=== PATIENT | female | born 1945 | race Caucasian/White ===

== ENCOUNTER 2017-12-10 18:08 | Inpatient (IN) | payer OTHER, BC ==
[2017-12-10] MEDS ORDERED: NALOXONE HCL 2 MG/2 ML VIAL ONE (18:31)
[2017-12-10] MEDS ORDERED: NA CHLORIDE 0.9% 1,000 ML ONE (18:37)
[2017-12-10 18:54] LABS: Arterial Blood Carboxyhemoglob 1.5 % (0-1.5); Blood Gas Oxyhemoglobin 93.6 % (94-97); Blood O2 Saturation 95.8 % (92-98.5)
[2017-12-10] MEDS ORDERED: NALOXONE 0.4 MG/ML VIAL ONE (18:56)
[2017-12-10 19:05] LABS: Absolute Lymphocytes (CBC) 0.7 K/uL (0.7-4.9); Absolute Monocytes 0.5 K/uL (0.1-1.3); Basophils % 0.4 % (0-1.3); Eosinophils % 0.8 % (0-4.4); Hematocrit 41.6 % (36.0-45.0); Lymphocytes % 5.2 % (15.3-44.8); MCH 29.8 pg (27.0-35.0); MPV 10.3 fL (7.6-11.3); Monocytes % 3.6 % (3.3-12.3); RBC Red Blood Cell Count 4.57 M/uL (3.86-4.86)
[2017-12-10 19:09] LABS: Protime INR 1.35
[2017-12-10 19:16] LABS: Albumin 3.1 g/dL (3.2-5.5); Potassium 4.1 mEq/L (3.6-5.0)
--- NOTE | 2017-12-10 19:20 | RAD REPORT ---
EXAM DESCRIPTION: CT - Head Brain Wo Cont - 12/10/2017 7:13 pm CLINICAL HISTORY: Fever, altered mental status, possible sepsis COMPARISON: January 2017 TECHNIQUE: Axial 5 mm thick images of the head were obtained without IV contrast. All CT scans are performed using dose optimization technique as appropriate and may include automated exposure control or mA/KV adjustment according to patient size. FINDINGS: No intracranial hemorrhage, mass, edema or shift of mid-line structures. No acute cortical based infarction. No cortical edema or sulcal effacement. Patient has moderate atrophy and chronic i schemic change matching the prior study. No abnormal extra-axial fluid collections. Ventricles are in proportion to volume loss. Arterial and physiologic calcifications are present. Mastoid air cells and visualized portions of the paranasal sinuses are clear. No acute bony findings. IMPRESSION: Atrophy and chronic ischemic change similar to comparison. No acute intracranial finding .
[2017-12-10 19:21] LABS: Bilirubin Direct 0.1 mg/dL (0-0.2); Bilirubin Total 0.7 mg/dL (0.3-1.2); Protein, Total 6.2 g/dL (6.0-8.3)
[2017-12-10 19:24] LABS: CKMB Creatine Kinase MB 1.3 ng/ml (0.3-4.0)
[2017-12-10] MEDS ORDERED: INSULIN -REGULAR HUMAN 50 UNIT/0.5 ML ML ONE (20:11)
[2017-12-10] MEDS ORDERED: NA CHLORIDE 0.9% 2,000 ML ONE (20:12)
[2017-12-10 20:49] LABS: Blood Morphology Comment NOT SEEN (NOT SEEN); Platelet Estimate DECR
[2017-12-10 21:03] LABS: Urine Blood 3+ (NEG); Urine Glucose 2+ (NEG); Urine Protein 2+ (NEG); Urine pH 5.5 (5.0-7.0)
[2017-12-10] MEDS ORDERED: GENTAMICIN SULF 80 MG/2ML INJ ONE (21:16)
[2017-12-10] MEDS ORDERED: GENTAMICIN 80 MG/100 ML BAG 80 MG/100 ML BAG IV ONE (21:16)
[2017-12-10 21:19] LABS: Urine Bacteria 20-50 /HPF (<20)
[2017-12-10 21:20] LABS: Urine Culture Reflex Order NOT NEEDED; Urine Yeast MANY (NONE SEEN)
--- NOTE | 2017-12-10 21:43 | ER ---
Nurse's Notes [facility] Name: Jennifer Mariee Age: 72 yrs Sex: Female : 1945 Arrival Date: 12/10/2017 Time: 18:08 Bed 7 Private MD: Diagnosis: Other sepsis;Urinary tract infection, site not specified;Altered mental status, unspecified Presentation: 12/10 18:09 Presenting complaint: EMS states: Called out for low 02 sat and fever at senior living. la1 PT 87% on room air, fever of 101.2, 1 gram of tylenol given service captain. Transition of care: patient was not received from another setting of care. Onset of symptoms was December 10, 2017. Initial Sepsis Screen: Does the patient meet any 2 criteria? Temp <36.0*C (96.8*F)) or > 38.3*C (100.4*F). Altered Mental Status. HR > 90 bpm. Initial Sepsis Screen: Does the patient have a suspected source of infection? Yes: Productive cough/pneumonia. Care prior to arrival: None. 18:09 Method Of Arrival: EMS: [facility] la1 18:09 Acuity: CHAZ 2 la1 18:18 Note pt baseline A+O x 4, currently oriented to name only. la1 Triage Assessment: 18:44 General: Appears comfortable, obese. Respiratory: Reports shortness of breath at rest ae1 Airway is patent Respiratory effort is even, unlabored, Respiratory pattern is regular, symmetrical, Onset: The symptoms/episode began/occurred gradually, the patient has moderate shortness of breath. Historical: - Allergies: 18:12 FLU VACCINE; la1 18:12 PENICILLINS; la1 18:12 Sulfa (Sulfonamide Antibiotics); la1 18:12 TRIMETHOPRIM; la1 - Home Meds: 18:47 acetaminophen-codeine 300-30 mg Oral tab 1 tab every 6 hours [Active]; albuterol ae1 sulfate 2.5 mg /3 mL (0.083 %) Inhl nebu 3 mL every 6 hours [Active]; Benadryl 25 mg Oral cap 1 cap 3 times per day [Active]; Coreg 6.25 mg Oral tab 1 tab 2 times per day [Active]; cyanocobalamin (vitamin B-12) 1,000 mcg Oral tab daily [Active]; Cymbalta 60 mg Oral cpDR 1 cap once daily [Active]; Detrol 2 mg Oral tab 1 tab 2 times per day [Active]; docusate sodium 100 mg Oral cap 1 cap 2 times per day [Active]; EpiPen 0.3 mg/0.3 mL injection atIn 0.3 mL [Active]; fentanyl 50 mcg/hr Topical pt72 1 patch every 72 hours [Active]; ferrous sulfate 325 mg (65 mg iron) Oral tab twice a day [Active]; Ludmila-Tussin 100 mg/5 mL Oral liqd three times a day [Active]; hydrocodone-acetaminophen 10-325 mg Oral tab 1 tab every 4 hours [Active]; - PMHx: 18:12 Cellulitis; COPD; Depression; Diverticulitis; DVT; Gout; Hypertension; Hypothyroidism; la1 MRSA; Myocardial infarction; Pneumonia; spinal stenosis; ulcerative colitis; - Immunization history:: Adult Immunizations up to date. - Social history:: Smoking status: unknown. Screenin:44 Abuse screen: Denies threats or abuse. Nutritional screening: No deficits noted. ae1 Tuberculosis screening: No symptoms or risk factors identified. Fall Risk Fall in past 12 months (25 points). Secondary diagnosis (15 points) impaired mobility, IV access (20 points). Ambulatory Aid- Crutches/Cane/Walker (15 pts). Gait- Weak (10 pts.). Mental Status- Overestimates/Forgets Limitations (15 pts.). Assessment: 18:34 General: Appears in no apparent distress. comfortable, obese, unkempt, Behavior is ae1 cooperative, drowsy, quiet. Pain: Denies pain. Neuro: Level of Consciousness is awake, obeys commands, lethargic, Oriented to person. Cardiovascular: Heart tones S1 S2 present Rhythm is regular. Respiratory: Airway is patent Respiratory effort is even, unlabored, Respiratory pattern is regular, symmetrical, Breath sounds are diminished bilaterally. GI: Abdomen is round obese. : No signs and/or symptoms were reported regarding the genitourinary system. EENT: Oral mucosa is dry. Derm: Wound noted medial aspect of right calf Wound is abrasion and skin tear, appears moist. Musculoskeletal: No signs and/or symptoms reported regarding the musculoskeletal system. 20:38 Derm: Decubitus located on bilateral buttock approximately Multiple decubitus noted to aa1 bilateral buttock and sacral region is stage III has denuded edges has erythematous edges. 20:40 Reassessment: Patient appears in no apparent distress at this time. Patient and/or mg2 family updated on plan of care and expected duration. Pain level reassessed. while changing PAtient's brief, stage 3 pressure ulcer noted in both gluteal area. provider notified. Neuro: Level of Consciousness is awake, listless, patient responds appropriately to verbal commands. . Respiratory: Respiratory effort is even, unlabored. Derm: Skin is pink, warm \T\ dry. 21:43 Reassessment: Patient appears in no apparent distress at this time. Patient and/or aa1 family updated on plan of care and expected duration. Pain level reassessed. Pt resting quietly. Awaiting bed assignment. 21:43 Neuro: Level of Consciousness is obeys commands, Easily arousable. Responds aa1 appropriately to verbal commands. Respiratory: Respiratory effort is even, unlabored, Respiratory pattern is regular, symmetrical. Derm: Skin is pink, warm \T\ dry. 22:39 Reassessment: Patient appears in no apparent distress at this time. No changes from mg2 previously documented assessment. Patient and/or family updated on plan of care and expected duration. Pain level reassessed. attempted to call report to 4th floor. nurse unavailable and will call back. 23:25 Reassessment: Patient appears in no apparent distress at this time. report given to RN sourav Frank on 4th floor. Vital Signs: 18:12 BP 90 / 60; Pulse 106; Resp 20; Temp 100.0(TE); Pulse Ox 88% on R/A; la1 18:18 Weight 110.22 kg; la1 18:53 BP 80 / 60; Pulse 73; Resp 13; Pulse Ox 93% on R/A; ae1 18:54 BP 80 / 62; Pulse 72; Resp 15 S; Pulse Ox 94% on 4 lpm NC; ae1 19:07 BP 120 / 67; Pulse 79; Resp 21; Pulse Ox 98% on 4 lpm NC; ae1 20:17 BP 115 / 55; Pulse 66; Resp 18; Pulse Ox 98% ; mg2 21:20 BP 95 / 57; Pulse 64; Resp 18; Pulse Ox 99% on 3 lpm NC; aa1 22:01 BP 115 / 60; Pulse 63; Resp 18; Temp 97.7; Pulse Ox 97% on 3 lpm NC; Pain 0/10; aa1 23:26 BP 97 / 52; Pulse 66; Resp 18; Temp 97.8; Pulse Ox 97% 3 lpm ; mg2 18:53 nasal cannula applied at 3 liters. ae1 ED Course: 18:08 Patient arrived in ED. la1 18:10 Triage completed. la1 18:13 Arm band placed on left wrist. la1 18:18 Jairon Birmingham PA is PHCP. cp 18:18 Valentin Baez MD is Attending Physician. cp 18:30 Initial lab(s) drawn, by me, sent to lab. First set of blood cultures drawn by me, EKG jb1 done, by ED staff, reviewed by Jairon STEWART. 18:33 Fidencio Calderon, RN is Primary Nurse. ae1 18:44 Placed in gown. Bed in low position. Call light in reach. Side rails up X2. Cardiac ae1 monitor on. Pulse ox on. NIBP on. Warm blanket given. 18:45 Second set of blood cultures drawn by me. jb1 18:49 Inserted saline lock: 22 gauge in right antecubital area, using aseptic technique. jb1 Blood collected. 19:[address] via stretcher. ae1 19:10 Kris Lewis MD is Attending Physician. cp 19:13 CT Head Brain wo Cont In Process Unspecified. EDMS 19:18 Primary Nurse role handed off by Fidencio Calderon, RN rg2 19:33 Chest Single View XRAY In Process Unspecified. EDMS 20:06 Olimpia Cantu, RN is Primary Nurse. aa1 20:20 IV discontinued, iv infiltrated with normal saline infusing. mg2 20:22 Inserted saline lock: 22 gauge in left hand, using aseptic technique. mg2 20:35 Fay cath inserted, using sterile technique, 16 Fr., by me, balloon inflated, to mg2 gravity drainage, urine specimen collected. returned bloody urine. Patient tolerated well. 20:40 Cleaned of incontinence. mg2 20:42 Urine Microscopic Only Sent. oe 20:42 Urine Culture Sent. oe 21:41 Felix Haque MD is Hospitalizing Provider. cp 12/11 00:02 No provider procedures requiring assistance completed. Patient admitted, IV remains in mg2 place. Administered Medications: 12/10 18:40 Drug: NS 0.9% 1000 ml Route: IV; Rate: 1 bolus; Site: right antecubital; ae1 20:39 Follow up: IV Status: Completed infusion; IV Intake: 1000ml mg2 23:51 Follow up: IV Status: Completed infusion; IV Intake: 1000ml mg2 19:00 Drug: NARcan 0.4 mg Route: IVP; Site: right antecubital; la1 20:00 Follow up: Response: No adverse reaction; Other; Other. O2 sats improved mg2 20:39 Follow up: Response: No adverse reaction; No change in condition mg2 20:23 Drug: NS 0.9% (30 ml/kg) 30 ml/kg Route: IV; Rate: bolus; Site: left hand; mg2 23:51 Follow up: IV Status: Infusion continued upon admission mg2 20:23 Drug: Insulin Regular Human 10 units {Co-Signature: aa1 (Olimpia Cantu RN).} Route: IVP; mg2 Site: left hand; 21:23 Follow up: Response: Blood sugar is lowered mg2 21:30 Follow up: Response: No adverse reaction; Blood sugar is lowered aa1 21:20 Drug: Gentamicin 1 mg/kg Route: IVPB; Infused Over: 30 mins; Site: left hand; aa1 23:48 Follow up: Response: No adverse reaction; IV Status: Completed infusion mg2 Point of Care Testing: Blood Glucose: 18:43 Blood Glucose: 328 mg/dL; ae1 21:20 Blood Glucose: 243 mg/dL; aa1 Ranges: Intake: 20:39 IV: 1000ml; Total: 1000ml. mg2 23:51 IV: 1000ml; Total: 2000ml. mg2 Outcome: 21:42 Decision to Hospitalize by Provider. cp 12/11 00:02 Admitted to Tele accompanied by tech, via stretcher, room 430, with oxygen, with chart, mg2 Report called to Zac Condition: stable Instructed on the need for admit, Demonstrated understanding of instructions. 00:04 Patient left the ED. mg2 Signatures: Dispatcher [employer] EDRalf Toscano1 Isaiah Diaz rg2 Olimpia Cantu RN RN aa1 Iftikhar Poe RN RN la1 Jairon Birmingham PA PA cp Elliott, Andrea RN RN ae1 Osito Lovett Michele, RN RN mg2 Olimpia Cantu RN aa1 Corrections: (The following items were deleted from the chart) 12/10 20:44 20:20 Inserted saline lock: 22 gauge in left hand, using aseptic technique. mg2 mg2
--- NOTE | 2017-12-10 21:43 | EDPHYS ---
Physician Documentation [facility] Name: Jennifer Mariee Age: 72 yrs Sex: Female : 1945 Arrival Date: 12/10/2017 Time: 18:08 Bed 7 Private MD: ED Physician Kris Lewis HPI: 12/10 18:45 This 72 yrs old Female presents to ER via EMS with complaints of Fever, cp Shortness Of Breath. 18:45 The patient reports fever, that was measured at 101.2 degrees Fahrenheit. cp 18:45 Onset: The symptoms/episode began/occurred today. Associated signs and symptoms: cp Pertinent positives: cough, shortness of breath, altered mental status. Patient resident of [facility]. Last normal unknown. Historical: - Allergies: 18:12 FLU VACCINE; la1 18:12 PENICILLINS; la1 18:12 Sulfa (Sulfonamide Antibiotics); la1 18:12 TRIMETHOPRIM; la1 - Home Meds: 18:47 acetaminophen-codeine 300-30 mg Oral tab 1 tab every 6 hours [Active]; albuterol ae1 sulfate 2.5 mg /3 mL (0.083 %) Inhl nebu 3 mL every 6 hours [Active]; Benadryl 25 mg Oral cap 1 cap 3 times per day [Active]; Coreg 6.25 mg Oral tab 1 tab 2 times per day [Active]; cyanocobalamin (vitamin B-12) 1,000 mcg Oral tab daily [Active]; Cymbalta 60 mg Oral cpDR 1 cap once daily [Active]; Detrol 2 mg Oral tab 1 tab 2 times per day [Active]; docusate sodium 100 mg Oral cap 1 cap 2 times per day [Active]; EpiPen 0.3 mg/0.3 mL injection atIn 0.3 mL [Active]; fentanyl 50 mcg/hr Topical pt72 1 patch every 72 hours [Active]; ferrous sulfate 325 mg (65 mg iron) Oral tab twice a day [Active]; Ludmila-Tussin 100 mg/5 mL Oral liqd three times a day [Active]; hydrocodone-acetaminophen 10-325 mg Oral tab 1 tab every 4 hours [Active]; - PMHx: 18:12 Cellulitis; COPD; Depression; Diverticulitis; DVT; Gout; Hypertension; Hypothyroidism; la1 MRSA; Myocardial infarction; Pneumonia; spinal stenosis; ulcerative colitis; - Immunization history:: Adult Immunizations up to date. - Social history:: Smoking status: unknown. ROS: 18:50 Constitutional: Positive for fever, poor PO intake. cp 18:50 Eyes: Negative for injury, pain, redness, and discharge. cp 18:50 ENT: Negative for drainage from ear(s), difficulty swallowing, difficulty handling secretions. 18:50 Respiratory: Positive for cough. 18:50 Neuro: Positive for altered mental status. 18:50 Unable to obtain ROS due to altered mental status. Exam: 18:45 ECG was reviewed by the Attending Physician. cp 19:00 Constitutional: The patient appears non-diaphoretic, well developed, well nourished, cp obese, appears ill 19:00 Head/Face: Normocephalic, atraumatic. cp 19:00 Eyes: Periorbital structures: appear normal, Pupils: equal, round, and reactive to light and accomodation, Conjunctiva: normal, no exudate, no injection, Sclera: no appreciated abnormality, Lids and lashes: appear normal, bilaterally. 19:00 ENT: External ear(s): are unremarkable, Ear canal(s): are normal, clear, TM's: bulging, is not appreciated, bilaterally, dullness, bilaterally, erythema, is not appreciated, bilaterally, Nose: is normal, Mouth: Lips: dry, Oral mucosa: dry, Posterior pharynx: Airway: no evidence of obstruction, patent, swelling, is not appreciated, erythema, is not appreciated, exudate, is not appreciated. 19:00 Neck: External neck: is normal, ROM/movement: is normal, is supple, without pain, no range of motions limitations, no meningismus, no nuchal rigidity. 19:00 Chest/axilla: Inspection: normal, Palpation: is normal, no crepitus, no tenderness. 19:00 Cardiovascular: Rate: tachycardic, Rhythm: regular, Edema: is not appreciated, JVD: is not appreciated. 19:00 Respiratory: the patient does not display signs of respiratory distress, Respirations: labored breathing, is not present, shallow respirations, that is mild, splinting, is not noted, tachypnea, is not appreciated, Breath sounds: decreased breath sounds, that are moderate, throughout, stridor, is not appreciated, wheezing: is not appreciated. 19:00 Abdomen/GI: Inspection: obese Bowel sounds: active, all quadrants, Palpation: soft, in all quadrants, mild abdominal tenderness, in all quadrants, rebound tenderness, is not appreciated, voluntary guarding, is not appreciated, involuntary guarding, is not appreciated. 19:00 Skin: cellulitis, is not appreciated, no rash present. 19:00 Neuro: Orientation: to person, Mentation: sleepy, responsive to voice. Vital Signs: 18:12 BP 90 / 60; Pulse 106; Resp 20; Temp 100.0(TE); Pulse Ox 88% on R/A; la1 18:18 Weight 110.22 kg; la1 18:53 BP 80 / 60; Pulse 73; Resp 13; Pulse Ox 93% on R/A; ae1 18:54 BP 80 / 62; Pulse 72; Resp 15 S; Pulse Ox 94% on 4 lpm NC; ae1 19:07 BP 120 / 67; Pulse 79; Resp 21; Pulse Ox 98% on 4 lpm NC; ae1 20:17 BP 115 / 55; Pulse 66; Resp 18; Pulse Ox 98% ; mg2 21:20 BP 95 / 57; Pulse 64; Resp 18; Pulse Ox 99% on 3 lpm NC; aa1 22:01 BP 115 / 60; Pulse 63; Resp 18; Temp 97.7; Pulse Ox 97% on 3 lpm NC; Pain 0/10; aa1 23:26 BP 97 / 52; Pulse 66; Resp 18; Temp 97.8; Pulse Ox 97% 3 lpm ; mg2 18:53 nasal cannula applied at 3 liters. ae1 MDM: 18:18 Patient medically screened. cp 19:00 Differential diagnosis: bronchitis, pneumonia UTI, gastroenteritis, meningitis, sepsis, cp UTI. 21:10 Data reviewed: vital signs, nurses notes, lab test result(s), EKG, radiologic studies, cp CT scan, plain films, and as a result, I will admit patient. 21:10 Physician consultation: Felix Haque MD was contacted at 21:10, regarding admission, cp to the medical/surgical unit. patient's condition. 12/10 18:35 Order name: Urine Culture cp 12/10 18:35 Order name: ABG; Complete Time: 19:41 cp 12/10 19:42 Interpretation: Normal except: ABGPCO2 45.8; ABGHCO3 29.4; ICIL0DY 93.6. cp 12/10 18:35 Order name: Urine Microscopic Only; Complete Time: 21:21 cp 12/10 21:21 Interpretation: Normal except: UWBC 20-50; URBC 10-20; UBACT 20-50. cp 12/10 18:35 Order name: Amylase, Serum; Complete Time: 19:41 cp 12/10 18:35 Order name: Basic Metabolic Panel; Complete Time: 19:41 cp 12/10 19:42 Interpretation: Normal except: NA 133; CL 95; BUN 26; CRE 1.06; GFR 51. cp 12/10 18:35 Order name: Blood Culture Adult (2) cp 12/10 18:35 Order name: BNP; Complete Time: 19:41 cp 12/10 18:35 Order name: CBC with Diff; Complete Time: 21:05 cp 12/10 21:05 Interpretation: Normal except: WBC 13.3; PLT 143; RDW 15.7; MPV 10.3; MARIAELENA% 90.0; LYM% cp 5.2; NEUT A 12.0. 12/10 18:35 Order name: Ckmb; Complete Time: 19:41 cp 12/10 18:35 Order name: CPK; Complete Time: 19:41 cp 12/10 18:35 Order name: Lactate; Complete Time: 19:41 cp 12/10 18:35 Order name: LFT's; Complete Time: 19:41 cp 12/10 18:35 Order name: Lipase; Complete Time: 19:41 cp 12/10 18:35 Order name: Procalcitonin; Complete Time: 19:41 cp 12/10 18:35 Order name: Protime (+inr); Complete Time: 19:41 cp 12/10 18:35 Order name: Ptt, Activated; Complete Time: 19:41 cp 12/10 18:35 Order name: Sed Rate; Complete Time: 21:05 cp 12/10 18:35 Order name: Troponin (emerg Dept Use Only); Complete Time: 19:41 cp 12/10 18:35 Order name: Chest Single View XRAY; Complete Time: 00:04 cp 12/10 18:36 Order name: AMMONIA; Complete Time: 19:41 cp 12/10 18:36 Order name: Influenza Screen (a \T\ B); Complete Time: 20:47 cp 12/10 19:42 Order name: Glucose, Ancillary Testing; Complete Time: 20:47 EDFL 12/10 20:43 Order name: Urine Dipstick--Ancillary (enter results); Complete Time: 21:05 oe 12/10 20:48 Order name: Manual Differential; Complete Time: 21:05 EDMS 12/10 21:05 Interpretation: Normal except: SEGS 81; BANDS [F] 5; LYM 10; META 1. cp 12/10 21:29 Order name: Glucose, Ancillary Testing; Complete Time: 00:04 EDMS 12/10 22:03 Order name: CBC with Automated Diff EDFL 12/10 22:03 Order name: CBC with Automated Diff EDFL 12/10 22:03 Order name: Comprehensive Metabolic Panel EDFL 12/10 22:03 Order name: Comprehensive Metabolic Panel [facility] 12/10 23:26 Order name: Lactate Sepsis 2 HR Follow-up; Complete Time: 00:04 [facility] 12/10 18:35 Order name: Accucheck; Complete Time: 18:43 cp 12/10 18:35 Order name: Cardiac monitoring; Complete Time: 18:40 cp 12/10 18:35 Order name: EKG - Nurse/Tech; Complete Time: 18:41 cp 12/10 18:35 Order name: IV Saline Lock - Large Bore; Complete Time: 18:41 12/10 18:35 Order name: Labs collected and sent; Complete Time: 18:41 12/10 18:35 Order name: O2 Per Protocol; Complete Time: 18:50 12/10 18:35 Order name: O2 Sat Monitoring; Complete Time: 18:50 12/10 18:35 Order name: Urine Dipstick-Ancillary (obtain specimen); Complete Time: 20:42 cp 12/10 18:36 Order name: CT Head Brain wo Cont; Complete Time: 19:41 cp 12/10 19:46 Order name: Fay; Complete Time: 20:40 12/10 22:03 Order name: CONS Pharmacy Consult EDFL 12/10 22:03 Order name: NPO EDMS EC:45 Rate is 77 beats/min. Rhythm is regular. QRS interval is prolonged at 156 msec. QT cp interval is normal. T waves are Inverted in leads V1, V2. No ST changes noted. Interpreted by me. Reviewed by me. Administered Medications: 18:40 Drug: NS 0.9% 1000 ml Route: IV; Rate: 1 bolus; Site: right antecubital; ae1 20:39 Follow up: IV Status: Completed infusion; IV Intake: 1000ml mg2 23:51 Follow up: IV Status: Completed infusion; IV Intake: 1000ml mg2 19:00 Drug: NARcan 0.4 mg Route: IVP; Site: right antecubital; la1 20:00 Follow up: Response: No adverse reaction; Other; Other. O2 sats improved mg2 20:39 Follow up: Response: No adverse reaction; No change in condition mg2 20:23 Drug: NS 0.9% (30 ml/kg) 30 ml/kg Route: IV; Rate: bolus; Site: left hand; mg2 23:51 Follow up: IV Status: Infusion continued upon admission mg2 20:23 Drug: Insulin Regular Human 10 units {Co-Signature: aa1 (Olimpia Cantu RN).} Route: IVP; mg2 Site: left hand; 21:23 Follow up: Response: Blood sugar is lowered mg2 21:30 Follow up: Response: No adverse reaction; Blood sugar is lowered aa1 21:20 Drug: Gentamicin 1 mg/kg Route: IVPB; Infused Over: 30 mins; Site: left hand; aa1 23:48 Follow up: Response: No adverse reaction; IV Status: Completed infusion mg2 Point of Care Testing: Blood Glucose: 18:43 Blood Glucose: 328 mg/dL; ae1 21:20 Blood Glucose: 243 mg/dL; aa1 Ranges: Critical Glucose Levels:Adult <50 mg/dl or >400 mg/dl <40 mg/dl or >180 mg/dl Disposition: 12/10/17 21:42 Hospitalization ordered by Felix Haque for Inpatient Admission. Preliminary diagnosis are Other sepsis, Urinary tract infection, site not specified, Altered mental status, unspecified. - Bed requested for Telemetry/MedSurg (Inpatient). - Status is Inpatient Admission. mg2 - Condition is Stable. - Problem is new. - Symptoms have improved. UTI on Admission? Yes Addendum: 12/15/2017 06:41 Co-signature as Attending Physician, Kris Lewis MD Available for consultation at p s1 all times. . Signatures: Dispatcher [employer] Olimpia Hanks RN RN aa1 Iftikhar Poe RN RN la1 Jairon Birmingham PA PA cp Elliott, Andrea, RN RN ae1 Kris Lewis MD MD ps1 Davis Ratliff RN RN mg2 Olimpia Cantu RN aa1
[2017-12-10] MEDS ORDERED: MORPHINE 2 MG/ML SYR IV PRN (22:01)
[2017-12-10] MEDS ORDERED: ACETAMINOPHEN 500 MG TAB PO PRN (22:01)
[2017-12-10] MEDS ORDERED: ONDANSETRON 4 MG/2 ML VIAL IV PRN (22:01)
--- NOTE | 2017-12-10 22:52 | RAD REPORT ---
EXAM DESCRIPTION: RAD - Chest Single View - 12/10/2017 7:32 pm CLINICAL HISTORY: Fever, decreased O2 saturation COMPARISON: August 26 TECHNIQUE: AP portable chest image was obtained 1914 hours . FINDINGS: Lung volumes are low. Interstitial markings are prominent but unchanged. Widened mediastin um is the affects of shallow inspiration, supine portable imaging and rotation. Heart size is promine nt but stable. Trachea is midline. No measurable pleural effusion and no pneumothorax. No gross bony abnormality seen. No acute aortic findings suspected. IMPRESSION: Portable study has significant limitations but no clear change has occurred since Tay potts
[2017-12-10] MEDS: NA CHLORIDE 0.9% 1,000 ML IV SCH (23:00)
[2017-12-11 00:09] VITALS: BMI 44.0
[2017-12-11] MEDS: NA CHLORIDE 0.9% 1,000 ML IV SCH ×3 (01:13→19:00)
[2017-12-11 05:17] LABS: Absolute Lymphocytes (CBC) 1.5 K/uL (0.7-4.9); Absolute Monocytes 0.5 K/uL (0.1-1.3); Absolute Neutrophil 7.4 K/uL (1.8-8.0); Basophils % 0.3 % (0-1.3); Eosinophils % 0.1 % (0-4.4); Hematocrit 37.4 % (36.0-45.0); Lymphocytes % 16.3 % (15.3-44.8); MCH 29.4 pg (27.0-35.0); MCV 91.6 fL (80-100); MPV 10.2 fL (7.6-11.3); Monocytes % 5.4 % (3.3-12.3); RBC Red Blood Cell Count 4.08 M/uL (3.86-4.86)
[2017-12-11 05:43] LABS: Albumin 2.6 g/dL (3.2-5.5); Bilirubin Total 0.6 mg/dL (0.3-1.2); Potassium 3.8 mEq/L (3.6-5.0); Protein, Total 5.4 g/dL (6.0-8.3)
[2017-12-11] MEDS ORDERED: HYDROCODONE/APAP 10/325 TAB PO PRN (06:50)
[2017-12-11] MEDS ORDERED: ALBUTEROL 2.5 MG/3 ML NEB SOL NEB PRN (06:50)
[2017-12-11] MEDS: CARVEDILOL 25 MG TAB PO SCH ×2 (07:00→19:00)
[2017-12-11] MEDS: PREGABALIN 75 MG CAP PO SCH ×2 (07:00→19:00)
[2017-12-11] MEDS: DOCUSATE NA 100 MG CAP PO SCH ×2 (07:00→19:00)
[2017-12-11] MEDS ORDERED: Morphine 2 MG/2 ML SYR IV PRN (07:17)
[2017-12-11] MEDS ORDERED: TEMAZEPAM 15 MG CAP PO PRN (07:21)
[2017-12-11] MEDS ORDERED: hydrOXYzine HCl 25 MG TAB PO PRN (08:00)
--- NOTE | 2017-12-11 08:08 | P.HP ---
Certification for Inpatient Patient admitted to: Inpatient With expected LOS: >2 Midnights Patient will require the following post-hospital care: None Practitioner: I am a practitioner with admitting privileges, knowledge of patient current condition, hospital course, and medical plan of care. Services: Services provided to patient in accordance with Admission requirements found in Title 42 Section 412.3 of the Code of Federal Regulations Patient History Date of Service: 12/10/17 Reason for admission: sepsis/ UTI/ dental abscess History of Present Illness: Patient is a 72-year-old female came into the hospital with fever hypertension and shortness of breath. Patient has been doing poorly for the last week. Her clinical condition continues to deteriorate. Patient has had a toothache for the last week and a half. Patient's left side of her face is swollen. Patient came into the ER for further evaluation. In the emergency room, patient was found have a urinary tract infection. Patient was started on IVFs and IV antibiotics. Patient will get a CT of the face for further evaluation. Allergies Penicillins Allergy (Mild, Verified 06/04/15 18:46) Rash sulfamethoxazole [From Bactrim] Allergy (Mild, Verified 06/04/15 18:46) Rash trimethoprim [From Bactrim] Allergy (Mild, Verified 06/04/15 18:46) Rash meropenem Allergy (Verified 12/11/17 05:08) Anaphylaxis Sulfa (Sulfonamide Antibiotics) Allergy (Verified 06/04/15 18:46) Unknown Flu vaccine Allergy (Severe, Uncoded 02/11/15 22:43) Shortness of breath Bactrim DS Allergy ([facility], Uncoded 02/11/15 22:44) Rash Sulfa (Sulfonamide Antib Allergy (Uncoded 05/01/15 13:24) Unknown Home Medications: Levothyroxine Sodium [Levoxyl] 125 mcg PO DAILY 07/26/15 Rivaroxaban [Xarelto*] 10 mg PO DAILY 07/26/15 Docusate Sodium [Dulcolax Stool Softener] 100 mg PO Q12H 09/10/15 Duloxetine HCl [Cymbalta] 1 cap PO DAILY 09/10/15 Ferrous Sulfate 325 mg PO BID 01/30/16 Temazepam [Restoril] 30 mg PO BEDTIME PRN PRN 01/30/16 Acetaminophen with Codeine [Acetaminophen-Cod #3 Tablet] 1 each PO Q6H PRN 11/18 Ipratropium/Albuterol Sulfate [Iprat-Albut 0.5-3(2.5) mg/3 ml] 3 ml IH Q4HP PRN 11/18/16 Fentanyl Patch [Duragesic Patch*] 50 mcg TD EVERY 3RD DAY #10 02/04/17 Hydrocodone 10/APAP 325 [[place] 10/325*] 1 tab PO Q4HP PRN #20 tab 02/04/17 Hydroxyzine HCl [Atarax] 25 mg PO Q8HP PRN 05/29/17 Omeprazole 20 mg PO BID 05/29/17 Polyethylene Glycol 3350 [Miralax] 17 gm PO DAILY 05/29/17 Pregabalin [Lyrica*] 75 mg PO Q12H 05/29/17 Albuterol Neb [Proventil 0.083% Neb Soln] 1 vial IH Q6HP PRN 08/26/17 Cyanocobalamin (Vitamin B-12) [B-12] 1,000 mcg PO DAILY 08/26/17 Epinephrine [Epipen] 1 syr IJ ONCE PRN 08/26/17 Amlodipine Besylate [Amlodipine Besylate] 5 mg PO DAILY 12/11/17 Amoxicillin/Potassium Clav [Amox-Clav 875-125 mg Tablet] 1 each PO Q12H Arformoterol Tartrate [Brovana] 1 vial IH Q12H 12/11/17 Carvedilol [Carvedilol] 25 mg PO Q12H 12/11/17 Furosemide [Lasix*] 20 mg PO DAILY 12/11/17 Guaifenesin [Guaifenesin ER] 600 mg PO DAILY 12/11/17 L. Acidophilus/Pectin, [place] [Acidophilus Capsule] 1 each PO BID 12/11/17 Loperamide HCl [Imodium A-D] 2 mg PO Q6H PRN 12/11/17 Nystatin Powder [Mycostatin (Powder)] 1 appl TP BID 12/11/17 Oxybutynin Chloride [Oxybutynin Chloride ER] 10 mg PO Q12H 12/11/17 Pantoprazole Sodium [Pantoprazole Sodium] 40 mg PO DAILY 12/11/17 Prednisone [Prednisone] 20 mg PO DAILY 12/11/17 - Past Medical/Surgical History Has patient received pneumonia vaccine in the past: Yes Diabetic: No -: Coronary artery disease. -: Congestive heart failure -: Spinal Stenosis -: Neuropathy -: HTN -: Hypothyroid -: COPD -: [place] syndrome -: History of DVT rt leg -: cellulitis bilat legs required residential antibiotics -: Hyperlipidemia -: Hyperlipidemia, cholecystecomy, hysterectomy -: Cholecystectomy, 1989 -: Hysterectomy, 1964 -: gland removed from throat, -: cataract Surgery, 1999 -: Three heart stents (2 in 2011) -: Tonsillectomy -: Appendectomy Psychosocial/ Personal History: [facility] - Family History Brother Medical History: Heart disease, Hypertension Father Medical History: Heart disease, Hypertension Notes: heart attack - Social History Smoking Status: Former smoker Alcohol use: No CD- Drugs: No Caffeine use: Yes Place of Residence: [facility] Review of Systems 10-point ROS is otherwise unremarkable Physical Examination - Vital Signs Temperature: 96.8 F Blood Pressure: 129/63 Pulse: 64 Respirations: 16 Pulse Ox (%): 96 - Physical Exam General: Alert, In no apparent distress, Oriented x3 HEENT: Atraumatic, Normocephalic, Other (tenderness of the cheek on the left) Neck: Supple, 2+ carotid pulse no bruit, JVD not distended, No Thyromegaly, No LAD Respiratory: Clear to auscultation bilaterally, Normal air movement Cardiovascular: Regular rate/rhythm, Normal S1 S2, No murmurs Gastrointestinal: Normal bowel sounds, Soft and benign, Non-distended, No tenderness, No rebound, No guarding Musculoskeletal: No clubbing, No swelling Integumentary: No rashes Neurological: Normal speech, Normal tone, Sensation intact, Cranial nerves 3-12 intact, Abnormal gait, Abnormal strength - Studies Laboratory Data (last 24 hrs) 12/10/17 18:45: PT 16.0 H, INR 1.35, APTT 22.2 L 12/10/17 18:45: WBC 13.3 H D, Hgb 13.6, Hct 41.6, Plt Count 143 L D 12/10/17 18:45: B-Natriuretic Peptide 178 H 12/10/17 18:45: Sodium 133 L, Potassium 4.1, BUN 26 H, Creatinine 1.06 H, Glucose 400 H, Total Bilirubin 0.7, AST 28, ALT 24, Alkaline Phosphatase 57, Amylase 35, Lipase 12 L Microbiology Data (last 24 hrs): 12/10/17 19:36 Nasopharnyx Influenza Type A Antigen Screen - Final 12/10/17 19:36 Nasopharnyx Influenza Type B Antigen Screen - Final Assessment & Plan - Problems (Diagnosis) (1) Dental abscess Current Visit: Yes Status: Acute (2) COPD (chronic obstructive pulmonary disease) Onset Date: 04/20/17 Current Visit: No Status: Acute Qualifiers: COPD type: COPD with acute exacerbation Qualified Code(s): J44.1 - Chronic obstructive pulmonary disease with (acute) exacerbation (3) UTI (urinary tract infection) Onset Date: 05/31/17 Current Visit: No Status: Acute (4) CAD (coronary artery disease) Onset Date: 04/20/17 Current Visit: No Status: Chronic Qualifiers: Coronary Disease-Associated Artery/Lesion type: [place] artery [place] vs. 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 Onset Date: 04/20/17 Current Visit: No Status: Chronic (7) Chronic steroid use Current Visit: No Status: Chronic (8) History of DVT (deep vein thrombosis) Onset Date: 04/20/17 Current Visit: No Status: Chronic (9) Hypothyroidism Onset Date: 04/20/17 Current Visit: No Status: Chronic Qualifiers: Hypothyroidism type: acquired Qualified Code(s): E03.9 - Hypothyroidism, unspecified (10) Lymphedema Current Visit: No Status: Chronic (11) Obesity Onset Date: 05/31/17 Current Visit: No Status: Chronic Qualifiers: Obesity type: due to excess calories Obesity classification: adult class 3 (BMI >= 40) Serious obesity comorbidity presence: with serious comorbidity Body mass index: BMI 40.0-44.9 Qualified Code(s): E66.09 - Other obesity due to excess calories; Z68.41 - Body mass index (BMI) 40.0-44.9, adult; Z68.41 - Body mass index (BMI) 40.0-44.9, adult; Z68.41 - Body mass index (BMI) 40.0-44.9 , adult; Z68.41 - Body mass index (BMI) 40.0-44.9, adult (12) Rheumatoid arthritis RA Onset Date: 04/20/17 Current Visit: No Status: Chronic - Plan plan: 1. Continue with IV antibiotics 2. IV hydration 3. Facial CT 4. Continue home medications including oral prednisone 5. pain control 6. Monitor labs and electrolytes 7. Nebs as needed 8. Strict blood pressure and blood sugar control 9. GI and DVT prophylaxis Discharge Plan: Home Plan to discharge in: Greater than 2 days - Advance Directives Does patient have a Living Will: No Does patient have a Durable POA for Healthcare: No - Code Status/Comfort Care Code Status Assessed: Yes Code Status: Full Code Critical Care: No Time Spent Managing PTS Care (In Minutes): 50
[2017-12-11] MEDS ORDERED: GLUCAGON 1 MG/VIAL IM PRN (08:34)
[2017-12-11] MEDS ORDERED: D50W 25 GM/50 ML SYRINGE IV PRN (08:34)
[2017-12-11] MEDS: ARFORMOTEROL TARTRATE 15 MCG/2 ML VIAL.NEB NEB SCH ×2 (08:47→20:00)
[2017-12-11] MEDS ORDERED: HOME MED 1 EA UNK (Omeprazole [Omeprazole] 20 MG) PO SCH (09:00)
[2017-12-11] MEDS: AMLODIPINE 5 MG TAB PO SCH (09:00)
[2017-12-11] MEDS ORDERED: FENTANYL 50 MCG/PATCH TD SCH (09:00)
[2017-12-11] MEDS: CYANOCOBALAMIN 1,000 MCG TAB PO SCH (09:00)
[2017-12-11] MEDS: OXYBUTYNIN CHLORIDE 5 MG TAB PO SCH ×2 (09:00→21:00)
[2017-12-11] MEDS: POLYETHYL GLY 3350 17 GM/DOSE PO SCH (09:00)
[2017-12-11] MEDS ORDERED: RIVAROXABAN 15 MG TABLET PO SCH (09:00)
[2017-12-11] MEDS: predniSONE 20 MG TAB PO SCH (09:00)
[2017-12-11] MEDS: FERROUS SULFATE 325 MG TAB PO SCH ×2 (09:00→21:00)
[2017-12-11] MEDS: GUAIFENESIN 600 MG SA TAB PO SCH (09:00)
[2017-12-11] MEDS: PANTOPRAZOLE 40MG TABLET PO SCH (09:00)
[2017-12-11] MEDS ORDERED: CEFTRIAXONE 1 GM/NS 50 ML 1 GM/50 ML BAG IV SCH (09:00)
[2017-12-11] MEDS: FUROSEMIDE 20 MG TABLET PO SCH (09:00)
[2017-12-11] MEDS: DULOXETINE 30 MG CAP PO SCH (09:00)
[2017-12-11] MEDS ORDERED: CEFTRIAXONE/SWI 1gm 1 GM/10 ML SYR IV SCH (10:00)
[2017-12-11] MEDS: NYSTATIN PWDR 100000 UNIT/GM TOP SCH ×2 (10:09→22:00)
[2017-12-11] MEDS ORDERED: CLINDAMYCIN PHOSPHATE 900 MG in NA CHLORIDE 0.9% 50 ML IV SCH (11:00)
[2017-12-11] MEDS: INSULIN -REGULAR HUMAN 50 UNIT/0.5 ML ML SQ SCH ×3 (11:30→21:00)
--- NOTE | 2017-12-11 11:41 | RAD REPORT ---
EXAM DESCRIPTION: CT - Facial Bones W Con Mpr - 12/11/2017 9:22 am CLINICAL HISTORY: Facial pain and swelling. Evaluate for dental abscess. COMPARISON: None. FINDINGS: The patient has no maxillary teeth. The patient has 6 mandibular teeth including both cent ral incisors, lateral incisors and bicuspid cysts. The left lateral incisor and bicuspid demonstrate large crown erosions. There is adjacent soft tissue swelling present in the anterior soft tissues adj acent to these teeth. A localized abscess is not seen, however. Similarly, no significant periapical lucency identified. No soft tissue mass or hematoma. The paranasal sinuses and mastoids appear clear. Both internal carotid arteries are noted to take a r etropharyngeal course. Focal nodularity is seen along the posterior aspect of the pharynx measuring 6 x 5 mm at the level of the epiglottis. IMPRESSION: Large crown erosions involving the left lateral incisor and bicuspid without abscess. Focal nodularity along the posterior pharynx at the level of the epiglottis (6 x 5 mm). Direct visual ization may be of value to exclude a neoplastic lesion.
--- NOTE | 2017-12-11 12:18 | P.PN ---
Subjective Date of Service: 12/11/17 Chief Complaint: sepsis/ UTI/ dental abscess Pt seen and examined at bedside with RN. Chart reviewed. Pt currently has no c/ o overnight. States she feels much better then before. Review of Systems General: As per HPI Physical Examination - Vital Signs Temperature: 97.4 F Blood Pressure: 135/60 Pulse: 59 Respirations: 16 Pulse Ox (%): 99 - Physical Exam General: Alert, In no apparent distress, Obese HEENT: Atraumatic Neck: Supple, JVD not distended Respiratory: Clear to auscultation bilaterally, Normal air movement Cardiovascular: Regular rate/rhythm, Normal S1 S2 Gastrointestinal: Normal bowel sounds, No tenderness Musculoskeletal: No tenderness Integumentary: No rashes Neurological: Normal speech, Normal tone, Normal affect Lymphatics: No axilla or inguinal lymphadenopathy - Studies Laboratory Data (last 24 hrs) 12/10/17 18:45: PT 16.0 H, INR 1.35, APTT 22.2 L 12/10/17 18:45: WBC 13.3 H D, Hgb 13.6, Hct 41.6, Plt Count 143 L D 12/10/17 18:45: B-Natriuretic Peptide 178 H 12/10/17 18:45: Sodium 133 L, Potassium 4.1, BUN 26 H, Creatinine 1.06 H, Glucose 400 H, Total Bilirubin 0.7, AST 28, ALT 24, Alkaline Phosphatase 57, Amylase 35, Lipase 12 L Microbiology Data (last 24 hrs): 12/10/17 19:36 Nasopharnyx Influenza Type A Antigen Screen - Final 12/10/17 19:36 Nasopharnyx Influenza Type B Antigen Screen - Final Medications List Reviewed: Yes Assessment & Plan - Problems (Diagnosis) (1) Dental abscess Current Visit: Yes Status: Acute Plan: Dental abscess with pain on the left -Facial CT consistent with Large crown erosions involving the left lateral incisor and bicuspid without abscess. -Will consult OMF if vision specialist here in the hospital. - IV abx and pain mgmt (2) UTI (urinary tract infection) Onset Date: 11/19/16 Current Visit: No Status: Acute Plan: UA with UTI -Urine Culture pending -Currently on Clindamycin -Will consider starting meropenum once culture results. Qualifiers: Urinary tract infection type: catheter-associated UTI Indwelling urinary catheter type: indwelling urethral catheter Encounter type: subsequent encounter Qualified Code(s): T83.511D - Infection and inflammatory reaction due to indwelling urethral catheter, subsequent encounter; N39.0 - Urinary tract infection, site not specified; N39.0 - Urinary tract infection, site not specified (3) CAD (coronary artery disease) Onset Date: 04/20/17 Current Visit: No Status: Chronic Qualifiers: Coronary Disease-Associated Artery/Lesion type: [place] artery [place] vs. transplanted heart: [place] heart Associated angina: with stable angina Qualified Code(s): I25.118 - Atherosclerotic heart disease of [place] coronary artery with other forms of angina pectoris (4) CHF (congestive heart failure) Onset Date: 04/20/17 Current Visit: No Status: Chronic (5) Chronic inflammatory demyelinating polyneuritis Onset Date: 04/20/17 Current Visit: No Status: Chronic (6) Chronic renal failure Onset Date: 04/20/17 Current Visit: No Status: Chronic Qualifiers: Chronic kidney disease stage: stage 3 (moderate) Qualified Code(s): N18.3 - Chronic kidney disease, stage 3 (moderate) (7) Chronic steroid use Current Visit: No Status: Chronic (8) History of DVT (deep vein thrombosis) Onset Date: 04/20/17 Current Visit: No Status: Chronic (9) Hypothyroidism Onset Date: 04/20/17 Current Visit: No Status: Chronic Qualifiers: Hypothyroidism type: acquired Qualified Code(s): E03.9 - Hypothyroidism, unspecified (10) Obesity Onset Date: 05/31/17 Current Visit: No Status: Chronic Qualifiers: Obesity type: due to excess calories Obesity classification: adult class 3 (BMI >= 40) Serious obesity comorbidity presence: with serious comorbidity Body mass index: BMI 40.0-44.9 Qualified Code(s): E66.01 - Morbid (severe) obesity due to excess calories; Z68.41 - Body mass index (BMI) 40.0-44.9, adult ; Z68.41 - Body mass index (BMI) 40.0-44.9, adult; Z68.41 - Body mass index (BMI ) 40.0-44.9, adult; Z68.41 - Body mass index (BMI) 40.0-44.9, adult (11) Rheumatoid arthritis RA Onset Date: 04/20/17 Current Visit: No Status: Chronic (12) Spinal stenosis Onset Date: 04/20/17 Current Visit: No Status: Chronic Qualifiers: Spinal region: unspecified Qualified Code(s): M48.00 - Spinal stenosis, site unspecified (13) Sacral decubitus ulcer Current Visit: No Status: Acute Qualifiers: Pressure ulcer stage: stage 1 Qualified Code(s): L89.151 - Pressure ulcer of sacral region, stage 1 Discharge Plan: Other Plan to discharge in: 48 Hours - Code Status/Comfort Care Code Status Assessed: Yes Critical Care: No
[2017-12-11] MEDS: PIPER/TAZO/NS 3.375gm 3.375 GM/100 ML BAG IV SCH (17:13)
[2017-12-12] MEDS: PIPER/TAZO/NS 3.375gm 3.375 GM/100 ML BAG IV SCH ×3 (00:35→18:24)
[2017-12-12] MEDS: NA CHLORIDE 0.9% 1,000 ML IV SCH ×2 (04:23→16:13)
[2017-12-12] MEDS: LEVOTHYROXINE SOD 0.125 MG TAB PO SCH (06:30)
[2017-12-12] MEDS: INSULIN -REGULAR HUMAN 50 UNIT/0.5 ML ML SQ SCH ×2 (07:30→11:30)
[2017-12-12] MEDS: ARFORMOTEROL TARTRATE 15 MCG/2 ML VIAL.NEB NEB SCH ×2 (07:39→19:13)
[2017-12-12] MEDS: POLYETHYL GLY 3350 17 GM/DOSE PO SCH (09:00)
[2017-12-12] MEDS: DULOXETINE 30 MG CAP PO SCH (11:06)
[2017-12-12] MEDS: FERROUS SULFATE 325 MG TAB PO SCH ×2 (11:07→20:46)
[2017-12-12] MEDS: PANTOPRAZOLE 40MG TABLET PO SCH (11:07)
[2017-12-12] MEDS: RIVAROXABAN 10 MG TABLET PO SCH (11:07)
[2017-12-12] MEDS: AMLODIPINE 5 MG TAB PO SCH (11:07)
--- NOTE | 2017-12-12 11:07 | P.PN ---
Subjective Date of Service: 12/12/17 Chief Complaint: sepsis/ UTI/ dental abscess Pt seen and examined at bedside with RN. Chart reviewed. Pt currently has no c/ o overnight. States she feels much better then before. AAOx 3. Review of Systems General: As per HPI Physical Examination - Vital Signs Temperature: 97 F Blood Pressure: 123/58 Pulse: 57 Respirations: 15 Pulse Ox (%): 94 - Physical Exam General: Alert, In no apparent distress, Obese HEENT: Atraumatic Neck: Supple Respiratory: Normal air movement, Inspiratory wheezes Cardiovascular: Regular rate/rhythm, Normal S1 S2 Gastrointestinal: Normal bowel sounds, Soft and benign, Non-distended, No tenderness Musculoskeletal: No tenderness Integumentary: No rashes Neurological: Normal speech, Normal tone, Normal affect Lymphatics: No axilla or inguinal lymphadenopathy - Studies Microbiology Data (last 24 hrs): 12/10/17 20:37 Catheterized Urine [place] Count - Final BETWEEN 10,000 & 100,000 CFU/ML 12/10/17 20:37 Catheterized Urine - Final Medications List Reviewed: Yes Assessment & Plan - Problems (Diagnosis) (1) UTI (urinary tract infection) Onset Date: 11/19/16 Current Visit: No Status: Acute Plan: UA with UTI -Urine Culture pending at this time. -Currently on zosyn. Does have h/o ESBL. Qualifiers: Urinary tract infection type: catheter-associated UTI Indwelling urinary catheter type: indwelling urethral catheter Encounter type: subsequent encounter Qualified Code(s): T83.511D - Infection and inflammatory reaction due to indwelling urethral catheter, subsequent encounter; N39.0 - Urinary tract infection, site not specified; N39.0 - Urinary tract infection, site not specified (2) Dental abscess Current Visit: Yes Status: Acute Plan: Facial CT with [place] erosion -Facial CT consistent with Large crown erosions involving the left lateral incisor and bicuspid without abscess. -Consult OMF if control tower radio operator here in the hospital. -IV abx and pain mgmt (3) CAD (coronary artery disease) Onset Date: 04/20/17 Current Visit: No Status: Chronic Qualifiers: Coronary Disease-Associated Artery/Lesion type: [place] artery [place] vs. transplanted heart: [place] heart Associated angina: with stable angina Qualified Code(s): I25.118 - Atherosclerotic heart disease of [place] coronary artery with other forms of angina pectoris (4) CHF (congestive heart failure) Onset Date: 04/20/17 Current Visit: No Status: Chronic (5) Chronic inflammatory demyelinating polyneuritis Onset Date: 04/20/17 Current Visit: No Status: Chronic (6) Chronic renal failure Onset Date: 04/20/17 Current Visit: No Status: Chronic Qualifiers: Chronic kidney disease stage: stage 3 (moderate) Qualified Code(s): N18.3 - Chronic kidney disease, stage 3 (moderate) (7) Chronic steroid use Current Visit: No Status: Chronic (8) History of DVT (deep vein thrombosis) Onset Date: 04/20/17 Current Visit: No Status: Chronic (9) Hypothyroidism Onset Date: 04/20/17 Current Visit: No Status: Chronic Qualifiers: Hypothyroidism type: acquired Qualified Code(s): E03.9 - Hypothyroidism, unspecified (10) Obesity Onset Date: 05/31/17 Current Visit: No Status: Chronic Qualifiers: Obesity type: due to excess calories Obesity classification: adult class 3 (BMI >= 40) Serious obesity comorbidity presence: with serious comorbidity Body mass index: BMI 40.0-44.9 Qualified Code(s): E66.01 - Morbid (severe) obesity due to excess calories; Z68.41 - Body mass index (BMI) 40.0-44.9, adult ; Z68.41 - Body mass index (BMI) 40.0-44.9, adult; Z68.41 - Body mass index (BMI ) 40.0-44.9, adult; Z68.41 - Body mass index (BMI) 40.0-44.9, adult (11) Rheumatoid arthritis RA Onset Date: 04/20/17 Current Visit: No Status: Chronic (12) Spinal stenosis Onset Date: 04/20/17 Current Visit: No Status: Chronic Qualifiers: Spinal region: unspecified Qualified Code(s): M48.00 - Spinal stenosis, site unspecified (13) Sacral decubitus ulcer Current Visit: No Status: Acute Qualifiers: Pressure ulcer stage: stage 1 Qualified Code(s): L89.151 - Pressure ulcer of sacral region, stage 1 (14) Nodule of neck Current Visit: Yes Status: Acute Plan: CT face with Focal Nodulatry in the pharngeal Area. Direct Visualization was limited due to pt habitus -OMF consulted if control tower radio operator -Passed bedside swallow without any difficulty -May need neck CT vs MRI if unable to get OMF on board. Discharge Plan: Home Plan to discharge in: 24 Hours - Code Status/Comfort Care Code Status Assessed: Yes Critical Care: No
[2017-12-12] MEDS: FUROSEMIDE 20 MG TABLET PO SCH (11:08)
[2017-12-12] MEDS: OXYBUTYNIN CHLORIDE 5 MG TAB PO SCH ×2 (11:08→20:46)
[2017-12-12] MEDS: GUAIFENESIN 600 MG SA TAB PO SCH (11:08)
[2017-12-12] MEDS: predniSONE 20 MG TAB PO SCH (11:08)
[2017-12-12] MEDS: CYANOCOBALAMIN 1,000 MCG TAB PO SCH (11:08)
[2017-12-12] MEDS: NYSTATIN PWDR 100000 UNIT/GM TOP SCH ×2 (11:09→20:47)
[2017-12-12] MEDS: DOCUSATE NA 100 MG CAP PO SCH ×2 (11:20→18:32)
[2017-12-12] MEDS: PREGABALIN 75 MG CAP PO SCH ×2 (11:20→20:45)
[2017-12-12] MEDS: CARVEDILOL 25 MG TAB PO SCH ×2 (11:20→18:32)
--- NOTE | 2017-12-12 16:15 | EKG ---
Test Date: 2017-12-10 Test Time: 18:37:22 Carton Stapler: JAMAR MEASUREMENT RESULTS: Intervals: Rate: 77 SC: 172 QRSD: 156 QT: 450 QTc: 509 [place]: P: 14 SC: 172 QRS: -68 T: 23 INTERPRETIVE STATEMENTS: Normal sinus rhythm Right bundle branch block Left anterior fascicular block Bifascicular block Abnormal ECG Compared to ECG 08/25/2017 17:23:31 No significant changes Electronically Signed On 12-12-17 16:14:31 CDT by Bereket Mccoy
[2017-12-12] MEDS ORDERED: CARVEDILOL 25 MG TAB PO SCH (21:00)
[2017-12-13] MEDS: PIPER/TAZO/NS 3.375gm 3.375 GM/100 ML BAG IV SCH ×2 (00:58→08:46)
[2017-12-13] MEDS: NA CHLORIDE 0.9% 1,000 ML IV SCH ×4 (01:00→14:19)
[2017-12-13] MEDS: LEVOTHYROXINE SOD 0.125 MG TAB PO SCH (06:01)
[2017-12-13] MEDS: ARFORMOTEROL TARTRATE 15 MCG/2 ML VIAL.NEB NEB SCH (08:16)
[2017-12-13] MEDS: POLYETHYL GLY 3350 17 GM/DOSE PO SCH (08:45)
[2017-12-13] MEDS: DULOXETINE 30 MG CAP PO SCH (08:46)
[2017-12-13] MEDS: CYANOCOBALAMIN 1,000 MCG TAB PO SCH (08:47)
[2017-12-13] MEDS: PANTOPRAZOLE 40MG TABLET PO SCH (08:47)
[2017-12-13] MEDS: AMLODIPINE 5 MG TAB PO SCH (08:47)
[2017-12-13] MEDS: RIVAROXABAN 10 MG TABLET PO SCH (08:47)
[2017-12-13] MEDS: predniSONE 20 MG TAB PO SCH (08:47)
[2017-12-13] MEDS: FERROUS SULFATE 325 MG TAB PO SCH (08:47)
[2017-12-13] MEDS: FUROSEMIDE 20 MG TABLET PO SCH (08:47)
[2017-12-13] MEDS: PREGABALIN 75 MG CAP PO SCH (08:47)
[2017-12-13] MEDS: GUAIFENESIN 600 MG SA TAB PO SCH (08:48)
[2017-12-13] MEDS: OXYBUTYNIN CHLORIDE 5 MG TAB PO SCH (08:48)
[2017-12-13] MEDS: NYSTATIN PWDR 100000 UNIT/GM TOP SCH (08:48)
[2017-12-13] MEDS ORDERED: DOCUSATE NA 100 MG CAP PO SCH (09:00)
[2017-12-13] MEDS ORDERED: CARVEDILOL 25 MG TAB PO SCH (09:00)
[2017-12-13 10:36] VITALS: O2SAT 97
[2017-12-13 11:32] LABS: Absolute Lymphocytes (CBC) 1.1 K/uL (0.7-4.9); Absolute Monocytes 0.5 K/uL (0.1-1.3); Absolute Neutrophil 4.9 K/uL (1.8-8.0); Basophils % 0.5 % (0-1.3); Eosinophils % 1.5 % (0-4.4); Hematocrit 38.1 % (36.0-45.0); Lymphocytes % 16.6 % (15.3-44.8); MCV 92.9 fL (80-100); MPV 9.7 fL (7.6-11.3); Monocytes % 7.8 % (3.3-12.3)
[2017-12-13] MEDS ORDERED: CLINDAMYCIN HCL 150 MG CAP PO SCH (14:00)
[2017-12-13 17:03] VITALS: BP 127/62; TEMP 97.7
--- NOTE | 2017-12-13 19:45 | P.DS ---
Admission Date: 12/10/17 Discharge Date: 12/13/17 Primary Care Provider: senior care Disposition: TRANSFER TO ALF Discharge Condition: GOOD Reason for Admission: sepsis/ UTI/ dental abscess - Problems (1) Yeast infection Status: Acute (2) COPD (chronic obstructive pulmonary disease) Onset Date: 04/20/17 Status: Chronic Qualifiers: COPD type: COPD with acute exacerbation Qualified Code(s): J44.1 - Chronic obstructive pulmonary disease with (acute) exacerbation (3) Chronic renal disease Onset Date: 11/19/16 Status: Chronic Qualifiers: Chronic kidney disease stage: stage 2 (mild) Qualified Code(s): N18.2 - Chronic kidney disease, stage 2 (mild) (4) Decubitus ulcer Status: Chronic Qualifiers: Pressure ulcer location: buttock Pressure ulcer stage: stage 1 (5) Sepsis Onset Date: 05/31/17 Status: Acute Qualifiers: Sepsis type: sepsis due to unspecified organism Qualified Code(s): A41.9 - Sepsis, unspecified organism (6) CAD (coronary artery disease) Onset Date: 04/20/17 Status: Chronic Qualifiers: Coronary Disease-Associated Artery/Lesion type: [place] artery [place] vs. transplanted heart: [place] heart Associated angina: with stable angina Qualified Code(s): I25.118 - Atherosclerotic heart disease of [place] coronary artery with other forms of angina pectoris (7) Chronic steroid use Onset Date: 12/13/17 Status: Chronic (8) History of DVT (deep vein thrombosis) Onset Date: 04/20/17 Status: Chronic (9) Hypothyroidism Onset Date: 04/20/17 Status: Chronic Qualifiers: Hypothyroidism type: acquired Qualified Code(s): E03.9 - Hypothyroidism, unspecified (10) Lymphedema Onset Date: 12/13/17 Status: Chronic (11) Obesity Onset Date: 05/31/17 Status: Chronic Qualifiers: Obesity type: due to excess calories Obesity classification: adult class 3 (BMI >= 40) Serious obesity comorbidity presence: with serious comorbidity Body mass index: BMI 40.0-44.9 Qualified Code(s): E66.01 - Morbid (severe) obesity due to excess calories; Z68.41 - Body mass index (BMI) 40.0-44.9, adult ; Z68.41 - Body mass index (BMI) 40.0-44.9, adult; Z68.41 - Body mass index (BMI ) 40.0-44.9, adult; Z68.41 - Body mass index (BMI) 40.0-44.9, adult (12) Rheumatoid arthritis RA Onset Date: 04/20/17 Status: Chronic (13) Spinal stenosis Onset Date: 04/20/17 Status: Chronic Qualifiers: Spinal region: unspecified Qualified Code(s): M48.00 - Spinal stenosis, site unspecified (14) Abnormal CT scan Status: Acute (15) Chronic anticoagulation Status: Chronic (16) GERD (gastroesophageal reflux disease) Status: Chronic Qualifiers: Esophagitis presence: esophagitis presence not specified Qualified Code(s) : K21.9 - Gastro-esophageal reflux disease without esophagitis (17) Urinary incontinence Status: Chronic (18) Chronic indwelling Pearce catheter Status: Chronic Brief History of Present Illness: 71-year-old female presented to the emergency room with fever, toothache. The patient was admitted for further evaluation. Sepsis was suspected. UTI also suspected. Patient started on IV antibiotic therapy. Hospital Course: Patient presented with fever, toothache. Urine culture identified yeast infection, no bacteria identified, blood cultures negative. At discharge, pro calcitonin negative. At discharge patient will continue with Diflucan 100 mg 1 pill daily for 7 days. UTI prevention education will need to be enforced at the longterm. Patient with chronic pearce catheter. This will need to be changed every month. Patient found to have erosions to crowns of teeth. CT also reported Large crown erosions involving the left lateral incisor and bicuspid without abscess. Focal nodularity along the posterior pharynx at the level of the epiglottis ( 6 x 5 mm). Case discussed with oral surgeon. Patient will continue with clindamycin 300 mg 1 pill 3 times a day for 7 days. Patient will need a follow up with oral surgery to further evaluate and assess. Patient may require biopsy of the posterior pharynx. Patient has hypertension. This remained stable during the course of her stay. She will continue with Norvasc 5 mg 1 pill once daily and carvedilol 25 mg 1 pill twice daily. Recommendation is to maintain blood pressures less 150/80. Further adjustment can be done by her PCP. Patient with history of B12 deficiency. Patient will continue with B12 supplementation. Patient with chronic pain. This remained stable during her stay. She will continue with fentanyl 50 mg patch every 72 hr, Lyrica 75 mg 1 pill twice daily , and [place] to be use as needed. 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 Recommendations for the patient to follow up with pain management. Patient has history of DVT. She is on chronic anti coagulation therapy. She will continue with Xarelto 10 mg 1 pill daily. Patient has history of iron deficiency anemia. She will continue with iron supplementation twice daily. Patient has GERD. She will continue with Protonix 40 mg 1 pill once daily. Patient has anxiety. She will continue with her medication. Patient has hypothyroidism. She will continue with her medication-Levoxyl 125 mcg daily. Patient with urinary incontinence. She will continue with oxybutynin twice daily. Patient is on chronic steroids. She will continue with prednisone 20 mg 1 pill once daily. Patient with history of COPD. She will continue with home oxygen to maintain sats above 90%. She will continue with her COPD medication including albuterol to be use as needed for shortness of breath 3 times a day. She also will continue with Brovana 1 unit dose twice daily. Recommendation is for the patient to follow up with pulmonology in 2-4 weeks to monitor progress. Patient has sacral wounds. She will continue with wound care. She will need wound care clinic follow up in 1-2 weeks. Vital Signs/Physical Exam: Temp Pulse Resp BP Pulse Ox 97.7 F 63 16 127/62 91 12/13/17 16:00 12/13/17 16:00 12/13/17 16:00 12/13/17 16:00 12/13/17 16:00 General: Alert, In no apparent distress, Oriented x3, Cooperative HEENT: Atraumatic Neck: Supple Respiratory: Clear to auscultation bilaterally, Normal air movement Cardiovascular: Normal pulses, Regular rate/rhythm Gastrointestinal: Normal bowel sounds, Soft and benign, Non-distended, No tenderness, No masses, No rebound, No guarding Musculoskeletal: No erythema, No tenderness, No warmth Neurological: Normal speech, Normal strength at 5/5 x4 extr, Normal tone, Normal affect Urinary: Pearce catheter Laboratory Data at Discharge: WBC 6.7 K/uL (4.3-10.9) D 12/13/17 10:58 Hgb 12.3 g/dL (12.0-15.0) 12/13/17 10:58 Hct 38.1 % (36.0-45.0) 12/13/17 10:58 Plt Count 135 K/uL (152-406) L D 12/13/17 10:58 PT 16.0 SECONDS (9.5-12.5) H 12/10/17 18:45 INR 1.35 12/10/17 18:45 APTT 22.2 SECONDS (24.3-36.9) L 12/10/17 18:45 Sodium 135 mEq/L (135-145) 12/11/17 04:52 Potassium 3.8 mEq/L (3.6-5.0) 12/11/17 04:52 BUN 20 mg/dL (6-20) 12/11/17 04:52 Creatinine 0.84 mg/dL (0.44-1.00) 12/11/17 04:52 Glucose 296 mg/dL (65-120) H 12/11/17 04:52 Total Bilirubin 0.6 mg/dL (0.3-1.2) 12/11/17 04:52 AST 16 IU/L (10-42) 12/11/17 04:52 ALT 21 IU/L (10-60) 12/11/17 04:52 Alkaline Phosphatase 44 IU/L (42-121) 12/11/17 04:52 B-Natriuretic Peptide 178 pg/ml (<=100) H 12/10/17 18:45 Amylase 35 U/L (28-100) 12/10/17 18:45 Lipase 12 U/L (22-51) L 12/10/17 18:45 Home Medications: Levothyroxine Sodium [Levoxyl] 125 mcg PO DAILY 07/26/15 Rivaroxaban [Xarelto*] 10 mg PO DAILY 07/26/15 Docusate Sodium [Dulcolax Stool Softener] 100 mg PO Q12H 09/10/15 Duloxetine HCl [Cymbalta] 1 cap PO DAILY 09/10/15 Ferrous Sulfate 325 mg PO BID 01/30/16 Temazepam [Restoril] 30 mg PO BEDTIME PRN PRN 01/30/16 Ipratropium/Albuterol Sulfate [Iprat-Albut 0.5-3(2.5) mg/3 ml] 3 ml IH Q4HP PRN 11/18/16 Fentanyl Patch [Duragesic Patch*] 50 mcg TD EVERY 3RD DAY #10 02/04/17 Hydrocodone 10/APAP 325 [[place] 10/325*] 1 tab PO Q4HP PRN #20 tab 02/04/17 Hydroxyzine HCl [Atarax] 25 mg PO Q8HP PRN 05/29/17 Polyethylene Glycol 3350 [Miralax] 17 gm PO DAILY 05/29/17 Pregabalin [Lyrica*] 75 mg PO Q12H 05/29/17 Albuterol Neb [Proventil 0.083% Neb Soln] 1 vial IH Q6HP PRN 08/26/17 Cyanocobalamin (Vitamin B-12) [B-12] 1,000 mcg PO DAILY 08/26/17 Epinephrine [Epipen] 1 syr IJ ONCE PRN 08/26/17 Amlodipine Besylate 5 mg PO DAILY 12/11/17 Arformoterol Tartrate [Brovana] 1 vial IH Q12H 12/11/17 Carvedilol 25 mg PO Q12H 12/11/17 Furosemide [Lasix*] 20 mg PO DAILY 12/11/17 Guaifenesin [Guaifenesin ER] 600 mg PO DAILY 12/11/17 L. Acidophilus/Pectin, [place] [Acidophilus Capsule] 1 each PO BID 12/11/17 Loperamide HCl [Imodium A-D] 2 mg PO Q6H PRN 12/11/17 Nystatin Powder [Mycostatin (Powder)*] 1 appl TP BID 12/11/17 Oxybutynin Chloride [Oxybutynin Chloride ER] 10 mg PO Q12H 12/11/17 Pantoprazole Sodium 40 mg PO DAILY 12/11/17 Prednisone 20 mg PO DAILY 12/11/17 Clindamycin HCl [Cleocin HCl *] 300 mg PO TID #21 cap 12/13/17 Fluconazole [Diflucan] 100 mg PO DAILY #7 tablet 12/13/17 New Medications: Clindamycin HCl [Cleocin HCl *] 300 mg PO TID #21 cap Fluconazole [Diflucan] 100 mg PO DAILY #7 tablet Patient Discharge Instructions: 1. Patient will return to the longterm. Recommendation is for the patient follow up with her PCP in 1 week to follow up this hospitalization. 2. Patient presented with sepsis. UTI identified yeast infection, no bacteria identified, blood cultures negative. At discharge, pro calcitonin negative. At discharge patient will continue with Diflucan 100 mg 1 pill daily for 7 days. UTI prevention education will need to be enforced at the longterm. Patient with chronic pearce catheter. This will need to be changed every month. 3. Patient found to have erosions to crowns of teeth. CT also reported abnormality to the posterior pharynx. Case discussed with oral surgeon. Patient will continue with clindamycin 300 mg 1 pill 3 times a day for 7 days. Patient will need a follow up with oral surgery to further evaluate and assess. Patient may require biopsy of the posterior pharynx. 4. Patient has hypertension. She will continue with Norvasc 5 mg 1 pill once daily and carvedilol 25 mg 1 pill twice daily. Recommendation is to maintain blood pressures less 150/80. Further adjustment can be done by her PCP. 5. Patient with history of B12 deficiency. Patient will continue with B12 supplementation. 6. Patient with chronic pain. She will continue with fentanyl 50 mg patch every 72 hr, Lyrica 75 mg 1 pill twice daily, and [place] to be use as needed. 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 Recommendations for the patient to follow up with pain management. 7. Patient has history of DVT. She is on chronic anti coagulation therapy. She will continue with Xarelto 10 mg 1 pill daily. 8. Patient has history of iron deficiency anemia. She will continue with iron supplementation twice daily. 9. Patient has GERD. She will continue with Protonix 40 mg 1 pill once daily. 10. Patient has anxiety. She will continue with her medication. 11. Patient has hypothyroidism. She will continue with her medication-Levoxyl 125 mcg daily. 12. Patient with urinary incontinence. She will continue with oxybutynin twice daily. 13. Patient is on chronic steroids. She will continue with prednisone 20 mg 1 pill once daily. 14. Patient with history of COPD. She will continue with home oxygen to maintain sats above 90%. She will continue with her COPD medication including albuterol to be use as needed for shortness of breath 3 times a day. She also will continue with Brovana 1 unit dose twice daily. Recommendation is for the patient to follow up with pulmonology in 2-4 weeks to monitor progress. 15. Patient has sacral wounds. She will continue with wound care. She will need wound care clinic follow up in 1-2 weeks. Diet: AHA Activity: Fall precautions Time spent managing pt's care (in minutes): 55
== END 2017-12-13 17:16 | DRG 949 ==
LOC: ER 18:08 → 4TH 22:19
PROVIDERS: ADMIT Hospitalist; ATTEND Hospitalist
PROC: 0T9B70Z Drainage of Bladder with Drainage Device, Via Natural or Artificial Opening (ICD-10-PCS; principal; 2017-12-10)
DX: T83.511D Infection and inflammatory reaction due to indwelling urethral catheter, subsequent encounter (principal); B37.49 Other urogenital candidiasis; J44.1 Chronic obstructive pulmonary disease with (acute) exacerbation; I50.42 Chronic combined systolic (congestive) and diastolic (congestive) heart failure; G61.81 Chronic inflammatory demyelinating polyneuritis; Z68.41 Body mass index [BMI] 40.0-44.9, adult; I13.0 Hypertensive heart and chronic kidney disease with heart failure and stage 1 through stage 4 chronic kidney disease, or unspecified chronic kidney disease; K04.7 Periapical abscess without sinus; B37.9 Candidiasis, unspecified; I25.10 Atherosclerotic heart disease of native coronary artery without angina pectoris; R32 Unspecified urinary incontinence; E03.9 Hypothyroidism, unspecified; J44.9 Chronic obstructive pulmonary disease, unspecified; E78.5 Hyperlipidemia, unspecified; I89.0 Lymphedema, not elsewhere classified; M06.9 Rheumatoid arthritis, unspecified; E66.9 Obesity, unspecified; L89.151 Pressure ulcer of sacral region, stage 1; M48.00 Spinal stenosis, site unspecified; N18.2 Chronic kidney disease, stage 2 (mild); Z87.891 Personal history of nicotine dependence; Z86.718 Personal history of other venous thrombosis and embolism; Z79.01 Long term (current) use of anticoagulants
CPT/HCPCS: 36415; 51702; 70450; 70487; 71045; 76377; 80048; 80053; 80076; 81003; 81015; 82140; 82150; 82550; 82553; 82805; 82962; 83605; 83690; 83880; 84145; 84484; 85025; 85610; 85652; 85730; 87040; 87086; 87088; 87804; 93005; 94640; 99291; 99292; J0696; J1580; J2270; J2310; J2543; J7030; J7512; J7605; Q9967; S0077

== ENCOUNTER 2018-04-26 19:12 | Inpatient (IN) | payer OTHER ==
[2018-04-26] MEDS ORDERED: ACETAMINOPHEN 500 MG TAB ONE (19:43)
[2018-04-26] MEDS ORDERED: NA CHLORIDE 0.9% 2,000 ML ONE (19:43)
[2018-04-26 20:14] LABS: Absolute Lymphocytes (CBC) 1.5 K/uL (0.7-4.9); Absolute Monocytes 0.5 K/uL (0.1-1.3); Basophils % 0.3 % (0-1.3); Eosinophils % 0.5 % (0-4.4); Hematocrit 38.5 % (36.0-45.0); Lymphocytes % 7.7 % (15.3-44.8); MCH 30.2 pg (27.0-35.0); MCV 92.3 fL (80-100); MPV 9.2 fL (7.6-11.3); Monocytes % 2.5 % (3.3-12.3); RBC Red Blood Cell Count 4.17 M/uL (3.86-4.86)
[2018-04-26 20:23] LABS: Protime INR 1.47
[2018-04-26 20:38] LABS: Blood Morphology Comment NOT SEEN (NOT SEEN); Platelet Estimate ADEQ; Urine White Blood Cell Casts OK
[2018-04-26] MEDS ORDERED: CEFTRIAXONE/SWI 1gm 1 GM/10 ML SYR ONE (20:38)
[2018-04-26] MEDS ORDERED: VANCOMYCIN 1 GM/250 ML BAG ONE (20:38)
[2018-04-26 21:01] LABS: ALT/SGPT 27 U/L (12-78); AST/SGOT 19 U/L (15-37); Albumin 2.7 g/dL (3.4-5.0); Alkaline Phosphatase 74 U/L (45-117); Amylase Level 32 U/L (25-115); BUN Blood Urea Nitrogen 23 mg/dL (7-18); Bicarbonate 32 mmol/L (21-32); Bilirubin Direct 0.2 mg/dL (0-0.2); Bilirubin Total 0.5 mg/dL (0.2-1.0); CKMB Creatine Kinase MB < 1.0 ng/mL (0.3-3.6); Creatine Phosphokinase 14 U/L (26-192); Glucose Level 205 mg/dL (74-106); Lipase 44 U/L (73-393); Potassium 4.3 mmol/L (3.5-5.1); Sodium Level 136 mmol/L (136-145); Troponin (Emerg Dept Use Only) 0.02 ng/mL (0.0-0.045)
--- NOTE | 2018-04-26 21:01 | EDPHYS ---
Physician Documentation [facility] Name: Jennifer Mariee Age: 73 yrs Sex: Female : 1945 Arrival Date: 04/26/2018 Time: 19:14 Bed 7 Private MD: ED Physician Dagoberto Winters HPI: 04/26 20:16 This 73 yrs old Female presents to ER via EMS with complaints of Fever, snw Urinary Problem. 20:16 The patient reports fever, not measured (subjective). Onset: The symptoms/episode snw began/occurred suddenly, 2 day(s) ago, and became persistent. Modifying factors: there are no obvious modifying factors. Associated signs and symptoms: Pertinent positives: blood in pearce, fever x 2 days, decreased appetite. Severity of symptoms: At their worst the symptoms were moderate. The patient has experienced similar episodes in the past. It is unknown whether or not the patient has recently seen a physician. Pt states she sees Dr. Haque and they called him from the [place] today and he said he would see the pt here. Historical: - Allergies: 19:31 FLU VACCINE; fc 19:31 Sulfa (Sulfonamide Antibiotics); fc 19:31 TRIMETHOPRIM; fc 19:31 PENICILLINS; fc - Home Meds: 19:31 Lasix 20 mg Oral tab 1 tab once daily [Active]; Acidophilus Oral cap twice a day fc [Active]; glimepiride 2 mg Oral tab 1 tab twice a day [Active]; prednisone 10 mg oral tab 1 tab once daily [Active]; potassium chloride 20 mEq Oral TbER 2 tab once daily [Active]; oxybutynin chloride 10 mg Oral tr24 1 tab twice a day [Active]; ipratropium-albuterol 0.5 mg-3 mg(2.5 mg base)/3 mL Inhl nebu 3 mL 4 times per day [Active]; amlodipine 5 mg tab 1 tab once daily [Active]; Coreg 25 mg oral tab 1 tab 2 times per day [Active]; rivaroxaban oral 10 mg oral once daily [Active]; Protonix 40 mg Oral TbEC 1 tab once daily [Active]; levothyroxine 125 mcg tab 1 tab once daily [Active]; Lyrica 75 mg Oral 2 times per day [Active]; Cymbalta 60 mg Oral cpDR 1 cap once daily [Active]; ferrous sulfate 325 mg (65 mg iron) Oral tab daily [Active]; cyanocobalamin (vitamin B-12) 1,000 mcg Oral tab daily [Active]; fentanyl 50 mcg/hr Topical pt72 1 patch every 72 hours [Active]; Miralax 17 gram Oral pwpk 1 packet once daily [Active]; hydrocodone-acetaminophen 10-325 mg Oral tab 1 tab q4 hrs prn [Active]; acetaminophen-codeine 300-30 mg Oral tab 1 tab q6hr prn [Active]; EpiPen 0.3 mg/0.3 mL injection atIn 0.3 mL as needed [Active]; docusate sodium 100 mg Oral cap 1 cap 2 times per day [Active]; albuterol sulfate 2.5 mg /3 mL (0.083 %) Inhl nebu 3 mL every 6 hours [Active]; - PMHx: 19:31 Cellulitis; dysphagia; Allergies; Gout; Hypothyroidism; Depression; spinal stenosis; fc Diabetes - NIDDM; DVT; COPD; Diverticulitis; Hypertension; MRSA; Gastrointestinal hemmorrhage; Myocardial infarction; Pneumonia; ulcerative colitis; Sepsis; - Immunization history:: Last tetanus immunization: unknown. - Social history:: Smoking status: Patient/guardian denies using tobacco. - Ebola Screening: : Patient negative for fever greater than or equal to 101.5 degrees Fahrenheit, and additional compatible Ebola Virus Disease symptoms Patient denies exposure to infectious person Patient denies travel to an Ebola-affected area in the 21 days before illness onset. ROS: 20:16 Eyes: Negative for injury, pain, redness, and discharge, ENT: Negative for injury, snw pain, and discharge, Neck: Negative for injury, pain, and swelling, Cardiovascular: Negative for chest pain, palpitations, and edema, Respiratory: Negative for shortness of breath, cough, wheezing, and pleuritic chest pain, Abdomen/GI: Negative for abdominal pain, nausea, vomiting, diarrhea, and constipation, Back: Negative for injury and pain, : Negative for injury, bleeding, discharge, and swelling, MS/Extremity: Negative for injury and deformity, Skin: Negative for injury, rash, and discoloration, Neuro: Negative for headache, weakness, numbness, tingling, and seizure, Psych: Negative for depression, anxiety, suicide ideation, homicidal ideation, and hallucinations. 20:16 Constitutional: Positive for fever, malaise, poor PO intake. Exam: 19:37 Constitutional: This is an obese patient who is awake, edematous, and febrile snw Head/Face: Normocephalic, atraumatic. Eyes: Pupils equal round and reactive to light, extra-ocular motions intact. Lids and lashes normal. Conjunctiva and sclera are non-icteric and not injected. Cornea within normal limits. Periorbital areas with no swelling, redness, or edema. ENT: Nares patent. No nasal discharge, no septal abnormalities noted. Tympanic membranes are normal and external auditory canals are clear. Oropharynx with no redness, swelling, or masses, exudates, or evidence of obstruction, uvula midline. Mucous membranes moist. Neck: Trachea midline, no thyromegaly or masses palpated, and no cervical lymphadenopathy. Supple, full range of motion without nuchal rigidity, or vertebral point tenderness. No Meningismus. Chest/axilla: Normal chest wall appearance and motion. Nontender with no deformity. No lesions are appreciated. Cardiovascular: Regular rate and rhythm with a normal S1 and S2. No gallops, murmurs, or rubs. Normal PMI, no JVD. No pulse deficits. Respiratory: Lungs have equal breath sounds bilaterally, clear to auscultation and percussion. No rales, rhonchi or wheezes noted. No increased work of breathing, no retractions or nasal flaring. 19:37 Back: No spinal tenderness. No costovertebral tenderness. Full range of motion. 19:37 Abdomen/GI: Inspection: obese Bowel sounds: normal, Palpation: nontender, in all quadrants. 19:37 Skin: wound with fresh bandage to right anterior calf. 19:37 Skin: Appearance: Color: erythematous, Temperature: warm, Moisture: dry, swelling, that are marked, lesion(s), located on the stage 3 sacral pressure sore. 19:37 Neuro: Orientation: is normal, Mentation: lucid, able to follow commands, slow to respond, seizure activity, is not displayed by the patient, hx of [place]. Vital Signs: 19:05 BP 103 / 57; Pulse 79; Resp 20; Temp 100.9(O); Pulse Ox 96% on R/A; Weight 117.48 kg fc (R); Height 5 ft. 6 in. (167.64 cm) (R); Pain 8/10; 20:15 BP 94 / 45; Pulse 72; Resp 22; Pulse Ox 95% on R/A; aj 20:49 BP 118 / 46; Pulse 70; Resp 15; Temp 98.5(O); Pulse Ox 99% on 2 lpm NC; aj 21:31 BP 77 / 46; Pulse 65; Resp 14; Pulse Ox 94% on 2 lpm NC; aj 21:36 BP 82 / 49; Pulse 68; Resp 15; Pulse Ox 94% on 2 lpm NC; aj 21:58 BP 94 / 52; Pulse 72; Resp 18; Pulse Ox 97% on 2 lpm NC; mg2 23:30 BP 83 / 44; Pulse 61; Resp 18; Pulse Ox 95% on 3 lpm NC; lp1 04/27 00:00 BP 81 / 46; Pulse 61; Resp 15; Pulse Ox 96% on 3 lpm NC; lp1 00:30 BP 82 / 43; Pulse 60; Resp 13; Pulse Ox 94% on 3 lpm NC; lp1 01:00 BP 93 / 54; Pulse 57; Resp 14; Pulse Ox 95% on 3 lpm NC; lp1 04/26 19:05 Body Mass Index 41.80 (117.48 kg, 167.64 cm) fc MDM: 04/26 19:25 Patient medically screened. snw 21:00 Data reviewed: vital signs, nurses notes. Data interpreted: Pulse oximetry: on room air snw is 99 %. Interpretation: normal. Counseling: I had a detailed discussion with the patient and/or guardian regarding: the historical points, exam findings, and any diagnostic results supporting the discharge/admit diagnosis, lab results, the need for further work-up and treatment in the hospital. Physician consultation: Felix Haque MD was called at 21:01, was contacted at 21:01, regarding admission, to the telemetry unit. Admission orders: after a detailed discussion of the patient's condition and case, the admit orders are written by me. 04/26 19:28 Order name: Urine Culture; Complete Time: 15:00 snw 04/26 19:28 Order name: Urine Microscopic Only snw 04/26 19:28 Order name: T\T\S; Complete Time: 15:00 snw 09/11 19:28 Order name: Amylase, Serum; Complete Time: 21:04 [facility] 04/26 19:28 Order name: Basic Metabolic Panel; Complete Time: 21: [facility] 04/26 19:28 Order name: Blood Culture Adult (2) 04/26 19:28 Order name: C-Reactive Protein; Complete Time: 21:04 [facility] 04/26 19:28 Order name: CBC with Diff; Complete Time: 20:41 [facility] 04/26 19:28 Order name: Ckmb; Complete Time: 21: 04/26 19:28 Order name: CPK; Complete Time: 21:04 [facility] 04/26 19:28 Order name: Lactate; Complete Time: 20:41 [facility] 04/26 19:28 Order name: LFT's; Complete Time: 21: [facility] 04/26 19:28 Order name: Lipase; Complete Time: 21: [facility] 04/26 19:28 Order name: Procalcitonin; Complete Time: 21:01 [facility] 04/26 19:28 Order name: Protime (+inr); Complete Time: 20:41 [facility] 04/26 19:28 Order name: Ptt, Activated; Complete Time: 20:41 [facility] 04/26 19:28 Order name: Sed Rate; Complete Time: 20:41 [facility] 04/26 19:28 Order name: Troponin (emerg Dept Use Only); Complete Time: 21:04 [facility] 04/26 19:43 Order name: TSH; Complete Time: 20:58 [facility] 04/26 20:16 Order name: CBC Smear Scan; Complete Time: 20:41 [facility] 04/26 22:02 Order name: Comprehensive Metabolic Panel [facility] 04/26 22:02 Order name: Comprehensive Metabolic Panel; Complete Time: 15:00 [facility] 04/26 22:02 Order name: Magnesium [facility] 04/26 22:02 Order name: Magnesium; Complete Time: 15:00 [facility] 04/26 22:02 Order name: Phosphorus [facility] 04/26 22:02 Order name: Phosphorus; Complete Time: 15:00 [facility] 04/26 22:03 Order name: Urinalysis [facility] 04/26 22:03 Order name: CBC with Automated Diff [facility] 04/26 22:03 Order name: CBC with Automated Diff; Complete Time: 15:00 EDMS 04/27 04:10 Order name: Urinalysis W/Microscopic; Complete Time: 15:00 EDMS 04/26 19:28 Order name: Chest Single View XRAY; Complete Time: 21:29 snw 04/26 19:28 Order name: Accucheck; Complete Time: 21:54 snw 04/26 19:28 Order name: Cardiac monitoring; Complete Time: 20:14 snw 04/26 19:28 Order name: EKG - Nurse/Tech; Complete Time: 21:53 snw 04/26 19:28 Order name: IV Saline Lock - Large Bore; Complete Time: 20:14 snw 04/26 19:28 Order name: Labs collected and sent; Complete Time: 20:14 snw 04/26 19:28 Order name: O2 Per Protocol; Complete Time: 20:13 snw 04/26 19:28 Order name: O2 Sat Monitoring; Complete Time: 20:13 snw 04/26 19:28 Order name: Urine Dipstick-Ancillary (obtain specimen); Complete Time: 05:36 snw 04/26 19:41 Order name: Pearce; Complete Time: 20:13 snw 04/26 22:02 Order name: CONS Physician Consult EDPA 04/26 22:02 Order name: Heart Healthy EDPA 04/27 00:31 Order name: Chest Single View XRAY ms 04/27 00:52 Order name: Misc. Order: Place PICC line please; Complete Time: 00:55 snw 04/27 08:24 Order name: RAD; Complete Time: 15:00 EDMS Administered Medications: 19:42 CANCELLED (other intervention used): Acetaminophen Suppository 650 mg HI once [facility] 19:42 CANCELLED (other intervention used): NS 0.9% (30 ml/kg) 30 ml/kg IV at bolus once; snw Sepsis Protocol 20:12 CANCELLED (Duplicate Order): Tylenol 1000 mg PO once aj 20:13 Drug: Tylenol 1000 mg Route: PO; aj 21:42 Follow up: Response: Temperature is decreased aj 20:13 Drug: NS 0.9% 1000 ml Route: IV; Rate: 75 ml/hr; Site: right forearm; aj 04/27 01:14 Follow up: IV Status: Infusion continued upon admission lp1 04/26 20:43 Drug: Rocephin - (cefTRIAXone) 1 grams Route: IVPB; Infused Over: 30 mins; Site: right aj forearm; 20:51 Follow up: Response: No adverse reaction; IV Status: Completed infusion; IV Intake: 10mlaj 20:44 Drug: vancoMYCIN 1 grams Route: IVPB; Infused Over: 2 hrs; Site: right forearm; 20:45 Drug: NS 0.9% 500 ml Route: IV; Rate: bolus; Site: right forearm; aj 21:20 Follow up: Response: No adverse reaction; IV Status: Completed infusion; IV Intake: aj 500ml 21:36 Drug: NS 0.9% 500 ml Route: IV; Rate: bolus; Site: right forearm; aj 04/27 00:55 Drug: NS 0.9% 250 ml Route: IV; Rate: bolus; Site: right upper arm; lp1 01:13 Follow up: IV Status: Completed infusion; IV Intake: 250ml lp1 Disposition: 04/26/18 21:00 Hospitalization ordered by Felix Haque for Inpatient Admission. Preliminary diagnosis are Pressure ulcer of buttock, Urinary tract infection, site not specified, Sepsis, unspecified organism. - Bed requested for Telemetry/MedSurg (Inpatient). - Status is Inpatient Admission. ss - Condition is Stable. - Problem is an acute exacerbation. - Symptoms have worsened. UTI on Admission? Yes Addendum: 05/05/2018 07:52 Co-signature as Attending Physician, Valentin Baez MD I agree with the assessment and k dr plan of care. Signatures: Dispatcher [employer] EDCa Roberts RN RN dw Myers, Amanda, RN RN aj Rittger, Kevin, MD MD [facility] Rowan Toro, CALL CENTER TRAINER-C CALL CENTER TRAINER-Csnw Leslye Giraldo RN RN fc Solis, Maria ms Smirch, Shelby, RN RN ss Pena, Laura, RN RN lp1 Corrections: (The following items were deleted from the chart) 04/26 19:42 19:28 Acetaminophen Suppository 650 mg HI once ordered. snw snw 19:42 19:28 NS 0.9% (30 ml/kg) 30 ml/kg IV at bolus once; Sepsis Protocol ordered. snw snw 20:12 20:12 Tylenol 1000 mg PO once ordered. tashi akins 20:59 19:37 Skin: Appearance: Color: erythematous, Temperature: warm, Moisture: dry, snw swelling, that are marked, snw 22:59 21:00 Hospitalization Ordered by Felix Haque MD for Inpatient Admission. Preliminary ms diagnosis is Pressure ulcer of buttock; Urinary tract infection, site not specified; Sepsis, unspecified organism. Bed requested for Telemetry/MedSurg (Inpatient). Status is Inpatient Admission. Condition is Stable. Problem is an acute exacerbation. Symptoms have worsened. UTI on Admission? Yes. snw 23:55 22:59 04/26/2018 21:00 Hospitalization Ordered by Felix Haque MD for Inpatient ms Admission. Preliminary diagnosis is Pressure ulcer of buttock; Urinary tract infection, site not specified; Sepsis, unspecified organism. Bed requested for Telemetry/MedSurg (Inpatient). Status is Inpatient Admission. Condition is Stable. Problem is an acute exacerbation. Symptoms have worsened. UTI on Admission? Yes. ms 04/27 01:07 04/26 23:55 04/26/2018 21:00 Hospitalization Ordered by Felix Haque MD for Inpatient ms Admission. Preliminary diagnosis is Pressure ulcer of buttock; Urinary tract infection, site not specified; Sepsis, unspecified organism. Bed requested for Intensive Care Unit. Status is Inpatient Admission. Condition is Stable. Problem is an acute exacerbation. Symptoms have worsened. UTI on Admission? Yes. ms 04/27 01:07 01:07 04/26/2018 21:00 Hospitalization Ordered by Felix Haque MD for Inpatient ms Admission. Preliminary diagnosis is Pressure ulcer of buttock; Urinary tract infection, site not specified; Sepsis, unspecified organism. Bed requested for [facility]. Status is Inpatient Admission. Condition is Stable. Problem is an acute exacerbation. Symptoms have worsened. UTI on Admission? Yes. ms 13:12 01:07 04/26/2018 21:00 Hospitalization Ordered by Felix Haque MD for Inpatient dw Admission. Preliminary diagnosis is Pressure ulcer of buttock; Urinary tract infection, site not specified; Sepsis, unspecified organism. Bed requested for [facility] ER HOLD. Status is Inpatient Admission. Condition is Stable. Problem is an acute exacerbation. Symptoms have worsened. UTI on Admission? Yes. ms 13:37 13:12 04/26/2018 21:00 Hospitalization Ordered by Felix Haque MD for Inpatient ss Admission. Preliminary diagnosis is Pressure ulcer of buttock; Urinary tract infection, site not specified; Sepsis, unspecified organism. Bed requested for Telemetry/MedSurg (Inpatient). Status is Inpatient Admission. Condition is Stable. Problem is an acute exacerbation. Symptoms have worsened. UTI on Admission? Yes. dw
--- NOTE | 2018-04-26 21:01 | ER ---
Nurse's Notes [facility] Name: Jennifer Mariee Age: 73 yrs Sex: Female : 1945 Arrival Date: 04/26/2018 Time: 19:14 Bed 7 Private MD: Diagnosis: Pressure ulcer of buttock;Urinary tract infection, site not specified;Sepsis, unspecified organism Presentation: 04/26 19:05 Presenting complaint: EMS states: that pt has been having fever on and off x 2 days. fc Today the fpc nurse noted blood in pts pearce. Has hx of UTI and sepsis. Also pt not eating well today. Complaining of headache and body aches. Transition of care: patient was received from another setting of care (long-term care facility), [facility]. Onset of symptoms was April 24, 2018. Risk Assessment: Do you want to hurt yourself or someone else? Patient reports no desire to harm self or others. Initial Sepsis Screen: Does the patient meet any 2 criteria? Temp <36.0*C (96.8*F)) or > 38.3*C (100.4*F). Yes Does the patient have a suspected source of infection? Yes: Dysuria/Frequency/Urgency/UTI. Care prior to arrival: Medication(s) given: Motrin, 600 mg, at 1800 Tylenol, 1000 mg, at 1855 Glucose check: 283 Oxygen administered. via nasal cannula, at 4 liters. 19:05 Method Of Arrival: EMS: [facility] 19:05 Acuity: CHAZ 3 fc Historical: - Allergies: 19:31 FLU VACCINE; fc 19:31 Sulfa (Sulfonamide Antibiotics); fc 19:31 TRIMETHOPRIM; fc 19:31 PENICILLINS; fc - Home Meds: 19:31 Lasix 20 mg Oral tab 1 tab once daily [Active]; Acidophilus Oral cap twice a day fc [Active]; glimepiride 2 mg Oral tab 1 tab twice a day [Active]; prednisone 10 mg oral tab 1 tab once daily [Active]; potassium chloride 20 mEq Oral TbER 2 tab once daily [Active]; oxybutynin chloride 10 mg Oral tr24 1 tab twice a day [Active]; ipratropium-albuterol 0.5 mg-3 mg(2.5 mg base)/3 mL Inhl nebu 3 mL 4 times per day [Active]; amlodipine 5 mg tab 1 tab once daily [Active]; Coreg 25 mg oral tab 1 tab 2 times per day [Active]; rivaroxaban oral 10 mg oral once daily [Active]; Protonix 40 mg Oral TbEC 1 tab once daily [Active]; levothyroxine 125 mcg tab 1 tab once daily [Active]; Lyrica 75 mg Oral 2 times per day [Active]; Cymbalta 60 mg Oral cpDR 1 cap once daily [Active]; ferrous sulfate 325 mg (65 mg iron) Oral tab daily [Active]; cyanocobalamin (vitamin B-12) 1,000 mcg Oral tab daily [Active]; fentanyl 50 mcg/hr Topical pt72 1 patch every 72 hours [Active]; Miralax 17 gram Oral pwpk 1 packet once daily [Active]; hydrocodone-acetaminophen 10-325 mg Oral tab 1 tab q4 hrs prn [Active]; acetaminophen-codeine 300-30 mg Oral tab 1 tab q6hr prn [Active]; EpiPen 0.3 mg/0.3 mL injection atIn 0.3 mL as needed [Active]; docusate sodium 100 mg Oral cap 1 cap 2 times per day [Active]; albuterol sulfate 2.5 mg /3 mL (0.083 %) Inhl nebu 3 mL every 6 hours [Active]; - PMHx: 19:31 Cellulitis; dysphagia; Allergies; Gout; Hypothyroidism; Depression; spinal stenosis; fc Diabetes - NIDDM; DVT; COPD; Diverticulitis; Hypertension; MRSA; Gastrointestinal hemmorrhage; Myocardial infarction; Pneumonia; ulcerative colitis; Sepsis; - Immunization history:: Last tetanus immunization: unknown. - Social history:: Smoking status: Patient/guardian denies using tobacco. - Ebola Screening: : Patient negative for fever greater than or equal to 101.5 degrees Fahrenheit, and additional compatible Ebola Virus Disease symptoms Patient denies exposure to infectious person Patient denies travel to an Ebola-affected area in the 21 days before illness onset. Screenin:05 Abuse screen: Denies threats or abuse. Nutritional screening: No deficits noted. fc Tuberculosis screening: No symptoms or risk factors identified. Fall Risk None identified. Assessment: 20:15 General: Appears in no apparent distress. comfortable, Behavior is calm, cooperative, aj appropriate for age. Pain: Denies pain. Neuro: Level of Consciousness is awake, alert, obeys commands, Oriented to person, place, time, situation, Appropriate for age. Respiratory: Airway is patent Respiratory effort is even, unlabored, Respiratory pattern is regular, symmetrical. GI: Abdomen is obese. : Pearce in place Urine is blood tinged. Derm: Skin is intact, is healthy with good turgor, Skin is pink, warm \T\ dry. normal, Decubitus located on sacrum approximately 7.6 cm to 20 cm is stage III. 20:35 Reassessment: Provider does not want 30mg/kg bolus because of anasarca. aj 20:46 Reassessment: Patient appears in no apparent distress at this time. No changes from aj previously documented assessment. Patient and/or family updated on plan of care and expected duration. Pain level reassessed. Patient is alert, oriented x 3, equal unlabored respirations, skin warm/dry/pink. Patient is awake and alert, sitting up in bed watching TV with bilateral legs elevated and pillow under right arm. Denies pain. Patient denies pain at this time. 21:31 Reassessment: Patient appears in no apparent distress at this time. No changes from aj previously documented assessment. Patient and/or family updated on plan of care and expected duration. Pain level reassessed. Patient is alert, oriented x 3, equal unlabored respirations, skin warm/dry/pink. Resting comfortably in bed, denies pain Patient denies pain at this time. 21:32 Reassessment: Patient placed in Trendelenburg position. Provider notified of patient's aj vitals and no urine output. 21:59 Reassessment: Rowan BELT WEAVER at bedside inserting cental line. mg2 23:15 Reassessment: After attempting femoral central line without success, PICC line ordered fc for possible need for pressors. 04/27 00:00 General: Appears in no apparent distress. Behavior is calm. Neuro: Level of lp1 Consciousness is awake, obeys commands, Oriented to person, place, situation. Cardiovascular: Patient's skin is warm and dry. Respiratory: Respiratory effort is even, Respiratory pattern is regular. GI: Abdomen is obese. : Pearce in place. EENT: No signs and/or symptoms were reported regarding the EENT system. Derm: Skin is intact, Skin is dry, Skin is normal. Vital Signs: 04/26 19:05 BP 103 / 57; Pulse 79; Resp 20; Temp 100.9(O); Pulse Ox 96% on R/A; Weight 117.48 kg fc (R); Height 5 ft. 6 in. (167.64 cm) (R); Pain 8/10; 20:15 BP 94 / 45; Pulse 72; Resp 22; Pulse Ox 95% on R/A; aj 20:49 BP 118 / 46; Pulse 70; Resp 15; Temp 98.5(O); Pulse Ox 99% on 2 lpm NC; aj 21:31 BP 77 / 46; Pulse 65; Resp 14; Pulse Ox 94% on 2 lpm NC; aj 21:36 BP 82 / 49; Pulse 68; Resp 15; Pulse Ox 94% on 2 lpm NC; aj 21:58 BP 94 / 52; Pulse 72; Resp 18; Pulse Ox 97% on 2 lpm NC; mg2 23:30 BP 83 / 44; Pulse 61; Resp 18; Pulse Ox 95% on 3 lpm NC; lp1 12 00:00 BP 81 / 46; Pulse 61; Resp 15; Pulse Ox 96% on 3 lpm NC; lp1 00:30 BP 82 / 43; Pulse 60; Resp 13; Pulse Ox 94% on 3 lpm NC; lp1 01:00 BP 93 / 54; Pulse 57; Resp 14; Pulse Ox 95% on 3 lpm NC; lp1 04/26 19:05 Body Mass Index 41.80 (117.48 kg, 167.64 cm) ED Course: 04/26 19:05 Arm band placed on Patient placed in an exam room, on a stretcher. 19:05 Patient has correct armband on for positive identification. Placed in gown. Bed in low fc position. Call light in reach. Side rails up X2. drawstring knotter on. Pulse ox on. NIBP on. 19:05 came with - has dark cloudy urine. fc 19:14 Patient arrived in ED. 19:18 Triage completed. 19:25 [facility]C [facility] snw 19:25 Dagoberto Winters MD is Attending Physician. snw 19:32 Katrin Dc, MELISSA is Primary Nurse. aj 20:01 Chest Single View XRAY In Process Unspecified. EDMS 20:15 Pearce cath inserted, using sterile technique, 16 Fr., by nj, balloon inflated, to aj gravity drainage. Inserted saline lock: 20 gauge in right antecubital area, using aseptic technique. Blood collected. 20:49 Notified Nurse Practitioner and/or Physician Psychological Examiner of vital signs. aj 21:00 Felix Haque MD is Hospitalizing Provider. snw 23:30 Report received from MELISSA Mejía. lp1 04/27 00:40 Inserted right upper arm brachial picc line inserted under sterile conditions. Attempts fc x 2 with difficulty. Lidocaine used to numb site. Both ports with good blood return and flushes well. Secured by statlock. CXR done and placement verified by Dr Winters. 00:51 Primary Nurse role handed off by Katrin Dc RN cc1 00:55 Alison Tan RN is Primary Nurse. lp1 01:15 No provider procedures requiring assistance completed. Patient admitted, IV remains in lp1 place. Administered Medications: 04/26 19:42 CANCELLED (other intervention used): Acetaminophen Suppository 650 mg SD once formerly [facility] 19:42 CANCELLED (other intervention used): NS 0.9% (30 ml/kg) 30 ml/kg IV at bolus once; formerly [facility] Sepsis Protocol 20:12 CANCELLED (Duplicate Order): Tylenol 1000 mg PO once 20:13 Drug: Tylenol 1000 mg Route: PO; 21:42 Follow up: Response: Temperature is decreased aj 20:13 Drug: NS 0.9% 1000 ml Route: IV; Rate: 75 ml/hr; Site: right forearm; aj 04/27 01:14 Follow up: IV Status: Infusion continued upon admission [facility] 04/26 20:43 Drug: Rocephin - (cefTRIAXone) 1 grams Route: IVPB; Infused Over: 30 mins; Site: right aj forearm; 20:51 Follow up: Response: No adverse reaction; IV Status: Completed infusion; IV Intake: 10mlaj 20:44 Drug: vancoMYCIN 1 grams Route: IVPB; Infused Over: 2 hrs; Site: right forearm; aj 20:45 Drug: NS 0.9% 500 ml Route: IV; Rate: bolus; Site: right forearm; aj 21:20 Follow up: Response: No adverse reaction; IV Status: Completed infusion; IV Intake: aj 500ml 21:36 Drug: NS 0.9% 500 ml Route: IV; Rate: bolus; Site: right forearm; 04/27 00:55 Drug: NS 0.9% 250 ml Route: IV; Rate: bolus; Site: right upper arm; lp1 01:13 Follow up: IV Status: Completed infusion; IV Intake: 250ml lp1 Intake: 04/26 20:51 IV: 10ml; Total: 10ml. 21:20 IV: 500ml; Total: 510ml. 04/27 01:13 IV: 250ml; Total: 760ml. 1 Outcome: 04/26 21:00 Decision to Hospitalize by Provider. [facility] 04/27 01:17 Admitted to ER Hold. [facility] for further documentation. lp1 critical Instructed on the need for admit. 13:37 Patient left the ED. ss Signatures: Dispatcher [employer] EDKatrin Ybarra RN RN Rowan Toro, EXTENSION WORKER-C EXTENSION WORKER-Csnw Leslye Giraldo RN RN Belinda Perez RN RN Alison Tan RN RN lp1 Kyle Up 1 Davis Ratliff RN RN mg2 Corrections: (The following items were deleted from the chart) 00:31 00:30 Report received from MELISSA Mejía lp1 lp1
--- NOTE | 2018-04-26 21:25 | RAD REPORT ---
EXAM DESCRIPTION: Gail Single View04/26/2018 8:01 pm CLINICAL HISTORY: fever COMPARISON: November 2017 FINDINGS: The lungs appear clear of acute infiltrate. The heart is moderately enlarged IMPRESSION: No acute abnormalities displayed
[2018-04-26] MEDS ORDERED: ACETAMINOPHEN 500 MG TAB PO PRN (21:56)
[2018-04-26] MEDS ORDERED: ONDANSETRON 4 MG/2 ML VIAL IV PRN (21:56)
[2018-04-26] MEDS ORDERED: ALPRAZOLAM 0.25 MG TABLET PO PRN (21:56)
[2018-04-26] MEDS: NA CHLORIDE 0.9% 1,000 ML IV SCH (22:00)
[2018-04-27] MEDS ORDERED: NA CHLORIDE 0.9% 500 ML IV ONE (01:35)
[2018-04-27] MEDS ORDERED: HYDROCORTISONE SUC 100 MG INJ IV ONE (01:35)
[2018-04-27 02:55] VITALS: BMI 41.8
[2018-04-27] MEDS ORDERED: HYDROCORTISONE SUC 100 MG INJ ONE ×2 (03:24→10:20)
[2018-04-27] MEDS: ALBUTEROL 2.5 MG/3 ML NEB SOL NEB SCH ×2 (03:30→08:00)
[2018-04-27] MEDS ORDERED: ALBUTEROL 2.5 MG/3 ML NEB SOL ONE ×2 (03:32→08:05)
[2018-04-27 04:07] LABS: Urine Culture Reflex Order NOT NEEDED; Urine Volume 1 ML
[2018-04-27 04:09] LABS: Urine Bacteria >50 /HPF (<20); Urine RBC <5 /HPF (NONE SEEN)
[2018-04-27] MEDS ORDERED: NA CHLORIDE 0.9% 1,000 ML ONE (04:45)
[2018-04-27 04:51] LABS: Urine Appearance TURBID; Urine Color YELLOW
[2018-04-27 04:54] LABS: Urine Blood 2+ (NEG); Urine Glucose NEGATIVE (NEG); Urine Protein 3+ (NEG); Urine Specific Gravity >1.030 (1.005-1.030); Urine Urobilinogen 0.2 mg/dL (0.2-1.0)
[2018-04-27 04:59] LABS: Urine Bilirubin NEGATIVE (NEG)
[2018-04-27 05:05] LABS: Absolute Lymphocytes (CBC) 1.3 K/uL (0.7-4.9); Absolute Monocytes 0.5 K/uL (0.1-1.3); Absolute Neutrophil 10.2 K/uL (1.8-8.0); Basophils % 0.4 % (0-1.3); Eosinophils % 1.7 % (0-4.4); Lymphocytes % 10.4 % (15.3-44.8); MCH 30.8 pg (27.0-35.0); MCV 92.7 fL (80-100); MPV 8.8 fL (7.6-11.3); Monocytes % 3.8 % (3.3-12.3); RBC Red Blood Cell Count 3.77 M/uL (3.86-4.86)
[2018-04-27 05:28] LABS: Albumin 2.4 g/dL (3.4-5.0); Bilirubin Total 0.4 mg/dL (0.2-1.0); Magnesium 1.9 mg/dL (1.8-2.4); Phosphorus 3.8 mg/dL (2.5-4.9); Potassium 3.7 mmol/L (3.5-5.1)
[2018-04-27] MEDS ORDERED: ALBUMIN HUMAN 25% 100 ML IV ONE ×2 (06:40→18:58)
--- NOTE | 2018-04-27 06:49 | P.HP ---
Certification for Inpatient Patient admitted to: Inpatient With expected LOS: >2 Midnights Patient will require the following post-hospital care: None Practitioner: I am a practitioner with admitting privileges, knowledge of patient current condition, hospital course, and medical plan of care. Services: Services provided to patient in accordance with Admission requirements found in Title 42 Section 412.3 of the Code of Federal Regulations Patient History Date of Service: 04/26/18 Reason for admission: UTI with sepsis History of Present Illness: Patient is a 73yo female who was admitted to the hospital with a urinary tract infection with sepsis. Patient has been doing well except she has had some wounds that live coming gone on her lower extremities. She also has a sacral wound. This has been managed by infectious disease Dr. Macias. Patient's wounds have been clean with no signs of infection. Patient spiked a temp of a 102 at the assisted. She has been doing well up until that time. Her urine output was discolored as well. They sent her to the emergency room for further evaluation. In the ER, her workup revealed a urinary tract infection. 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 However, patient does a lot of her own activities of daily living. Patient was admitted to the hospital for further intervention. Allergies Penicillins Allergy (Mild, Verified 06/04/15 18:46) Rash sulfamethoxazole [From Bactrim] Allergy (Mild, Verified 06/04/15 18:46) Rash trimethoprim [From Bactrim] Allergy (Mild, Verified 06/04/15 18:46) Rash meropenem Allergy (Verified 12/11/17 05:08) Anaphylaxis Sulfa (Sulfonamide Antibiotics) Allergy (Verified 04/27/18 02:57) Itching/Hives/Rash Flu vaccine Allergy (Severe, Uncoded 04/27/18 02:57) [place] Home Medications: Levothyroxine Sodium [Levoxyl] 125 mcg PO DAILY 07/26/15 Rivaroxaban [Xarelto*] 10 mg PO DAILY 07/26/15 Ferrous Sulfate 325 mg PO DAILY 01/30/16 Ipratropium/Albuterol Sulfate [Iprat-Albut 0.5-3(2.5) mg/3 ml] 3 ml IH Q4HP PRN 11/18/16 Fentanyl Patch [Duragesic Patch*] 50 mcg TD EVERY 3RD DAY #10 02/04/17 Hydrocodone 10/APAP 325 [[place] 10/325*] 1 tab PO Q4HP PRN #20 tab 02/04/17 Polyethylene Glycol 3350 [Miralax] 17 gm PO DAILY 05/29/17 Pregabalin [Lyrica*] 75 mg PO Q12H 05/29/17 Cyanocobalamin (Vitamin B-12) [B-12] 1,000 mcg PO DAILY 08/26/17 Amlodipine Besylate 5 mg PO DAILY 12/11/17 Carvedilol 25 mg PO Q12H 12/11/17 Furosemide [Lasix*] 20 mg PO DAILY 12/11/17 L. Acidophilus/Pectin, [place] [Acidophilus Capsule] 1 each PO BID 12/11/17 Loperamide HCl [Imodium A-D] 2 mg PO Q8H PRN 12/11/17 Nystatin Powder [Mycostatin (Powder)*] 1 appl TP BID 12/11/17 Oxybutynin Chloride [Oxybutynin Chloride ER] 10 mg PO Q12H 12/11/17 Pantoprazole Sodium 40 mg PO DAILY 12/11/17 predniSONE [Prednisone] 10 mg PO DAILY 12/11/17 Docusate Sodium 100 mg PO BID 04/27/18 Duloxetine HCl [Cymbalta] 60 mg PO DAILY 04/27/18 Glimepiride [Amaryl] 2 mg PO BID 04/27/18 Potassium Oral Tab [Klor-Con 10 mEq Tab] 40 meq PO DAILY PRN 04/27/18 - Past Medical/Surgical History Has patient received pneumonia vaccine in the past: Yes Diabetic: Yes -: Coronary artery disease. -: Congestive heart failure -: Spinal Stenosis -: Neuropathy -: HTN -: Hypothyroid -: COPD -: Gu[place] -[place] syndrome -: History of DVT rt leg -: cellulitis bilat legs required shelter antibiotics -: Hyperlipidemia -: Hyperlipidemia, cholecystecomy, hysterectomy -: Cholecystectomy, 1989 -: Hysterectomy, 1964 -: gland removed from throat, -: cataract Surgery, 1999 -: Three heart stents (2 in 2011) -: Tonsillectomy -: Appendectomy Psychosocial/ Personal History: She lives at assisted. - Family History Brother Medical History: Heart disease, Hypertension Father Medical History: Heart disease, Hypertension Notes: heart attack - Social History Smoking Status: Former smoker Alcohol use: Yes CD- Drugs: No Caffeine use: Yes Place of Residence: [place] Review of Systems 10-point ROS is otherwise unremarkable Physical Examination - Vital Signs Temperature: 97 F Blood Pressure: 91/49 Pulse: 56 Respirations: 12 Pulse Ox (%): 93 - Physical Exam General: Alert, In no apparent distress, Oriented x3 HEENT: Atraumatic, Normocephalic Neck: Supple, 2+ carotid pulse no bruit, JVD not distended, No Thyromegaly Respiratory: Clear to auscultation bilaterally, Normal air movement Cardiovascular: No edema, Regular rate/rhythm, Normal S1 S2, No murmurs Gastrointestinal: Normal bowel sounds, Soft and benign, Non-distended, No tenderness Musculoskeletal: No clubbing Neurological: Normal tone, Sensation intact, Cranial nerves 3-12 intact, Normal affect, Abnormal strength - Studies Laboratory Data (last 24 hrs) 04/26/18 19:40: PT 17.4 H, INR 1.47, APTT 29.8 04/26/18 19:40: WBC 19.2 H D, Hgb 12.6, Hct 38.5, Plt Count 199 04/26/18 19:40: Sodium 136, Potassium 4.3, BUN 23 H, Creatinine 1.20, Glucose 205 H, Total Bilirubin 0.5, AST 19, ALT 27, Alkaline Phosphatase 74, Amylase 32 , Lipase 44 L Assessment & Plan - Problems (Diagnosis) (1) Septic shock Onset Date: 08/26/17 Current Visit: No Status: Acute (2) UTI (urinary tract infection) Onset Date: 12/13/17 Current Visit: No Status: Acute (3) Vomiting Onset Date: 09/11/15 Current Visit: No Status: Acute (4) CAD (coronary artery disease) Onset Date: 04/20/17 Current Visit: No Status: Chronic Qualifiers: Coronary Disease-Associated Artery/Lesion type: [place] artery [place] vs. transplanted heart: [place] heart Associated angina: with stable angina Qualified Code(s): I25.118 - Atherosclerotic heart disease of [place] coronary artery with other forms of angina pectoris (5) Chronic indwelling Fay catheter Current Visit: No Status: Chronic (6) Chronic inflammatory demyelinating polyneuritis Onset Date: 04/20/17 Current Visit: No Status: Chronic (7) Chronic steroid use Onset Date: 12/13/17 Current Visit: No Status: Chronic (8) Decubitus ulcer Current Visit: No Status: Chronic (9) Lymphedema Onset Date: 12/13/17 Current Visit: No Status: Chronic (10) Obesity Onset Date: 05/31/17 Current Visit: No Status: Chronic Qualifiers: Obesity type: due to excess calories Obesity classification: adult class 3 (BMI >= 40) Serious obesity comorbidity presence: with serious comorbidity Body mass index: BMI 40.0-44.9 Qualified Code(s): E66.01 - Morbid (severe) obesity due to excess calories; Z68.41 - Body mass index (BMI) 40.0-44.9, adult ; Z68.41 - Body mass index (BMI) 40.0-44.9, adult; Z68.41 - Body mass index (BMI ) 40.0-44.9, adult; Z68.41 - Body mass index (BMI) 40.0-44.9, adult (11) Rheumatoid arthritis RA Onset Date: 04/20/17 Current Visit: No Status: Chronic - Plan 1. Continue with IV antibiotic 2. Continue with local wound care 3. Infectious disease consultation 4. Gentle IV hydration 5. Monitor CBC 6. Continue with IV steroids 7. May need physical therapy evaluation 8. Will get wound healing Center to evaluate patient's wounds 9. Consider transferred to long-term acute care hospital to take care of multiple issues for patient 10. GI and DVT prophylaxis - Advance Directives Does patient have a Living Will: No Does patient have a Durable POA for Healthcare: No - Code Status/Comfort Care Code Status Assessed: Yes Code Status: Full Code Critical Care: No Time Spent Managing PTS Care (In Minutes): 50
[2018-04-27] MEDS ORDERED: NA CHLORIDE 0.9% 250 ML IV ONE (06:59)
[2018-04-27] MEDS: Levofloxacin500mg IV 500 MG/100 ML BAG IV SCH (08:00)
[2018-04-27] MEDS ORDERED: POTASSIUM CL SA 10 MEQ TAB PO ONE ×2 (08:00→10:20)
--- NOTE | 2018-04-27 08:24 | RAD REPORT ---
EXAM DESCRIPTION: RAD - Chest Single View - 04/27/2018 12:46 am CLINICAL HISTORY: placement of picc line COMPARISON: Chest Single View dated 04/26/2018; Chest Single View dated 12/10/2017; Chest Single View dated 08/26/2017; Chest Single View dated 08/25/2017 FINDINGS: Portable chest was obtained following placement of a right upper extremity PICC line. The catheter tip projects over the SVC..
[2018-04-27] MEDS: ENOXAPARIN 40 MG/0.4 ML SQ SCH (09:00)
[2018-04-27] MEDS ORDERED: CEFTRIAXONE 1 GM/NS 50 ML 1 GM/50 ML BAG IV SCH (09:00)
[2018-04-27] MEDS: CEFEPIME/SWI 1gm 1 GM/10 ML SYR IV SCH ×2 (09:00→22:04)
[2018-04-27] MEDS ORDERED: CEFEPIME 1 GM/VIAL IV SCH (09:00)
[2018-04-27] MEDS: HYDROCORTISONE SUC 100 MG INJ IV SCH ×2 (09:00→22:05)
[2018-04-27] MEDS ORDERED: Levofloxacin500mg IV 500 MG/100 ML BAG IV ONE (10:21)
[2018-04-27] MEDS ORDERED: ENOXAPARIN 40 MG/0.4 ML SQ ONE (10:22)
[2018-04-27] MEDS ORDERED: ALBUTEROL 2.5 MG/3 ML NEB SOL NEB PRN (10:44)
[2018-04-27] MEDS: PREGABALIN 75 MG CAP PO SCH ×2 (11:00→22:04)
--- NOTE | 2018-04-27 12:11 | EKG ---
Test Date: 2018-04-26 Test Time: 20:34:22 Steamfitter: JUSTA MEASUREMENT RESULTS: Intervals: Rate: 72 HI: 164 QRSD: 140 QT: 450 QTc: 492 [place]: P: 43 HI: 164 QRS: -58 T: 2 INTERPRETIVE STATEMENTS: Normal sinus rhythm Left axis deviation Right bundle branch block Abnormal ECG Compared to ECG 12/10/2017 18:37:22 Left-axis deviation now present Left anterior fascicular block no longer present Bifascicular block no longer present Electronically Signed On 04-27-18 12:08:50 CDT by Skyler Harding
[2018-04-27] MEDS: NA CHLORIDE 0.9% 1,000 ML IV SCH (14:00)
--- NOTE | 2018-04-27 15:08 | P.PN ---
Subjective Date of Service: 04/27/18 Chief Complaint: UTI with sepsis Patient seen and examined at bedside with RN. Chart reviewed. Case discussed with patient at bedside the patient doing well overall today. Blood pressure has been stabilized so far. Review of Systems 10-point ROS is otherwise unremarkable Physical Examination - Vital Signs Temperature: 97.7 F Blood Pressure: 108/52 Pulse: 58 Respirations: 13 Pulse Ox (%): 98 - Physical Exam General: Alert, In no apparent distress HEENT: Atraumatic, PERRLA, EOMI Neck: Supple, JVD not distended Respiratory: Clear to auscultation bilaterally, Normal air movement Cardiovascular: Regular rate/rhythm, Normal S1 S2 Gastrointestinal: Normal bowel sounds, No tenderness Musculoskeletal: No tenderness Integumentary: No rashes Neurological: Normal speech, Normal tone, Normal affect Lymphatics: No axilla or inguinal lymphadenopathy - Studies Laboratory Data (last 24 hrs) 04/26/18 19:40: PT 17.4 H, INR 1.47, APTT 29.8 04/26/18 19:40: WBC 19.2 H D, Hgb 12.6, Hct 38.5, Plt Count 199 04/26/18 19:40: Sodium 136, Potassium 4.3, BUN 23 H, Creatinine 1.20, Glucose 205 H, Total Bilirubin 0.5, AST 19, ALT 27, Alkaline Phosphatase 74, Amylase 32 , Lipase 44 L Medications List Reviewed: Yes Assessment And Plan - Current Problems (Diagnosis) (1) Septic shock Onset Date: 08/26/17 Current Visit: No Status: Acute Plan: Acute septic shock most likely secondary to urinary tract infection. -currently on IV fluids and IV steroids for hemodynamic stability -IV cefepime and Rocephin at this time -urine culture and blood culture pending at this time -will taper steroids as necessary -will follow up with cultures in AM (2) UTI (urinary tract infection) Onset Date: 04/27/18 Current Visit: Yes Status: Acute Plan: UA with UTI -urine culture pending at this time -currently on IV Levaquin and cefepime will continue at this time Qualifiers: Urinary tract infection type: acute cystitis (3) CAD (coronary artery disease) Onset Date: 04/20/17 Current Visit: No Status: Chronic Qualifiers: Coronary Disease-Associated Artery/Lesion type: [place] artery [place] vs. transplanted heart: [place] heart Associated angina: with stable angina Qualified Code(s): I25.118 - Atherosclerotic heart disease of [place] coronary artery with other forms of angina pectoris (4) COPD (chronic obstructive pulmonary disease) Onset Date: 04/20/17 Current Visit: No Status: Chronic Qualifiers: COPD type: COPD with acute exacerbation Qualified Code(s): J44.1 - Chronic obstructive pulmonary disease with (acute) exacerbation (5) Chronic anticoagulation Current Visit: No Status: Chronic (6) Chronic inflammatory demyelinating polyneuritis Onset Date: 04/20/17 Current Visit: No Status: Chronic (7) Chronic renal disease Onset Date: 11/19/16 Current Visit: No Status: Chronic Qualifiers: Chronic kidney disease stage: stage 2 (mild) Qualified Code(s): N18.2 - Chronic kidney disease, stage 2 (mild) (8) GERD (gastroesophageal reflux disease) Current Visit: No Status: Chronic Qualifiers: Esophagitis presence: esophagitis presence not specified Qualified Code(s) : K21.9 - Gastro-esophageal reflux disease without esophagitis (9) History of DVT (deep vein thrombosis) Onset Date: 04/20/17 Current Visit: No Status: Chronic (10) Hypothyroidism Onset Date: 04/20/17 Current Visit: No Status: Chronic Qualifiers: Hypothyroidism type: acquired Qualified Code(s): E03.9 - Hypothyroidism, unspecified (11) Lymphedema Onset Date: 12/13/17 Current Visit: No Status: Chronic (12) Obesity Onset Date: 05/31/17 Current Visit: No Status: Chronic Qualifiers: Obesity type: due to excess calories Obesity classification: adult class 3 (BMI >= 40) Serious obesity comorbidity presence: with serious comorbidity Body mass index: BMI 40.0-44.9 Qualified Code(s): E66.01 - Morbid (severe) obesity due to excess calories; Z68.41 - Body mass index (BMI) 40.0-44.9, adult ; Z68.41 - Body mass index (BMI) 40.0-44.9, adult; Z68.41 - Body mass index (BMI ) 40.0-44.9, adult; Z68.41 - Body mass index (BMI) 40.0-44.9, adult (13) Rheumatoid arthritis RA Onset Date: 04/20/17 Current Visit: No Status: Chronic Discharge Plan: Home Plan to discharge in: 48 Hours - Code Status/Comfort Care Code Status Assessed: Yes Critical Care: No
[2018-04-27] MEDS ORDERED: LOPERAMIDE HCL 2 MG PO PRN (15:11)
[2018-04-27] MEDS ORDERED: HOME MED 1 EA UNK (Oxybutynin Chloride [Oxybutynin Chloride Er] 10 MG) PO SCH (15:15)
[2018-04-27] MEDS ORDERED: OXYBUTYNIN ER 5 MG TAB PO ONE (16:00)
[2018-04-27] MEDS ORDERED: LOPERAMIDE HCL 2 MG CAPSULE PO PRN (16:08)
[2018-04-27] MEDS: HYDROCODONE/APAP 10/325 TAB PO PRN ×2 (16:44→22:13)
--- NOTE | 2018-04-27 18:47 | CON ---
History Of Present Illness: This is a 73-year-old female, known to me from care home facility for wounds on her legs, coming in with urinary tract infection for chronic Fay catheter placement. Th e patient claimed to have high fevers and was not feeling well. She was sent to the emergency room w here she was found to have low-grade fevers and cloudy urination, which she started on IV antibiotic for. Past Medical History: Coronary artery disease, congestive heart failure, spinal stenosis, neuropathy , hypertension, hypothyroidism, COPD, Guillain-[place], DVT to the right leg, cellulitis of lower extre mities, stasis ulcers to the lower extremity with leg edema, hyperlipidemia, cholecystectomy, hystere ctomy, diabetes mellitus. Surgical History: Nonsmoker, nondrinker. Lives at care home. Family History: Noncontributory. Medication: Include Levaquin and cefepime. See MARs for other medication. Allergies: PENICILLIN, SULFA DRUGS, BACTRIM MEROPENEM, FLU VACCINE. Review of Systems: A 10-point review was performed. Physical Examination: General: The patient lying in bed, not in any acute cardiopulmonary distress. Vital Signs: Temperature 97.7, pulse 60, respiration 13, blood pressure 108/52. HEENT: Unremarkable. Neck: Supple. Lungs: Basal crackles. Heart: S1, S2. Regular. Abdomen: Soft, nontender. Bowel sounds positive. Obese. Extremity: 2+ edema with stasis ulcer noted on the right leg. Buttock area with erythematous change s and mild skin excoriation also noted. Fay catheter with cloudy urine and sediment in place. Laboratory Data: Shows WBC 99262, hemoglobin 11.6, [place] [address] [place] [address], platelet s are 184. Chemistry shows sodium 140, potassium 3.7, chloride 103, bicarb 31, BUN 35, creatinine 1. 4, glucose is 57, albumin is 2.4. Assessment And Plan: Urinary tract infection, sepsis, leukocytosis, improving. Continue Levaquin an d cefepime. Protein calorie malnourishment. Continue antibiotic for total of 2 weeks. Consider pos sible long-term acute care. We will follow the patient closely. NF/MODL Voice ID: [id number] Report ID: [id number]
[2018-04-27] MEDS ORDERED: PECTIN CITRUS PO SCH (21:00)
[2018-04-27] MEDS ORDERED: ACIDOPHILUS PO SCH (21:00)
[2018-04-27] MEDS ORDERED: HOME MED 1 EA UNK (Docusate Sodium [Docusate Sodium] 100 MG) PO SCH (21:00)
[2018-04-27] MEDS: DOCUSATE NA 100 MG CAP PO SCH (22:04)
[2018-04-27] MEDS: LACTOBACILLUS/ACIDOPHILUS TAB PO SCH (22:04)
[2018-04-28] MEDS: NA CHLORIDE 0.9% 1,000 ML IV SCH ×2 (01:07→14:00)
[2018-04-28] MEDS ORDERED: LEVOTHYROXINE SOD 0.125 MG TAB PO SCH (06:00)
[2018-04-28 06:03] VITALS: O2SAT 96
[2018-04-28 07:18] LABS: Absolute Lymphocytes (CBC) 1.6 K/uL (0.7-4.9); Absolute Monocytes 0.6 K/uL (0.1-1.3); Absolute Neutrophil 7.1 K/uL (1.8-8.0); Basophils % 0.4 % (0-1.3); Eosinophils % 0.4 % (0-4.4); Lymphocytes % 16.8 % (15.3-44.8); MCH 30.8 pg (27.0-35.0); MCV 91.9 fL (80-100); MPV 9.1 fL (7.6-11.3)
[2018-04-28] MEDS ORDERED: PANTOPRAZOLE 40MG TABLET PO SCH (07:30)
[2018-04-28 07:38] LABS: Albumin 2.5 g/dL (3.4-5.0); Bilirubin Total 0.2 mg/dL (0.2-1.0); Magnesium 1.8 mg/dL (1.8-2.4); Phosphorus 3.1 mg/dL (2.5-4.9); Potassium 4.5 mmol/L (3.5-5.1); Protein, Total 6.3 g/dL (6.4-8.2)
[2018-04-28] MEDS ORDERED: MAGNESIUM SULFATE 1 gm IVPB 1 GM/100 ML BAG IV ONE (08:36)
[2018-04-28] MEDS ORDERED: CYANOCOBALAMIN 1,000 MCG TAB PO SCH (09:00)
[2018-04-28] MEDS ORDERED: RIVAROXABAN 15 MG TABLET PO SCH (09:00)
[2018-04-28] MEDS ORDERED: HOME MED 1 EA UNK (Polyethylene Glycol 3350 [Miralax] 17 GM) PO SCH (09:00)
[2018-04-28] MEDS ORDERED: DULOXETINE 30 MG CAP PO SCH (09:00)
[2018-04-28] MEDS ORDERED: FERROUS SULFATE 325 MG TAB PO SCH (09:00)
[2018-04-28] MEDS ORDERED: HOME MED 1 EA UNK (Duloxetine Hcl [Cymbalta] 60 MG) PO SCH (09:00)
[2018-04-28] MEDS ORDERED: POLYETHYL GLY 3350 17 GM/DOSE PO SCH (09:00)
[2018-04-28] MEDS: OXYBUTYNIN ER 5 MG TAB PO SCH ×2 (09:31→20:34)
[2018-04-28] MEDS: CEFEPIME/SWI 1gm 1 GM/10 ML SYR IV SCH ×2 (09:33→20:33)
[2018-04-28] MEDS: ENOXAPARIN 40 MG/0.4 ML SQ SCH (09:33)
[2018-04-28] MEDS: PREGABALIN 75 MG CAP PO SCH ×2 (09:34→20:33)
[2018-04-28] MEDS: DOCUSATE NA 100 MG CAP PO SCH ×2 (09:35→20:33)
[2018-04-28] MEDS: HYDROCORTISONE SUC 100 MG INJ IV SCH ×2 (09:35→20:32)
[2018-04-28] MEDS: LACTOBACILLUS/ACIDOPHILUS TAB PO SCH ×2 (09:35→20:32)
[2018-04-28] MEDS: Levofloxacin500mg IV 500 MG/100 ML BAG IV SCH (09:36)
[2018-04-28] MEDS ORDERED: WATER FOR INJ,STERILE 10 ML ONE (09:48)
[2018-04-28 09:53] VITALS: TEMP 97
[2018-04-28 13:45] VITALS: BP 120/60
--- NOTE | 2018-04-28 14:28 | P.PN ---
Subjective Date of Service: 04/28/18 Chief Complaint: UTI with sepsis Patient seen and examined at bedside with RN. Chart reviewed. Case discussed with patient at bedside the patient doing well overall today. Blood pressure has been stabilized so far. Wound care and Urine culture pending Review of Systems 10-point ROS is otherwise unremarkable Physical Examination - Vital Signs Temperature: 97.0 F Blood Pressure: 120/60 Pulse: 70 Respirations: 16 Pulse Ox (%): 95 - Physical Exam General: Alert, In no apparent distress, Obese HEENT: Atraumatic, PERRLA, EOMI Neck: Supple, JVD not distended Respiratory: Clear to auscultation bilaterally, Normal air movement Cardiovascular: Regular rate/rhythm, Normal S1 S2 Gastrointestinal: Normal bowel sounds, No tenderness Musculoskeletal: No tenderness Integumentary: No rashes Neurological: Normal speech, Normal tone, Normal affect Lymphatics: No axilla or inguinal lymphadenopathy - Studies Medications List Reviewed: Yes Assessment And Plan - Current Problems (Diagnosis) (1) Septic shock Onset Date: 08/26/17 Current Visit: No Status: Acute Plan: Acute septic shock most likely secondary to urinary tract infection vs skin wounds -currently on IV fluids and IV steroids for hemodynamic stability -IV cefepime and levaquin at this time -urine culture and blood culture pending at this time -will follow up with cultures in AM (2) UTI (urinary tract infection) Onset Date: 04/27/18 Current Visit: Yes Status: Acute Plan: UA with UTI -urine culture pending at this time -currently on IV Levaquin and cefepime will continue at this time Qualifiers: Urinary tract infection type: acute cystitis (3) CAD (coronary artery disease) Onset Date: 04/20/17 Current Visit: No Status: Chronic Qualifiers: Coronary Disease-Associated Artery/Lesion type: [place] artery [place] vs. transplanted heart: [place] heart Associated angina: with stable angina Qualified Code(s): I25.118 - Atherosclerotic heart disease of [place] coronary artery with other forms of angina pectoris (4) COPD (chronic obstructive pulmonary disease) Onset Date: 04/20/17 Current Visit: No Status: Chronic Qualifiers: COPD type: COPD with acute exacerbation Qualified Code(s): J44.1 - Chronic obstructive pulmonary disease with (acute) exacerbation (5) Chronic anticoagulation Current Visit: No Status: Chronic (6) Chronic inflammatory demyelinating polyneuritis Onset Date: 04/20/17 Current Visit: No Status: Chronic (7) Chronic renal disease Onset Date: 11/19/16 Current Visit: No Status: Chronic Qualifiers: Chronic kidney disease stage: stage 2 (mild) Qualified Code(s): N18.2 - Chronic kidney disease, stage 2 (mild) (8) GERD (gastroesophageal reflux disease) Current Visit: No Status: Chronic Qualifiers: Esophagitis presence: esophagitis presence not specified Qualified Code(s) : K21.9 - Gastro-esophageal reflux disease without esophagitis (9) History of DVT (deep vein thrombosis) Onset Date: 04/20/17 Current Visit: No Status: Chronic (10) Hypothyroidism Onset Date: 04/20/17 Current Visit: No Status: Chronic Qualifiers: Hypothyroidism type: acquired Qualified Code(s): E03.9 - Hypothyroidism, unspecified (11) Lymphedema Onset Date: 12/13/17 Current Visit: No Status: Chronic (12) Obesity Onset Date: 05/31/17 Current Visit: No Status: Chronic Qualifiers: Obesity type: due to excess calories Obesity classification: adult class 3 (BMI >= 40) Serious obesity comorbidity presence: with serious comorbidity Body mass index: BMI 40.0-44.9 Qualified Code(s): E66.01 - Morbid (severe) obesity due to excess calories; Z68.41 - Body mass index (BMI) 40.0-44.9, adult ; Z68.41 - Body mass index (BMI) 40.0-44.9, adult; Z68.41 - Body mass index (BMI ) 40.0-44.9, adult; Z68.41 - Body mass index (BMI) 40.0-44.9, adult (13) Rheumatoid arthritis RA Onset Date: 04/20/17 Current Visit: No Status: Chronic (14) Decubitus ulcer Onset Date: 04/27/18 Current Visit: Yes Status: Chronic Plan: Patient with several skin wounds at this time. Requiring complex wound care here in the hospital. -wound care has been consulted. ID has been consulted -recommends long-term acute care placement for IV antibiotics and complex wound care - Plan Palliatively clinical improvement. Pending placement at this time Discharge Plan: Other Plan to discharge in: 48 Hours - Code Status/Comfort Care Code Status Assessed: Yes Critical Care: No
[2018-04-28 16:26] LABS: Urine Appearance CLOUDY; Urine Bilirubin NEGATIVE (NEG); Urine Blood 2+ (NEG); Urine Color YELLOW; Urine Glucose 2+ (NEG); Urine Microscopic Reflex ORDER UMIC; Urine Protein 1+ (NEG); Urine Urobilinogen 0.2 mg/dL (0.2-1.0); Urine pH 5.5 (5.0-7.0)
[2018-04-28 16:34] LABS: Urine Bacteria 20-50 /HPF (<20); Urine Culture Reflex Order REFLEXED; Urine White Blood Cell Casts 0-5 /LPF (NONE SEEN)
--- NOTE | 2018-04-28 17:32 | P.SSS ---
Patient History Date of Service: 04/28/18 Reason for admission: UTI with sepsis History of Present Illness: Patient is a 73yo female who was admitted to the hospital with a urinary tract infection with sepsis. Patient has been doing well except she has had some wounds that live coming gone on her lower extremities. She also has a sacral wound. This has been managed by infectious disease Dr. Macias. Patient's wounds have been clean with no signs of infection. Patient spiked a temp of a 102 at the assisted. She has been doing well up until that time. Her urine output was discolored as well. They sent her to the emergency room for further evaluation. In the ER, her workup revealed a urinary tract infection. 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 However, patient does a lot of her own activities of daily living. Patient was admitted to the hospital for further intervention. Allergies Penicillins Allergy (Mild, Verified 06/04/15 18:46) Rash sulfamethoxazole [From Bactrim] Allergy (Mild, Verified 06/04/15 18:46) Rash trimethoprim [From Bactrim] Allergy (Mild, Verified 06/04/15 18:46) Rash meropenem Allergy (Verified 12/11/17 05:08) Anaphylaxis Sulfa (Sulfonamide Antibiotics) Allergy (Verified 04/27/18 02:57) Itching/Hives/Rash Flu vaccine Allergy (Severe, Uncoded 04/27/18 02:57) Guillan-[place] Home Medications: Levothyroxine Sodium [Levoxyl] 125 mcg PO DAILY 07/26/15 Rivaroxaban [Xarelto*] 10 mg PO DAILY 07/26/15 Ferrous Sulfate 325 mg PO DAILY 01/30/16 Ipratropium/Albuterol Sulfate [Iprat-Albut 0.5-3(2.5) mg/3 ml] 3 ml IH Q4HP PRN 11/18/16 Fentanyl Patch [Duragesic Patch*] 50 mcg TD EVERY 3RD DAY #10 02/04/17 Hydrocodone 10/APAP 325 [Fisher 10/325*] 1 tab PO Q4HP PRN #20 tab 02/04/17 Polyethylene Glycol 3350 [Miralax] 17 gm PO DAILY 05/29/17 Pregabalin [Lyrica*] 75 mg PO Q12H 05/29/17 Cyanocobalamin (Vitamin B-12) [B-12] 1,000 mcg PO DAILY 08/26/17 Amlodipine Besylate 5 mg PO DAILY 12/11/17 Carvedilol 25 mg PO Q12H 12/11/17 Furosemide [Lasix*] 20 mg PO DAILY 12/11/17 L. Acidophilus/Pectin, [place] [Acidophilus Capsule] 1 each PO BID 12/11/17 Loperamide HCl [Imodium A-D] 2 mg PO Q8H PRN 12/11/17 Nystatin Powder [Mycostatin (Powder)*] 1 appl TP BID 12/11/17 Oxybutynin Chloride [Oxybutynin Chloride ER] 10 mg PO Q12H 12/11/17 Pantoprazole Sodium 40 mg PO DAILY 12/11/17 predniSONE [Prednisone] 10 mg PO DAILY 12/11/17 Docusate Sodium 100 mg PO BID 04/27/18 Duloxetine HCl [Cymbalta] 60 mg PO DAILY 04/27/18 Glimepiride [Amaryl*] 2 mg PO BID 04/27/18 Potassium Oral Tab [Klor-Con 10 mEq Tab*] 40 meq PO DAILY PRN 04/27/18 - Past Medical/Surgical History Has patient received pneumonia vaccine in the past: Yes Diabetic: Yes -: Coronary artery disease. 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 - Family History Brother -: Heart disease, Hypertension Father -: Heart disease, Hypertension Notes: heart attack - Social History Smoking Status: Former smoker Alcohol use: Yes CD- Drugs: No Caffeine use: Yes Place of Residence: Residential Review of Systems 10-point ROS is otherwise unremarkable Physical Examination - Vital Signs Temperature: 97.0 F Blood Pressure: 120/60 Pulse: 70 Respirations: 16 Pulse Ox (%): 95 - Physical Exam General: Alert, In no apparent distress, Obese HEENT: Atraumatic, PERRLA, Mucous membr. moist/pink, EOMI, Sclerae nonicteric Neck: Supple, 2+ carotid pulse no bruit, No LAD, Without JVD or thyroid abnormality Respiratory: Clear to auscultation bilaterally, Normal air movement Cardiovascular: Regular rate/rhythm, Normal S1 S2 Gastrointestinal: Normal bowel sounds, No tenderness Musculoskeletal: No tenderness Integumentary: No rashes Neurological: Normal speech, Normal tone Lymphatics: No axilla or inguinal lymphadenopathy - Diagnosis (Problem(s)) (1) Septic shock Onset Date: 08/26/17 Current Visit: No Status: Acute (2) UTI (urinary tract infection) Onset Date: 04/27/18 Current Visit: Yes Status: Acute Qualifiers: Urinary tract infection type: acute cystitis (3) CAD (coronary artery disease) Onset Date: 04/20/17 Current Visit: No Status: Chronic Qualifiers: Coronary Disease-Associated Artery/Lesion type: [place] artery [place] vs. transplanted heart: [place] heart Associated angina: with stable angina Qualified Code(s): I25.118 - Atherosclerotic heart disease of [place] coronary artery with other forms of angina pectoris (4) COPD (chronic obstructive pulmonary disease) Onset Date: 04/20/17 Current Visit: No Status: Chronic Qualifiers: COPD type: COPD with acute exacerbation Qualified Code(s): J44.1 - Chronic obstructive pulmonary disease with (acute) exacerbation (5) Chronic anticoagulation Current Visit: No Status: Chronic (6) Chronic inflammatory demyelinating polyneuritis Onset Date: 04/20/17 Current Visit: No Status: Chronic (7) Chronic renal disease Onset Date: 11/19/16 Current Visit: No Status: Chronic Qualifiers: Chronic kidney disease stage: stage 2 (mild) Qualified Code(s): N18.2 - Chronic kidney disease, stage 2 (mild) (8) GERD (gastroesophageal reflux disease) Current Visit: No Status: Chronic Qualifiers: Esophagitis presence: esophagitis presence not specified Qualified Code(s) : K21.9 - Gastro-esophageal reflux disease without esophagitis (9) History of DVT (deep vein thrombosis) Onset Date: 04/20/17 Current Visit: No Status: Chronic (10) Hypothyroidism Onset Date: 04/20/17 Current Visit: No Status: Chronic Qualifiers: Hypothyroidism type: acquired Qualified Code(s): E03.9 - Hypothyroidism, unspecified (11) Lymphedema Onset Date: 12/13/17 Current Visit: No Status: Chronic (12) Obesity Onset Date: 05/31/17 Current Visit: No Status: Chronic Qualifiers: Obesity type: due to excess calories Obesity classification: adult class 3 (BMI >= 40) Serious obesity comorbidity presence: with serious comorbidity Body mass index: BMI 40.0-44.9 Qualified Code(s): E66.01 - Morbid (severe) obesity due to excess calories; Z68.41 - Body mass index (BMI) 40.0-44.9, adult ; Z68.41 - Body mass index (BMI) 40.0-44.9, adult; Z68.41 - Body mass index (BMI ) 40.0-44.9, adult; Z68.41 - Body mass index (BMI) 40.0-44.9, adult (13) Rheumatoid arthritis RA Onset Date: 04/20/17 Current Visit: No Status: Chronic (14) Decubitus ulcer Onset Date: 04/27/18 Current Visit: Yes Status: Chronic Treatment Summary: Overall during the hospital stay patient remained stable. Pt was admitted to the hospital for sepsis most likely secondary to UTI and chronic wounds. Patient was started on IV cefepime and Levaquin. Blood culture urine culture pending at this time. ID was consulted on the case who recommended the patient will benefit from long-term acute care facility for her complex wound care along with IV antibiotics. [facility] was accepted at [facility] and thus was transferred over there for further care. - Disposition Disposition: ROUTINE DISCHARGE Condition: GOOD Patient Discharge Instructions: New medication. Cefepime 1g BID. Levaquin 500mg daily Diet: Regular Activity: Ad heidi
[2018-04-28] MEDS ORDERED: WATER FOR INJ,STERILE 10 ML IV SCH (21:00)
[2018-04-29] MEDS ORDERED: RIVAROXABAN 10 MG TABLET PO SCH (09:00)
== END 2018-04-28 20:55 | DRG 698 ==
LOC: ER 19:12 → ERHOLD 21:57 → 4TH 04-27 13:22
PROVIDERS: ADMIT Hospitalist; ATTEND Hospitalist
PROC: 02HV33Z Insertion of Infusion Device into Superior Vena Cava, Percutaneous Approach (ICD-10-PCS; principal; 2018-04-27)
DX: T83.511A Infection and inflammatory reaction due to indwelling urethral catheter, initial encounter (principal); A41.9 Sepsis, unspecified organism; G61.81 Chronic inflammatory demyelinating polyneuritis; I13.0 Hypertensive heart and chronic kidney disease with heart failure and stage 1 through stage 4 chronic kidney disease, or unspecified chronic kidney disease; Z68.41 Body mass index [BMI] 40.0-44.9, adult; E03.9 Hypothyroidism, unspecified; I25.10 Atherosclerotic heart disease of native coronary artery without angina pectoris; N18.2 Chronic kidney disease, stage 2 (mild); I50.9 Heart failure, unspecified; I89.0 Lymphedema, not elsewhere classified; E66.9 Obesity, unspecified; J44.9 Chronic obstructive pulmonary disease, unspecified; E78.5 Hyperlipidemia, unspecified; M06.9 Rheumatoid arthritis, unspecified; Z88.0 Allergy status to penicillin; Z88.2 Allergy status to sulfonamides; Z88.7 Allergy status to serum and vaccine; Z95.5 Presence of coronary angioplasty implant and graft; Z79.01 Long term (current) use of anticoagulants; Z86.718 Personal history of other venous thrombosis and embolism; Z79.52 Long term (current) use of systemic steroids; L89.159 Pressure ulcer of sacral region, unspecified stage
CPT/HCPCS: 36415; 51702; 71045; 80048; 80053; 80076; 81001; 81003; 81015; 82150; 82550; 82553; 82962; 83605; 83690; 83735; 84100; 84145; 84443; 84484; 85025; 85610; 85652; 85730; 86140; 86850; 86900; 86901; 87040; 87086; 87088; 93005; 96361; 96374; 96375; 99285; J0692; J0696; J1650; J1720; J2405; J3370; J3475; J7030; P9047

== ENCOUNTER 2018-07-02 16:50 | Inpatient (IN) | payer OTHER, BC ==
[2018-07-02] MEDS ORDERED: FUROSEMIDE 40 MG/4 ML VIAL ONE (17:12)
[2018-07-02 17:27] LABS: Protime INR 1.37
[2018-07-02 17:39] LABS: Absolute Lymphocytes (CBC) 1.9 K/uL (0.7-4.9); Absolute Monocytes 0.9 K/uL (0.1-1.3); Absolute Neutrophil 12.2 K/uL (1.8-8.0); Basophils % 0.1 % (0-1.3); Eosinophils % 0.2 % (0-4.4); Hematocrit 44.2 % (36.0-45.0); Lymphocytes % 12.6 % (15.3-44.8); MPV 9.5 fL (7.6-11.3); Monocytes % 5.9 % (3.3-12.3); RBC Red Blood Cell Count 4.69 M/uL (3.86-4.86)
[2018-07-02 18:05] LABS: Albumin 2.9 g/dL (3.4-5.0); Bilirubin Direct 0.2 mg/dL (0-0.2); Bilirubin Total 0.5 mg/dL (0.2-1.0); Magnesium 2.2 mg/dL (1.8-2.4); Potassium 4.9 mmol/L (3.5-5.1); Protein, Total 6.7 g/dL (6.4-8.2); Troponin (Emerg Dept Use Only) 0.02 ng/mL (0.0-0.045)
--- NOTE | 2018-07-02 18:17 | ER ---
Nurse's Notes [facility] Name: Jennifer Mariee Age: 73 yrs Sex: Female : 1945 Arrival Date: 07/02/2018 Time: 16:55 Bed 7 Private MD: Diagnosis: Acute systolic (congestive) heart failure;Hypoxemia Presentation: 07/02 16:56 Presenting complaint: EMS states: Hx of CHF and COPD, reports SOB is worse today, stan ph pitting edema noted, Spo2 88-93% RA, pt does not use supplemental o2, pt recently finished Vancomycin via PICC line, duo neb administered, pt denies chest pain. Transition of care: patient was received from another setting of care (long-term care [facility]. Onset of symptoms was July 02, 2018. Risk Assessment: Do you want to hurt yourself or someone else? Patient reports no desire to harm self or others. Initial Sepsis Screen: Does the patient meet any 2 criteria? No. Patient's initial sepsis screen is negative. Does the patient have a suspected source of infection? Yes: Catheter related infection (Fay/dialysis/PICC/central line). 16:56 Method Of Arrival: EMS: [facility] 16:56 Acuity: [facility] 3 ph 17:00 Care prior to arrival: Medication(s) given: Albuterol Neb Atrovent Neb. ph Triage Assessment: 17:00 General: Appears in no apparent distress. uncomfortable, obese, Behavior is calm, ph cooperative, appropriate for age, drowsy, Denies fever, feeling ill. Pain: Denies pain. Neuro: Level of Consciousness is awake, obeys commands, Oriented to person, place, time, situation, Speech is normal. Cardiovascular: Capillary refill < 3 seconds in bilateral fingers Patient's skin is warm and dry. Respiratory: Reports shortness of breath at rest Airway is patent Respiratory effort is even, unlabored, Respiratory pattern is regular, symmetrical, Breath sounds with crackles in left posterior lower lobe and right posterior lower lobe Breath sounds with wheezes in mediastinum, right upper lobe and left upper lobe Onset: The symptoms/episode began/occurred today, the patient has moderate shortness of breath Denies pain with respiration. GI:. GI: Patient currently denies abdominal pain, nausea, vomiting. : Fay in place to gravity drainage urine noted to be cloudy in appearance. Derm: Skin is healthy with good turgor, Skin is pink, warm \T\ dry. Musculoskeletal: Circulation, motion, and sensation intact. Range of motion: limited in lower extremities, reports hx of Guillain [place]. Historical: - Allergies: 17:29 FLU VACCINE; ph 17:29 PENICILLINS; ph 17:29 TRIMETHOPRIM; ph 17:29 Sulfa (Sulfonamide Antibiotics); ph - Home Meds: 17:29 Acidophilus Oral cap twice a day [Active]; Lasix 20 mg Oral tab 1 tab once daily ph [Active]; albuterol sulfate 2.5 mg /3 mL (0.083 %) Inhl nebu 3 mL every 6 hours [Active]; amlodipine 5 mg tab 1 tab once daily [Active]; Coreg 25 mg Oral tab 1 tab 2 times per day [Active]; cyanocobalamin (vitamin B-12) 1,000 mcg Oral tab daily [Active]; Cymbalta 60 mg Oral cpDR 1 cap once daily [Active]; docusate sodium 100 mg Oral cap 1 cap 2 times per day [Active]; fentanyl 50 mcg/hr Topical pt72 1 patch every 72 hours [Active]; ferrous sulfate 325 mg (65 mg iron) Oral tab daily [Active]; glimepiride 2 mg Oral tab 1 tab twice a day [Active]; Protonix 40 mg Oral TbEC 1 tab once daily [Active]; prednisone 20 mg oral tab [Active]; hydrocodone-acetaminophen 10-325 mg Oral tab 1 tab q4 hrs prn [Active]; ipratropium-albuterol 0.5 mg-3 mg(2.5 mg base)/3 mL Inhl nebu 3 mL 4 times per day [Active]; oxybutynin chloride 10 mg Oral tr24 1 tab twice a day [Active]; rivaroxaban 10 mg Oral once daily [Active]; levothyroxine 125 mcg tab 1 tab once daily [Active]; potassium chloride 20 mEq Oral TbER 2 tab once daily [Active]; Lyrica 100 mg Oral 1 cap 2 times per day [Active]; Miralax 17 gram Oral pwpk 1 packet once daily [Active]; Restoril 30 mg Oral cap 1 cap once daily [Active]; nitroglycerin 0.4 mg SL subl 1 tab every 5 minutes [Active]; Xanax 0.25 mg Oral tab 1 tab daily [Active]; ProMod Protein Oral liqd twice a day [Active]; Levemir 100 unit/mL subcutaneous soln 30 unit daily [Active]; Levemir 100 unit/mL subcutaneous soln 20 unit nightly [Active]; Aldactone 25 mg Oral tab 1 tab once daily [Active]; nystatin 100,000 unit/gram Topical powd 2 times per day [Active]; loperamide 2 mg Oral tab 1 tabs every 8 hours for Diarrhea [Active]; insulin aspart subcutaneous 100unit/mL subcutaneous per sliding scale [Active]; - PMHx: 18:02 allergies; Cellulitis; COPD; Depression; Diabetes - NIDDM; Diverticulitis; DVT; ph DYSPHAGIA; Gastrointestinal hemmorrhage; Gout; Hypertension; Hypothyroidism; MRSA; Myocardial infarction; Pneumonia; Sepsis; spinal stenosis; ulcerative colitis; - Immunization history:: Adult Immunizations unknown, Flu vaccine status is unknown. - Social history:: Smoking status: Patient/guardian denies using tobacco, The patient lives in [place] [facility], Smoking status: Patient/guardian denies using tobacco. - Ebola Screening: : No symptoms or risks identified at this time. Screenin:44 Abuse screen: Denies threats or abuse. Denies injuries from another. Nutritional ph screening: No deficits noted. Tuberculosis screening: No symptoms or risk factors identified. Fall Risk No fall in past 12 months (0 pts). Secondary diagnosis (15 points) impaired mobility, IV access (20 points). Ambulatory Aid- None/Bed Rest/Nurse Assist (0 pts). Gait- Impaired (20 pts.). Mental Status- Oriented to own ability (0 pts). Total Leon Fall Scale indicates High Risk Score (45 or more points). Fall prevention measures have been instituted. Side Rails Up X 2 Placed Close to Nursing Station Frequent Obs/Assessments Occuring As available patient and family educated on Fall Prevention Program and Strategies. Assessment: 18:44 Reassessment: No changes from previously documented assessment. patient in ct scan mg2 right now for ct chest PE angio. Cardiovascular: Rhythm is. 19:23 General: Appears in no apparent distress. Behavior is appropriate for age. General: ea Appears obese. Pain: Denies pain. Neuro: Level of Consciousness is awake, alert, obeys commands, Oriented to person, place, time, situation. Cardiovascular: Patient's skin is warm and dry. Respiratory: Airway is patent Respiratory effort is even, unlabored, Respiratory pattern is regular, symmetrical. : Fay in place Pt received from [facility] with Fay in place. Derm: Skin is pink, warm \T\ dry. 20:14 Reassessment: Patient and/or family updated on plan of care and expected duration. Pain ea level reassessed. Patient is alert, oriented x 3, equal unlabored respirations, skin warm/dry/pink. 20:48 Reassessment: Patient and/or family updated on plan of care and expected duration. Pain ea level reassessed. Patient is alert, oriented x 3, equal unlabored respirations, skin warm/dry/pink. Report called to receiving nurse. 21:39 Reassessment: Patient and/or family updated on plan of care and expected duration. Pain ea level reassessed. Patient is alert, oriented x 3, equal unlabored respirations, skin warm/dry/pink. Pt admitted to second floor, pt left ED on stretcher per tech, pt tolerating well. Vital Signs: 17:01 BP 122 / 62; Pulse 72; Resp 22; Temp 97.9(TE); Pulse Ox 93% on R/A; ph 18:08 BP 130 / 73; Pulse 63; Resp 20; Pulse Ox 93% on 2 lpm NC; Pain 0/10; mg2 19:29 BP 126 / 69; Pulse 63; Resp 18; Pulse Ox 95% ; ea 20:48 BP 120 / 76; Pulse 70; Resp 18; Pulse Ox 96% on 2 lpm NC; ea 21:30 BP 124 / 70; Pulse 65; Resp 17; Temp 98.4; Pulse Ox 96% on 2 lpm NC; ea ED Course: 16:55 Patient arrived in ED. ph 16:56 Bear Dickson MD is Attending Physician. gs 16:59 Triage completed. ph 17:03 Davis Ratliff, MELISSA is Primary Nurse. mg2 17:14 No provider procedures requiring assistance completed. Accessed PICC line. Blood mg2 collected. using ,sterile technique, Clean \T\ dry. Dressing intact. Good blood return. Flushes easily. 17:47 Arm band placed on. ph 18:15 XRAY Chest (1 view) In Process Unspecified. EDMS 18:15 Armando Wilcox MD is Hospitalizing Provider. gs 18:45 Patient has correct armband on for positive identification. Placed in gown. Bed in low ph position. Call light in reach. Side rails up X2. secured entrance monitor on. Pulse ox on. NIBP on. Warm blanket given. 20:49 Patient admitted, IV remains in place. ea Administered Medications: 17:14 Drug: Lasix 40 mg Route: IVP; Site: PICC; mg2 18:15 Follow up: Response: No adverse reaction; Marked relief of symptoms mg2 Outcome: 18:16 Decision to Hospitalize by Provider. gs 20:47 Condition: stable ea 20:47 Instructed on the need for admit. 21:38 Admitted to Med/surg accompanied by tech, room 209, with oxygen, with chart, Report ea called to Receiving nurse on second floor. 21:41 Patient left the ED. ea Signatures: Dispatcher [employer] EDDominique Napier RN RN Suzy Linda RN RN ea Starr, Gregory, MD MD Davis Ratliff RN RN mg2 Corrections: (The following items were deleted from the chart) 18:46 18:00 Social history: The patient lives at home, ph
--- NOTE | 2018-07-02 18:17 | EDPHYS ---
Physician Documentation [facility] Name: Jennifer Mariee Age: 73 yrs Sex: Female : 1945 Arrival Date: 07/02/2018 Time: 16:55 Bed 7 Private MD: ED Physician Bear Dickson HPI: 07/02 18:00 This 73 yrs old Female presents to ER via EMS with complaints of Shortness Of gs Breath. 18:00 The patient has shortness of breath at rest. Duration: The symptoms are continuous. The gs patient's shortness of breath is aggravated by exertion. Associated signs and symptoms: Pertinent positives: non-productive cough, Pertinent negatives: fever. Severity of symptoms: At their worst the symptoms were moderate in the emergency department the symptoms are unchanged. The patient has experienced similar episodes in the past, several times. Historical: - Allergies: 17:29 FLU VACCINE; ph 17:29 PENICILLINS; ph 17:29 TRIMETHOPRIM; ph 17:29 Sulfa (Sulfonamide Antibiotics); ph - Home Meds: 17:29 Acidophilus Oral cap twice a day [Active]; Lasix 20 mg Oral tab 1 tab once daily ph [Active]; albuterol sulfate 2.5 mg /3 mL (0.083 %) Inhl nebu 3 mL every 6 hours [Active]; amlodipine 5 mg tab 1 tab once daily [Active]; Coreg 25 mg Oral tab 1 tab 2 times per day [Active]; cyanocobalamin (vitamin B-12) 1,000 mcg Oral tab daily [Active]; Cymbalta 60 mg Oral cpDR 1 cap once daily [Active]; docusate sodium 100 mg Oral cap 1 cap 2 times per day [Active]; fentanyl 50 mcg/hr Topical pt72 1 patch every 72 hours [Active]; ferrous sulfate 325 mg (65 mg iron) Oral tab daily [Active]; glimepiride 2 mg Oral tab 1 tab twice a day [Active]; Protonix 40 mg Oral TbEC 1 tab once daily [Active]; prednisone 20 mg oral tab [Active]; hydrocodone-acetaminophen 10-325 mg Oral tab 1 tab q4 hrs prn [Active]; ipratropium-albuterol 0.5 mg-3 mg(2.5 mg base)/3 mL Inhl nebu 3 mL 4 times per day [Active]; oxybutynin chloride 10 mg Oral tr24 1 tab twice a day [Active]; rivaroxaban 10 mg Oral once daily [Active]; levothyroxine 125 mcg tab 1 tab once daily [Active]; potassium chloride 20 mEq Oral TbER 2 tab once daily [Active]; Lyrica 100 mg Oral 1 cap 2 times per day [Active]; Miralax 17 gram Oral pwpk 1 packet once daily [Active]; Restoril 30 mg Oral cap 1 cap once daily [Active]; nitroglycerin 0.4 mg SL subl 1 tab every 5 minutes [Active]; Xanax 0.25 mg Oral tab 1 tab daily [Active]; ProMod Protein Oral liqd twice a day [Active]; Levemir 100 unit/mL subcutaneous soln 30 unit daily [Active]; Levemir 100 unit/mL subcutaneous soln 20 unit nightly [Active]; Aldactone 25 mg Oral tab 1 tab once daily [Active]; nystatin 100,000 unit/gram Topical powd 2 times per day [Active]; loperamide 2 mg Oral tab 1 tabs every 8 hours for Diarrhea [Active]; insulin aspart subcutaneous 100unit/mL subcutaneous per sliding scale [Active]; - PMHx: 18:02 allergies; Cellulitis; COPD; Depression; Diabetes - NIDDM; Diverticulitis; DVT; ph DYSPHAGIA; Gastrointestinal hemmorrhage; Gout; Hypertension; Hypothyroidism; MRSA; Myocardial infarction; Pneumonia; Sepsis; spinal stenosis; ulcerative colitis; - Immunization history:: Adult Immunizations unknown, Flu vaccine status is unknown. - Social history:: Smoking status: Patient/guardian denies using tobacco, The patient lives in a alf, Smoking status: Patient/guardian denies using tobacco. - Ebola Screening: : No symptoms or risks identified at this time. ROS: 18:00 All other systems are negative. gs Exam: 18:00 Head/Face: Normocephalic, atraumatic. Eyes: Pupils equal round and reactive to light, gs extra-ocular motions intact. Lids and lashes normal. Conjunctiva and sclera are non-icteric and not injected. Cornea within normal limits. Periorbital areas with no swelling, redness, or edema. ENT: Nares patent. No nasal discharge, no septal abnormalities noted. Tympanic membranes are normal and external auditory canals are clear. Oropharynx with no redness, swelling, or masses, exudates, or evidence of obstruction, uvula midline. Mucous membranes moist. Neck: Trachea midline, no thyromegaly or masses palpated, and no cervical lymphadenopathy. Supple, full range of motion without nuchal rigidity, or vertebral point tenderness. No Meningismus. Chest/axilla: Normal chest wall appearance and motion. Nontender with no deformity. No lesions are appreciated. Cardiovascular: Regular rate and rhythm with a normal S1 and S2. No gallops, murmurs, or rubs. Normal PMI, no JVD. No pulse deficits. 18:00 Abdomen/GI: Soft, non-tender, with normal bowel sounds. No distension or tympany. No guarding or rebound. No evidence of tenderness throughout. Back: No spinal tenderness. No costovertebral tenderness. Full range of motion. Skin: Warm, dry with normal turgor. Normal color with no rashes, no lesions, and no evidence of cellulitis. Neuro: Awake and alert, GCS 15, oriented to person, place, time, and situation. Cranial nerves II-XII grossly intact. Motor strength 5/5 in all extremities. Sensory grossly intact. Cerebellar exam normal. Normal gait. 18:00 Constitutional: The patient appears alert, awake. 18:00 ECG was reviewed by the Attending Physician. 18:00 Respiratory: mild respiratory distress is noted, Respirations: tachypnea, Breath sounds: rales, that are mild, are located in both bases. 18:00 Musculoskeletal/extremity: Perfusion: the patient is normally perfused throughout, Edema, 2+ to the left ankle and right ankle is noted. Vital Signs: 17:01 BP 122 / 62; Pulse 72; Resp 22; Temp 97.9(TE); Pulse Ox 93% on R/A; ph 18:08 BP 130 / 73; Pulse 63; Resp 20; Pulse Ox 93% on 2 lpm NC; Pain 0/10; mg2 19:29 BP 126 / 69; Pulse 63; Resp 18; Pulse Ox 95% ; ea 20:48 BP 120 / 76; Pulse 70; Resp 18; Pulse Ox 96% on 2 lpm NC; ea 21:30 BP 124 / 70; Pulse 65; Resp 17; Temp 98.4; Pulse Ox 96% on 2 lpm NC; ea MDM: 16:59 Patient medically screened. 18:00 Differential diagnosis: CHF exacerbation, Chronic Obstructive Pulmonary Disease gs Myocardial Infarction pneumonia. Data reviewed: vital signs, nurses notes. Counseling: I had a detailed discussion with the patient and/or guardian regarding: the historical points, exam findings, and any diagnostic results supporting the discharge/admit diagnosis, the need for further work-up and treatment in the hospital. 07/02 17:00 Order name: Basic Metabolic Panel; Complete Time: 18:18 07/02 17:00 Order name: CBC with Diff; Complete Time: 17:56 07/02 17:00 Order name: LFT's; Complete Time: 18:18 07/02 17:00 Order name: Magnesium; Complete Time: 18:18 07/02 17:00 Order name: NT PRO-BNP; Complete Time: 18:18 07/02 17:00 Order name: PT-INR; Complete Time: 17:56 07/02 17:00 Order name: Troponin (emerg Dept Use Only); Complete Time: 18:18 07/02 17:00 Order name: XRAY Chest (1 view); Complete Time: 22:35 07/02 18:27 Order name: CT Chest For PE Angio 07/02 19:27 Order name: CT; Complete Time: 22:35 EDMS 07/02 21:31 Order name: Procalcitonin; Complete Time: 22:35 EDMS 07/02 21:38 Order name: Lactate; Complete Time: 22:35 EDMS 07/02 17:00 Order name: EKG; Complete Time: 17:01 07/02 17:00 Order name: Cardiac monitoring; Complete Time: 17:03 07/02 17:00 Order name: EKG - Nurse/Tech; Complete Time: 17:03 07/02 17:00 Order name: IV Saline Lock; Complete Time: 17:03 07/02 17:00 Order name: Labs collected and sent; Complete Time: 17:03 07/02 17:00 Order name: O2 Per Protocol; Complete Time: 17:03 07/02 17:00 Order name: O2 Sat Monitoring; Complete Time: 17:03 gs EC:00 Rate is 74 beats/min. Rhythm is regular. HI interval is normal. QRS interval is gs prolonged. ST Segment is depressed in leads I, aVL. Administered Medications: 17:14 Drug: Lasix 40 mg Route: IVP; Site: PICC; mg2 18:15 Follow up: Response: No adverse reaction; Marked relief of symptoms mg2 Disposition: 18:00 Critical Care:. Disposition: 07/02/18 18:16 Hospitalization ordered by Armando Wilcox for Inpatient Admission. Preliminary diagnosis are Acute systolic (congestive) heart failure, Hypoxemia. - Bed requested for Telemetry/MedSurg (Inpatient). - Status is Inpatient Admission. ea - Condition is Stable. - Problem is an acute exacerbation. - Symptoms have improved. UTI on Admission? No Critical care time excluding procedures: 18:00 Critical care time: Bedside Care: 10 minutes, Consultation: 10 minutes, Family gs Intervention: 10 minutes. Total time: 30 minutes Signatures: Dispatcher [employer] EDClaribel Webber RN RN kl Hall, Patricia, RN RN Suzy Linda RN RN ea Starr, Gregory, MD MD Patricia Barber Michele, RN RN mg2 Corrections: (The following items were deleted from the chart) 18:27 18:16 Hospitalization Ordered by Armando Wilcox MD for Inpatient Admission. Preliminary eb diagnosis is Acute systolic (congestive) heart failure; Hypoxemia. Bed requested for Telemetry/MedSurg (Inpatient). Status is Inpatient Admission. Condition is Stable. Problem is an acute exacerbation. Symptoms have improved. UTI on Admission? No. 18:46 18:00 Social history: The patient lives at home, ph 20:40 18:27 07/02/2018 18:16 Hospitalization Ordered by Armando iWlcox MD for Inpatient kl Admission. Preliminary diagnosis is Acute systolic (congestive) heart failure; Hypoxemia. Bed requested for Telemetry/MedSurg (Inpatient). Status is Inpatient Admission. Condition is Stable. Problem is an acute exacerbation. Symptoms have improved. UTI on Admission? No. eb 21:41 20:40 07/02/2018 18:16 Hospitalization Ordered by Armando Wilcox MD for Inpatient ea Admission. Preliminary diagnosis is Acute systolic (congestive) heart failure; Hypoxemia. Bed requested for Telemetry/MedSurg (Inpatient). Status is Inpatient Admission. Condition is Stable. Problem is an acute exacerbation. Symptoms have improved. UTI on Admission? No.
--- NOTE | 2018-07-02 18:23 | RAD REPORT ---
EXAM DESCRIPTION: RAD - Chest Single View - 07/02/2018 6:17 pm CLINICAL HISTORY: DYSPNEA Chest pain. COMPARISON: Chest Single View dated 04/27/2018; Chest Single View dated 04/26/2018; Chest Single View dated 12/10/2017; Chest Single View dated 08/26/2017 FINDINGS: Portable technique limits examination quality. Mild linear opacities in the left lung base may represent atelectasis or developing pneumonia. The justo ngs are otherwise clear. The heart is moderately enlarged in size. Right-sided PICC line has tip in t he SVC. No displaced fractures.Hardware is present in the cervical spine.
--- NOTE | 2018-07-02 19:26 | RAD REPORT ---
EXAM DESCRIPTION: CT - Chest For Pe Angio - 07/02/2018 7:15 pm CLINICAL HISTORY: Chest pain. DYSPNEA COMPARISON: CHEST SINGLE VIEW dated 07/27/2015; THORAX WO CONTRAST dated 06/05/2015 TECHNIQUE: CT angiogram of the pulmonary arteries was performed with MIP. All CT scans are performed using dose optimization technique as appropriate and may include automated exposure control or mA/KV adjustment according to patient size. FINDINGS: No evidence of pulmonary thromboembolism. No acute aortic finding demonstrated. Mild COPD with linear subsegmental atelectasis in both lung bases. No significant pericardial or pleural fluid. Moderate thoracic degenerative changes. IMPRESSION: No evidence of pulmonary thromboembolism. Linear atelectasis in both lung bases posteriorly.
--- NOTE | 2018-07-02 21:07 | P.HP ---
Certification for Inpatient Patient admitted to: Inpatient With expected LOS: >2 Midnights Practitioner: I am a practitioner with admitting privileges, knowledge of patient current condition, hospital course, and medical plan of care. Services: Services provided to patient in accordance with Admission requirements found in Title 42 Section 412.3 of the Code of Federal Regulations Patient History Date of Service: 07/02/18 Reason for admission: COPD exacerbation History of Present Illness: Ms Mariee is a 73-year-old woman with multiple medical problems including COPD, CKD, diabetes mellitus, chronic diastolic CHF, previous admission due to sacral wound infection requiring long-term antibiotics, DVT, who start yesterday with cough and progressive shortness of breath. She denied any fever or chills, cough is mostly dry. No history of chest pain or palpitations. Lab work remarkable for leukocytosis, lactate and procalcitonin are pending, UA also spending. CTA chest negative for PE and showed bibasilar atelectasis. In ER the patient was afebrile with stable vital signs. Allergies Penicillins Allergy (Mild, Verified 06/04/15 18:46) Rash sulfamethoxazole [From Bactrim] Allergy (Mild, Verified 06/04/15 18:46) Rash trimethoprim [From Bactrim] Allergy (Mild, Verified 06/04/15 18:46) Rash meropenem Allergy (Verified 12/11/17 05:08) Anaphylaxis Sulfa (Sulfonamide Antibiotics) Allergy (Verified 04/27/18 02:57) Itching/Hives/Rash Flu vaccine Allergy (Severe, Uncoded 04/27/18 02:57) Guillan-[place]ord[place] Home medications list reviewed: Yes Home Medications: Levothyroxine Sodium [Levoxyl] 125 mcg PO DAILY 07/26/15 Rivaroxaban [Xarelto*] 10 mg PO DAILY 07/26/15 Ferrous Sulfate 325 mg PO DAILY 01/30/16 Ipratropium/Albuterol Sulfate [Iprat-Albut 0.5-3(2.5) mg/3 ml] 3 ml IH Q4HP PRN 11/18/16 Fentanyl Patch [Duragesic Patch*] 50 mcg TD EVERY 3RD DAY #10 02/04/17 Hydrocodone 10/APAP 325 [[place] 10/325*] 1 tab PO Q4HP PRN #20 tab 02/04/17 Polyethylene Glycol 3350 [Miralax] 17 gm PO DAILY 05/29/17 Pregabalin [Lyrica*] 75 mg PO Q12H 05/29/17 Cyanocobalamin (Vitamin B-12) [B-12] 1,000 mcg PO DAILY 08/26/17 Amlodipine Besylate 5 mg PO DAILY 12/11/17 Carvedilol 25 mg PO Q12H 12/11/17 Furosemide [Lasix*] 20 mg PO DAILY 12/11/17 L. Acidophilus/Pectin, [place] [Acidophilus Capsule] 1 each PO BID 12/11/17 Loperamide HCl [Imodium A-D] 2 mg PO Q8H PRN 12/11/17 Nystatin Powder [Mycostatin (Powder)*] 1 appl TP BID 12/11/17 Oxybutynin Chloride [Oxybutynin Chloride ER] 10 mg PO Q12H 12/11/17 Pantoprazole Sodium 40 mg PO DAILY 12/11/17 predniSONE [Prednisone] 10 mg PO DAILY 12/11/17 Docusate Sodium 100 mg PO BID 04/27/18 Duloxetine HCl [Cymbalta] 60 mg PO DAILY 04/27/18 Glimepiride [Amaryl*] 2 mg PO BID 04/27/18 Potassium Oral Tab [Klor-Con 10 mEq Tab*] 40 meq PO DAILY PRN 04/27/18 - Past Medical/Surgical History Diabetic: Yes -: Coronary artery disease. -: Congestive heart failure -: Spinal Stenosis -: Neuropathy -: HTN -: Hypothyroid -: COPD -: Guillian -[place]ord[place] syndrome -: History of DVT rt leg -: cellulitis bilat legs required exterminator antibiotics -: Hyperlipidemia -: Hyperlipidemia, cholecystecomy, hysterectomy -: Cholecystectomy, 1989 -: Hysterectomy, 1964 -: gland removed from throat, -: cataract Surgery, 1999 -: Three heart stents (2 in 2011) -: Tonsillectomy -: Appendectomy Psychosocial/ Personal History: She lives at snf. - Family History Brother -: Heart disease, Hypertension Father -: Heart disease, Hypertension Notes: heart attack - Social History Alcohol use: Yes CD- Drugs: No Caffeine use: Yes Review of Systems 10-point ROS is otherwise unremarkable Physical Examination - Physical Exam General: Alert, In no apparent distress HEENT: Atraumatic, PERRLA, Mucous membr. moist/pink, EOMI, Sclerae nonicteric Neck: Supple, 2+ carotid pulse no bruit, No LAD, Without JVD or thyroid abnormality Respiratory: Diminished, Expiratory wheezes Cardiovascular: Regular rate/rhythm, Normal S1 S2 Gastrointestinal: Normal bowel sounds, No tenderness Musculoskeletal: No tenderness Integumentary: No rashes Neurological: Normal speech, Normal strength at 5/5 x4 extr, Normal tone, Normal affect Lymphatics: No axilla or inguinal lymphadenopathy - Studies Laboratory Data (last 24 hrs) 07/02/18 17:10: PT 16.2 H, INR 1.37 07/02/18 17:10: WBC 15.1 H D, Hgb 14.5, Hct 44.2, Plt Count 161 07/02/18 17:10: Sodium 141, Potassium 4.9, BUN 51 H, Creatinine 1.10, Glucose 82 , Magnesium 2.2, Total Bilirubin 0.5, AST 47 H, ALT 55, Alkaline Phosphatase 79 Assessment and Plan - Problems (Diagnosis) (1) COPD exacerbation Current Visit: Yes Status: Acute (2) Acute bronchitis Current Visit: Yes Status: Acute Qualifiers: Bronchitis organism: unspecified organism Qualified Code(s): J20.9 - Acute bronchitis, unspecified (3) Hypothyroidism Onset Date: 04/20/17 Current Visit: No Status: Chronic Qualifiers: Hypothyroidism type: acquired Qualified Code(s): E03.9 - Hypothyroidism, unspecified (4) Obesity Onset Date: 05/31/17 Current Visit: No Status: Chronic Qualifiers: Obesity type: due to excess calories Obesity classification: adult class 3 (BMI >= 40) Serious obesity comorbidity presence: with serious comorbidity Body mass index: BMI 40.0-44.9 Qualified Code(s): E66.01 - Morbid (severe) obesity due to excess calories; Z68.41 - Body mass index (BMI) 40.0-44.9, adult ; Z68.41 - Body mass index (BMI) 40.0-44.9, adult; Z68.41 - Body mass index (BMI ) 40.0-44.9, adult; Z68.41 - Body mass index (BMI) 40.0-44.9, adult - Plan The patient will be admitted to the hospital due to dyspnea. I believe the patient has COPD exacerbation due to acute bronchitis. Will order empiric antibiotic treatment, breathing treatments and low-dose of IV steroids. - Advance Directives Does patient have a Living Will: No Does patient have a Durable POA for Healthcare: No - Code Status/Comfort Care Code Status Assessed: Yes Code Status: Full Code
[2018-07-02] MEDS: INSULIN -REGULAR HUMAN 50 UNIT/0.5 ML ML SQ SCH (21:21)
[2018-07-02] MEDS ORDERED: D50W 25 GM/50 ML SYRINGE IV PRN (21:21)
[2018-07-02] MEDS ORDERED: IPRATROPIUM BROM 0.5MG/2.5ML NEB PRN (21:21)
[2018-07-02] MEDS ORDERED: GLUCAGON 1 MG/VIAL IM PRN (21:21)
[2018-07-02] MEDS ORDERED: ALBUTEROL 2.5 MG/3 ML NEB SOL NEB PRN (21:21)
[2018-07-02] MEDS: Levofloxacin500mg IV 500 MG/100 ML BAG IV ONE ×2 (21:21→23:32)
[2018-07-02] MEDS ORDERED: ONDANSETRON 4 MG/2 ML VIAL IV PRN (21:21)
[2018-07-02] MEDS ORDERED: ACETAMINOPHEN 500 MG TAB PO PRN (21:21)
[2018-07-02 23:13] LABS: Urine Appearance CLEAR; Urine Bilirubin NEGATIVE (NEG); Urine Blood TRACE (NEG); Urine Color YELLOW; Urine Glucose NEGATIVE (NEG); Urine Protein NEGATIVE (NEG); Urine Urobilinogen 0.2 mg/dL (0.2-1.0)
[2018-07-02 23:16] LABS: Urine Microscopic Reflex ORDER UMIC
[2018-07-02 23:33] LABS: Urine Culture Reflex Order REFLEXED
[2018-07-02 23:34] LABS: Urine Bacteria <20 /HPF (<20); Urine RBC <5 /HPF (NONE SEEN); Urine Yeast FEW (NONE SEEN)
[2018-07-03] MEDS: METHYLPREDNISOLONE 40 MG INJ IV SCH ×3 (00:12→17:24)
[2018-07-03 05:29] LABS: Absolute Lymphocytes (CBC) 1.8 K/uL (0.7-4.9); Absolute Monocytes 0.6 K/uL (0.1-1.3); Absolute Neutrophil 17.6 K/uL (1.8-8.0); Basophils % 0.1 % (0-1.3); Hematocrit 43.9 % (36.0-45.0); MPV 9.2 fL (7.6-11.3); RBC Red Blood Cell Count 4.66 M/uL (3.86-4.86)
--- NOTE | 2018-07-03 05:51 | EKG ---
Test Date: 2018-07-02 Test Time: 16:57:11 Research Associate Molecular Biology: MG MEASUREMENT RESULTS: Intervals: Rate: 74 [place]: 166 QRSD: 136 QT: 438 QTc: 486 [place]: P: 48 [place]: 166 QRS: -66 T: -74 INTERPRETIVE STATEMENTS: Normal sinus rhythm Left axis deviation Right bundle branch block Abnormal ECG Compared to ECG 04/26/2018 20:34:22 No significant changes Electronically Signed On 07-03-18 05:50:54 MACHINE BRUSHER by Bereket Mccoy
[2018-07-03 06:13] LABS: Potassium 4.1 mmol/L (3.5-5.1)
[2018-07-03 07:18] LABS: Blood Morphology Comment NOT SEEN (NOT SEEN); Platelet Estimate ADEQ
[2018-07-03] MEDS: INSULIN -REGULAR HUMAN 50 UNIT/0.5 ML ML SQ SCH ×4 (07:30→20:39)
[2018-07-03] MEDS ORDERED: ENOXAPARIN 40 MG/0.4 ML SQ SCH (09:00)
[2018-07-03] MEDS ORDERED: POTASSIUM CL SA 10 MEQ TAB PO PRN (11:50)
[2018-07-03] MEDS ORDERED: NITROGLYCERIN 0.4 MG/TAB SL PRN (11:50)
[2018-07-03] MEDS ORDERED: ALPRAZOLAM 0.25 MG TABLET PO PRN (11:50)
[2018-07-03] MEDS ORDERED: HYDROCODONE/APAP 10/325 TAB PO PRN (11:50)
[2018-07-03] MEDS ORDERED: HOME MED 1 EA UNK (Oxybutynin Chloride [Oxybutynin Chloride Er] 10 MG) PO SCH (12:00)
[2018-07-03] MEDS: ALBUTEROL 2.5 MG/3 ML NEB SOL NEB SCH ×2 (13:43→20:58)
[2018-07-03] MEDS: IPRATROPIUM BROM 0.5MG/2.5ML NEB SCH ×2 (13:43→20:58)
[2018-07-03] MEDS: NYSTATIN PWDR 100000 UNIT/GM TOP SCH ×2 (14:12→20:51)
--- NOTE | 2018-07-03 14:37 | PN ---
Date of Progress Note: 07/03/2018 Subjective: The patient was seen and examined. Chart reviewed and case discussed with RN. The patient states that her breathing is somewhat better. Still wheezing. Review of Systems: Negative except as above. Medications: List reviewed. Code Status: Full. Objective: Vital Signs: Temperature 96.4, heart rate 76, respirations 12, O2 is 95% on 2 L via nasal cannula. General: Awake, alert, oriented x3, elderly female, ill-appearing, morbidly obese, in some mild respiratory distress. CV: S1, S2. Peripheral pulses present. Regular rate and rhythm. Respiratory: Diminished breath sounds, extensive wheezing heard. The patient is slightly tachypneic. Gastrointestinal: Abdomen is soft, nontender, nondistended. Positive bowel sounds. No guarding or rigidity. Extremities: No clubbing, cyanosis, or edema. Neuro: Nonfocal. The patient has generalized weakness. Laboratory Data: Sodium 139, potassium 4.1, chloride 100, CO2 of 33, BUN 48, creatinine 0.9, glucose 30, calcium 9.3. WBC 20, H and H are 14.3 and 43.9, platelets 154, neutrophils 87%. CT chest and thorax shows no evidence of PE, linear atelectasis in both lung bases. Assessment And Plan: A 73-year-old female with: 1. [id number] obstructive pulmonary disease exacerbation. Continue with nebulizer treatments and steroids. Supplemental oxygen as needed. The patient does not use oxygen at the nursing facility. 2. Acute bronchitis. 3. Hypothyroidism. Continue Synthroid. 4. Morbid obesity, body mass index of 46.2. 5. Right bundle-branch block. 6. Coronary artery disease, rampart artery and rampart heart, status post stent. We will continue home medications to stable the angina. 7. Congestive heart failure, chronic, with ejection fraction of 51% from 2017. 8. Neuropathy secondary to spinal stenosis. 9. Guillain-Salyer syndrome. 10. History of deep venous thrombosis in the right leg. 11. Hyperlipidemia. 12. Major depressive disorder. Continue Cymbalta. Plan: We will continue to monitor closely. Likely discharge in the next 48 to 72 hours depending on clinical response. /MODL Voice ID: [id number] Report ID: [id number] [facility]
[2018-07-03] MEDS: LACTOBACILLUS/ACIDOPHILUS TAB PO SCH (20:43)
[2018-07-03] MEDS: OXYBUTYNIN ER 5 MG TAB PO SCH (20:44)
[2018-07-03] MEDS: TEMAZEPAM 15 MG CAP PO SCH (20:45)
[2018-07-03] MEDS: DOCUSATE NA 100 MG CAP PO SCH (20:45)
[2018-07-03] MEDS: Levofloxacin500mg IV 500 MG/100 ML BAG IV SCH (20:46)
[2018-07-03] MEDS: PREGABALIN 50 MG CAP PO SCH (20:46)
[2018-07-03] MEDS: CARVEDILOL 25 MG TAB PO SCH (20:50)
[2018-07-03] MEDS ORDERED: HOME MED 1 EA UNK (Docusate Sodium [Docusate Sodium] 100 MG) PO SCH (21:00)
[2018-07-03] MEDS ORDERED: LACTOBACILLUS ACIDOPHILUS PO SCH (21:00)
[2018-07-03] MEDS ORDERED: LACTOBACILLUS/ACIDOPHILUS TAB PO SCH (21:00)
[2018-07-04] MEDS: METHYLPREDNISOLONE 40 MG INJ IV SCH ×3 (01:10→17:24)
[2018-07-04] MEDS: ALBUTEROL 2.5 MG/3 ML NEB SOL NEB SCH ×4 (01:45→20:43)
[2018-07-04] MEDS: IPRATROPIUM BROM 0.5MG/2.5ML NEB SCH ×4 (01:45→20:43)
[2018-07-04 05:44] LABS: Absolute Monocytes 0.4 K/uL (0.1-1.3); Absolute Neutrophil 9.6 K/uL (1.8-8.0); Basophils % 0.2 % (0-1.3); Hematocrit 41.6 % (36.0-45.0); Lymphocytes % 9.4 % (15.3-44.8); MPV 9.6 fL (7.6-11.3); Monocytes % 3.7 % (3.3-12.3); RBC Red Blood Cell Count 4.44 M/uL (3.86-4.86)
[2018-07-04 06:04] LABS: Albumin 2.6 g/dL (3.4-5.0); Bilirubin Total 0.4 mg/dL (0.2-1.0); Potassium 4.3 mmol/L (3.5-5.1); Protein, Total 6.4 g/dL (6.4-8.2)
[2018-07-04] MEDS: PANTOPRAZOLE 40MG TABLET PO SCH (06:28)
[2018-07-04] MEDS: LEVOTHYROXINE SOD 0.125 MG TAB PO SCH (06:28)
[2018-07-04] MEDS: INSULIN -REGULAR HUMAN 50 UNIT/0.5 ML ML SQ SCH ×4 (07:30→21:32)
[2018-07-04] MEDS: POLYETHYL GLY 3350 17 GM/DOSE PO SCH (09:00)
[2018-07-04] MEDS ORDERED: HOME MED 1 EA UNK (Duloxetine Hcl [Cymbalta] 60 MG) PO SCH (09:00)
[2018-07-04] MEDS: LACTOBACILLUS/ACIDOPHILUS TAB PO SCH ×2 (09:17→20:21)
[2018-07-04] MEDS: DOCUSATE NA 100 MG CAP PO SCH ×2 (09:17→20:21)
[2018-07-04] MEDS: AMLODIPINE 5 MG TAB PO SCH (09:18)
[2018-07-04] MEDS: OXYBUTYNIN ER 5 MG TAB PO SCH ×2 (09:18→20:20)
[2018-07-04] MEDS: FERROUS SULFATE 325 MG TAB PO SCH (09:18)
[2018-07-04] MEDS: CARVEDILOL 25 MG TAB PO SCH ×2 (09:19→20:20)
[2018-07-04] MEDS: RIVAROXABAN 10 MG TABLET PO SCH (09:20)
[2018-07-04] MEDS: MULTIVIT W/ MINERAL TAB PO SCH (09:20)
[2018-07-04] MEDS: DULOXETINE 30 MG CAP PO SCH (09:20)
[2018-07-04] MEDS: FUROSEMIDE 20 MG TABLET PO SCH (09:20)
[2018-07-04] MEDS: NYSTATIN PWDR 100000 UNIT/GM TOP SCH ×2 (09:23→20:22)
[2018-07-04] MEDS: SPIRONOLACTONE 25 MG TABLET PO SCH (09:24)
[2018-07-04] MEDS: PREGABALIN 50 MG CAP PO SCH ×2 (09:30→20:21)
--- NOTE | 2018-07-04 15:27 | P.PN ---
Subjective Date of Service: 07/04/18 Chief Complaint: COPD exacerbation Subjective: No new changes, No C/O voiced, Tolerating diet, Ambulating, Improving Patient seen and examined at bedside. No family at bedside. Case discussed with nursing staff. Patient reports improved breathing, though still having some wheezing. Reports feeling better. No concerns or complaints this morning. Review of Systems As noted Physical Examination - Vital Signs Temperature: 97.8 F Blood Pressure: 167/77 Pulse: 69 Respirations: 20 Pulse Ox (%): 95 - Physical Exam General: Alert, In no apparent distress, Oriented x3, Other (Ill-appearing, elderly) HEENT: Atraumatic, PERRLA, EOMI Neck: Supple, JVD not distended Respiratory: Diminished, Expiratory wheezes, Inspiratory wheezes Cardiovascular: Regular rate/rhythm, Normal S1 S2 Gastrointestinal: Normal bowel sounds, No tenderness Musculoskeletal: No tenderness Integumentary: No rashes Neurological: Normal speech, Normal tone, Normal affect Assessment And Plan - Plan This is a 73-year-old female from [facility] with: Acute on chronic obstructive pulmonary disease exacerbation. Improved, though still having some wheezing. Continue nebulizer treatments and steroids. Supplemental oxygen as needed. She is not on any oxygen at the nursing facility. Will attempt to wean though she may require some oxygen at the nursing facility on as needed basis. Acute bronchitis Continue current treatment Hypothyroidism Continue current Synthroid Right bundle branch block. Stable Coronary artery disease, [place] artery [place] heart, status post stent placement. Continue home medications for her angina. Stable at this time, no complaints of chest pain Congestive heart failure, chronic with ejection fraction of 51% from 2017 No evidence of volume overload at this time Guillain-[place] syndrome. 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 Likely discharge back to longterm facility tomorrow Discharge Plan: Correction Plan to discharge in: 24 Hours Physician Review: Patient Assessed, Agree with Above Assessment and Plan Time Spent Managing PTS Care (In Minutes): 35
[2018-07-04] MEDS: FENTANYL 50 MCG/PATCH TD SCH (17:24)
[2018-07-04] MEDS: Levofloxacin500mg IV 500 MG/100 ML BAG IV SCH (20:21)
[2018-07-04] MEDS ORDERED: Levofloxacin 250mg IV 250 MG/50 ML BAG IV SCH (21:00)
[2018-07-04] MEDS: TEMAZEPAM 15 MG CAP PO SCH (21:33)
[2018-07-05] MEDS: METHYLPREDNISOLONE 40 MG INJ IV SCH ×3 (00:17→17:00)
[2018-07-05] MEDS: ALBUTEROL 2.5 MG/3 ML NEB SOL NEB SCH ×4 (01:30→19:25)
[2018-07-05] MEDS: IPRATROPIUM BROM 0.5MG/2.5ML NEB SCH ×4 (01:30→19:25)
[2018-07-05] MEDS: LEVOTHYROXINE SOD 0.125 MG TAB PO SCH (05:09)
[2018-07-05] MEDS: PANTOPRAZOLE 40MG TABLET PO SCH (08:22)
[2018-07-05] MEDS: POLYETHYL GLY 3350 17 GM/DOSE PO SCH (09:00)
[2018-07-05] MEDS: INSULIN -REGULAR HUMAN 50 UNIT/0.5 ML ML SQ SCH ×5 (09:11→21:37)
[2018-07-05] MEDS: DULOXETINE 30 MG CAP PO SCH (09:53)
[2018-07-05] MEDS: FERROUS SULFATE 325 MG TAB PO SCH (09:54)
[2018-07-05] MEDS: DOCUSATE NA 100 MG CAP PO SCH ×2 (09:54→21:36)
[2018-07-05] MEDS: OXYBUTYNIN ER 5 MG TAB PO SCH ×2 (09:54→21:35)
[2018-07-05] MEDS: RIVAROXABAN 10 MG TABLET PO SCH (09:54)
[2018-07-05] MEDS: LACTOBACILLUS/ACIDOPHILUS TAB PO SCH ×2 (09:54→21:35)
[2018-07-05] MEDS: PREGABALIN 50 MG CAP PO SCH ×2 (09:55→21:35)
[2018-07-05] MEDS: MULTIVIT W/ MINERAL TAB PO SCH (09:55)
[2018-07-05] MEDS: SPIRONOLACTONE 25 MG TABLET PO SCH (09:56)
[2018-07-05] MEDS: AMLODIPINE 5 MG TAB PO SCH (09:56)
[2018-07-05] MEDS: NYSTATIN PWDR 100000 UNIT/GM TOP SCH ×2 (10:03→21:00)
[2018-07-05] MEDS: CARVEDILOL 25 MG TAB PO SCH ×2 (10:56→21:36)
[2018-07-05] MEDS: FUROSEMIDE 20 MG TABLET PO SCH (10:57)
[2018-07-05] MEDS ORDERED: D50W 25 GM/50 ML SYRINGE IV PRN (11:49)
[2018-07-05] MEDS ORDERED: GLUCAGON 1 MG/VIAL IM PRN (11:49)
--- NOTE | 2018-07-05 17:48 | P.PN ---
Subjective Date of Service: 07/05/18 Chief Complaint: COPD exacerbation Subjective: No new changes, No C/O voiced, Improving Patient seen and examined at bedside. No family at bedside. Case discussed with nursing staff. Patient reports improved breathing, though still having some wheezing. Reports feeling better. No concerns or complaints this morning. Review of Systems As noted Physical Examination - Vital Signs Temperature: 96.9 F Blood Pressure: 120/80 Pulse: 66 Respirations: 16 Pulse Ox (%): 95 - Physical Exam General: Alert, In no apparent distress, Oriented x3 HEENT: Atraumatic, PERRLA, EOMI Neck: Supple, JVD not distended Respiratory: Clear to auscultation bilaterally, Normal air movement Cardiovascular: Regular rate/rhythm, Normal S1 S2 Gastrointestinal: Normal bowel sounds, No tenderness Musculoskeletal: No tenderness Integumentary: No rashes Neurological: Normal speech, Normal tone, Normal affect Assessment And Plan - Plan This is a 73-year-old female from [facility] with: Acute on chronic obstructive pulmonary disease exacerbation. Improved, though still having some wheezing. Continue nebulizer treatments and steroids. Supplemental oxygen as needed. She is not on any oxygen at the nursing facility. Will attempt to wean though she may require some oxygen at the nursing facility on as needed basis. Acute bronchitis Continue current treatment Hypothyroidism Continue current Synthroid Right bundle branch block. Stable Coronary artery disease, [place] artery [place] heart, status post stent placement. Continue home medications for her angina. Stable at this time, no complaints of chest pain Congestive heart failure, chronic with ejection fraction of 51% from 2017 No evidence of volume overload at this time Guillain-[place] syndrome. 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 She was discharged today, [facility] unable to accept patient today as they stated that they were lacking clinicals. Discharge tomorrow back to [facility]. Physician Review: Patient Assessed, Agree with Above Assessment and Plan
[2018-07-05] MEDS: Levofloxacin500mg IV 500 MG/100 ML BAG IV SCH (21:35)
[2018-07-05] MEDS: TEMAZEPAM 15 MG CAP PO SCH (22:13)
[2018-07-06] MEDS ORDERED: ALBUMIN HUMAN 25% 100 ML IV ONE ×5 (00:07→10:45)
[2018-07-06] MEDS ORDERED: FUROSEMIDE 40 MG/4 ML VIAL IV ONE ×2 (00:07→08:16)
[2018-07-06] MEDS: ALBUTEROL 2.5 MG/3 ML NEB SOL NEB SCH ×4 (01:20→20:25)
[2018-07-06] MEDS: IPRATROPIUM BROM 0.5MG/2.5ML NEB SCH ×4 (01:20→20:25)
[2018-07-06] MEDS: LEVOTHYROXINE SOD 0.125 MG TAB PO SCH (05:53)
[2018-07-06] MEDS: INSULIN -REGULAR HUMAN 50 UNIT/0.5 ML ML SQ SCH ×4 (07:30→21:00)
[2018-07-06] MEDS: NYSTATIN PWDR 100000 UNIT/GM TOP SCH ×2 (09:00→21:00)
[2018-07-06] MEDS: SPIRONOLACTONE 25 MG TABLET PO SCH (09:00)
[2018-07-06] MEDS: POLYETHYL GLY 3350 17 GM/DOSE PO SCH (09:00)
[2018-07-06] MEDS: CARVEDILOL 25 MG TAB PO SCH ×2 (09:00→21:01)
[2018-07-06] MEDS: AMLODIPINE 5 MG TAB PO SCH (09:00)
[2018-07-06] MEDS: OXYBUTYNIN ER 5 MG TAB PO SCH ×2 (09:09→21:00)
[2018-07-06] MEDS: LACTOBACILLUS/ACIDOPHILUS TAB PO SCH ×2 (09:10→21:01)
[2018-07-06] MEDS: PANTOPRAZOLE 40MG TABLET PO SCH (09:10)
[2018-07-06] MEDS: DULOXETINE 30 MG CAP PO SCH (09:10)
[2018-07-06] MEDS: FERROUS SULFATE 325 MG TAB PO SCH (09:10)
[2018-07-06] MEDS: MULTIVIT W/ MINERAL TAB PO SCH (09:10)
[2018-07-06] MEDS: RIVAROXABAN 10 MG TABLET PO SCH (09:10)
[2018-07-06] MEDS: FUROSEMIDE 20 MG TABLET PO SCH (09:11)
[2018-07-06] MEDS: PREGABALIN 50 MG CAP PO SCH ×2 (09:11→21:01)
[2018-07-06] MEDS: DOCUSATE NA 100 MG CAP PO SCH ×2 (09:11→21:02)
[2018-07-06] MEDS: predniSONE 20 MG TAB PO SCH (09:11)
[2018-07-06] MEDS ORDERED: FUROSEMIDE 20 MG TABLET PO ONE (09:36)
[2018-07-06 11:18] LABS: Absolute Lymphocytes (CBC) 1.4 K/uL (0.7-4.9); Absolute Monocytes 0.7 K/uL (0.1-1.3); Absolute Neutrophil 6.8 K/uL (1.8-8.0); Basophils % 0.2 % (0-1.3); Eosinophils % 0.6 % (0-4.4); Hematocrit 40.4 % (36.0-45.0); Lymphocytes % 15.6 % (15.3-44.8); MPV 9.2 fL (7.6-11.3); Monocytes % 7.8 % (3.3-12.3); RBC Red Blood Cell Count 4.35 M/uL (3.86-4.86)
[2018-07-06 11:30] LABS: Phosphorus 2.3 mg/dL (2.5-4.9); Potassium 3.9 mmol/L (3.5-5.1)
[2018-07-06] MEDS: PROMOD 30 ML DOSE PO SCH ×2 (12:47→16:54)
[2018-07-06] MEDS ORDERED: FENTANYL 50 MCG/PATCH TD SCH (13:00)
--- NOTE | 2018-07-06 13:18 | P.PN ---
Subjective Date of Service: 07/06/18 Chief Complaint: COPD exacerbation Patient seen and examined at bedside. No family at bedside. Case discussed with nursing staff. Patient reports improved breathing at this time. Overnight , she received IV Lasix and albumin in, the patient reports she was not short she had any breathing troubles at night. She does report feeling better. No concerns or complaints this morning Review of Systems As noted Physical Examination - Vital Signs Temperature: 97.3 F Blood Pressure: 134/60 Pulse: 63 Respirations: 20 Pulse Ox (%): 95 - Physical Exam General: Alert, In no apparent distress, Oriented x3 HEENT: Atraumatic, PERRLA, EOMI Neck: Supple, JVD not distended Respiratory: Clear to auscultation bilaterally, Normal air movement Cardiovascular: Regular rate/rhythm, Normal S1 S2, Edema (2+ bilaterally) Gastrointestinal: Normal bowel sounds, No tenderness Musculoskeletal: No tenderness Integumentary: No rashes Neurological: Normal speech, Normal tone, Normal affect Assessment And Plan - Plan This is a 73-year-old female from [facility] with: Acute on chronic obstructive pulmonary disease exacerbation. Improved, though still having some wheezing. Continue nebulizer treatments and steroids. Supplemental oxygen as needed. She is not on any oxygen at the nursing facility. Will attempt to wean though she may require some oxygen at the nursing facility on as needed basis. Acute bronchitis Continue current treatment Hypothyroidism Continue current Synthroid Right bundle branch block. Stable Coronary artery disease, [place] artery [place] heart, status post stent placement. Continue home medications for her angina. Stable at this time, no complaints of chest pain Congestive heart failure, chronic with ejection fraction of 51% from 2017 Continue IV diuresis Repeat chest x-ray tomorrow Guillain-[place] syndrome. 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 Physician Review: Patient Assessed, Agree with Above Assessment and Plan Time Spent Managing PTS Care (In Minutes): 35
[2018-07-06] MEDS: Levofloxacin500mg IV 500 MG/100 ML BAG IV SCH (20:59)
[2018-07-06] MEDS: TEMAZEPAM 15 MG CAP PO SCH (21:03)
[2018-07-07] MEDS: IPRATROPIUM BROM 0.5MG/2.5ML NEB SCH ×4 (00:15→20:00)
[2018-07-07] MEDS ORDERED: ALBUMIN HUMAN 25% 100 ML IV ONE (01:40)
[2018-07-07] MEDS ORDERED: FUROSEMIDE 40 MG/4 ML VIAL IV ONE (01:40)
[2018-07-07] MEDS: ALBUTEROL 2.5 MG/3 ML NEB SOL NEB SCH ×4 (03:15→19:51)
[2018-07-07 04:49] LABS: Absolute Lymphocytes (CBC) 1.2 K/uL (0.7-4.9); Absolute Monocytes 0.7 K/uL (0.1-1.3); Absolute Neutrophil 5.5 K/uL (1.8-8.0); Basophils % 0.1 % (0-1.3); Eosinophils % 0.9 % (0-4.4); Hematocrit 40.6 % (36.0-45.0); Lymphocytes % 16.1 % (15.3-44.8); MPV 9.3 fL (7.6-11.3); Monocytes % 9.2 % (3.3-12.3); RBC Red Blood Cell Count 4.36 M/uL (3.86-4.86)
[2018-07-07 04:58] LABS: Potassium 3.9 mmol/L (3.5-5.1)
[2018-07-07 05:27] LABS: Magnesium 1.8 mg/dL (1.8-2.4)
[2018-07-07] MEDS: LEVOTHYROXINE SOD 0.125 MG TAB PO SCH (05:55)
[2018-07-07] MEDS: PANTOPRAZOLE 40MG TABLET PO SCH (05:55)
[2018-07-07] MEDS ORDERED: MAGNESIUM SULFATE 1 gm IVPB 1 GM/100 ML BAG IV ONE (06:00)
[2018-07-07] MEDS ORDERED: POTASSIUM CL SA 10 MEQ TAB PO ONE (06:00)
[2018-07-07 06:09] LABS: Blood Morphology Comment NOT SEEN (NOT SEEN); Platelet Estimate ADEQ
[2018-07-07] MEDS: INSULIN -REGULAR HUMAN 50 UNIT/0.5 ML ML SQ SCH ×4 (07:30→20:49)
[2018-07-07] MEDS: PROMOD 30 ML DOSE PO SCH ×3 (08:00→16:41)
[2018-07-07] MEDS: POLYETHYL GLY 3350 17 GM/DOSE PO SCH (09:00)
[2018-07-07] MEDS: NYSTATIN PWDR 100000 UNIT/GM TOP SCH ×2 (09:00→20:52)
[2018-07-07] MEDS: SPIRONOLACTONE 25 MG TABLET PO SCH (09:19)
[2018-07-07] MEDS: MULTIVIT W/ MINERAL TAB PO SCH (09:20)
[2018-07-07] MEDS: DULOXETINE 30 MG CAP PO SCH (09:20)
[2018-07-07] MEDS: DOCUSATE NA 100 MG CAP PO SCH ×2 (09:20→20:50)
[2018-07-07] MEDS: CARVEDILOL 25 MG TAB PO SCH ×2 (09:20→20:51)
[2018-07-07] MEDS: FUROSEMIDE 40 MG/4 ML VIAL IV SCH (09:21)
[2018-07-07] MEDS: OXYBUTYNIN ER 5 MG TAB PO SCH ×2 (09:21→20:50)
[2018-07-07] MEDS: predniSONE 20 MG TAB PO SCH (09:21)
[2018-07-07] MEDS: LACTOBACILLUS/ACIDOPHILUS TAB PO SCH ×2 (09:21→20:50)
[2018-07-07] MEDS: FERROUS SULFATE 325 MG TAB PO SCH (09:21)
[2018-07-07] MEDS: PREGABALIN 50 MG CAP PO SCH ×2 (09:21→20:50)
[2018-07-07] MEDS: RIVAROXABAN 10 MG TABLET PO SCH (09:22)
[2018-07-07] MEDS: AMLODIPINE 5 MG TAB PO SCH (09:22)
--- NOTE | 2018-07-07 12:02 | RAD REPORT ---
EXAM DESCRIPTION: RAD - Chest Single View - 07/07/2018 6:56 am CLINICAL HISTORY: volume overload Chest pain. COMPARISON: Chest Single View dated 07/02/2018; Chest Single View dated 04/27/2018; Chest Single View dated 04/26/2018; Chest Single View dated 12/10/2017 FINDINGS: Portable technique limits examination quality. The lungs are grossly clear. The heart is mildly enlarged in size with a tortuous thoracic aorta. No displaced fractures.Right-sided PICC line has tip in the SVC. Hardware is present in the lower cervic al spine. IMPRESSION: No acute intrathoracic process suspected.
--- NOTE | 2018-07-07 13:12 | P.PN ---
Subjective Date of Service: 07/07/18 Chief Complaint: COPD exacerbation Patient seen and examined at bedside. No family at bedside. Case discussed with nursing staff. Patient reports improved breathing at this time. Sitting up in bed, eating without any concerns or complaints. Has nasal cannula and, 2 L oxygen. No concerns or complaints this morning Review of Systems As noted Physical Examination - Vital Signs Temperature: 97 F Blood Pressure: 139/64 Pulse: 60 Respirations: 20 Pulse Ox (%): 98 - Physical Exam General: Alert, In no apparent distress, Oriented x3 HEENT: Atraumatic, PERRLA, EOMI Neck: Supple, JVD not distended Respiratory: Diminished, Crackles/rales Cardiovascular: Regular rate/rhythm, Normal S1 S2 Gastrointestinal: Normal bowel sounds, No tenderness Musculoskeletal: No tenderness Integumentary: No rashes Neurological: Normal speech, Normal tone, Normal affect Lymphatics: No axilla or inguinal lymphadenopathy Assessment And Plan - Plan This is a 73-year-old female from [facility] with: Acute on chronic obstructive pulmonary disease exacerbation. Improved, though still having some wheezing. Continue nebulizer treatments and steroids. Supplemental oxygen as needed. She is not on any oxygen at the nursing facility. Will attempt to wean though she may require some oxygen at the nursing facility on as needed basis. Acute bronchitis Continue current treatment Hypothyroidism Continue current Synthroid Right bundle branch block. Stable Coronary artery disease, [place] artery [place] heart, status post stent placement. Continue home medications for her angina. Stable at this time, no complaints of chest pain Congestive heart failure, chronic with ejection fraction of 51% from 2017 Continue IV diuresis Repeat chest x-ray with improvement Guillain-[place] syndrome. Stable. 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 [facility] to [facility], likely in the next 24-48 hr Physician Review: Patient Assessed, Agree with Above Assessment and Plan Time Spent Managing PTS Care (In Minutes): 45
[2018-07-07] MEDS: FENTANYL 50 MCG/PATCH TD SCH (16:41)
[2018-07-07] MEDS: TEMAZEPAM 15 MG CAP PO SCH (20:51)
[2018-07-08] MEDS: ALBUTEROL 2.5 MG/3 ML NEB SOL NEB SCH ×3 (02:09→13:20)
[2018-07-08] MEDS: IPRATROPIUM BROM 0.5MG/2.5ML NEB SCH ×3 (02:09→13:20)
[2018-07-08] MEDS: PANTOPRAZOLE 40MG TABLET PO SCH (05:39)
[2018-07-08] MEDS: LEVOTHYROXINE SOD 0.125 MG TAB PO SCH (05:39)
[2018-07-08 06:20] VITALS: BMI 45.8
[2018-07-08] MEDS: PROMOD 30 ML DOSE PO SCH ×3 (08:05→17:53)
[2018-07-08] MEDS: INSULIN -REGULAR HUMAN 50 UNIT/0.5 ML ML SQ SCH ×3 (08:05→17:53)
[2018-07-08] MEDS: DOCUSATE NA 100 MG CAP PO SCH (08:07)
[2018-07-08] MEDS: MULTIVIT W/ MINERAL TAB PO SCH (08:07)
[2018-07-08] MEDS: RIVAROXABAN 10 MG TABLET PO SCH (08:07)
[2018-07-08] MEDS: DULOXETINE 30 MG CAP PO SCH (08:08)
[2018-07-08] MEDS: FERROUS SULFATE 325 MG TAB PO SCH (08:08)
[2018-07-08] MEDS: LACTOBACILLUS/ACIDOPHILUS TAB PO SCH (08:08)
[2018-07-08] MEDS: OXYBUTYNIN ER 5 MG TAB PO SCH (08:08)
[2018-07-08] MEDS: predniSONE 20 MG TAB PO SCH (08:09)
[2018-07-08] MEDS: FUROSEMIDE 40 MG/4 ML VIAL IV SCH (08:09)
[2018-07-08] MEDS: AMLODIPINE 5 MG TAB PO SCH (08:10)
[2018-07-08] MEDS: SPIRONOLACTONE 25 MG TABLET PO SCH ×2 (09:00→11:17)
[2018-07-08] MEDS: POLYETHYL GLY 3350 17 GM/DOSE PO SCH (09:00)
[2018-07-08] MEDS: CARVEDILOL 25 MG TAB PO SCH ×2 (09:00→11:17)
[2018-07-08] MEDS: PREGABALIN 50 MG CAP PO SCH (09:23)
[2018-07-08 10:11] VITALS: O2SAT 94
[2018-07-08] MEDS: NYSTATIN PWDR 100000 UNIT/GM TOP SCH (10:40)
[2018-07-08 17:34] VITALS: BP 138/68; TEMP 97.4
--- NOTE | 2018-07-29 12:15 | P.DS ---
Admission Date: 07/02/18 Discharge Date: 07/08/18 Disposition: TRANSFER TO [facility] Discharge Condition: FAIR Reason for Admission: COPD exacerbation Brief History of Present Illness: Ms Mariee is a 73-year-old woman with multiple medical problems including COPD, CKD, diabetes mellitus, chronic diastolic CHF, previous admission due to sacral wound infection requiring long-term antibiotics, DVT, who start yesterday with cough and progressive shortness of breath. She denied any fever or chills, cough is mostly dry. No history of chest pain or palpitations. Lab work remarkable for leukocytosis, lactate and procalcitonin are pending, UA also spending. CTA chest negative for PE and showed bibasilar atelectasis. In ER the patient was afebrile with stable vital signs. Hospital Course: Acute on chronic obstructive pulmonary disease exacerbation. She was given nebulizer treatments, and steroids along with supplemental oxygen as needed. She was weaned off her oxygen and along with IV diuresis, her symptoms resolved and she was at baseline in regards to her breathing at the time of discharge. Acute bronchitis Hypothyroidism Right bundle branch block. Coronary artery disease, benton artery benton heart, status post stent placement. Congestive heart failure, chronic with ejection fraction of 51% from 2017 She was given IV diuresis which helped improve her breathing. Repeat cxr with evidence of improvement. Guillain-[place] syndrome. Stable. History of DVT in right leg Hyperlipidemia Continue statin Major depressive disorder Continue Cymbalta She removed otherwise stable while being given IV diuresis, IV steroids and breathing treatments along with supplemental oxygen, She was discharged back to her nursing facility in a stable condition. Vital Signs/Physical Exam: Temp Pulse Resp BP Pulse Ox 97.4 F 66 16 138/68 94 07/08/18 16:00 07/08/18 16:00 07/08/18 16:00 07/08/18 16:00 07/08/18 16:00 Laboratory Data at Discharge: WBC 7.5 K/uL (4.3-10.9) D 07/07/18 04:14 Hgb 13.5 g/dL (12.0-15.0) 07/07/18 04:14 Hct 40.6 % (36.0-45.0) 07/07/18 04:14 Plt Count 158 K/uL (152-406) 07/07/18 04:14 PT 16.2 SECONDS (9.5-12.5) H 07/02/18 17:10 INR 1.37 07/02/18 17:10 Sodium 140 mmol/L (136-145) 07/08/18 04:25 Potassium 4.0 mmol/L (3.5-5.1) 07/08/18 04:25 BUN 40 mg/dL (7-18) H 07/08/18 04:25 Creatinine 1.10 mg/dL (0.55-1.3) 07/08/18 04:25 Glucose 258 mg/dL (74-106) H 07/08/18 08:03 Phosphorus 2.3 mg/dL (2.5-4.9) L 07/06/18 10:50 Magnesium 2.0 mg/dL (1.8-2.4) 07/08/18 04:25 Total Bilirubin 0.4 mg/dL (0.2-1.0) 07/04/18 05:05 AST 19 U/L (15-37) 07/04/18 05:05 ALT 39 U/L (12-78) 07/04/18 05:05 Alkaline Phosphatase 70 U/L (45-117) 07/04/18 05:05 Home Medications: ALPRAZolam [Xanax*] 0.25 mg PO DAILY PRN 07/24/18 Albuterol Neb [Proventil 0.083% Neb Soln] 2.5 mg IH Q4H PRN 07/24/18 Amlodipine Besylate 5 mg PO DAILY 07/24/18 Carvedilol 25 mg PO BID 07/24/18 Cyanocobalamin [Vitamin B-12] 1,000 mcg PO DAILY 07/24/18 Docusate Sodium 1 cap PO DAILY 07/24/18 Duloxetine HCl 60 mg PO DAILY 07/24/18 Ferrous Sulfate [Feosol] 325 mg PO DAILY 07/24/18 Furosemide 2 tab PO DAILY 07/24/18 Glimepiride 2 mg PO BIDWM 07/24/18 Hydrocodone 10/APAP 325 [[place] 10/325] 1 tab PO Q4H PRN 07/24/18 Insulin Aspart [Novolog] 0 unit SQ ACHS 07/24/18 Insulin Detemir [Levemir] 20 units SQ BEDTIME 07/24/18 Insulin Detemir [Levemir] 30 units SQ DAILY 07/24/18 Ipratropium Neb [Atrovent*] 0.5 mg IH Q4H PRN 07/24/18 Lactobacillus Acidophilus [Acidophilus] 1 each PO BID 07/24/18 Levothyroxine Sodium 125 mcg PO DAILY 07/24/18 Loperamide HCl [Imodium A-D] 2 mg PO Q8H PRN 07/24/18 Multivitamin [Sla-Snvalz-Pgazp] 1 tab PO DAILY 07/24/18 Nitroglycerin [Nitrostat*] 1 tab SL Q5M PRN MDD 3 07/24/18 Nystatin Powder [Mycostatin (Powder)] 1 appl TOP BID PRN 07/24/18 Oxybutynin Chloride [Oxybutynin Chloride ER] 1 tab PO DAILY 07/24/18 Pantoprazole Sodium [Protonix] 40 mg PO DAILY 07/24/18 Peg 400/Hypromellose/Glycerin [Artificial Tears Drops] 1 gtt EACH EYE BID Polyethyl Gly 3350 [Glycolax*] 17 gm PO DAILY PRN 07/24/18 Potassium Chloride [Klor-Con M20] 2 tab PO Q24H PRN 07/24/18 Pregabalin [Lyrica] 100 mg PO BID 07/24/18 Protein Supplement [Promod] 30 ml PO BID 07/24/18 Rivaroxaban [Xarelto*] 10 mg PO DAILY 07/24/18 Spironolactone 25 mg PO DAILY 07/24/18 Temazepam 30 mg PO BEDTIME PRN 07/24/18 fentaNYL [Fentanyl] 1 each TD Q72H 07/24/18 metOLazone [Zaroxolyn] 2.5 mg PO M,W,F 07/24/18 predniSONE [Prednisone] 20 mg PO DAILY 07/24/18 Patient Discharge Instructions: Please follow up with your primary care physician in 1 week Diet: ADA Activity: Ad heidi Physician Review: Patient Assessed, Agree with Above Assessment and Plan Time spent managing pt's care (in minutes): 55
== END 2018-07-08 19:45 | DRG 191 ==
LOC: ER 16:50 → ERHOLD 18:34 → 2ND 21:04
PROVIDERS: ADMIT Internal Medicine; ATTEND Internal Medicine
DX: J44.1 Chronic obstructive pulmonary disease with (acute) exacerbation (principal); Z68.42 Body mass index [BMI] 45.0-49.9, adult; G61.0 Guillain-Barre syndrome; I50.32 Chronic diastolic (congestive) heart failure; J20.9 Acute bronchitis, unspecified; J44.0 Chronic obstructive pulmonary disease with (acute) lower respiratory infection; I11.0 Hypertensive heart disease with heart failure; E03.9 Hypothyroidism, unspecified; E66.01 Morbid (severe) obesity due to excess calories; I25.10 Atherosclerotic heart disease of native coronary artery without angina pectoris; E78.5 Hyperlipidemia, unspecified; I45.10 Unspecified right bundle-branch block; G62.9 Polyneuropathy, unspecified; M48.00 Spinal stenosis, site unspecified; F32.9 Major depressive disorder, single episode, unspecified; E11.9 Type 2 diabetes mellitus without complications; Z95.5 Presence of coronary angioplasty implant and graft; Z86.718 Personal history of other venous thrombosis and embolism; Z88.0 Allergy status to penicillin; Z88.2 Allergy status to sulfonamides; Z88.7 Allergy status to serum and vaccine
CPT/HCPCS: 36415; 71045; 71275; 80048; 80053; 80076; 80202; 81003; 81015; 82533; 82947; 82962; 83605; 83735; 83880; 84100; 84145; 84484; 85025; 85610; 87086; 87088; 93005; 94640; 96374; 99285; J1650; J1940; J2920; J3475; J7512; P9047; Q9967

== ENCOUNTER 2018-07-24 09:45 | Inpatient (IN) | payer OTHER ==
[2018-07-24] MEDS ORDERED: D50W 25 GM/50 ML SYRINGE IV ONE ×2 (10:00→15:42)
[2018-07-24 10:36] LABS: Absolute Lymphocytes (CBC) 2.8 K/uL (0.7-4.9); Absolute Monocytes 1.1 K/uL (0.1-1.3); Absolute Neutrophil 8.7 K/uL (1.8-8.0); Basophils % 0.5 % (0-1.3); Eosinophils % 1.4 % (0-4.4); Hematocrit 50.9 % (36.0-45.0); Lymphocytes % 21.8 % (15.3-44.8); MCH 31.3 pg (27.0-35.0); MCV 91.9 fL (80-100); Monocytes % 8.3 % (3.3-12.3); RBC Red Blood Cell Count 5.54 M/uL (3.86-4.86)
[2018-07-24 10:39] LABS: Protime INR 1.13
[2018-07-24 10:49] LABS: ALT/SGPT 53 U/L (12-78); AST/SGOT 20 U/L (15-37); Albumin 3.2 g/dL (3.4-5.0); Alkaline Phosphatase 85 U/L (45-117); BUN Blood Urea Nitrogen 89 mg/dL (7-18); Bicarbonate 38 mmol/L (21-32); Bilirubin Direct 0.2 mg/dL (0-0.2); Bilirubin Total 0.7 mg/dL (0.2-1.0); CKMB Creatine Kinase MB < 1.0 ng/mL (0.3-3.6); Creatine Phosphokinase 23 U/L (26-192); Lipase 58 U/L (73-393); Protein, Total 7.3 g/dL (6.4-8.2); Sodium Level 141 mmol/L (136-145); Troponin (Emerg Dept Use Only) 0.02 ng/mL (0.0-0.045)
[2018-07-24] MEDS ORDERED: NA CHLORIDE 0.9% 0 ML ONE (10:51)
[2018-07-24 10:53] LABS: Glucose Level 30 mg/dL (74-106); Potassium 2.8 mmol/L (3.5-5.1)
--- NOTE | 2018-07-24 10:58 | ER ---
Nurse's Notes [facility] Name: Jennifer Mariee Age: 73 yrs Sex: Female : 1945 Arrival Date: 07/24/2018 Time: 09:48 Bed 3 Private MD: Diagnosis: Hypoglycemia, unspecified;Hypotension;Altered mental status, unspecified;Sepsis, unspecified organism;Obesity, unspecified;Type 1 diabetes mellitus;Hypothermia;Hypokalemia;Unspecified kidney failure Presentation: 07/24 09:49 Presenting complaint: EMS states: GCS 6, AMS, LAST KNOWN NORMAL 13HR AGO. Transition of bp care: patient was received from another setting of care (long-term care facility), [facility]. Onset of symptoms is unknown. Risk Assessment: Do you want to hurt yourself or someone else? Unable to obtain. Initial Sepsis Screen: Does the patient meet any 2 criteria? Altered Mental Status. No. Patient's initial sepsis screen is negative. Does the patient have a suspected source of infection? No. Patient's initial sepsis screen is negative. Care prior to arrival: None. 09:49 Method Of Arrival: EMS: [facility] bp 09:49 Acuity: CHAZ 2 bp Triage Assessment: 09:49 General: Appears distressed, Behavior is unresponsive. Pain: Unable to use pain scale. bp Patient is unresponsive. EENT: No deficits noted. Neuro: Level of Consciousness is obtunded. Cardiovascular: Rhythm is sinus rhythm. Respiratory: Airway is compromised Respiratory effort is Respiratory pattern is hypoventilation. GI: No signs and/or symptoms were reported involving the gastrointestinal system. : Fay in place. Derm: No deficits noted. Musculoskeletal: Circulation, motion, and sensation intact. Range of motion: intact in all extremities. Historical: - Allergies: 11:40 FLU VACCINE; bp 11:40 PENICILLINS; bp 11:40 Sulfa (Sulfonamide Antibiotics); bp 11:40 TRIMETHOPRIM; bp - Home Meds: 11:40 Acidophilus Oral cap twice a day [Active]; albuterol sulfate 2.5 mg /3 mL (0.083 %) bp Inhl nebu 3 mL every 6 hours [Active]; Aldactone 25 mg Oral tab 1 tab once daily [Active]; amlodipine 5 mg tab 1 tab once daily [Active]; Coreg 25 mg Oral tab 1 tab 2 times per day [Active]; cyanocobalamin (vitamin B-12) 1,000 mcg Oral tab daily [Active]; Cymbalta 60 mg Oral cpDR 1 cap once daily [Active]; docusate sodium 100 mg Oral cap 1 cap 2 times per day [Active]; fentanyl 50 mcg/hr Topical pt72 1 patch every 72 hours [Active]; Levemir 100 unit/mL subcutaneous soln 30 unit daily [Active]; Levemir 100 unit/mL subcutaneous soln 20 unit nightly [Active]; Lasix 20 mg Oral tab 1 tab once daily [Active]; Lyrica 100 mg Oral 1 cap 2 times per day [Active]; loperamide 2 mg Oral tab 1 tabs every 8 hours for diarrhea [Active]; nitroglycerin 0.4 mg SL subl 1 tab every 5 minutes [Active]; ferrous sulfate 325 mg (65 mg iron) Oral tab daily [Active]; insulin aspart 100unit/mL subcutaneous per sliding scale [Active]; glimepiride 2 mg Oral tab 1 tab twice a day [Active]; potassium chloride 20 mEq Oral TbER 2 tab once daily [Active]; nystatin 100,000 unit/gram Topical powd 2 times per day [Active]; hydrocodone-acetaminophen 10-325 mg Oral tab 1 tab q4 hrs prn [Active]; oxybutynin chloride 10 mg Oral tr24 1 tab twice a day [Active]; Restoril 30 mg Oral cap 1 cap once daily [Active]; Xanax 0.25 mg Oral tab 1 tab daily [Active]; rivaroxaban 10 mg Oral once daily [Active]; Protonix 40 mg Oral TbEC 1 tab once daily [Active]; ProMod Protein Oral liqd twice a day [Active]; prednisone 20 mg Oral tab [Active]; Miralax 17 gram Oral pwpk 1 packet once daily [Active]; levothyroxine 125 mcg tab 1 tab once daily [Active]; ipratropium-albuterol 0.5 mg-3 mg(2.5 mg base)/3 mL inhalation nebu [Active]; - PMHx: 11:40 allergies; Cellulitis; COPD; Depression; Diabetes - NIDDM; Diverticulitis; DVT; bp DYSPHAGIA; Gastrointestinal hemmorrhage; Gout; Hypertension; Hypothyroidism; MRSA; Myocardial infarction; Pneumonia; Sepsis; spinal stenosis; ulcerative colitis; - Immunization history:: Last tetanus immunization: up to date. - Social history:: Smoking status: Patient/guardian denies using tobacco. - Ebola Screening: : Patient negative for fever greater than or equal to 101.5 degrees Fahrenheit, and additional compatible Ebola Virus Disease symptoms Patient denies exposure to infectious person Patient denies travel to an Ebola-affected area in the 21 days before illness onset No symptoms or risks identified at this time. Screenin:10 Abuse screen: Denies threats or abuse. Denies injuries from another. Nutritional bp screening: No deficits noted. Tuberculosis screening: No symptoms or risk factors identified. Fall Risk None identified. Assessment: 09:50 General: Appears distressed, comfortable, obese, Behavior is unresponsive. Pain: Unable bp to use pain scale. Patient is unresponsive. Neuro: Level of Consciousness is unresponsive, Oriented to none. Cardiovascular: Rhythm is sinus rhythm. Respiratory: Airway is compromised Respiratory effort is even, shallow, Respiratory pattern is symmetrical, hypoventilation. GI: No deficits noted. : Fay in place. EENT: No deficits noted. Derm: No deficits noted. Musculoskeletal: Range of motion: intact in all extremities. 10:15 Reassessment: PT NOW VERBAL, HYPOTENSIVE ON MONITOR. MD AT B/S. bp 10:20 Reassessment: Dr. Poole at bedside attempting central line at this time. . aa5 11:10 Reassessment: Pt cleaned, brown soft stool noted, clean brief applied. RT at bedside aa5 collecting ABGs at this time. . 11:20 Reassessment: Pt to CT via stretcher. . aa5 12:20 Reassessment: ALL CURRENT ORDERS COMPLETED, MILD HYPOTENSION ON MONITOR. ADMIT IN bp PROCESS. 14:00 Reassessment: MONITORING CONTINUES. BIPAP IN PLACE, SB ON MONITOR. aa5 16:16 Reassessment: ICU PLACEMENT CONFIRMED, PT BELEM WITH RN AND RT. aa5 Vital Signs: 09:50 BP 97 / 67; Pulse 51; Resp 15; Pulse Ox 95% ; bp 10:00 BP 85 / 63; Pulse 49; Resp 14 S; Temp 95.5(TE); Pulse Ox 98% on 2 lpm NC; aa5 10:10 BP 85 / 63; Pulse 49; Resp 15; Pulse Ox 96% ; mh5 10:30 Weight 117 kg; aa5 10:45 BP 100 / 72; Pulse 51; Resp 10; Pulse Ox 99% ; bp 11:01 Temp 93.6(C); aa5 12:21 BP 113 / 65; Pulse 50; Resp 15; Temp 95.1(C); Pulse Ox 100% on BiPAP; mh5 13:00 BP 111 / 59; Pulse 47; Resp 12; Pulse Ox 100% ; aa5 14:00 BP 121 / 65; Pulse 47; Resp 12; Pulse Ox 99% ; aa5 15:00 BP 127 / 62; Pulse 46; Resp 12; Pulse Ox 96% ; aa5 16:00 BP 106 / 56; Pulse 43; Resp 12; Pulse Ox 99% ; aa5 10:00 unable to obtain oral temperature at this time aa5 NIH Stroke Scale Scores: 09:49 NIHSS Score: 24 bp ED Course: 09:48 Patient arrived in ED. bp 09:48 Inserted saline lock: 22 gauge in right forearm, using aseptic technique. Blood aa5 collected. 09:50 Triage completed. bp 09:55 Missed attempt(s): 22 gauge in left forearm. Bleeding controlled, band aid applied, aa5 catheter tip intact. 09:58 Jairon Poole MD is Attending Physician. liana 10:00 Missed attempt(s): 22 gauge in right forearm. Bleeding controlled, band aid applied, aa5 catheter tip intact. 10:00 First set of blood cultures drawn by ED staff. ss 10:10 Patient has correct armband on for positive identification. Placed in gown. Bed in low bp position. Call light in reach. Side rails up X2. 10:30 Second set of blood cultures drawn by physician. ss 10:40 Assisted provider with central line placement. Set up central line tray. Triple lumen aa5 line placed in right femoral. Line placed by Jairon Poole MD Placement verified by blood return, Dressed with Tegaderm, Blood was collected. Patient tolerated well. 10:43 Assisted provider with central line placement. 5 10:45 Notified ED physician of a critical lab result(s). K 2.8, GLU 30. ss 10:51 Rolly Liang, RN is Primary Nurse. bp 10:53 X-ray completed. Portable x-ray completed in exam room. Patient tolerated procedure la2 well. 10:56 Chest Single View XRAY In Process Unspecified. EDMS 10:56 Jenni Garrison MD is Hospitalizing Provider. ilana 10:58 Fay cath removed intact, balloon deflated, 500 cc of cloudy urine noted. aa5 11:00 Fay cath inserted, using sterile technique, 18 Fr., by me, balloon inflated, to aa5 gravity drainage, returned a very tiny amount of urine was noted, not enough for urine specimen at this time, will check again later. Patient tolerated well. 11:29 Assisted provider with central line placement. Set up central line tray. 5 11:30 Warm blanket given. CLEANED AND REPOSITIONED. 5 11:31 EKG done. 5 11:40 CT completed. Patient moved to CT via stretcher. Patient moved back from CT. eh 11:40 Arm band placed on. bp 11:42 CT Traumagram (Head C Spine CAP wo con) In Process Unspecified. EDMS 15:53 Patient admitted, IV remains in place. aa5 Administered Medications: Discontinued: NS 0.9% with KCl 20 mEq/L 1000 ml IV at 125 ml/hr continuous 10:42 Drug: NS 0.9% (30 ml/kg) 30 ml/kg Route: IV; Rate: bolus; Site: right femoral; aa5 12:00 Follow up: IV Status: Completed infusion; IV Intake: 1000ml bp 11:15 Drug: vancoMYCIN 1 grams Route: IVPB; Infused Over: 2 hrs; Site: right femoral; bp 12:15 Follow up: IV Status: Completed infusion; IV Intake: 250ml bp 11:15 Drug: Pepcid 20 mg Route: IVP; Site: right femoral; bp 12:25 Follow up: Response: No adverse reaction bp 11:15 Drug: Potassium Chloride 20 mEq Route: IV; Rate: per protocol; Site: right femoral; bp 13:15 Follow up: IV Status: Completed infusion; IV Intake: 100ml bp 11:15 Drug: NS 0.9% with KCl 20 mEq/L 1000 ml Route: IV; Rate: 125 ml/hr; Site: right femoral;bp 13:00 Drug: Potassium Chloride 20 mEq Route: IV; Rate: per protocol; Site: right femoral; bp 16:14 Follow up: IV Status: Infusion continued upon admission aa5 13:06 Drug: Cefepime 2 grams Route: IVPB; Rate: 200 ml/hr; Infused Over: 30 mins; Site: right bp femoral; 13:45 Follow up: IV Status: Completed infusion; IV Intake: 100ml bp 14:45 Drug: D5-1/2 NS with KCl 20 mEq/L 1000 ml Route: IV; Rate: 125 ml/hr; Site: right bp femoral; 16:14 Follow up: IV Status: Infusion continued upon admission aa5 14:45 Drug: D50W 50 ml Route: IVP; Site: right femoral; bp 15:46 Follow up: Response: No adverse reaction bp Point of Care Testing: Blood Glucose: 09:45 Blood Glucose: 26 mg/dL; bp 10:04 Blood Glucose: 254 mg/dL; bp 12:20 Blood Glucose: 98 mg/dL; mh5 16:06 Blood Glucose: 204 mg/dL; aa5 Ranges: Intake: 12:00 IV: 1000ml; Total: 1000ml. bp 12:15 IV: 250ml; Total: 1250ml. bp 13:15 IV: 100ml; Total: 1350ml. bp 13:45 IV: 100ml; Total: 1450ml. bp Outcome: 10:57 Decision to Hospitalize by Provider. liana 15:53 Condition: stable aa5 15:53 Instructed on the need for admit. 16:24 Admitted to ICU accompanied by nurse, via stretcher, room 3, with oxygen, with chart, aa5 Report called to DANA 17:13 Patient left the ED. aa5 NIH Stroke Scale - NIH Stroke Score Date: 07/24/2018 Time: 09:49 Total Score = 24 1a. Level of Consciousness (LOC) - 2(Not Alert, obtunded) 1b. Level of Consciousness (LOC) (Year \T\ Age) - 2(Neither) 1c. LOC Commands (Open \T\ Closes Eyes/State Historical Society Director) - 2(Neither) 2. Best Gaze (Lateral Gaze Paresis) - 1(Partial gaze palsy) 3. Visual Field Loss - 0(No visual loss) 4. Facial Palsy - 0(Normal) 5a. Left Arm: Motor (10-second hold) - 3(No effort against gravity) 5b. Right Arm: Motor (10-second hold) - 3(No effort against gravity) 6a. Left Leg: Motor (5-second hold - always test supine) - 3(No effort against gravity) 6b. Right Leg: Motor (5-second hold - always test supine) - 3(No effort against gravity) 7. Limb Ataxia (finger/nose \T\ heel/martin - test with eyes open) - 0(Absent) 8. Sensory Loss (pinprick arms/legs/face) - 0(Normal) 9. Best Language: Aphasia (description/naming/reading) - 3(Mute, global aphasia) 10. Dysarthria (speech clarity - read or repeat words) - 2(Severe) 11. Extinction and Inattention (visual/tactile/auditory/spatial/personal) - 0(No abnormality) Initials: bp Signatures: Dispatcher [employer] EDMS Jairon Poole MD MD cha Hagler, Ervin eh Calderon, Audri, RN RN aa5 Belinda Perez RN RN ss Martinez, Maria [facility] Aliya [place] Brian, MELISSA RN bp Corrections: (The following items were deleted from the chart) 10:07 10:04 Blood Glucose: Blood Glucose Reading=26 mg/dL. bp bp 10:27 09:48 Inserted saline lock: 22 gauge in right forearm, using aseptic technique. aa5 Blood collected. bp
--- NOTE | 2018-07-24 10:59 | EDPHYS ---
Physician Documentation [facility] Name: Jennifer Mariee Age: 73 yrs Sex: Female : 1945 Arrival Date: 07/24/2018 Time: 09:48 Bed 3 Private MD: ED Physician Jairon Poole HPI: 07/24 10:49 This 73 yrs old Female presents to ER via EMS with complaints of Altered liana Mental Status. 10:49 The patient presents with confusion, decreased mental status, decreased responsiveness, liana trouble concentrating. Onset: The symptoms/episode began/occurred yesterday. Possible causes: low blood sugar, sepsis. Associated signs and symptoms: Pertinent positives: confusion, lightheadedness, nausea. Current symptoms: In the emergency department the patient's symptoms are unchanged from the initial presentation. Patient's baseline: Neuro: alert and fully oriented. The patient has not experienced similar symptoms in the past. Historical: - Allergies: 11:40 FLU VACCINE; bp 11:40 PENICILLINS; bp 11:40 Sulfa (Sulfonamide Antibiotics); bp 11:40 TRIMETHOPRIM; bp - Home Meds: 11:40 Acidophilus Oral cap twice a day [Active]; albuterol sulfate 2.5 mg /3 mL (0.083 %) bp Inhl nebu 3 mL every 6 hours [Active]; Aldactone 25 mg Oral tab 1 tab once daily [Active]; amlodipine 5 mg tab 1 tab once daily [Active]; Coreg 25 mg Oral tab 1 tab 2 times per day [Active]; cyanocobalamin (vitamin B-12) 1,000 mcg Oral tab daily [Active]; Cymbalta 60 mg Oral cpDR 1 cap once daily [Active]; docusate sodium 100 mg Oral cap 1 cap 2 times per day [Active]; fentanyl 50 mcg/hr Topical pt72 1 patch every 72 hours [Active]; Levemir 100 unit/mL subcutaneous soln 30 unit daily [Active]; Levemir 100 unit/mL subcutaneous soln 20 unit nightly [Active]; Lasix 20 mg Oral tab 1 tab once daily [Active]; Lyrica 100 mg Oral 1 cap 2 times per day [Active]; loperamide 2 mg Oral tab 1 tabs every 8 hours for diarrhea [Active]; nitroglycerin 0.4 mg SL subl 1 tab every 5 minutes [Active]; ferrous sulfate 325 mg (65 mg iron) Oral tab daily [Active]; insulin aspart 100unit/mL subcutaneous per sliding scale [Active]; glimepiride 2 mg Oral tab 1 tab twice a day [Active]; potassium chloride 20 mEq Oral TbER 2 tab once daily [Active]; nystatin 100,000 unit/gram Topical powd 2 times per day [Active]; hydrocodone-acetaminophen 10-325 mg Oral tab 1 tab q4 hrs prn [Active]; oxybutynin chloride 10 mg Oral tr24 1 tab twice a day [Active]; Restoril 30 mg Oral cap 1 cap once daily [Active]; Xanax 0.25 mg Oral tab 1 tab daily [Active]; rivaroxaban 10 mg Oral once daily [Active]; Protonix 40 mg Oral TbEC 1 tab once daily [Active]; ProMod Protein Oral liqd twice a day [Active]; prednisone 20 mg Oral tab [Active]; Miralax 17 gram Oral pwpk 1 packet once daily [Active]; levothyroxine 125 mcg tab 1 tab once daily [Active]; ipratropium-albuterol 0.5 mg-3 mg(2.5 mg base)/3 mL inhalation nebu [Active]; - PMHx: 11:40 allergies; Cellulitis; COPD; Depression; Diabetes - NIDDM; Diverticulitis; DVT; bp DYSPHAGIA; Gastrointestinal hemmorrhage; Gout; Hypertension; Hypothyroidism; MRSA; Myocardial infarction; Pneumonia; Sepsis; spinal stenosis; ulcerative colitis; - Immunization history:: Last tetanus immunization: up to date. - Social history:: Smoking status: Patient/guardian denies using tobacco. - Ebola Screening: : Patient negative for fever greater than or equal to 101.5 degrees Fahrenheit, and additional compatible Ebola Virus Disease symptoms Patient denies exposure to infectious person Patient denies travel to an Ebola-affected area in the 21 days before illness onset No symptoms or risks identified at this time. ROS: 10:50 Eyes: Negative for injury, pain, redness, and discharge, ENT: Negative for injury, liana pain, and discharge, Neck: Negative for injury, pain, and swelling, Cardiovascular: Negative for chest pain, palpitations, and edema, Respiratory: Negative for shortness of breath, cough, wheezing, and pleuritic chest pain, Back: Negative for injury and pain, : Negative for injury, bleeding, discharge, and swelling, MS/Extremity: Negative for injury and deformity, Skin: Negative for injury, rash, and discoloration, Psych: Negative for depression, anxiety, suicide ideation, homicidal ideation, and hallucinations, Allergy/Immunology: Negative for hives, rash, and allergies, Endocrine: Negative for neck swelling, polydipsia, polyuria, polyphagia, and marked weight changes, Hematologic/Lymphatic: Negative for swollen nodes, abnormal bleeding, and unusual bruising. 10:50 Constitutional: Positive for body aches, malaise, poor PO intake. 10:50 Respiratory: Positive for cough. 10:50 Abdomen/GI: Positive for abdominal distension. 10:50 Neuro: Positive for altered mental status, weakness. Exam: 10:50 Head/Face: Normocephalic, atraumatic. Eyes: Pupils equal round and reactive to light, liana extra-ocular motions intact. Lids and lashes normal. Conjunctiva and sclera are non-icteric and not injected. Cornea within normal limits. Periorbital areas with no swelling, redness, or edema. ENT: Nares patent. No nasal discharge, no septal abnormalities noted. Tympanic membranes are normal and external auditory canals are clear. Oropharynx with no redness, swelling, or masses, exudates, or evidence of obstruction, uvula midline. Mucous membranes moist. Neck: Trachea midline, no thyromegaly or masses palpated, and no cervical lymphadenopathy. Supple, full range of motion without nuchal rigidity, or vertebral point tenderness. No Meningismus. Chest/axilla: Normal chest wall appearance and motion. Nontender with no deformity. No lesions are appreciated. Respiratory: Lungs have equal breath sounds bilaterally, clear to auscultation and percussion. No rales, rhonchi or wheezes noted. No increased work of breathing, no retractions or nasal flaring. Back: No spinal tenderness. No costovertebral tenderness. Full range of motion. Skin: Warm, dry with normal turgor. Normal color with no rashes, no lesions, and no evidence of cellulitis. MS/ Extremity: Pulses equal, no cyanosis. Neurovascular intact. Full, normal range of motion. Psych: Awake, alert, with orientation to person, place and time. Behavior, mood, and affect are within normal limits. 10:50 Constitutional: The patient appears lethargic, listless, in obvious distress, moderately distressed, obviously ill, uncomfortable. 10:50 Neuro: Orientation: to person, place, Not oriented to time, situation, Mentation: slow to respond, confused, Memory: unable to test, Cranial nerves: is grossly normal based on the patient's age, no acute changes, Cerebellar function: is grossly normal, Motor: is normal, Gait: not tested. seizure activity, is not displayed by the patient. Vital Signs: 09:50 BP 97 / 67; Pulse 51; Resp 15; Pulse Ox 95% ; bp 10:00 BP 85 / 63; Pulse 49; Resp 14 S; Temp 95.5(TE); Pulse Ox 98% on 2 lpm NC; aa5 10:10 BP 85 / 63; Pulse 49; Resp 15; Pulse Ox 96% ; mh5 10:30 Weight 117 kg; aa5 10:45 BP 100 / 72; Pulse 51; Resp 10; Pulse Ox 99% ; bp 11:01 Temp 93.6(C); aa5 12:21 BP 113 / 65; Pulse 50; Resp 15; Temp 95.1(C); Pulse Ox 100% on BiPAP; 5 13:00 BP 111 / 59; Pulse 47; Resp 12; Pulse Ox 100% ; aa5 14:00 BP 121 / 65; Pulse 47; Resp 12; Pulse Ox 99% ; aa5 15:00 BP 127 / 62; Pulse 46; Resp 12; Pulse Ox 96% ; aa5 16:00 BP 106 / 56; Pulse 43; Resp 12; Pulse Ox 99% ; aa5 10:00 unable to obtain oral temperature at this time aa5 NIH Stroke Scale Scores: 09:49 NIHSS Score: 24 bp Procedures: 10:54 Central Line: the site was prepped with Betadine, in sterile fashion, a triple lumen liana catheter was inserted, in the right femoral vein, in 2 attempts. placement was verified, by blood return, the site was dressed with using sterile technique, the patient tolerated the procedure, well. MDM: 09:58 Patient medically screened. [facility] 10:52 Data reviewed: vital signs, nurses notes, lab test result(s), EKG, radiologic studies, liana CT scan, plain films. 07/24 10:12 Order name: Basic Metabolic Panel; Complete Time: 11:36 bp 07/24 10:12 Order name: Blood Culture Adult (2) bp 07/24 10:12 Order name: CBC with Diff; Complete Time: 11:36 bp 07/24 10:12 Order name: Ckmb; Complete Time: 11:36 bp 07/24 10:12 Order name: CPK; Complete Time: 11:36 bp 07/24 10:12 Order name: Lactate; Complete Time: 10:53 bp 07/24 10:12 Order name: LFT's; Complete Time: 11:36 bp 07/24 10:12 Order name: Lipase; Complete Time: 11:36 bp 07/24 10:12 Order name: Procalcitonin; Complete Time: 11:36 bp 07/24 10:12 Order name: Protime (+inr); Complete Time: 10:53 bp 07/24 10:12 Order name: Ptt, Activated; Complete Time: 10:53 bp 07/24 10:12 Order name: Troponin (emerg Dept Use Only); Complete Time: 11:36 bp 07/24 10:12 Order name: Urine Microscopic Only bp 07/24 10:24 Order name: Glucose; Complete Time: 11:36 bp 07/24 10:12 Order name: Chest Single View XRAY; Complete Time: 11:36 bp 07/24 10:49 Order name: ABG; Complete Time: 11:36 liana 07/24 10:50 Order name: AMMONIA; Complete Time: 14:19 bd 07/24 10:53 Order name: Phosphorus; Complete Time: 11:47 liana 07/24 11:33 Order name: CBC Smear Scan; Complete Time: 11:36 EDMS 07/24 11:49 Order name: Glucose; Complete Time: 14:19 aa5 07/24 13:01 Order name: CBC with Automated Diff EDMS 07/24 13:01 Order name: CBC with Automated Diff EDMS 07/24 13:01 Order name: CBC with Automated Diff EDMS 07/24 13:01 Order name: CBC with Automated Diff EDMS 07/24 13:01 Order name: Comprehensive Metabolic Panel EDMS 07/24 13:01 Order name: Comprehensive Metabolic Panel EDMS 07/24 13:01 Order name: Comprehensive Metabolic Panel EDMS 07/24 13:01 Order name: Comprehensive Metabolic Panel EDMS 07/24 16:25 Order name: Urine Dipstick--Ancillary (enter results) bd 07/24 16:33 Order name: Urine Dipstick-Ancillary EDMS 07/24 10:12 Order name: Accucheck; Complete Time: 10:29 bp 07/24 10:12 Order name: Cardiac monitoring; Complete Time: 10:29 bp 07/24 10:12 Order name: EKG - Nurse/Tech; Complete Time: 10:29 bp 07/24 10:12 Order name: IV Saline Lock - Large Bore; Complete Time: 10:29 bp 07/24 10:12 Order name: Labs collected and sent; Complete Time: 10:29 bp 07/24 10:12 Order name: O2 Per Protocol; Complete Time: 10:29 bp 07/24 10:12 Order name: O2 Sat Monitoring; Complete Time: 10:29 bp 07/24 10:12 Order name: Urine Dipstick-Ancillary (obtain specimen); Complete Time: 16:15 bp 07/24 10:47 Order name: Fay; Complete Time: 10:56 liana 07/24 10:47 Order name: Central Line Kit; Complete Time: 10:56 liana 07/24 10:48 Order name: CT Traumagram (Head C Spine CAP wo con); Complete Time: 14:19 liana 07/24 11:36 Order name: BIPAP [facility] 07/24 13:01 Order name: NPO EDMS Administered Medications: Discontinued: NS 0.9% with KCl 20 mEq/L 1000 ml IV at 125 ml/hr continuous 10:42 Drug: NS 0.9% (30 ml/kg) 30 ml/kg Route: IV; Rate: bolus; Site: right femoral; aa5 12:00 Follow up: IV Status: Completed infusion; IV Intake: 1000ml bp 11:15 Drug: vancoMYCIN 1 grams Route: IVPB; Infused Over: 2 hrs; Site: right femoral; bp 12:15 Follow up: IV Status: Completed infusion; IV Intake: 250ml bp 11:15 Drug: Pepcid 20 mg Route: IVP; Site: right femoral; bp 12:25 Follow up: Response: No adverse reaction bp 11:15 Drug: Potassium Chloride 20 mEq Route: IV; Rate: per protocol; Site: right femoral; bp 13:15 Follow up: IV Status: Completed infusion; IV Intake: 100ml bp 11:15 Drug: NS 0.9% with KCl 20 mEq/L 1000 ml Route: IV; Rate: 125 ml/hr; Site: right femoral;bp 13:00 Drug: Potassium Chloride 20 mEq Route: IV; Rate: per protocol; Site: right femoral; bp 16:14 Follow up: IV Status: Infusion continued upon admission aa5 13:06 Drug: Cefepime 2 grams Route: IVPB; Rate: 200 ml/hr; Infused Over: 30 mins; Site: right bp femoral; 13:45 Follow up: IV Status: Completed infusion; IV Intake: 100ml bp 14:45 Drug: D5-1/2 NS with KCl 20 mEq/L 1000 ml Route: IV; Rate: 125 ml/hr; Site: right bp femoral; 16:14 Follow up: IV Status: Infusion continued upon admission aa5 14:45 Drug: D50W 50 ml Route: IVP; Site: right femoral; bp 15:46 Follow up: Response: No adverse reaction bp Point of Care Testing: Blood Glucose: 09:45 Blood Glucose: 26 mg/dL; bp 10:04 Blood Glucose: 254 mg/dL; bp 12:20 Blood Glucose: 98 mg/dL; mh5 16:06 Blood Glucose: 204 mg/dL; aa5 Ranges: Critical Glucose Levels:Adult <50 mg/dl or >400 mg/dl <40 mg/dl or >180 mg/dl Disposition: 07/24/18 10:57 Hospitalization ordered by Jenni Garrison for Inpatient Admission. Preliminary diagnosis are Hypoglycemia, unspecified, Hypotension, Altered mental status, unspecified, Sepsis, unspecified organism, Obesity, unspecified, Type 1 diabetes mellitus, Hypothermia, Hypokalemia, Unspecified kidney failure. - Bed requested for Intensive Care Unit. - Status is Inpatient Admission. aa5 - Condition is Serious. - Problem is new. - Symptoms have improved. UTI on Admission? Yes NIH Stroke Scale - NIH Stroke Score Date: 07/24/2018 Time: 09:49 Total Score = 24 1a. Level of Consciousness (LOC) - 2(Not Alert, obtunded) 1b. Level of Consciousness (LOC) (Year \T\ Age) - 2(Neither) 1c. LOC Commands (Open \T\ Closes Eyes/Gate Clerk) - 2(Neither) 2. Best Gaze (Lateral Gaze Paresis) - 1(Partial gaze palsy) 3. Visual Field Loss - 0(No visual loss) 4. Facial Palsy - 0(Normal) 5a. Left Arm: Motor (10-second hold) - 3(No effort against gravity) 5b. Right Arm: Motor (10-second hold) - 3(No effort against gravity) 6a. Left Leg: Motor (5-second hold - always test supine) - 3(No effort against gravity) 6b. Right Leg: Motor (5-second hold - always test supine) - 3(No effort against gravity) 7. Limb Ataxia (finger/nose \T\ heel/martin - test with eyes open) - 0(Absent) 8. Sensory Loss (pinprick arms/legs/face) - 0(Normal) 9. Best Language: Aphasia (description/naming/reading) - 3(Mute, global aphasia) 10. Dysarthria (speech clarity - read or repeat words) - 2(Severe) 11. Extinction and Inattention (visual/tactile/auditory/spatial/personal) - 0(No abnormality) Initials: bp Signatures: Dispatcher [employer] Ca Gore RN RN dw Anderson, Corey, MD MD cha Calderon, Audri RN RN aaRolly Young RN RN bp Corrections: (The following items were deleted from the chart) 11:09 10:57 Hospitalization Ordered by Jenni Garrison MD for Inpatient Admission. [facility] Preliminary diagnosis is Hypoglycemia, unspecified; Hypotension; Altered mental status, unspecified; Sepsis, unspecified organism; Obesity, unspecified; Type 1 diabetes mellitus. Bed requested for Intensive Care Unit. Status is Inpatient Admission. Condition is Serious. Problem is new. Symptoms have improved. UTI on Admission? Yes. [facility] 11:43 11:09 07/24/2018 10:57 Hospitalization Ordered by Jenni Garrison MD for Inpatient [facility] Admission. Preliminary diagnosis is Hypoglycemia, unspecified; Hypotension; Altered mental status, unspecified; Sepsis, unspecified organism; Obesity, unspecified; Type 1 diabetes mellitus; Hypothermia. Bed requested for Intensive Care Unit. Status is Inpatient Admission. Condition is Serious. Problem is new. Symptoms have improved. UTI on Admission? Yes. [facility] 15:13 11:43 07/24/2018 10:57 Hospitalization Ordered by Jenni Garrison MD for Inpatient Admission. Preliminary diagnosis is Hypoglycemia, unspecified; Hypotension; Altered mental status, unspecified; Sepsis, unspecified organism; Obesity, unspecified; Type 1 diabetes mellitus; Hypothermia; Hypokalemia; Unspecified kidney failure. Bed requested for Intensive Care Unit. Status is Inpatient Admission. Condition is Serious. Problem is new. Symptoms have improved. UTI on Admission? Yes. [facility] 17:13 15:13 07/24/2018 10:57 Hospitalization Ordered by Jenni Garrison MD for Inpatient aa5 Admission. Preliminary diagnosis is Hypoglycemia, unspecified; Hypotension; Altered mental status, unspecified; Sepsis, unspecified organism; Obesity, unspecified; Type 1 diabetes mellitus; Hypothermia; Hypokalemia; Unspecified kidney failure. Bed requested for Intensive Care Unit. Status is Inpatient Admission. Condition is Serious. Problem is new. Symptoms have improved. UTI on Admission? Yes. dw
--- NOTE | 2018-07-24 11:08 | RAD REPORT ---
EXAM DESCRIPTION: RAD - Chest Single View - 07/24/2018 10:55 am CLINICAL HISTORY: SEPSIS Chest pain. COMPARISON: Chest Single View dated 07/07/2018; Chest Single View dated 07/02/2018; Chest Single Vie w dated 04/27/2018; Chest Single View dated 04/26/2018 FINDINGS: Portable technique limits examination quality. The lungs are grossly clear. Small left pleural effusion suspected. The heart is upper limit normal i n size with a tortuous thoracic aorta. No displaced fractures. IMPRESSION: No acute intrathoracic process suspected.
[2018-07-24] MEDS ORDERED: NA CHLORIDE 0.9% 100 ML IV ONE (11:16)
[2018-07-24] MEDS ORDERED: NS KCL 20MEQ 1,000 ML IV ONE (11:16)
[2018-07-24] MEDS ORDERED: VANCOMYCIN 1 GM/250 ML BAG ONE (11:16)
[2018-07-24] MEDS ORDERED: NA CHLORIDE 0.9% 1,000 ML ONE (11:16)
[2018-07-24] MEDS ORDERED: CEFEPIME 2 GM VIAL ONE (11:16)
[2018-07-24] MEDS ORDERED: KCL 20 MEQ/100 mL IVPB 20 MEQ/100 ML BAG IV ONE ×2 (11:17→15:43)
[2018-07-24] MEDS ORDERED: FAMOTIDINE 20 MG/2 ML VIAL IV ONE (11:17)
[2018-07-24 11:23] LABS: Arterial Blood Carboxyhemoglob 1.3 % (0-1.5); Blood Gas Oxyhemoglobin 93.2 % (94-97); Blood O2 Saturation 95.7 % (92-98.5)
[2018-07-24 11:32] LABS: Platelet Estimate ADEQ; Urine White Blood Cell Casts OK
[2018-07-24 11:33] LABS: Blood Morphology Comment NOT SEEN (NOT SEEN)
--- NOTE | 2018-07-24 12:03 | RAD REPORT ---
EXAM DESCRIPTION: CT - Head C Spine Cap Wo Con - 07/24/2018 11:41 am CLINICAL HISTORY: Trauma, head and neck injury. Chest, abdomen and pelvis pain. Pain;Swelling COMPARISON: Facial Bones W Con Mpr dated 12/11/2017; Head Brain Wo Cont dated 12/10/2017; Abdomen Pelvis W Contrast dated 04/19/2017; Head Brain Wo Cont dated 02/01/2017 TECHNIQUE: CT head without contrast. CT cervical spine without contrast with coronal and sagittal reformatted images. CT chest, abdomen and pelvis without contrast with coronal and sagittal reformatted images of the [facility] [place]. All CT scans are performed using dose optimization technique as appropriate and may include automated exposure control or mA/KV adjustment according to patient size. FINDINGS: CT HEAD WITHOUT CONTRAST: No intracranial hemorrhage, hydrocephalus or extra-axial fluid collection. Mild generalized brain atr ophy is present with mild periventricular and deep white matter chronic microvascular ischemic change s. No areas of brain edema or midline shift. The paranasal sinuses and mastoids are clear. The calvarium is intact. CT CERVICAL SPINE WITHOUT CONTRAST: No fracture or subluxation. Postsurgical changes are present with hardware spanning the C3-6. The pre vertebral soft tissues are normal in thickness. CT CHEST, ABDOMEN, PELVIS WITHOUT CONTRAST: NOTE: Lack of contrast is a significant limitation in the assessment of trauma related findings. Spec ifically, solid organ, vascular and bowel evaluation is significantly limited. Patchy linear opacities in the posterior lung bases suggest subsegmental atelectasis. Early pneumonia not excluded in the left lung base.No pneumothorax or pericardial/pleural fluid. No evidence of intra-abdominal visceral injury, free fluid or free air is seen within the above detai led limitations. A large amount of stool is seen in the rectum. Fay catheter is in place. Prominent osteopenia is seen without an acute fracture demonstrated. IMPRESSION: Prominent fecal retention in the rectum. Posterior linear opacities in both lung bases, greater on the left, favored to represent subsegmental atelectasis. Early pneumonia not excluded in left base.
[2018-07-24] MEDS ORDERED: D5.45NS W/KCL 20MEQ 1,000 ML IV ONE (15:42)
[2018-07-24 16:24] LABS: Urine Bacteria 20-50 /HPF (<20); Urine Culture Reflex Order REFLEXED
[2018-07-24 16:25] LABS: Urine Amorphous Sediment 1+ /HPF (NONE SEEN)
[2018-07-24 16:33] LABS: Urine Blood 2+ (NEG); Urine Glucose NEGATIVE (NEG); Urine Protein 1+ (NEG); Urine Specific Gravity 1.015 (1.005-1.030)
[2018-07-24] MEDS ORDERED: ENOXAPARIN 40 MG/0.4 ML SQ SCH (17:00)
[2018-07-24 17:31] VITALS: BMI 42.6
[2018-07-24] MEDS: D5.45NS W/KCL 20MEQ 20 MEQ/1,000 ML BAG IV SCH ×2 (18:00→22:18)
[2018-07-24 20:29] LABS: Potassium 3.7 mmol/L (3.5-5.1)
--- NOTE | 2018-07-24 20:58 | P.HP ---
Certification for Inpatient Patient admitted to: Inpatient With expected LOS: >2 Midnights Practitioner: I am a practitioner with admitting privileges, knowledge of patient current condition, hospital course, and medical plan of care. Services: Services provided to patient in accordance with Admission requirements found in Title 42 Section 412.3 of the Code of Federal Regulations Patient History Date of Service: 07/25/18 Reason for admission: Hypotensive History of Present Illness: This is a 73-year-old female with multiple medical problems including COPD, chronic kidney disease, diabetes mellitus, chronic diastolic CHF, DVT admitted for low blood sugars, lethargy and hypoxia. She was brought in from her correction. It in the correction, her blood sugars were running high and she was given sliding scale insulin, 16 units of insulin. Her renal function had also declined, therefore causing her to have hypoglycemia and lethargy. When she was brought to the ER her blood sugars were very low, she was given dextrose which helped her blood sugars temporarily. Though her blood sugars continued to drop again. At the time of my exam, she was not really responding , though was arousable. I was unable to get much history from her as she was with decreased mentation. Allergies Penicillins Allergy (Mild, Verified 06/04/15 18:46) Rash sulfamethoxazole [From Bactrim] Allergy (Mild, Verified 06/04/15 18:46) Rash trimethoprim [From Bactrim] Allergy (Mild, Verified 06/04/15 18:46) Rash meropenem Allergy (Verified 12/11/17 05:08) Anaphylaxis Sulfa (Sulfonamide Antibiotics) Allergy (Verified 04/27/18 02:57) Itching/Hives/Rash Flu vaccine Allergy (Severe, Uncoded 04/27/18 02:57) [place] Home Medications: ALPRAZolam [Xanax*] 0.25 mg PO DAILY PRN 07/24/18 Albuterol Neb [Proventil 0.083% Neb Soln] 2.5 mg IH Q4H PRN 07/24/18 Amlodipine Besylate 5 mg PO DAILY 07/24/18 Carvedilol 25 mg PO BID 07/24/18 Cyanocobalamin [Vitamin B-12] 1,000 mcg PO DAILY 07/24/18 Docusate Sodium 1 cap PO DAILY 07/24/18 Duloxetine HCl 60 mg PO DAILY 07/24/18 Ferrous Sulfate [Feosol] 325 mg PO DAILY 07/24/18 Furosemide 2 tab PO DAILY 07/24/18 Glimepiride 2 mg PO BIDWM 07/24/18 Hydrocodone 10/APAP 325 [[place] 10/325] 1 tab PO Q4H PRN 07/24/18 Insulin Aspart [Novolog] 0 unit SQ ACHS 07/24/18 Insulin Detemir [Levemir] 20 units SQ BEDTIME 07/24/18 Insulin Detemir [Levemir] 30 units SQ DAILY 07/24/18 Ipratropium Neb [Atrovent*] 0.5 mg IH Q4H PRN 07/24/18 Lactobacillus Acidophilus [Acidophilus] 1 each PO BID 07/24/18 Levothyroxine Sodium 125 mcg PO DAILY 07/24/18 Loperamide HCl [Imodium A-D] 2 mg PO Q8H PRN 07/24/18 Multivitamin [Ccl-Qurnsz-Gnelw] 1 tab PO DAILY 07/24/18 Nitroglycerin [Nitrostat*] 1 tab SL Q5M PRN MDD 3 07/24/18 Nystatin Powder [Mycostatin (Powder)] 1 appl TOP BID PRN 07/24/18 Oxybutynin Chloride [Oxybutynin Chloride ER] 1 tab PO DAILY 07/24/18 Pantoprazole Sodium [Protonix] 40 mg PO DAILY 07/24/18 Peg 400/Hypromellose/Glycerin [Artificial Tears Drops] 1 gtt EACH EYE BID Polyethyl Gly 3350 [Glycolax*] 17 gm PO DAILY PRN 07/24/18 Potassium Chloride [Klor-Con M20] 2 tab PO Q24H PRN 07/24/18 Pregabalin [Lyrica] 100 mg PO BID 07/24/18 Protein Supplement [Promod] 30 ml PO BID 07/24/18 Rivaroxaban [Xarelto*] 10 mg PO DAILY 07/24/18 Spironolactone 25 mg PO DAILY 07/24/18 Temazepam 30 mg PO BEDTIME PRN 07/24/18 fentaNYL [Fentanyl] 1 each TD Q72H 07/24/18 metOLazone [Zaroxolyn] 2.5 mg PO M,W,F 07/24/18 predniSONE [Prednisone] 20 mg PO DAILY 07/24/18 - Past Medical/Surgical History Has patient received pneumonia vaccine in the past: Yes Diabetic: Yes -: Coronary artery disease. -: Congestive heart failure -: Spinal Stenosis -: Neuropathy -: HTN -: Hypothyroid -: COPD -: [place] syndrome -: History of DVT rt leg -: cellulitis bilat legs required retirement antibiotics -: Hyperlipidemia -: Hyperlipidemia, cholecystecomy, hysterectomy -: Cholecystectomy, 1989 -: Hysterectomy, 1964 -: gland removed from throat, -: cataract Surgery, 1999 -: Three heart stents (2 in 2011) -: Tonsillectomy -: Appendectomy Psychosocial/ Personal History: She lives at correction. - Family History Brother -: Heart disease, Hypertension Father -: Heart disease, Hypertension Notes: heart attack - Social History Smoking Status: Never smoker Alcohol use: Yes CD- Drugs: No Caffeine use: Yes Place of Residence: [facility] Review of Systems is unable to be obtained Physical Examination - Vital Signs Temperature: 95.1 F Blood Pressure: 111/71 Pulse: 46 Respirations: 11 Pulse Ox (%): 100 - Physical Exam General: In no apparent distress, Other (Decreased mentation, though rousable. Does not really answer questions at this time) HEENT: Atraumatic, PERRLA, Mucous membr. moist/pink, EOMI, Sclerae nonicteric Neck: Supple, 2+ carotid pulse no bruit, No LAD, Without JVD or thyroid abnormality Respiratory: Clear to auscultation bilaterally, Normal air movement Cardiovascular: Regular rate/rhythm, Normal S1 S2 - Studies Laboratory Data (last 24 hrs) 07/24/18 12:20: Glucose 54 L 07/24/18 10:30: Glucose 133 H 07/24/18 10:00: Phosphorus 3.3 07/24/18 10:00: PT 13.4 H, INR 1.13, APTT 27.6 07/24/18 10:00: WBC 12.8 H D, Hgb 17.3 H, Hct 50.9 H, Plt Count 191 D 07/24/18 10:00: Sodium 141, Potassium 2.8 L*, BUN 89 H, Creatinine 1.00, Glucose 30 L*, Total Bilirubin 0.7, AST 20, ALT 53, Alkaline Phosphatase 85, Lipase 58 L Assessment and Plan - Plan Assessment & Plan - Problems (Diagnosis) (1) Hypoglycemia Current Visit: Yes Status: Acute (2) Altered mental status Current Visit: Yes Status: Acute (3) Hypoxemia Current Visit: Yes Status: Acute (4) Bradyarrhythmia Current Visit: Yes Status: Acute (5) Sacral decubitus ulcer Current Visit: No Status: Acute (6) CAD (coronary artery disease) Onset Date: 04/20/17 Current Visit: No Status: Chronic Qualifiers: Coronary Disease-Associated Artery/Lesion type: [place] artery [place] vs. transplanted heart: [place] heart Associated angina: with stable angina Qualified Code(s): I25.118 - Atherosclerotic heart disease of [place] coronary artery with other forms of angina pectoris (7) COPD (chronic obstructive pulmonary disease) Onset Date: 04/20/17 Current Visit: No Status: Chronic Qualifiers: COPD type: COPD with acute exacerbation Qualified Code(s): J44.1 - Chronic obstructive pulmonary disease with (acute) exacerbation (8) Chronic inflammatory demyelinating polyneuritis Onset Date: 04/20/17 Current Visit: No Status: Chronic (9) Chronic steroid use Onset Date: 12/13/17 Current Visit: No Status: Chronic (10) History of DVT (deep vein thrombosis) Onset Date: 04/20/17 Current Visit: No Status: Chronic (11) Hypothyroidism Onset Date: 04/20/17 Current Visit: No Status: Chronic Qualifiers: Hypothyroidism type: acquired Qualified Code(s): E03.9 - Hypothyroidism, unspecified (12) Lymphedema Onset Date: 12/13/17 Current Visit: No Status: Chronic (13) UTI (urinary tract infection) Current Visit: Yes Status: Acute (14) Sepsis Current Visit: Yes Status: Acute (15) Bacteremia Current Visit: Yes Status: Acute - Plan Plan: 1. Continue with D5 and IV hydration. The blood sugars continue to decrease then we will switch her IV fluids to D10 2. Accu-Cheks Q1hr 3. Check C-peptide, insulin, proinsulin level 4. Monitor renal function and gently hydrate 5. Chronic pain with multiple comorbidities. Continue managing her with her home medicines 6. Continue wound care 7. Continue with IV antibiotics 8. Culture results pending 9. GI and DVT prophylaxis - Advance Directives Does patient have a Living Will: No Does patient have a Durable POA for Healthcare: No
[2018-07-25] MEDS ORDERED: D50W 25 GM/50 ML SYRINGE IV ONE (02:26)
--- NOTE | 2018-07-25 02:42 | P.PN ---
Subjective Date of Service: 07/24/18 Patient is well known to me. Her blood sugars have been running high and she was given sliding scale at her nursing facility. Apparently she was given 16 units of insulin. Her renal function has declined as well and she has significant uremia. She was also very lethargic which probably led to her becoming hypoxic with secondary bradycardia. She was brought to the emergency room her blood sugars were found to be very low. She was given dextrose and her blood sugars improved transiently as did her mentation. However she would become lethargic again with low blood sugars. I have spoken to her daughter as well as her son temporarily. Will update him in the morning regarding patient' s current status. Will also check C-peptide, insulin, and proinsulin level. She will need to be watched in ICU as she still was very lethargic at times. She is much more awake than she was this a.m.. Review of Systems 10-point ROS is otherwise unremarkable Physical Examination - Vital Signs Temperature: 9.1 F Blood Pressure: 139/75 Pulse: 66 Respirations: 14 Pulse Ox (%): 98 - Physical Exam General: Alert, In no apparent distress, Oriented x3 HEENT: Atraumatic, PERRLA, EOMI Neck: Supple, JVD not distended Respiratory: Clear to auscultation bilaterally, Normal air movement Cardiovascular: Regular rate/rhythm, Normal S1 S2 Gastrointestinal: Normal bowel sounds, Soft and benign, Non-distended, No ascites, No tenderness Musculoskeletal: No clubbing, No swelling, No tenderness Integumentary: No rashes Neurological: Normal gait, Normal speech, Normal strength at 5/5 x4 extr, Normal tone, Sensation intact, Cranial nerves 3-12 intact, Normal affect Lymphatics: No axilla or inguinal lymphadenopathy - Studies Laboratory Data (last 24 hrs) 07/24/18 12:20: Glucose 54 L 07/24/18 10:30: Glucose 133 H 07/24/18 10:00: Phosphorus 3.3 07/24/18 10:00: PT 13.4 H, INR 1.13, APTT 27.6 07/24/18 10:00: WBC 12.8 H D, Hgb 17.3 H, Hct 50.9 H, Plt Count 191 D 07/24/18 10:00: Sodium 141, Potassium 2.8 L*, BUN 89 H, Creatinine 1.00, Glucose 30 L*, Total Bilirubin 0.7, AST 20, ALT 53, Alkaline Phosphatase 85, Lipase 58 L Medications List Reviewed: Yes Assessment & Plan - Problems (Diagnosis) (1) Hypoglycemia Current Visit: Yes Status: Acute (2) Altered mental status Current Visit: Yes Status: Acute (3) Hypoxemia Current Visit: Yes Status: Acute (4) Bradyarrhythmia Current Visit: Yes Status: Acute (5) Sacral decubitus ulcer Current Visit: No Status: Acute (6) CAD (coronary artery disease) Onset Date: 04/20/17 Current Visit: No Status: Chronic Qualifiers: Coronary Disease-Associated Artery/Lesion type: [place] artery [place] vs. transplanted heart: [place] heart Associated angina: with stable angina Qualified Code(s): I25.118 - Atherosclerotic heart disease of [place] coronary artery with other forms of angina pectoris (7) COPD (chronic obstructive pulmonary disease) Onset Date: 04/20/17 Current Visit: No Status: Chronic Qualifiers: COPD type: COPD with acute exacerbation Qualified Code(s): J44.1 - Chronic obstructive pulmonary disease with (acute) exacerbation (8) Chronic inflammatory demyelinating polyneuritis Onset Date: 04/20/17 Current Visit: No Status: Chronic (9) Chronic steroid use Onset Date: 12/13/17 Current Visit: No Status: Chronic (10) History of DVT (deep vein thrombosis) Onset Date: 04/20/17 Current Visit: No Status: Chronic (11) Hypothyroidism Onset Date: 04/20/17 Current Visit: No Status: Chronic Qualifiers: Hypothyroidism type: acquired Qualified Code(s): E03.9 - Hypothyroidism, unspecified (12) Lymphedema Onset Date: 12/13/17 Current Visit: No Status: Chronic (13) UTI (urinary tract infection) Current Visit: Yes Status: Acute (14) Sepsis Current Visit: Yes Status: Acute (15) Bacteremia Current Visit: Yes Status: Acute - Plan Plan: 1. Continue with D5 and IV hydration. The blood sugars continue to decrease then we will switch her IV fluids to D10 2. Accu-Cheks Q1hr 3. Check C-peptide, insulin, proinsulin level 4. Monitor renal function and gently hydrate 5. Chronic pain with multiple comorbidities. Continue managing her with her home medicines 6. Continue wound care 7. Continue with IV antibiotics 8. Culture results pending 9. GI and DVT prophylaxis Discharge Plan: Home Plan to discharge in: Greater than 2 days - Advance Directives Does patient have a Living Will: No Does patient have a Durable POA for Healthcare: No - Code Status/Comfort Care Code Status Assessed: Yes Code Status: Full Code Critical Care: No Time Spent Managing PTS Care (In Minutes): 45
[2018-07-25 05:26] LABS: Absolute Lymphocytes (CBC) 1.8 K/uL (0.7-4.9); Absolute Monocytes 0.9 K/uL (0.1-1.3); Absolute Neutrophil 7.6 K/uL (1.8-8.0); Basophils % 0.3 % (0-1.3); Eosinophils % 1.5 % (0-4.4); Hematocrit 44.2 % (36.0-45.0); Lymphocytes % 17.1 % (15.3-44.8); MCH 32.1 pg (27.0-35.0); MCV 91.9 fL (80-100); Monocytes % 8.3 % (3.3-12.3); RBC Red Blood Cell Count 4.81 M/uL (3.86-4.86)
[2018-07-25 05:50] LABS: Albumin 2.8 g/dL (3.4-5.0); Potassium 3.7 mmol/L (3.5-5.1); Protein, Total 6.3 g/dL (6.4-8.2)
[2018-07-25] MEDS ORDERED: VANCOMYCIN 2 GM in NA CHLORIDE 0.9% 500 ML IVPB SCH (07:00)
[2018-07-25] MEDS: VANCOMYCIN 2 GM in NA CHLORIDE 0.9% 500 ML IVPB SCH (07:32)
[2018-07-25] MEDS ORDERED: CEFTRIAXONE 1 GM/NS 50 ML 1 GM/50 ML BAG IV SCH (09:00)
[2018-07-25] MEDS: CEFTRIAXONE/SWI 1gm 1 GM/10 ML SYR IV SCH (09:08)
[2018-07-25] MEDS: D5.45NS W/KCL 20MEQ 20 MEQ/1,000 ML BAG IV SCH (09:11)
[2018-07-25] MEDS: HYDROCODONE/APAP 10/325 TAB PO PRN ×2 (11:19→23:37)
[2018-07-25] MEDS: RIVAROXABAN 10 MG TABLET PO SCH (11:21)
[2018-07-25] MEDS ORDERED: ALBUTEROL 2.5 MG/3 ML NEB SOL IH PRN (11:32)
[2018-07-25] MEDS ORDERED: POLYETHYL GLY 3350 17 GM/DOSE PO PRN (11:32)
[2018-07-25] MEDS ORDERED: POTASSIUM CL SA 10 MEQ TAB PO PRN (11:32)
[2018-07-25] MEDS ORDERED: NYSTATIN PWDR 100000 UNIT/GM TOP PRN (11:32)
[2018-07-25] MEDS ORDERED: IPRATROPIUM BROM 0.5MG/2.5ML IH PRN (11:32)
[2018-07-25] MEDS ORDERED: LOPERAMIDE HCL 2 MG CAPSULE PO PRN (11:32)
[2018-07-25] MEDS ORDERED: ALPRAZOLAM 0.25 MG TABLET PO PRN (11:32)
[2018-07-25] MEDS ORDERED: NITROGLYCERIN 0.4 MG/TAB SL PRN (11:32)
--- NOTE | 2018-07-25 11:37 | EKG ---
Test Date: 2018-07-24 Test Time: 09:57:53 Power Plant Manager: AIDEE MEASUREMENT RESULTS: Intervals: Rate: 50 FL: 184 QRSD: 180 QT: 590 QTc: 537 [place]: P: 87 FL: 184 QRS: -66 T: 77 INTERPRETIVE STATEMENTS: Sinus bradycardia Right bundle branch block Left axis Abnormal ECG Compared to ECG 07/02/2018 16:57:11 Sinus rhythm no longer present Electronically Signed On 07-25-18 11:36:24 SHAFT SINKER by Bereket Mccoy
[2018-07-25] MEDS: FENTANYL 50 MCG/PATCH TD SCH (13:01)
[2018-07-25] MEDS: NA CHLORIDE 0.9% 1,000 ML IV SCH ×2 (13:02→20:31)
[2018-07-25] MEDS: METOLAZONE 2.5 MG TABLET PO SCH (17:46)
--- NOTE | 2018-07-25 19:00 | P.PN ---
Subjective Date of Service: 07/25/18 Chief Complaint: Hypotensive Subjective: No new changes, No C/O voiced, Improving Patient seen and examined at bedside. No family at bedside. Chart reviewed and case discussed with nursing staff. Much more alert this morning. Not in any acute distress. Blood sugars improved overnight Review of Systems Noted Physical Examination - Vital Signs Temperature: 95.1 F Blood Pressure: 111/71 Pulse: 46 Respirations: 11 Pulse Ox (%): 100 - Physical Exam General: Alert, In no apparent distress HEENT: Atraumatic, PERRLA, EOMI Neck: Supple, JVD not distended Respiratory: Clear to auscultation bilaterally, Normal air movement Cardiovascular: Regular rate/rhythm, Normal S1 S2 Gastrointestinal: Normal bowel sounds, No tenderness Musculoskeletal: No tenderness Integumentary: No rashes Neurological: Normal speech, Normal tone, Normal affect Lymphatics: No axilla or inguinal lymphadenopathy - Studies Medications List Reviewed: Yes Assessment And Plan - Plan Assessment & Plan - Problems (Diagnosis) (1) Hypoglycemia Current Visit: Yes Status: Acute (2) Altered mental status Current Visit: Yes Status: Acute (3) Hypoxemia Current Visit: Yes Status: Acute (4) Bradyarrhythmia Current Visit: Yes Status: Acute (5) Sacral decubitus ulcer Current Visit: No Status: Acute (6) CAD (coronary artery disease) Onset Date: 04/20/17 Current Visit: No Status: Chronic Qualifiers: Coronary Disease-Associated Artery/Lesion type: [place] artery [place] vs. transplanted heart: [place] heart Associated angina: with stable angina Qualified Code(s): I25.118 - Atherosclerotic heart disease of [place] coronary artery with other forms of angina pectoris (7) COPD (chronic obstructive pulmonary disease) Onset Date: 04/20/17 Current Visit: No Status: Chronic Qualifiers: COPD type: COPD with acute exacerbation Qualified Code(s): J44.1 - Chronic obstructive pulmonary disease with (acute) exacerbation (8) Chronic inflammatory demyelinating polyneuritis Onset Date: 04/20/17 Current Visit: No Status: Chronic (9) Chronic steroid use Onset Date: 12/13/17 Current Visit: No Status: Chronic (10) History of DVT (deep vein thrombosis) Onset Date: 04/20/17 Current Visit: No Status: Chronic (11) Hypothyroidism Onset Date: 04/20/17 Current Visit: No Status: Chronic Qualifiers: Hypothyroidism type: acquired Qualified Code(s): E03.9 - Hypothyroidism, unspecified (12) Lymphedema Onset Date: 12/13/17 Current Visit: No Status: Chronic (13) UTI (urinary tract infection) Current Visit: Yes Status: Acute (14) Sepsis Current Visit: Yes Status: Acute (15) Bacteremia Current Visit: Yes Status: Acute - Plan Plan: 1. Switch patient to D10 2. Accu-Cheks Q1hr, can now decrease to Q2 as blood sugars have improved. 3. Check C-peptide, insulin, proinsulin level, still pending 4. Monitor renal function and gently hydrate 5. Chronic pain with multiple comorbidities. Restarted patient's home medications. 6. Continue wound care 7. Continue with IV antibiotics 8. Culture results pending 9. GI and DVT prophylaxis Stable, transferred to floor.
[2018-07-25] MEDS: PROMOD 30 ML DOSE PO SCH (20:30)
[2018-07-25] MEDS: CARVEDILOL 25 MG TAB PO SCH (20:30)
[2018-07-26 04:57] LABS: Absolute Lymphocytes (CBC) 2.4 K/uL (0.7-4.9); Absolute Monocytes 0.8 K/uL (0.1-1.3); Absolute Neutrophil 5.2 K/uL (1.8-8.0); Basophils % 0.6 % (0-1.3); Eosinophils % 1.4 % (0-4.4); Hematocrit 41.3 % (36.0-45.0); Lymphocytes % 28.4 % (15.3-44.8); MCH 31.9 pg (27.0-35.0); MCV 93.2 fL (80-100); MPV 10.2 fL (7.6-11.3); Monocytes % 9.5 % (3.3-12.3); RBC Red Blood Cell Count 4.43 M/uL (3.86-4.86)
[2018-07-26 05:02] LABS: Albumin 2.5 g/dL (3.4-5.0); Bilirubin Total 0.9 mg/dL (0.2-1.0); Protein, Total 5.6 g/dL (6.4-8.2)
[2018-07-26] MEDS: PANTOPRAZOLE 40MG TABLET PO SCH (05:45)
[2018-07-26] MEDS: LEVOTHYROXINE SOD 0.125 MG TAB PO SCH (05:45)
[2018-07-26] MEDS: POLYVINYL ALCOHOL 1.4% 15 ML OPTH SCH ×2 (09:00→23:08)
[2018-07-26] MEDS: PROMOD 30 ML DOSE PO SCH ×2 (09:00→23:08)
[2018-07-26] MEDS: SPIRONOLACTONE 25 MG TABLET PO SCH (09:00)
[2018-07-26] MEDS: FUROSEMIDE 40 MG TABLET PO SCH (09:00)
[2018-07-26] MEDS: CEFTRIAXONE/SWI 1gm 1 GM/10 ML SYR IV SCH (10:03)
[2018-07-26] MEDS: VANCOMYCIN 2 GM in NA CHLORIDE 0.9% 500 ML IVPB SCH (10:03)
[2018-07-26] MEDS: CYANOCOBALAMIN 1,000 MCG TAB PO SCH (10:04)
[2018-07-26] MEDS: OXYBUTYNIN ER 5 MG TAB PO SCH (10:04)
[2018-07-26] MEDS: LACTOBACILLUS/ACIDOPHILUS TAB PO SCH ×2 (10:04→23:06)
[2018-07-26] MEDS: FERROUS SULFATE 325 MG TAB PO SCH (10:04)
[2018-07-26] MEDS: PREGABALIN 50 MG CAP PO SCH ×2 (10:04→23:06)
[2018-07-26] MEDS: MULTIVITAMIN TAB PO SCH (10:05)
[2018-07-26] MEDS: predniSONE 20 MG TAB PO SCH (10:05)
[2018-07-26] MEDS: DOCUSATE NA 100 MG CAP PO SCH (10:05)
[2018-07-26] MEDS: RIVAROXABAN 10 MG TABLET PO SCH (10:05)
[2018-07-26] MEDS: DULOXETINE 30 MG CAP PO SCH (10:05)
[2018-07-26] MEDS ORDERED: GLUCAGON 1 MG/VIAL IM PRN (12:47)
[2018-07-26] MEDS ORDERED: D50W 25 GM/50 ML SYRINGE IV PRN (12:47)
[2018-07-26] MEDS: CARVEDILOL 25 MG TAB PO SCH ×2 (13:10→23:06)
[2018-07-26] MEDS: AMLODIPINE 5 MG TAB PO SCH (13:11)
[2018-07-26] MEDS: NA CHLORIDE 0.9% 1,000 ML IV SCH ×2 (15:40→23:23)
[2018-07-26] MEDS: INSULIN -REGULAR HUMAN 50 UNIT/0.5 ML ML SQ SCH ×2 (17:44→23:05)
[2018-07-26] MEDS ORDERED: KCL 20 MEQ/100 mL IVPB 20 MEQ/100 ML BAG IV SCH (19:30)
--- NOTE | 2018-07-26 20:48 | PN ---
Date of Progress Note: 07/26/2018 Subjective: The patient was seen and examined. Chart reviewed and case discussed with RN. The leslye ent has some improvement in her hypoglycemic symptoms. No other complaints overnight. Code Status: Full. Medications: List reviewed. Physical Examination: Vital Signs: Temperature 98.5, heart rate 69, blood pressure 140/71, respirations 18, O2 94% on room air. General: Awake, alert, oriented x3. Elderly female, in no acute distress. Somewhat ill-appearing. Morbidly obese. CV: S1 and S2. Regular rate and rhythm. Peripheral pulses present. Respiratory: Moving air well bilaterally. No wheezing. Gastrointestinal: Abdomen is soft, nontender, nondistended. Positive bowel sounds. Extremities: No clubbing or cyanosis. Trace pedal edema. Neurologic: Nonfocal. Cranial nerves 2 through 12 intact grossly. Speech is normal. Laboratory Data: Sodium 138, potassium 3, chloride 103, CO2 30, BUN 47, creatinine 1, glucose 171, h emoglobin A1c 8.6%, calcium 7.8, albumin 2.5. Repeat potassium level is 3.5. WBC 8.6, hemoglobin an d hematocrit 14.2 and 41.3, platelets 148, neutrophils 60%. Blood cultures, gram-positive cocci in c lusters, Staph coagulase negative, likely contaminant. Urine culture growing out 4+ gram-negative ro ds. ID and sensitivity pending. Assessment: A 73-year-old female with: 1.Acute hypoglycemia. The patient now switched to normal saline. We will continue to monitor. If blood glucose is over 200s, we will start on sliding scale insulin. 2.Acute metabolic encephalopathy, likely related to above, improving. 3.Hypoxemia. The patient now on room air. 4.Bradyarrhythmia. 5.Sacral decubitus ulcer. 6.Coronary artery disease, [place] artery and [place] heart without angina. 7.Chronic obstructive pulmonary disease, chronic bronchitis. 8.Chronic inflammatory demyelinating polyneuropathy. 9.Chronic steroid dependency. 10.History of deep venous thrombosis. 11.Hypothyroidism. 12.Lymphedema. 13.Acute cystitis without hematuria secondary to gram-negative rods. ID and sensitivity pending. W e will continue with IV antibiotics. 14.Sepsis, improving secondary to above. No bacteremia. The patient's blood culture growing Staph coagulase negative, which is likely contaminant. Plan: Followup on ID and sensitivity of the gram-negative rods in the urine culture. Continue antib iotics. GI and DVT prophylaxis. Overall, the patient is improving. Likely discharge in the next 24 to 48 hours back to nursing facility. ERVIN Voice ID: [id number] Report ID: [id number]
[2018-07-26] MEDS: HYDROCODONE/APAP 10/325 TAB PO PRN (23:07)
[2018-07-27] MEDS: LEVOTHYROXINE SOD 0.125 MG TAB PO SCH (05:18)
[2018-07-27] MEDS: PANTOPRAZOLE 40MG TABLET PO SCH (05:18)
[2018-07-27 06:11] LABS: Absolute Monocytes 0.7 K/uL (0.1-1.3); Absolute Neutrophil 5.4 K/uL (1.8-8.0); Basophils % 0.2 % (0-1.3); Hematocrit 39.5 % (36.0-45.0); Lymphocytes % 24.7 % (15.3-44.8); MCH 31.4 pg (27.0-35.0); MCV 94.2 fL (80-100); MPV 9.7 fL (7.6-11.3); Monocytes % 8.1 % (3.3-12.3)
[2018-07-27 06:40] LABS: Albumin 2.5 g/dL (3.4-5.0); Bilirubin Total 0.5 mg/dL (0.2-1.0); Potassium 3.9 mmol/L (3.5-5.1); Protein, Total 5.7 g/dL (6.4-8.2)
[2018-07-27] MEDS: INSULIN -REGULAR HUMAN 50 UNIT/0.5 ML ML SQ SCH ×4 (07:30→21:00)
[2018-07-27] MEDS: VANCOMYCIN 2 GM in NA CHLORIDE 0.9% 500 ML IVPB SCH (07:47)
[2018-07-27] MEDS: PROMOD 30 ML DOSE PO SCH ×2 (09:00→21:00)
[2018-07-27] MEDS: SPIRONOLACTONE 25 MG TABLET PO SCH (09:00)
[2018-07-27] MEDS: POLYVINYL ALCOHOL 1.4% 15 ML OPTH SCH ×2 (09:00→21:00)
[2018-07-27] MEDS: CEFTRIAXONE/SWI 1gm 1 GM/10 ML SYR IV SCH (10:42)
[2018-07-27] MEDS: FUROSEMIDE 40 MG TABLET PO SCH (10:46)
[2018-07-27] MEDS: OXYBUTYNIN ER 5 MG TAB PO SCH (10:46)
[2018-07-27] MEDS: DULOXETINE 30 MG CAP PO SCH (10:47)
[2018-07-27] MEDS: LACTOBACILLUS/ACIDOPHILUS TAB PO SCH ×2 (10:47→22:25)
[2018-07-27] MEDS: PREGABALIN 50 MG CAP PO SCH ×2 (10:47→22:25)
[2018-07-27] MEDS: CARVEDILOL 25 MG TAB PO SCH ×2 (10:47→22:25)
[2018-07-27] MEDS: CYANOCOBALAMIN 1,000 MCG TAB PO SCH (10:47)
[2018-07-27] MEDS: FERROUS SULFATE 325 MG TAB PO SCH (10:47)
[2018-07-27] MEDS: AMLODIPINE 5 MG TAB PO SCH (10:48)
[2018-07-27] MEDS: predniSONE 20 MG TAB PO SCH (10:48)
[2018-07-27] MEDS: RIVAROXABAN 10 MG TABLET PO SCH (10:48)
[2018-07-27] MEDS: MULTIVITAMIN TAB PO SCH (10:48)
[2018-07-27] MEDS: DOCUSATE NA 100 MG CAP PO SCH (10:48)
[2018-07-27] MEDS: METOLAZONE 2.5 MG TABLET PO SCH (17:46)
[2018-07-27] MEDS: Gentamicin Inj 200 MG in NA CHLORIDE 0.9% 100 ML IVPB SCH (17:47)
[2018-07-27] MEDS: NA CHLORIDE 0.9% 1,000 ML IV SCH (18:20)
--- NOTE | 2018-07-27 19:52 | PN ---
Date of Progress Note: 07/27/2018 Subjective: The patient seen and examined. Case discussed with RN and Dr. Macias. The patient does not recall any allergies to meropenem, however, is listed as an allergy for the patient. The patien t has received meropenem in the past. However, allergy has been listed after patient received merope nem with anaphylaxis as reaction. Therefore, cannot be given meropenem. Medications: List reviewed. Physical Examination: Vital Signs: Temperature 97.1, heart rate 65, blood pressure 147/65, respirations 20, O2 91% on room air. General: Awake, alert, oriented x3. Elderly female, somewhat ill-appearing, morbidly obese, BMI 42. 6. CV: S1 and S2. Regular rate and rhythm. Peripheral pulses present. Respiratory: Moving air well bilaterally. No wheezes or stridor. Gastrointestinal: Abdomen is soft, nontender, nondistended. Positive bowel sounds, obese. Extremities: No clubbing, cyanosis, or edema. Neuro: The patient has generalized weakness. Able to move all 4 extremities. Speech is normal. Laboratory Data: Sodium 140, potassium 3.9, chloride 106, CO2 28, BUN 38, creatinine 0.9, glucose 17 9, calcium 8.2, albumin 2.5. WBC 8.2, H and H 13.2 and 39.5, platelets 142, neutrophils 66%. Blood glucose levels 186, 450, 265. Assessment And Plan: A 73-year-old female with: 1.Acute hypoglycemia, resolved. We will adjust sliding scale insulin, IV fluids adjusted. 2.Acute metabolic encephalopathy secondary to above, resolved. The patient now alert and oriented x 3. Back to baseline. 3.Hypoxemia, resolved. The patient doing well on room air. 4.Acute cystitis without hematuria secondary to extended-spectrum beta-lactamases Escherichia coli. The patient unable to take meropenem due to anaphylaxis side effect. We will start on gentamicin an d doxycycline. Dr. Macias with Infectious Disease has been consulted. The patient already has a PIC C line. 5.Coronary artery disease, [place] artery and [place] heart without angina, stable. 6.Sacral decubitus ulcer. Continue offloading. 7.Bradyarrhythmia. Continue to monitor on telemetry. 8.Chronic obstructive pulmonary disease, chronic bronchitis, stable. We will continue nebulizers as needed. 9.Chronic inflammatory demyelinating polyneuropathy. 10.Chronic steroid dependency. 11.History of deep venous thrombosis, on rivaroxaban. 12.Hypothyroidism. Continue Synthroid. 13.Chronic lymphedema. 14.Sepsis, improving. Secondary to urinary tract infection with extended-spectrum beta-lactamases E scherichia coli. Blood cultures growing Staph coagulase negative, which is likely contaminant, impro emily. 15.Gastrointestinal and deep venous thrombosis prophylaxis addressed. Plan: The patient will need long-term IV antibiotics. We will discuss further with Infectious Disea se regarding regimen. We will have to monitor kidney function closely due to gentamicin toxicity. U nfortunately, the patient has anaphylaxis reaction to meropenem. SA/MODL Voice ID: [id number] Report ID: [id number]
[2018-07-27] MEDS: HYDROCODONE/APAP 10/325 TAB PO PRN (22:25)
[2018-07-28] MEDS: Gentamicin Inj 200 MG in NA CHLORIDE 0.9% 100 ML IVPB SCH ×3 (00:31→09:14)
[2018-07-28] MEDS: NA CHLORIDE 0.9% 1,000 ML IV SCH ×2 (03:41→07:40)
[2018-07-28 05:32] LABS: Absolute Lymphocytes (CBC) 2.3 K/uL (0.7-4.9); Absolute Monocytes 0.6 K/uL (0.1-1.3); Basophils % 0.8 % (0-1.3); Eosinophils % 3.5 % (0-4.4); Hematocrit 38.7 % (36.0-45.0); Lymphocytes % 31.8 % (15.3-44.8); MCH 31.8 pg (27.0-35.0); MCV 93.3 fL (80-100); MPV 9.5 fL (7.6-11.3); Monocytes % 8.3 % (3.3-12.3); RBC Red Blood Cell Count 4.15 M/uL (3.86-4.86)
[2018-07-28 05:48] LABS: Albumin 2.5 g/dL (3.4-5.0); Bilirubin Total 0.5 mg/dL (0.2-1.0); Potassium 3.5 mmol/L (3.5-5.1); Protein, Total 5.6 g/dL (6.4-8.2)
[2018-07-28] MEDS ORDERED: POTASSIUM CL SA 10 MEQ TAB PO ONE (07:02)
[2018-07-28 07:20] LABS: Blood Morphology Comment NOT SEEN (NOT SEEN); Platelet Estimate ADEQ; Urine White Blood Cell Casts OK
[2018-07-28] MEDS: INSULIN -REGULAR HUMAN 50 UNIT/0.5 ML ML SQ SCH ×4 (07:30→20:59)
[2018-07-28] MEDS: PANTOPRAZOLE 40MG TABLET PO SCH (07:35)
[2018-07-28] MEDS: LEVOTHYROXINE SOD 0.125 MG TAB PO SCH (07:35)
[2018-07-28] MEDS: HYDROCODONE/APAP 10/325 TAB PO PRN ×2 (07:35→17:32)
[2018-07-28] MEDS ORDERED: VANCOMYCIN 2 GM in NA CHLORIDE 0.9% 500 ML IVPB SCH (08:00)
[2018-07-28] MEDS: PROMOD 30 ML DOSE PO SCH ×2 (09:00→20:57)
[2018-07-28] MEDS: POLYVINYL ALCOHOL 1.4% 15 ML OPTH SCH ×2 (09:00→20:58)
[2018-07-28] MEDS: SPIRONOLACTONE 25 MG TABLET PO SCH (09:00)
[2018-07-28] MEDS: FENTANYL 50 MCG/PATCH TD SCH (09:00)
[2018-07-28] MEDS: OXYBUTYNIN ER 5 MG TAB PO SCH (09:11)
[2018-07-28] MEDS: CYANOCOBALAMIN 1,000 MCG TAB PO SCH (09:11)
[2018-07-28] MEDS: PREGABALIN 50 MG CAP PO SCH ×2 (09:11→20:57)
[2018-07-28] MEDS: AMLODIPINE 5 MG TAB PO SCH (09:12)
[2018-07-28] MEDS: LACTOBACILLUS/ACIDOPHILUS TAB PO SCH ×2 (09:12→20:57)
[2018-07-28] MEDS: FERROUS SULFATE 325 MG TAB PO SCH (09:12)
[2018-07-28] MEDS: RIVAROXABAN 10 MG TABLET PO SCH (09:12)
[2018-07-28] MEDS: predniSONE 20 MG TAB PO SCH (09:13)
[2018-07-28] MEDS: DOCUSATE NA 100 MG CAP PO SCH (09:13)
[2018-07-28] MEDS: CARVEDILOL 25 MG TAB PO SCH ×2 (09:13→20:57)
[2018-07-28] MEDS: MULTIVITAMIN TAB PO SCH (09:13)
[2018-07-28] MEDS: FUROSEMIDE 40 MG TABLET PO SCH (09:13)
[2018-07-28] MEDS: DULOXETINE 30 MG CAP PO SCH (09:13)
[2018-07-28] MEDS ORDERED: MORPHINE 2 MG/ML SYR IV PRN (09:18)
[2018-07-28] MEDS ORDERED: MORPHINE 2 MG/ML SYR ONE (09:27)
--- NOTE | 2018-07-28 10:55 | RAD REPORT ---
EXAM DESCRIPTION: RAD - Hip Right 2 View - 07/28/2018 10:48 am CLINICAL HISTORY: pain COMPARISON: Hip Right 2 View dated 10/19/2015; Hip Right 2 View dated 10/18/2015 FINDINGS: Examination the right hip is extremely limited due to soft tissue artifact. Moderately sev ere osteoarthritis of the right hip suspected. No AVN finding. Grossly a fracture is not seen.
[2018-07-28 13:27] LABS: C-Peptide 2.12 ng/mL (0.80-3.85)
[2018-07-28] MEDS ORDERED: Meropenem 500 MG VIAL IV SCH (17:00)
[2018-07-28] MEDS: Meropenem 500 MG in NA CHLORIDE 0.9% 100 ML IV SCH (17:41)
--- NOTE | 2018-07-28 20:37 | PN ---
Date of Progress Note: 07/28/2018 Subjective: The patient seen and examined, chart reviewed, and case discussed with RN and Dr. Macias . The patient is doing well today except for pain in her right hip. The patient has pain after she was set up in bed. No falls. Medications: List reviewed. Physical Examination: Vital Signs: Temperature 97.8, heart rate 56, blood pressure 114/56, respirations 20, O2 92% on room air. General: Awake, alert, oriented x3. Some mild distress due to pain in her right hip. Ill-appearing , morbidly obese female. CV: S1, S2. Peripheral pulses present. No murmurs. Respiratory: Moving air well bilaterally. No wheezing. Gastrointestinal: Abdomen is soft, nontender, nondistended. Positive bowel sounds. Extremities: No clubbing, cyanosis. The patient does have some upper extremity edema at the site of the IV. Musculoskeletal: Right hip tenderness to palpation. Decreased range of motion due to pain. Neuro: Nonfocal. The patient has generalized weakness. Laboratory Data: Sodium 143, potassium 3.5, chloride 109, CO2 28, BUN 30, creatinine 0.8, glucose 79 , calcium 8.1, albumin 2.5, WBC 7.2, H and H 13.2 and 38.7, platelets 147, neutrophils 55%. Hip x-ra y, personally reviewed, shows examination of the right hip extremely limited due to soft tissue artif act. Moderately severe osteoarthritis of the right hip suspected. No AVN finding. Gross fracture n ot seen. Assessment: A 73-year-old female with: 1.Acute hypoglycemia, resolved. We will continue sliding scale insulin. 2.Acute metabolic encephalopathy secondary to above. The patient now back to her baseline, alert an d oriented x3. 3.Hypoxemia, resolved. Doing well on room air. 4.Acute cystitis without hematuria secondary to Extended-Spectrum Beta-Lactamase Escherichia coli. After speaking with Infectious Disease doctor, Dr. Macias the patient has received meropenem in the [facility] as well as [facility] where he followed the patient without any side effects. Likely the si de effect was entered incorrectly by the night nurse who was contacted but does not remember the leslye ent. We will give trial of meropenem with caution. The patient already has a PICC line and will nee d 2 to 4 weeks of IV antibiotics. 5.Coronary artery disease, [place] artery and [place] heart without angina. 6.Sacral decubitus ulcer. We will continue offloading. 7.Right hip pain. X-ray does not show any acute fractures. The patient does have severe osteoarthr itis. 8.Bradyarrhythmia, stable. 9.Chronic obstructive pulmonary disease, chronic bronchitis, stable. 10.Chronic inflammatory demyelinating polyneuropathy. The patient has generalized weakness. 11.Chronic steroid dependency. 12.History of deep venous thrombosis on rivaroxaban. 13.Hypothyroidism, on Synthroid. 14.Chronic lymphedema. 15.Sepsis secondary to urinary tract infection, resolving. Blood culture showing Staph coagulase, S taph hominis, which is likely skin contaminant. 16.Gastrointestinal and deep vein thrombosis prophylaxis addressed. Plan: If the patient tolerates meropenem without any difficulty, we will arrange for IV antibiotics long-term for a minimum of 2 weeks at the nursing facility and discharge once arrangements have been made. ERVIN Voice ID: [id number] Report ID: [id number]
--- NOTE | 2018-07-28 21:19 | CON ---
INFECTIOUS DISEASE CONSULT History Of Present Illness: The patient is a known patient to me for several years. She has an [facility] resident, 73-year-old female, coming in with fluid overload, COPD, and hypoglyce nicole with altered mental status. The patient has significant history of COPD, kidney disease, diabete s mellitus, chronic diastolic CHF, DVT, lower extremity wounds, and sacral wound. Past Medical History: Coronary artery disease, congestive heart failure, spinal stenosis, morbid obe sity, neuropathy, hypertension, hypothyroidism, COPD, Guillain-[place] syndrome, DVT in right leg, cell ulitis in bilateral legs, and hyperlipidemia. Past Surgical History: Cholecystectomy, hysterectomy. Medications: The patient is currently being treated with vanco and gentamicin. Allergies: MULTIPLE DRUG ALLERGIES INCLUDING PENICILLIN, SULFA DRUGS, AND FLU VACCINE. Review of Systems: A 10-point review was performed. Physical Examination: General: This is a 73-year-old female, lying in bed, not in any acute cardiopulmonary distress. Vital Signs: Temperature 97.8, pulse 66, respirations 18, and blood pressure 114/56. HEENT: Unremarkable. Neck: Supple. Lungs: Basilar crackles. Heart: S1, S2. Regular. Abdomen: Bowel sounds present. Obese. Extremities: A 2+ edema. Purplish discoloration with edematous changes noted in upper extremity als o. Laboratory Data: Shows WBC down from 12.8 to 7.2, hemoglobin 13.2, and platelets are 147. Chemistry shows sodium 143, potassium 3.5, chloride 109, bicarb 38, BUN 30, creatinine 0.8, and glucose 79. M icro data shows E. coli in her urine with ESBL. Blood cultures growing Staph hominis, most likely a contaminant. Assessment And Plan: Urinary tract infection with urosepsis and hypoglycemia in a 73-year-old female with fluid overload. We will recommend to start the patient on meropenem as the patient has taken m eropenem before without any complication. We will not treat a Staph hominis at this time as I believ e it is a contaminant. We will follow the patient, discontinue gentamicin and vancomycin. Follow th e patient closely. Thank you, Dr. Chris, for consult. NF/MODL Voice ID: [id number] Report ID: [id number]
[2018-07-29] MEDS: Meropenem 500 MG in NA CHLORIDE 0.9% 100 ML IV SCH ×3 (00:05→16:31)
[2018-07-29] MEDS: HYDROCODONE/APAP 10/325 TAB PO PRN ×2 (04:04→08:29)
[2018-07-29 05:23] LABS: Absolute Monocytes 0.9 K/uL (0.1-1.3); Basophils % 1.1 % (0-1.3); Eosinophils % 3.4 % (0-4.4); Hematocrit 39.2 % (36.0-45.0); Lymphocytes % 28.1 % (15.3-44.8); MCH 32.6 pg (27.0-35.0); MCV 94.8 fL (80-100); MPV 9.4 fL (7.6-11.3); Monocytes % 12.7 % (3.3-12.3); RBC Red Blood Cell Count 4.14 M/uL (3.86-4.86)
[2018-07-29 05:40] LABS: Albumin 2.5 g/dL (3.4-5.0); Bilirubin Total 0.6 mg/dL (0.2-1.0); Magnesium 1.8 mg/dL (1.8-2.4); Potassium 3.7 mmol/L (3.5-5.1); Protein, Total 5.5 g/dL (6.4-8.2)
[2018-07-29 05:51] LABS: Blood Morphology Comment NOT SEEN (NOT SEEN); Platelet Estimate ADEQ
[2018-07-29] MEDS: PANTOPRAZOLE 40MG TABLET PO SCH (06:30)
[2018-07-29] MEDS ORDERED: POTASSIUM 25 MEQ EFFERV TAB PO ONE (06:30)
[2018-07-29] MEDS: LEVOTHYROXINE SOD 0.125 MG TAB PO SCH (06:30)
[2018-07-29] MEDS ORDERED: MAGNESIUM SULFATE 1 gm IVPB 1 GM/100 ML BAG IV ONE (06:30)
[2018-07-29] MEDS: INSULIN -REGULAR HUMAN 50 UNIT/0.5 ML ML SQ SCH ×4 (08:27→21:00)
[2018-07-29] MEDS: LACTOBACILLUS/ACIDOPHILUS TAB PO SCH ×2 (08:28→21:00)
[2018-07-29] MEDS: OXYBUTYNIN ER 5 MG TAB PO SCH (08:28)
[2018-07-29] MEDS: AMLODIPINE 5 MG TAB PO SCH (08:28)
[2018-07-29] MEDS: RIVAROXABAN 10 MG TABLET PO SCH (08:29)
[2018-07-29] MEDS: DULOXETINE 30 MG CAP PO SCH (08:29)
[2018-07-29] MEDS: DOCUSATE NA 100 MG CAP PO SCH (08:29)
[2018-07-29] MEDS: PREGABALIN 50 MG CAP PO SCH ×2 (08:29→22:11)
[2018-07-29] MEDS: FUROSEMIDE 40 MG TABLET PO SCH (08:30)
[2018-07-29] MEDS: FERROUS SULFATE 325 MG TAB PO SCH (08:30)
[2018-07-29] MEDS: CARVEDILOL 25 MG TAB PO SCH ×2 (08:30→21:10)
[2018-07-29] MEDS: SPIRONOLACTONE 25 MG TABLET PO SCH (08:30)
[2018-07-29] MEDS: MULTIVITAMIN TAB PO SCH (08:30)
[2018-07-29] MEDS: CYANOCOBALAMIN 1,000 MCG TAB PO SCH (08:30)
[2018-07-29] MEDS: predniSONE 20 MG TAB PO SCH (08:31)
[2018-07-29] MEDS: PROMOD 30 ML DOSE PO SCH ×2 (09:36→22:13)
[2018-07-29] MEDS: POLYVINYL ALCOHOL 1.4% 15 ML OPTH SCH ×2 (10:00→22:15)
[2018-07-29] MEDS ORDERED: D5W 1,000 ML IV SCH (16:00)
[2018-07-29] MEDS: METOLAZONE 2.5 MG TABLET PO SCH (16:31)
--- NOTE | 2018-07-29 18:03 | PN ---
Subjective: The patient is lying in bed, feels slightly better. Denies any headache, nausea, vomiti ng, chest pain, abdominal pain, constipation, or diarrhea. Objective: Vital signs: Temperature 98.9, pulse 74, respirations 16, blood pressure 115/54. Lungs: Basilar crackles. Heart: S1, S2. Regular. Abdomen: Soft, nontender. Bowel sounds positive. Extremity: 1+ edema. Swelling has gone down since yesterday as the patient is off fluids. Laboratory Data: Shows WBC 7.3, hemoglobin 13.5, platelets 158. Chemistry shows sodium 150, potassi um 3.7, chloride 112, bicarb 27, BUN 26, creatinine 1, glucose is 128. Micro data; E. coli in her ur ine. Assessment And Plan: Urinary tract infection secondary to Escherichia coli extended-spectrum B-lacta bong. The patient is currently being treated with meropenem. Hyponatremia. Consider getting nephro logy input as the patient is fluid overloaded, but having challenges with electrolytes. We will foll ow the patient as needed. NF/MODL Voice ID: [id number] Report ID: [id number]
--- NOTE | 2018-07-29 22:09 | PN ---
Date of Progress Note: 07/29/2018 Subjective: Patient seen and examined. Chart reviewed and case discussed with RN. The patient did well overnight. No acute events. Tolerated meropenem well. Medications: List reviewed. Physical Examination: Vital Signs: Temperature 98.5, heart rate 67, blood pressure 106/51, respirations 20, O2 90% on 1 L via nasal cannula. General: Awake, alert, oriented x3, in no acute distress. Elderly female, morbidly obese, somewhat ill-appearing. CV: S1 and S2. Regular rate and rhythm. Peripheral pulses present. Respiratory: Diminished breath sounds at the bases, otherwise moving air well. No wheezing. Gastroi ntestinal: Abdomen is soft, nontender, nondistended. Positive bowel sounds. Extremities: No clubbing, cyanosis, edema. Neurologic: Nonfocal. The patient does have generalized weakness throughout. Laboratory Data: Sodium 150, potassium 3.7, chloride 112, CO2 27, BUN 26, creatinine 1, glucose 128, calcium 8.3, albumin 2.5. WBC 7.3, H and H 13.5 and 39.2, platelets 158. Blood culture shows Staph hominis, which is likely contaminant, 1/4 bottles. Urine culture shows ESBL E. coli. Assessment And Plan: A 73-year-old female with, 1.Acute hypoglycemia, resolved. We will continue sliding scale insulin. 2.Acute metabolic encephalopathy secondary to acute hypoglycemia, resolved. Patient back to [facility]. 3.Hypoxemia, improving. The patient has obesity-hypoventilation syndrome and obstructive sleep apne a. Saturations run from 93% to 90% on room air. The patient on 1 L, more for comfort than anything. 4.Acute cystitis without hematuria, secondary to extended-spectrum beta-lactamase Escherichia coli. The patient doing well with meropenem, without any side effects. Likely the meropenem allergy was e ntered as an error by the night nurse previously at a previous hospitalization. The patient already has PICC line. We will arrange for antibiotics for minimum of two weeks at the nursing facility with an isolation bed. 5.Coronary artery disease, lime artery and lime heart, without angina. 6.Sacral decubitus ulcer. Continue offloading. 7.Right hip pain. Chest x-ray is negative. Improved with pain medications. 8.Bradyarrhythmia, stable. 9.Chronic obstructive pulmonary disease, chronic bronchitis, stable. 10.Hypernatremia. We will monitor. Likely will need to start on the D5 W. 11.Chronic inflammatory demyelinating polyneuropathy. 12.Chronic steroid dependency. 13.History of deep venous thrombosis, on rivaroxaban. 14.Hypothyroidism. Continue Synthroid. 15.Chronic lymphedema. 16.Sepsis secondary to urinary tract infection, resolving. Blood culture shows contaminant of Staph ylococcus hominis. The patient does have extended-spectrum beta-lactamase Escherichia coli. 17.Gastrointestinal and deep venous thrombosis prophylaxis addressed. Plan: Discharge back to nursing facility once IV antibiotics have been arranged. /MISSY Voice ID: [id number] Report ID: [id number]
[2018-07-30] MEDS: Meropenem 500 MG in NA CHLORIDE 0.9% 100 ML IV SCH ×3 (00:19→16:08)
[2018-07-30] MEDS: LEVOTHYROXINE SOD 0.125 MG TAB PO SCH (06:11)
[2018-07-30] MEDS: PANTOPRAZOLE 40MG TABLET PO SCH (06:11)
[2018-07-30 08:15] VITALS: TEMP 96.9
[2018-07-30] MEDS: POLYVINYL ALCOHOL 1.4% 15 ML OPTH SCH (09:00)
[2018-07-30] MEDS: INSULIN -REGULAR HUMAN 50 UNIT/0.5 ML ML SQ SCH ×3 (09:10→17:26)
[2018-07-30] MEDS: OXYBUTYNIN ER 5 MG TAB PO SCH (09:12)
[2018-07-30] MEDS: DULOXETINE 30 MG CAP PO SCH (09:12)
[2018-07-30] MEDS: CARVEDILOL 25 MG TAB PO SCH (09:12)
[2018-07-30] MEDS: FUROSEMIDE 40 MG TABLET PO SCH (09:12)
[2018-07-30] MEDS: CYANOCOBALAMIN 1,000 MCG TAB PO SCH (09:12)
[2018-07-30] MEDS: MULTIVITAMIN TAB PO SCH (09:12)
[2018-07-30] MEDS: LACTOBACILLUS/ACIDOPHILUS TAB PO SCH (09:12)
[2018-07-30] MEDS: AMLODIPINE 5 MG TAB PO SCH (09:13)
[2018-07-30] MEDS: DOCUSATE NA 100 MG CAP PO SCH (09:13)
[2018-07-30] MEDS: FERROUS SULFATE 325 MG TAB PO SCH (09:13)
[2018-07-30] MEDS: PROMOD 30 ML DOSE PO SCH (09:15)
[2018-07-30] MEDS: SPIRONOLACTONE 25 MG TABLET PO SCH (09:19)
[2018-07-30] MEDS: PREGABALIN 50 MG CAP PO SCH (09:19)
[2018-07-30] MEDS: RIVAROXABAN 10 MG TABLET PO SCH (09:19)
[2018-07-30] MEDS: predniSONE 20 MG TAB PO SCH (09:24)
[2018-07-30 10:24] LABS: Absolute Lymphocytes (CBC) 1.9 K/uL (0.7-4.9); Absolute Monocytes 0.7 K/uL (0.1-1.3); Absolute Neutrophil 5.8 K/uL (1.8-8.0); Basophils % 0.4 % (0-1.3); Eosinophils % 0.7 % (0-4.4); Hematocrit 38.9 % (36.0-45.0); Lymphocytes % 22.3 % (15.3-44.8); MCH 31.9 pg (27.0-35.0); MCV 93.5 fL (80-100); MPV 9.3 fL (7.6-11.3); Monocytes % 8.7 % (3.3-12.3); RBC Red Blood Cell Count 4.16 M/uL (3.86-4.86)
[2018-07-30 10:40] LABS: Albumin 2.5 g/dL (3.4-5.0); Bilirubin Total 0.4 mg/dL (0.2-1.0); Magnesium 2.1 mg/dL (1.8-2.4); Potassium 3.7 mmol/L (3.5-5.1); Protein, Total 5.5 g/dL (6.4-8.2)
[2018-07-30 11:47] VITALS: O2SAT 97
[2018-07-30] MEDS ORDERED: POTASSIUM CL SA 10 MEQ TAB PO ONE (12:00)
[2018-07-30 17:01] VITALS: BP 117/58
--- NOTE | 2018-07-31 07:26 | DS ---
Date of Discharge: 07/30/2018 Admitting Diagnoses: 1. Hypoglycemia. 2. Altered mental status. 3. Hypoxemia. 4. Bradyarrhythmia. 5. Sacral decubitus ulcer, present on admission. 6. Coronary artery disease, [place] artery and [place] heart without angina. 7. Chronic obstructive pulmonary disease, chronic bronchitis. 8. Chronic inflammatory demyelinating polyneuropathy. 9. Chronic steroid use. 10. History of deep venous thrombosis, on rivaroxaban. 11. Hypothyroidism. 12. Lymphedema. 13. Sepsis. 14. Bacteremia. 15. Urinary tract infection. Discharge Diagnoses: 1. Acute hypoglycemia, resolved, insulin dose adjusted. 2. Acute metabolic encephalopathy secondary to acute hypoglycemia, resolved. 3. Hypoxemia, improving. 4. Obstructive sleep apnea. 5. Obesity hypoventilation syndrome. 6. Acute cystitis without hematuria secondary to extended-spectrum beta- lactamases Escherichia coli. We will continue meropenem for a total of 2 weeks. 7. Sepsis, resolved. 8. Coronary artery disease, [place] artery and northway heart without angina, stable. 9. Sacral decubitus ulcer, present on admission, continue offloading. 10. Right hip pain, improved. 11. Bradyarrhythmia. 12. Chronic obstructive pulmonary disease, chronic bronchitis. 13. Hypernatremia, corrected. 14. Chronic steroid dependency. 15. History of deep venous thrombosis, on rivaroxaban. 16. Hypothyroidism, on Synthroid. 17. Chronic lymphedema. Hospital Course: The patient is a 73-year-old female, resident of [facility] , comes in with low blood sugars. The patient's glucose level was initially very low, had to be given dextrose, was started on D5, level was at 30. The patient is on significant amount of insulin, however, is also on chronic steroids. The patient also had altered mental status likely due to her hypoglycemia, however, was also found to be septic from UTI. Her cultures grew out ESBL Escherichia coli, which were initially treated with gentamycin and doxy , however, the patient was switched to meropenem as it was later found out that her listed allergy to meropenem was incorrect. She has received meropenem previously in the hospital as well as at nursing facility. Infectious Disease, Dr. Macias was consulted and the patient was retried on meropenem, which she tolerated well. She expressly denied any history of allergies to meropenem. A nurse who listed the allergy during a previous hospitalization was contacted, she did not remember the patient. This was likely due to an error. The patient 's workup was done. Her blood cultures grew out 1 bottle of Staph hominis out of 4, which is likely a skin contaminant. The patient responded well to treatment. Her electrolytes were corrected. Her WBC count remains stable. She was somewhat hypoxic due to her obesity hypoventilation syndrome and obstructive sleep apnea. Overall, the patient did well. She was then cleared for discharge after IV antibiotics were set up. Medications: As per medication reconciliation list. Finish up course of Merrem 500 mg IV q.8 hours for 2 weeks. Weekly CBC, CMP adjust dose as necessary. Repeat urine culture. If again positive, we will recommend continuing meropenem for a total of 4 weeks. Diet: Diabetic diet. Followup: Follow up with PCP in 2 to 3 days. Follow up with ID, Dr. Macias in 2 weeks. Return to ER for worsening condition. Activity: Fall precautions. Physical Examination: General: Awake, alert, oriented x3. Morbidly obese female, elderly. CV: S1, S2. Respiratory: Moving air well bilaterally. Abdomen: Soft, nontender, nondistended. Positive bowel sounds. Extremities: No clubbing, cyanosis, pedal edema. Neuro: Generalized weakness present. Total time spent discharging the patient was 41 minutes. ERVIN Voice ID: [id number] Report ID: [id number]
== END 2018-07-30 17:54 | DRG 871 ==
LOC: ER 09:45 → ERHOLD 12:57 → 3RD-ICU 16:27 → 4TH 07-25 16:40
PROVIDERS: ADMIT Family Medicine; ATTEND Family Medicine
PROC: 02HV33Z Insertion of Infusion Device into Superior Vena Cava, Percutaneous Approach (ICD-10-PCS; principal; 2018-07-24)
DX: A41.9 Sepsis, unspecified organism (principal); G93.41 Metabolic encephalopathy; G61.81 Chronic inflammatory demyelinating polyneuritis; N30.00 Acute cystitis without hematuria; E66.2 Morbid (severe) obesity with alveolar hypoventilation; G61.0 Guillain-Barre syndrome; E87.1 Hypo-osmolality and hyponatremia; E87.0 Hyperosmolality and hypernatremia; I13.0 Hypertensive heart and chronic kidney disease with heart failure and stage 1 through stage 4 chronic kidney disease, or unspecified chronic kidney disease; I50.32 Chronic diastolic (congestive) heart failure; E11.649 Type 2 diabetes mellitus with hypoglycemia without coma; Z79.4 Long term (current) use of insulin; R09.02 Hypoxemia; Z86.718 Personal history of other venous thrombosis and embolism; E03.9 Hypothyroidism, unspecified; I25.10 Atherosclerotic heart disease of native coronary artery without angina pectoris; J44.9 Chronic obstructive pulmonary disease, unspecified; B96.20 Unspecified Escherichia coli [E. coli] as the cause of diseases classified elsewhere; Z16.12 Extended spectrum beta lactamase (ESBL) resistance; M19.90 Unspecified osteoarthritis, unspecified site; E78.5 Hyperlipidemia, unspecified; E11.40 Type 2 diabetes mellitus with diabetic neuropathy, unspecified; Z88.0 Allergy status to penicillin; Z88.2 Allergy status to sulfonamides; Z88.7 Allergy status to serum and vaccine; Z88.8 Allergy status to other drugs, medicaments and biological substances; I89.0 Lymphedema, not elsewhere classified; L89.159 Pressure ulcer of sacral region, unspecified stage; N18.9 Chronic kidney disease, unspecified; E11.22 Type 2 diabetes mellitus with diabetic chronic kidney disease; E11.65 Type 2 diabetes mellitus with hyperglycemia; I95.9 Hypotension, unspecified; E87.6 Hypokalemia; Z79.84 Long term (current) use of oral hypoglycemic drugs; Z79.51 Long term (current) use of inhaled steroids
CPT/HCPCS: 36415; 51702; 70450; 71045; 71250; 72125; 80048; 80053; 80076; 80170; 80202; 81003; 81015; 82140; 82550; 82553; 82805; 82947; 82962; 83036; 83525; 83605; 83690; 83735; 84100; 84132; 84145; 84484; 84681; 85025; 85610; 85730; 87040; 87077; 87086; 87088; 87186; 87205; 93005; 94660; 94760; 96365; 96366; 96367; 96375; 99285; J0692; J0696; J1580; J1650; J2270; J3370; J3475; J7030; J7512

== ENCOUNTER 2018-08-02 19:35 | Observation (INO) | payer OTHER ==
[2018-08-02] MEDS ORDERED: D50W 25 GM/50 ML SYRINGE IV ONE (20:13)
[2018-08-02 20:23] LABS: Absolute Lymphocytes (CBC) 1.7 K/uL (0.7-4.9); Absolute Monocytes 0.6 K/uL (0.1-1.3); Basophils % 0.4 % (0-1.3); Eosinophils % 1.7 % (0-4.4); Hematocrit 42.9 % (36.0-45.0); Lymphocytes % 22.8 % (15.3-44.8); MPV 8.7 fL (7.6-11.3); Magnesium 1.7 mg/dL (1.8-2.4); Monocytes % 8.6 % (3.3-12.3); Potassium 3.3 mmol/L (3.5-5.1)
[2018-08-02] MEDS ORDERED: Magnesium Sulfate 2gm IVPB 2 G/50 ML BAG IV ONE (20:59)
[2018-08-02] MEDS ORDERED: NA CHLORIDE 0.9% 500 ML ONE (20:59)
[2018-08-02] MEDS ORDERED: KCL 20 MEQ/100 mL IVPB 20 MEQ/100 ML BAG IV ONE (20:59)
[2018-08-02] MEDS ORDERED: ACETAMINOPHEN 500 MG TAB PO PRN (22:17)
[2018-08-02] MEDS ORDERED: ONDANSETRON 4 MG/2 ML VIAL IV PRN (22:17)
--- NOTE | 2018-08-02 22:39 | ER ---
Nurse's Notes [facility] Name: Jennifer Mariee Age: 73 yrs Sex: Female : 1945 Arrival Date: 08/02/2018 Time: 19:39 Bed 20 Private MD: Diagnosis: Hypoglycemia, unspecified;Hypokalemia;Weakness Presentation: 08/02 19:41 Presenting complaint: EMS states: patient was just discharged from this hospital last mg2 Wednesday and transferred back to [facility] today. BGL was \T\ 21 mg/dl this morning, D51/2 \T\ 50 ml/hr was started \T\ 1400H. BGL was 109 after the infusion. on scene it was 99 mg/dl. her K level was 2.7 and that's the reason she is here. she has right femoral central line and FC in situ. Transition of care: patient was received from another setting of care (long-term care facility), [facility]. Onset of symptoms was August 02, 2018. Risk Assessment: Do you want to hurt yourself or someone else? Patient reports no desire to harm self or others. Initial Sepsis Screen: Does the patient meet any 2 criteria? No. Patient's initial sepsis screen is negative. Does the patient have a suspected source of infection? No. Patient's initial sepsis screen is negative. Care prior to arrival: None. 19:41 Method Of Arrival: EMS: [facility] mg2 19:41 Acuity: CHAZ 3 mg2 Historical: - Allergies: 19:57 FLU VACCINE; mg2 19:57 Sulfa (Sulfonamide Antibiotics); mg2 19:57 PENICILLINS; mg2 19:57 TRIMETHOPRIM; mg2 19:57 Demerol; mg2 - Home Meds: 22:39 Acidophilus Oral cap twice a day [Active]; albuterol sulfate 2.5 mg /3 mL (0.083 %) mg2 Inhl nebu 3 mL every 6 hours [Active]; Aldactone 25 mg Oral tab 1 tab once daily [Active]; amlodipine 5 mg tab 1 tab once daily [Active]; Coreg 25 mg Oral tab 1 tab 2 times per day [Active]; cyanocobalamin (vitamin B-12) 1,000 mcg Oral tab daily [Active]; Cymbalta 60 mg Oral cpDR 1 cap once daily [Active]; docusate sodium 100 mg Oral cap 1 cap 2 times per day [Active]; fentanyl 50 mcg/hr Topical pt72 1 patch every 72 hours [Active]; ferrous sulfate 325 mg (65 mg iron) Oral tab daily [Active]; glimepiride 2 mg Oral tab 1 tab twice a day [Active]; hydrocodone-acetaminophen 10-325 mg Oral tab 1 tab q4 hrs prn [Active]; insulin aspart 100unit/mL subcutaneous per sliding scale [Active]; ipratropium-albuterol 0.5 mg-3 mg(2.5 mg base)/3 mL Inhl nebu [Active]; Lasix 20 mg Oral tab 1 tab once daily [Active]; Levemir 100 unit/mL subcutaneous soln 30 unit daily [Active]; Levemir 100 unit/mL subcutaneous soln 20 unit nightly [Active]; levothyroxine 125 mcg tab 1 tab once daily [Active]; loperamide 2 mg Oral tab 1 tabs every 8 hours for diarrhea [Active]; Lyrica 100 mg Oral 1 cap 2 times per day [Active]; Miralax 17 gram Oral pwpk 1 packet once daily [Active]; nitroglycerin 0.4 mg SL subl 1 tab every 5 minutes [Active]; nystatin 100,000 unit/gram Topical powd 2 times per day [Active]; oxybutynin chloride 10 mg Oral tr24 1 tab twice a day [Active]; potassium chloride 20 mEq Oral TbER 2 tab once daily [Active]; prednisone 20 mg Oral tab [Active]; ProMod Protein Oral liqd twice a day [Active]; Protonix 40 mg Oral TbEC 1 tab once daily [Active]; Restoril 30 mg Oral cap 1 cap once daily [Active]; rivaroxaban 10 mg Oral once daily [Active]; Xanax 0.25 mg Oral tab 1 tab daily [Active]; - PMHx: 19:57 allergies; Cellulitis; COPD; Depression; Diabetes - NIDDM; Diverticulitis; DVT; mg2 DYSPHAGIA; Gastrointestinal hemmorrhage; Gout; Hypertension; Hypothyroidism; MRSA; Myocardial infarction; Pneumonia; Sepsis; spinal stenosis; ulcerative colitis; GBR; - Immunization history:: Flu vaccine is not up to date. - Social history:: Smoking status: Patient/guardian denies using tobacco, Patient/guardian denies using alcohol, street drugs, IV drugs. - Ebola Screening: : No symptoms or risks identified at this time. - Family history:: not pertinent. - Hospitalizations: : No recent hospitalization is reported. Screenin:34 Abuse screen: Denies threats or abuse. Denies injuries from another. Nutritional mg2 screening: No deficits noted. Tuberculosis screening: No symptoms or risk factors identified. Fall Risk Secondary diagnosis (15 points) impaired mobility, CVA, IV access (20 points). Assessment: 22:06 Reassessment: dr tatum informed about the bgl-88 mg/dl advised to feed the patient. mg2 patient ate sandwich and apple juice. 22:27 General: Appears in no apparent distress. comfortable, Behavior is calm, cooperative. mg2 Pain: Denies pain. Neuro: Level of Consciousness is awake, alert, obeys commands, Oriented to person, place, time, situation. Cardiovascular: Capillary refill < 3 seconds Patient's skin is warm and dry. Respiratory: Airway is patent Respiratory effort is even, unlabored, Respiratory pattern is regular, symmetrical. GI: Reports diarrhea. : Reports history of UTI, she is on FC. EENT: No signs and/or symptoms were reported regarding the EENT system. Derm: Skin patient is chairbound. Skin is pink, warm \T\ dry. normal. Musculoskeletal: No signs and/or symptoms reported regarding the musculoskeletal system. Vital Signs: 19:49 BP 118 / 89; Pulse 50; Resp 18; Temp 97.9; Pulse Ox 97% on R/A; Weight 127.01 kg; mg2 Height 5 ft. 6 in. (167.64 cm); Pain 0/10; 21:50 BP 131 / 60; Pulse 53; Resp 18; Pulse Ox 97% on R/A; Pain 0/10; mg2 23:37 BP 117 / 71; Pulse 62; Resp 18; Temp 98; Pulse Ox 94% on R/A; Pain 0/10; mg2 19:49 Body Mass Index 45.19 (127.01 kg, 167.64 cm) mg2 ED Course: 19:39 Patient arrived in ED. bb 19:41 Davis Ratliff, RN is Primary Nurse. mg2 19:44 Piyush Tatum MD is Attending Physician. rn 19:49 Triage completed. mg2 19:58 Arm band placed on. mg2 20:29 EKG done, by ED staff, reviewed by Piyush Tatum MD. mb4 22:34 Patient has correct armband on for positive identification. dehydrator tender on. Pulse mg2 ox on. NIBP on. Door closed. Warm blanket given. 22:35 No provider procedures requiring assistance completed. Accessed right femoral central mg2 line 3-lumen Clean \T\ dry. Dressing intact. Good blood return. Flushes easily. 22:38 Felix Haque MD is Hospitalizing Provider. rn 23:57 Patient admitted, IV remains in place. mg2 Administered Medications: 20:12 Drug: D50W 50 ml Route: IVP; Site: right femoral; mg2 23:52 Follow up: Response: No adverse reaction; Marked relief of symptoms mg2 23:52 Follow up: Response: No adverse reaction; Marked relief of symptoms mg2 21:23 Drug: Potassium Chloride 20 mEq Route: IV; Rate: calculated rate; Site: right femoral; mg2 23:52 Follow up: Response: No adverse reaction; IV Status: Completed infusion mg2 21:23 Drug: Magnesium Sulfate 2 grams Route: IVPB; Infused Over: 2 hrs; Site: right femoral; mg2 23:51 Follow up: Response: No adverse reaction; IV Status: Completed infusion mg2 21:23 Drug: NS 0.9% 500 ml Route: IV; Rate: bolus; Site: right femoral; mg2 23:51 Follow up: Response: No adverse reaction; IV Status: Completed infusion mg2 Point of Care Testing: Blood Glucose: 19:58 Blood Glucose: 76 mg/dL; mg2 22:06 Blood Glucose: 88 mg/dL; mg2 23:42 Blood Glucose: 88 mg/dL; mg2 Ranges: Outcome: 22:38 Decision to Hospitalize by Provider. rn 23:57 Admitted to Tele accompanied by [facility], via stretcher, room 426, with chart, Report mg2 called to MELISSA Mckee 23:57 Condition: stable 23:57 Instructed on the need for admit, Demonstrated understanding of follow-up care. 08/03 00:37 Patient left the ED. mb4 Signatures: Sue Rogers RN RN bb Nieto, Roman, MD MD rn Gardose, Michele, RN RN mg2 Baxter, Mackenzie mb4
--- NOTE | 2018-08-02 22:39 | EDPHYS ---
Physician Documentation [facility] Name: Jennifer Mariee Age: 73 yrs Sex: Female : 1945 Arrival Date: 08/02/2018 Time: 19:39 Bed 20 Private MD: ED Physician Piyush Tatum HPI: 08/02 20:37 This 73 yrs old Female presents to ER via EMS with complaints of low blood rn sugar and low potassium. 20:37 Sent from residential, just recently discharged last couple of days, was in hospital rn for low blood sugar, and CHF, blood sugar was high last night, given insulin, this morning blood sugar low, so sent here after started on D5W. . Onset: The symptoms/episode began/occurred last night. Severity of symptoms: At their worst the symptoms were mild in the emergency department the symptoms have improved. The patient has experienced similar episodes in the past. The patient has been recently been admitted at [facility]. Historical: - Allergies: 19:57 FLU VACCINE; mg2 19:57 Sulfa (Sulfonamide Antibiotics); mg2 19:57 PENICILLINS; mg2 19:57 TRIMETHOPRIM; mg2 19:57 Demerol; mg2 - Home Meds: 22:39 Acidophilus Oral cap twice a day [Active]; albuterol sulfate 2.5 mg /3 mL (0.083 %) mg2 Inhl nebu 3 mL every 6 hours [Active]; Aldactone 25 mg Oral tab 1 tab once daily [Active]; amlodipine 5 mg tab 1 tab once daily [Active]; Coreg 25 mg Oral tab 1 tab 2 times per day [Active]; cyanocobalamin (vitamin B-12) 1,000 mcg Oral tab daily [Active]; Cymbalta 60 mg Oral cpDR 1 cap once daily [Active]; docusate sodium 100 mg Oral cap 1 cap 2 times per day [Active]; fentanyl 50 mcg/hr Topical pt72 1 patch every 72 hours [Active]; ferrous sulfate 325 mg (65 mg iron) Oral tab daily [Active]; glimepiride 2 mg Oral tab 1 tab twice a day [Active]; hydrocodone-acetaminophen 10-325 mg Oral tab 1 tab q4 hrs prn [Active]; insulin aspart 100unit/mL subcutaneous per sliding scale [Active]; ipratropium-albuterol 0.5 mg-3 mg(2.5 mg base)/3 mL Inhl nebu [Active]; Lasix 20 mg Oral tab 1 tab once daily [Active]; Levemir 100 unit/mL subcutaneous soln 30 unit daily [Active]; Levemir 100 unit/mL subcutaneous soln 20 unit nightly [Active]; levothyroxine 125 mcg tab 1 tab once daily [Active]; loperamide 2 mg Oral tab 1 tabs every 8 hours for diarrhea [Active]; Lyrica 100 mg Oral 1 cap 2 times per day [Active]; Miralax 17 gram Oral pwpk 1 packet once daily [Active]; nitroglycerin 0.4 mg SL subl 1 tab every 5 minutes [Active]; nystatin 100,000 unit/gram Topical powd 2 times per day [Active]; oxybutynin chloride 10 mg Oral tr24 1 tab twice a day [Active]; potassium chloride 20 mEq Oral TbER 2 tab once daily [Active]; prednisone 20 mg Oral tab [Active]; ProMod Protein Oral liqd twice a day [Active]; Protonix 40 mg Oral TbEC 1 tab once daily [Active]; Restoril 30 mg Oral cap 1 cap once daily [Active]; rivaroxaban 10 mg Oral once daily [Active]; Xanax 0.25 mg Oral tab 1 tab daily [Active]; - PMHx: 19:57 allergies; Cellulitis; COPD; Depression; Diabetes - NIDDM; Diverticulitis; DVT; mg2 DYSPHAGIA; Gastrointestinal hemmorrhage; Gout; Hypertension; Hypothyroidism; MRSA; Myocardial infarction; Pneumonia; Sepsis; spinal stenosis; ulcerative colitis; GBR; - Immunization history:: Flu vaccine is not up to date. - Social history:: Smoking status: Patient/guardian denies using tobacco, Patient/guardian denies using alcohol, street drugs, IV drugs. - Ebola Screening: : No symptoms or risks identified at this time. - Family history:: not pertinent. - Hospitalizations: : No recent hospitalization is reported. ROS: 20:37 Constitutional: Negative for fever, chills, and weight loss, Eyes: Negative for injury, rn pain, redness, and discharge, Neck: Negative for injury, pain, and swelling, Cardiovascular: Negative for chest pain, palpitations, and edema, Respiratory: Negative for shortness of breath, cough, wheezing, and pleuritic chest pain, Abdomen/GI: Negative for abdominal pain, nausea, vomiting, diarrhea, and constipation, MS/Extremity: Negative for injury and deformity, Skin: Negative for injury, rash, and discoloration, Neuro: Negative for headache, weakness, numbness, tingling, and seizure. Exam: 20:37 Constitutional: Overweight female, no acute distress, sleeping comfortably and easily rn arousable. Head/Face: Normocephalic, atraumatic. Eyes: Pupils equal round and reactive to light Cardiovascular: bradycardic, regular, no murmur Respiratory: Lungs have equal breath sounds bilaterally, No increased work of breathing, no retractions or nasal flaring. Abdomen/GI: soft, non-tender MS/ Extremity: Pulses equal, no cyanosis. Neurovascular intact. Full, normal range of motion. Equal circumference. Neuro: Awake and alert, GCS 15, oriented to person, place, time, and situation. Vital Signs: 19:49 BP 118 / 89; Pulse 50; Resp 18; Temp 97.9; Pulse Ox 97% on R/A; Weight 127.01 kg; mg2 Height 5 ft. 6 in. (167.64 cm); Pain 0/10; 21:50 BP 131 / 60; Pulse 53; Resp 18; Pulse Ox 97% on R/A; Pain 0/10; mg2 23:37 BP 117 / 71; Pulse 62; Resp 18; Temp 98; Pulse Ox 94% on R/A; Pain 0/10; mg2 19:49 Body Mass Index 45.19 (127.01 kg, 167.64 cm) mg2 MDM: 19:44 Patient medically screened. rn 22:37 Differential Diagnosis dehydration, hypoglycemia, hypokalemia. Data reviewed: vital rn signs, nurses notes, lab test result(s), EKG, and as a result, I will admit patient. Counseling: I had a detailed discussion with the patient and/or guardian regarding: the historical points, exam findings, and any diagnostic results supporting the discharge/admit diagnosis, lab results, the need for further work-up and treatment in the hospital. Response to treatment: the patient's symptoms have mildly improved after treatment, and as a result, I will admit patient. Admission orders: after a detailed discussion of the patient's condition and case, the admit orders are written by me. 08/02 19:51 Order name: CBC with Diff; Complete Time: 20:36 rn 08/02 19:51 Order name: Basic Metabolic Panel; Complete Time: 20:36 rn 08/02 19:51 Order name: Magnesium; Complete Time: 20:36 rn 08/02 22:20 Order name: CBC with Automated Diff EDMS 08/02 22:20 Order name: CBC with Automated Diff EDMS 08/02 22:20 Order name: Comprehensive Metabolic Panel EDMS 08/02 22:20 Order name: Comprehensive Metabolic Panel EDRI 08/02 22:22 Order name: Hemoglobin A1c EDRI 08/02 22:22 Order name: Magnesium EDRI 08/02 22:22 Order name: T4 Free EDRI 08/02 22:22 Order name: Thyroid Stimulating Hormone EDRI 08/02 22:22 Order name: Vitamin B12 Level EDRI 08/02 22:22 Order name: Folic Acid, (Folate) EDRI 08/02 19:51 Order name: IV Start; Complete Time: 19:58 rn 08/02 19:51 Order name: Glucose Level; Complete Time: 19:58 rn 08/02 19:51 Order name: EKG; Complete Time: 19:51 rn 08/02 19:51 Order name: EKG - Nurse/Tech; Complete Time: 20:41 rn 08/02 22:20 Order name: CONS Pharmacy Consult EDRI 08/02 22:20 Order name: Heart Healthy EDMS Administered Medications: 20:12 Drug: D50W 50 ml Route: IVP; Site: right femoral; mg2 23:52 Follow up: Response: No adverse reaction; Marked relief of symptoms mg2 23:52 Follow up: Response: No adverse reaction; Marked relief of symptoms mg2 21:23 Drug: Potassium Chloride 20 mEq Route: IV; Rate: calculated rate; Site: right femoral; mg2 23:52 Follow up: Response: No adverse reaction; IV Status: Completed infusion mg2 21:23 Drug: Magnesium Sulfate 2 grams Route: IVPB; Infused Over: 2 hrs; Site: right femoral; mg2 23:51 Follow up: Response: No adverse reaction; IV Status: Completed infusion mg2 21:23 Drug: NS 0.9% 500 ml Route: IV; Rate: bolus; Site: right femoral; mg2 23:51 Follow up: Response: No adverse reaction; IV Status: Completed infusion mg2 Point of Care Testing: Blood Glucose: 19:58 Blood Glucose: 76 mg/dL; mg2 22:06 Blood Glucose: 88 mg/dL; mg2 23:42 Blood Glucose: 88 mg/dL; mg2 Ranges: Critical Glucose Levels:Adult <50 mg/dl or >400 mg/dl <40 mg/dl or >180 mg/dl Disposition: 08/02/18 22:38 Hospitalization ordered by Felix Haque for Observation. Preliminary diagnosis are Hypoglycemia, unspecified, Hypokalemia, Weakness. - Bed requested for Telemetry/MedSurg (observation). - Status is Observation. mb4 - Condition is Stable. - Problem is new. - Symptoms have improved. UTI on Admission? No Signatures: Dispatcher [employer] EDMS Claribel Lizarraga RN RN kl Nieto, Roman, MD MD rn Gardose, Michele, RN RN mg2 Bonita Zhang mb4 Corrections: (The following items were deleted from the chart) 23:37 22:38 Hospitalization Ordered by Felix Haque MD for Observation. Preliminary diagnosis is Hypoglycemia, unspecified; Hypokalemia; Weakness. Bed requested for Telemetry/MedSurg (observation). Status is Observation. Condition is Stable. Problem is new. Symptoms have improved. UTI on Admission? No. rn 23:47 23:37 08/02/2018 22:38 Hospitalization Ordered by Felix Haque MD for Observation. Preliminary diagnosis is Hypoglycemia, unspecified; Hypokalemia; Weakness. Bed requested for Telemetry/MedSurg (observation). Status is Observation. Condition is Stable. Problem is new. Symptoms have improved. UTI on Admission? No. bert 08/03 00:37 08/02 23:47 08/02/2018 22:38 Hospitalization Ordered by Felix Haque MD for mb4 Observation. Preliminary diagnosis is Hypoglycemia, unspecified; Hypokalemia; Weakness. Bed requested for Telemetry/MedSurg (observation). Status is Observation. Condition is Stable. Problem is new. Symptoms have improved. UTI on Admission? No. bert
[2018-08-03] MEDS: D5 0.9 NS 1,000 ML IV SCH (01:50)
[2018-08-03 04:26] LABS: Absolute Lymphocytes (CBC) 1.2 K/uL (0.7-4.9); Absolute Monocytes 0.7 K/uL (0.1-1.3); Absolute Neutrophil 7.6 K/uL (1.8-8.0); Basophils % 0.3 % (0-1.3); Eosinophils % 1.2 % (0-4.4); Hematocrit 43.1 % (36.0-45.0); Lymphocytes % 12.8 % (15.3-44.8); MPV 8.5 fL (7.6-11.3); Monocytes % 7.1 % (3.3-12.3); RBC Red Blood Cell Count 4.66 M/uL (3.86-4.86)
[2018-08-03 04:44] LABS: Albumin 2.7 g/dL (3.4-5.0); Bilirubin Total 0.5 mg/dL (0.2-1.0); Potassium 3.3 mmol/L (3.5-5.1); Protein, Total 6.2 g/dL (6.4-8.2)
[2018-08-03] MEDS ORDERED: D50W 25 GM/50 ML SYRINGE IV ONE (04:51)
[2018-08-03 05:20] LABS: Blood Morphology Comment NOT SEEN (NOT SEEN); Platelet Estimate ADEQ
[2018-08-03 05:28] LABS: Folic Acid, (Folate) > 20.0 ng/mL (3.1-17.5); Thyroid Stimulating Hormone 0.582 uIU/mL (0.360-3.740)
[2018-08-03 07:08] VITALS: BMI 45.1
--- NOTE | 2018-08-03 07:43 | EKG ---
Test Date: 2018-08-02 Test Time: 20:23:03 Waste Transportation Technician: MEASUREMENT RESULTS: Intervals: Rate: 51 TN: 176 QRSD: 156 QT: 524 QTc: 482 [place]: P: 66 TN: 176 QRS: -66 T: 68 INTERPRETIVE STATEMENTS: Sinus bradycardia Right bundle branch block Left axis Abnormal ECG Compared to ECG 07/24/2018 09:57:53 no significant change from previous ECG Electronically Signed On 08-03-18 07:43:13 DECKER OPERATOR by Bereket Mccoy
[2018-08-03] MEDS ORDERED: INFLUENZA VACCINE (for 3y+) 0.5 ML DOSE IMVAC ONE (08:00)
[2018-08-03] MEDS ORDERED: D50W 25 GM/50 ML SYRINGE IV PRN (08:08)
[2018-08-03] MEDS ORDERED: GLUCAGON 1 MG/VIAL IM PRN (08:08)
[2018-08-03] MEDS ORDERED: POTASSIUM CL SA 10 MEQ TAB PO ONE ×2 (08:10→17:00)
--- NOTE | 2018-08-03 09:54 | P.HP ---
Certification for Inpatient Patient admitted to: Observation With expected LOS: <2 Midnights Patient will require the following post-hospital care: None Practitioner: I am a practitioner with admitting privileges, knowledge of patient current condition, hospital course, and medical plan of care. Services: Services provided to patient in accordance with Admission requirements found in Title 42 Section 412.3 of the Code of Federal Regulations Patient History Date of Service: 08/02/18 Reason for admission: Hypoglycemic History of Present Illness: Patient is a 73-year-old female who has multiple comorbidities. 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 She was recently discharged from the hospital with anasarca. She was discharge with a hemoglobin of 8.6. She came into the hospital on this admission will hypoglycemic. Her blood sugars have been running in the 40s at the facility. She was started on dextrose solution. Her blood sugars have proved. However, during the morning time her blood sugars have decreased. Yesterday they were 40s. Today their 50s. Patient will need further admission to the hospital stay. Her insulin level were elevated. Patient will need her insulin adjusted. Hopefully her mental status improves. She had extensive workup done about a week and a half ago. This included a CT of the head to feet. This did not reveal any abnormalities. Patient's insulin level was elevated on last admission. She may need to adjust amount of insulin she is taking daily. She also has cushingoid appearance. Will need to monitor her cautiously. Allergies Penicillins Allergy (Mild, Verified 08/03/18 05:58) Rash sulfamethoxazole [From Bactrim] Allergy (Mild, Verified 08/03/18 05:58) Rash trimethoprim [From Bactrim] Allergy (Mild, Verified 08/03/18 05:58) Rash Sulfa (Sulfonamide Antibiotics) Allergy (Verified 08/03/18 05:58) Itching/Hives/Rash Flu vaccine Allergy (Severe, Uncoded 08/03/18 05:58) Guillan-Cromwell Home Medications: ALPRAZolam [Xanax*] 0.25 mg PO DAILY PRN 07/24/18 Albuterol Neb [Proventil 0.083% Neb Soln] 2.5 mg IH Q6H PRN 07/24/18 Amlodipine Besylate 5 mg PO DAILY 07/24/18 Carvedilol 25 mg PO BID 07/24/18 Cyanocobalamin [Vitamin B-12*] 1,000 mcg PO DAILY 07/24/18 Docusate Sodium 1 cap PO BID 07/24/18 Duloxetine HCl 60 mg PO DAILY 07/24/18 Ferrous Sulfate [Ferrous Sulfate*] 325 mg PO DAILY 07/24/18 Furosemide 1 tab PO DAILY 07/24/18 Glimepiride 2 mg PO BID 07/24/18 Hydrocodone 10/APAP 325 [[place] 10/325*] 1 tab PO Q4H PRN 07/24/18 Insulin Aspart [Novolog] 0 unit SQ ACHS 07/24/18 Insulin Detemir [Levemir] 30 units SQ DAILY 07/24/18 Ipratropium Neb [Atrovent*] 0.5 mg IH Q4H PRN 07/24/18 Lactobacillus Acidophilus [Acidophilus] 1 each PO BID 07/24/18 Levothyroxine Sodium 125 mcg PO DAILY 07/24/18 Loperamide HCl [Imodium A-D] 2 mg PO Q8H PRN 07/24/18 Nystatin Powder [Mycostatin (Powder)*] 1 appl TOP BID PRN 07/24/18 Oxybutynin Chloride [Oxybutynin Chloride ER] 1 tab PO BID 07/24/18 Pantoprazole Sodium [Protonix] 40 mg PO DAILY 07/24/18 Polyethyl Gly 3350 [Glycolax*] 17 gm PO DAILY PRN 07/24/18 Potassium Chloride [Klor-Con M20] 2 tab PO DAILY 07/24/18 Pregabalin [Lyrica] 100 mg PO BID 07/24/18 Protein Supplement [Promod] 30 ml PO BID 07/24/18 Rivaroxaban [Xarelto*] 10 mg PO DAILY 07/24/18 Spironolactone 25 mg PO DAILY 07/24/18 Temazepam 30 mg PO BEDTIME PRN 07/24/18 fentaNYL [Fentanyl] 1 each TD Q72H 07/24/18 predniSONE [Prednisone] 20 mg PO DAILY 07/24/18 Insulin Detemir [Levemir] 20 units SQ BEDTIME 08/03/18 Nitroglycerin [Nitrostat] 0.4 mg SL [id number] PRN MDD 3 tabs 08/03/18 - Past Medical/Surgical History Has patient received pneumonia vaccine in the past: Yes Diabetic: Yes -: Coronary artery disease. 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 - Family History Brother Medical History: Heart disease, Hypertension Father Medical History: Heart disease, Hypertension Notes: heart attack - Social History Smoking Status: Former smoker Alcohol use: No CD- Drugs: No Caffeine use: Yes [facility] Review of Systems 10-point ROS is otherwise unremarkable Physical Examination - Vital Signs Temperature: 98.3 F Blood Pressure: 114/63 Pulse: 77 Respirations: 16 Pulse Ox (%): 97 - Physical Exam General: Alert, In no apparent distress, Oriented x3, Oriented x2 HEENT: Atraumatic, PERRLA, Mucous membr. moist/pink, EOMI, Sclerae nonicteric Neck: Supple, 2+ carotid pulse no bruit, No LAD, Without JVD or thyroid abnormality Respiratory: Clear to auscultation bilaterally, Normal air movement, Crackles/ rales Cardiovascular: Regular rate/rhythm, Normal S1 S2, Diastolic murmur Gastrointestinal: Normal bowel sounds, No tenderness Musculoskeletal: No tenderness Integumentary: No rashes Neurological: Normal gait, Normal speech, Normal strength at 5/5 x4 extr, Normal tone, Normal affect Lymphatics: No axilla or inguinal lymphadenopathy - Studies Laboratory Data (last 24 hrs) 08/02/18 19:45: Sodium 139, Potassium 3.3 L, BUN 37 H, Creatinine 0.90, Glucose 90, Magnesium 1.7 L 08/02/18 19:45: WBC 7.5, Hgb 14.4, Hct 42.9, Plt Count 205 Assessment & Plan - Problems (Diagnosis) (1) Hypoglycemic disorder Current Visit: Yes Status: Acute (2) Lymphedema Onset Date: 12/13/17 Current Visit: No Status: Chronic (3) Rheumatoid arthritis RA Onset Date: 04/20/17 Current Visit: No Status: Chronic (4) Spinal stenosis Onset Date: 04/20/17 Current Visit: No Status: Chronic Qualifiers: Spinal region: unspecified Qualified Code(s): M48.00 - Spinal stenosis, site unspecified (5) Ulcer of right lower extremity Onset Date: 07/26/15 Current Visit: No Status: Chronic Qualifiers: Non-pressure ulcer stage: unspecified non-pressure ulcer stage Qualified Code(s): L97.919 - Non-pressure chronic ulcer of unspecified part of right lower leg with unspecified severity (6) Urinary incontinence Current Visit: No Status: Chronic Discharge Plan: [facility] Plan to discharge in: 48 Hours - Advance Directives Does patient have a Living Will: No Does patient have a Durable POA for Healthcare: No - Code Status/Comfort Care Code Status Assessed: Yes Code Status: Full Code Critical Care: No Time Spent Managing PTS Care (In Minutes): 50
[2018-08-03 11:08] LABS: Urine Appearance CLEAR; Urine Bilirubin NEGATIVE (NEG); Urine Blood NEGATIVE (NEG); Urine Color YELLOW; Urine Glucose NEGATIVE (NEG); Urine Protein NEGATIVE (NEG); Urine Specific Gravity 1.015 (1.005-1.030); Urine Urobilinogen 0.2 mg/dL (0.2-1.0); Urine pH 5.5 (5.0-7.0)
[2018-08-03 11:16] LABS: Urine Microscopic Reflex ORDER UMIC
[2018-08-03 11:17] VITALS: O2SAT 97
[2018-08-03] MEDS: INSULIN -REGULAR HUMAN 50 UNIT/0.5 ML ML SQ SCH ×3 (11:30→21:00)
[2018-08-03 11:34] LABS: Urine Bacteria 20-50 /HPF (<20); Urine Culture Reflex Order REFLEXED; Urine Mucus 2+ /HPF (NONE SEEN); Urine RBC <5 /HPF (NONE SEEN)
[2018-08-03] MEDS ORDERED: IPRATROPIUM BROM 0.5MG/2.5ML IH PRN (16:32)
[2018-08-03] MEDS ORDERED: POLYETHYL GLY 3350 17 GM/DOSE PO PRN (16:32)
[2018-08-03] MEDS ORDERED: HOME MED 1 EA UNK (Temazepam [Temazepam] 30 MG) PO PRN (16:32)
[2018-08-03] MEDS ORDERED: ALPRAZOLAM 0.25 MG TABLET PO PRN (16:32)
[2018-08-03] MEDS ORDERED: ALBUTEROL 2.5 MG/3 ML NEB SOL IH PRN (16:32)
--- NOTE | 2018-08-03 16:38 | P.PN ---
Subjective Date of Service: 08/03/18 Chief Complaint: Hypoglycemic Subjective: No new changes, No C/O voiced, Improving Patient seen and examined at bedside. No family at bedside. Chart reviewed and case discussed with nursing staff. Patient awake, alert oriented x3 the at the time of my exam. No concerns or complaints Review of Systems As noted Physical Examination - Vital Signs Temperature: 98.8 F Blood Pressure: 138/62 Pulse: 85 Respirations: 16 Pulse Ox (%): 96 - Physical Exam General: Alert, In no apparent distress HEENT: Atraumatic, PERRLA, EOMI Neck: Supple, JVD not distended Respiratory: Clear to auscultation bilaterally, Normal air movement Cardiovascular: Regular rate/rhythm, Normal S1 S2 Gastrointestinal: Normal bowel sounds, No tenderness Musculoskeletal: No tenderness Integumentary: No rashes Neurological: Normal speech, Normal tone, Normal affect Lymphatics: No axilla or inguinal lymphadenopathy - Studies Laboratory Data (last 24 hrs) 08/02/18 19:45: Sodium 139, Potassium 3.3 L, BUN 37 H, Creatinine 0.90, Glucose 90, Magnesium 1.7 L 08/02/18 19:45: WBC 7.5, Hgb 14.4, Hct 42.9, Plt Count 205 Assessment And Plan - Plan - Problems (Diagnosis) (1) Hypoglycemic disorder Continue to monitor glucose. Will readjust insulin dosage prior to discharge. (2) Lymphedema Onset Date: 12/13/17 Current Visit: No Status: Chronic (3) Rheumatoid arthritis RA Onset Date: 04/20/17 Current Visit: No Status: Chronic (4) Spinal stenosis Onset Date: 04/20/17 Current Visit: No Status: Chronic Qualifiers: Spinal region: unspecified Qualified Code(s): M48.00 - Spinal stenosis, site unspecified (5) Ulcer of right lower extremity Onset Date: 07/26/15 Current Visit: No Status: Chronic Qualifiers: Non-pressure ulcer stage: unspecified non-pressure ulcer stage Qualified Code(s): L97.919 - Non-pressure chronic ulcer of unspecified part of right lower leg with unspecified severity Will continue monitoring blood sugars overnight, will adjust insulin dosage prior to discharge back to [facility].
[2018-08-03] MEDS ORDERED: TEMAZEPAM 15 MG CAP PO PRN (17:12)
[2018-08-03] MEDS ORDERED: HOME MED 1 EA UNK (Pregabalin [Lyrica] 100 MG) PO SCH (21:00)
[2018-08-03] MEDS ORDERED: OXYBUTYNIN CHLORIDE PO SCH (21:00)
[2018-08-03] MEDS ORDERED: LACTOBACILLUS ACIDOPHILUS PO SCH (21:00)
[2018-08-03] MEDS: OXYBUTYNIN ER 5 MG TAB PO SCH (22:22)
[2018-08-03] MEDS: PREGABALIN 50 MG CAP PO SCH (22:22)
[2018-08-03] MEDS: CARVEDILOL 25 MG TAB PO SCH (22:23)
[2018-08-03] MEDS: DOCUSATE NA 100 MG CAP PO SCH (22:23)
[2018-08-03] MEDS: PROMOD 30 ML DOSE PO SCH (22:43)
[2018-08-03] MEDS: JUVEN PACKET PO SCH (22:44)
[2018-08-04 06:53] LABS: Potassium 3.8 mmol/L (3.5-5.1)
[2018-08-04] MEDS: LEVOTHYROXINE SOD 0.125 MG TAB PO SCH (07:30)
[2018-08-04] MEDS: INSULIN -REGULAR HUMAN 50 UNIT/0.5 ML ML SQ SCH ×4 (07:30→21:49)
[2018-08-04] MEDS ORDERED: HOME MED 1 EA UNK (Duloxetine Hcl [Duloxetine Hcl] 60 MG) PO SCH (09:00)
[2018-08-04] MEDS: AMLODIPINE 5 MG TAB PO SCH (09:00)
[2018-08-04] MEDS ORDERED: POTASSIUM CHLORIDE PO SCH (09:00)
[2018-08-04] MEDS ORDERED: POTASSIUM CL SA 10 MEQ TAB PO ONE (09:00)
[2018-08-04] MEDS: SPIRONOLACTONE 25 MG TABLET PO SCH (09:00)
[2018-08-04] MEDS: CARVEDILOL 25 MG TAB PO SCH ×2 (09:52→21:47)
[2018-08-04] MEDS: LACTOBACILLUS/ACIDOPHILUS TAB PO SCH ×2 (09:52→17:04)
[2018-08-04] MEDS: POTASSIUM CL SA 10 MEQ TAB PO SCH (09:57)
[2018-08-04] MEDS: FUROSEMIDE 20 MG TABLET PO SCH (09:57)
[2018-08-04] MEDS: RIVAROXABAN 10 MG TABLET PO SCH (09:57)
[2018-08-04] MEDS: PANTOPRAZOLE 40MG TABLET PO SCH (09:58)
[2018-08-04] MEDS: FERROUS SULFATE 325 MG TAB PO SCH (09:58)
[2018-08-04] MEDS: HYDROCODONE/APAP 10/325 TAB PO PRN ×2 (09:58→21:48)
[2018-08-04] MEDS: DULOXETINE 30 MG CAP PO SCH (09:58)
[2018-08-04] MEDS: DOCUSATE NA 100 MG CAP PO SCH ×2 (09:58→21:48)
[2018-08-04] MEDS: predniSONE 20 MG TAB PO SCH (09:58)
[2018-08-04] MEDS: PROMOD 30 ML DOSE PO SCH ×2 (10:02→21:00)
[2018-08-04] MEDS: JUVEN PACKET PO SCH ×2 (10:02→21:00)
[2018-08-04] MEDS: OXYBUTYNIN ER 5 MG TAB PO SCH ×2 (10:19→21:48)
[2018-08-04] MEDS: PREGABALIN 50 MG CAP PO SCH ×2 (10:19→21:47)
[2018-08-04] MEDS: D5 0.9 NS 1,000 ML IV SCH (10:21)
--- NOTE | 2018-08-04 18:20 | P.PN ---
Subjective Date of Service: 08/04/18 Chief Complaint: Hypoglycemic Subjective: No new changes, No C/O voiced, Improving Patient seen and examined at bedside. No family at bedside. Chart reviewed and case discussed with nursing staff. Patient awake, alert oriented x3 the at the time of my exam. No concerns or complaints Review of Systems As noted Physical Examination - Vital Signs Temperature: 97.9 F Blood Pressure: 101/60 Pulse: 80 Respirations: 20 Pulse Ox (%): 93 - Physical Exam General: Alert, In no apparent distress, Oriented x3 HEENT: Atraumatic, PERRLA, EOMI Neck: Supple, JVD not distended Respiratory: Clear to auscultation bilaterally, Normal air movement Cardiovascular: Regular rate/rhythm, Normal S1 S2 Gastrointestinal: Normal bowel sounds, No tenderness Integumentary: No rashes Neurological: Normal speech, Normal tone, Normal affect Lymphatics: No axilla or inguinal lymphadenopathy Assessment And Plan - Plan - Problems (Diagnosis) (1) Hypoglycemic disorder Continue to monitor glucose. Will readjust insulin dosage prior to discharge. (2) Lymphedema Onset Date: 12/13/17 Current Visit: No Status: Chronic (3) Rheumatoid arthritis RA Onset Date: 04/20/17 Current Visit: No Status: Chronic (4) Spinal stenosis Onset Date: 04/20/17 Current Visit: No Status: Chronic Qualifiers: Spinal region: unspecified Qualified Code(s): M48.00 - Spinal stenosis, site unspecified (5) Ulcer of right lower extremity Onset Date: 07/26/15 Current Visit: No Status: Chronic Qualifiers: Non-pressure ulcer stage: unspecified non-pressure ulcer stage Qualified Code(s): L97.919 - Non-pressure chronic ulcer of unspecified part of right lower leg with unspecified severity Will continue monitoring blood sugars overnight, will adjust insulin dosage prior to discharge back to [facility]. Likely discharge tomorrow
[2018-08-05] MEDS: LEVOTHYROXINE SOD 0.125 MG TAB PO SCH (06:00)
[2018-08-05 09:56] VITALS: TEMP 97
[2018-08-05] MEDS: INSULIN -REGULAR HUMAN 50 UNIT/0.5 ML ML SQ SCH ×2 (10:34→13:04)
[2018-08-05] MEDS: SPIRONOLACTONE 25 MG TABLET PO SCH (10:35)
[2018-08-05] MEDS: AMLODIPINE 5 MG TAB PO SCH (10:35)
[2018-08-05] MEDS: OXYBUTYNIN ER 5 MG TAB PO SCH (10:35)
[2018-08-05] MEDS: predniSONE 20 MG TAB PO SCH (10:36)
[2018-08-05] MEDS: LACTOBACILLUS/ACIDOPHILUS TAB PO SCH (10:36)
[2018-08-05] MEDS: DOCUSATE NA 100 MG CAP PO SCH (10:36)
[2018-08-05] MEDS: CARVEDILOL 25 MG TAB PO SCH (10:36)
[2018-08-05] MEDS: FUROSEMIDE 20 MG TABLET PO SCH (10:37)
[2018-08-05] MEDS: PANTOPRAZOLE 40MG TABLET PO SCH (10:37)
[2018-08-05] MEDS: DULOXETINE 30 MG CAP PO SCH (10:37)
[2018-08-05] MEDS: RIVAROXABAN 10 MG TABLET PO SCH (10:38)
[2018-08-05] MEDS: FERROUS SULFATE 325 MG TAB PO SCH (10:38)
[2018-08-05] MEDS: POTASSIUM CL SA 10 MEQ TAB PO SCH (10:38)
[2018-08-05] MEDS: JUVEN PACKET PO SCH (10:39)
[2018-08-05] MEDS: PROMOD 30 ML DOSE PO SCH (10:40)
[2018-08-05] MEDS: HYDROCODONE/APAP 10/325 TAB PO PRN (10:56)
[2018-08-05] MEDS: PREGABALIN 50 MG CAP PO SCH (13:03)
[2018-08-05 14:18] VITALS: BP 107/53
--- NOTE | 2018-08-05 16:31 | P.SSS ---
Patient History Date of Service: 08/05/18 Reason for admission: Hypoglycemic History of Present Illness: Patient is a 73-year-old female who has multiple comorbidities. 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 She was recently discharged from the hospital with anasarca. She was discharge with a hemoglobin of 8.6. She came into the hospital on this admission will hypoglycemic. Her blood sugars have been running in the 40s at the facility. She was started on dextrose solution. Her blood sugars have proved. However, during the morning time her blood sugars have decreased. Yesterday they were 40s. Today their 50s. Patient will need further admission to the hospital stay. Her insulin level were elevated. Patient will need her insulin adjusted. Hopefully her mental status improves. She had extensive workup done about a week and a half ago. This included a CT of the head to feet. This did not reveal any abnormalities. Patient's insulin level was elevated on last admission. She may need to adjust amount of insulin she is taking daily. She also has cushingoid appearance. Will need to monitor her cautiously. Allergies Penicillins Allergy (Mild, Verified 08/03/18 05:58) Rash sulfamethoxazole [From Bactrim] Allergy (Mild, Verified 08/03/18 05:58) Rash trimethoprim [From Bactrim] Allergy (Mild, Verified 08/03/18 05:58) Rash Sulfa (Sulfonamide Antibiotics) Allergy (Verified 08/03/18 05:58) Itching/Hives/Rash Flu vaccine Allergy (Severe, Uncoded 08/03/18 05:58) Guillan-Basin Home Medications: ALPRAZolam [Xanax*] 0.25 mg PO DAILY PRN 07/24/18 Albuterol Neb [Proventil 0.083% Neb Soln] 2.5 mg IH Q6H PRN 07/24/18 Amlodipine Besylate 5 mg PO DAILY 07/24/18 Carvedilol 25 mg PO BID 07/24/18 Cyanocobalamin [Vitamin B-12*] 1,000 mcg PO DAILY 07/24/18 Docusate Sodium 1 cap PO BID 07/24/18 Duloxetine HCl 60 mg PO DAILY 07/24/18 Ferrous Sulfate [Ferrous Sulfate*] 325 mg PO DAILY 07/24/18 Furosemide 1 tab PO DAILY 07/24/18 Glimepiride 2 mg PO BID 07/24/18 Hydrocodone 10/APAP 325 [[place] 10/325*] 1 tab PO Q4H PRN 07/24/18 Insulin Aspart [Novolog] 0 unit SQ ACHS 07/24/18 Ipratropium Neb [Atrovent*] 0.5 mg IH Q4H PRN 07/24/18 Lactobacillus Acidophilus [Acidophilus] 1 each PO BID 07/24/18 Levothyroxine Sodium 125 mcg PO DAILY 07/24/18 Loperamide HCl [Imodium A-D] 2 mg PO Q8H PRN 07/24/18 Nystatin Powder [Mycostatin (Powder)*] 1 appl TOP BID PRN 07/24/18 Oxybutynin Chloride [Oxybutynin Chloride ER] 1 tab PO BID 07/24/18 Pantoprazole Sodium [Protonix] 40 mg PO DAILY 07/24/18 Polyethyl Gly 3350 [Glycolax*] 17 gm PO DAILY PRN 07/24/18 Potassium Chloride [Klor-Con M20] 2 tab PO DAILY 07/24/18 Pregabalin [Lyrica] 100 mg PO BID 07/24/18 Protein Supplement [Promod] 30 ml PO BID 07/24/18 Rivaroxaban [Xarelto*] 10 mg PO DAILY 07/24/18 Spironolactone 25 mg PO DAILY 07/24/18 Temazepam 30 mg PO BEDTIME PRN 07/24/18 fentaNYL [Fentanyl] 1 each TD Q72H 07/24/18 predniSONE [Prednisone] 20 mg PO DAILY 07/24/18 Insulin Detemir [Levemir] 20 units SQ BEDTIME 08/03/18 Nitroglycerin [Nitrostat*] 0.4 mg SL [id number] PRN MDD 3 tabs 08/03/18 Insulin Detemir [Levemir] 20 units SQ DAILY #1 ml 08/05/18 - Past Medical/Surgical History Has patient received pneumonia vaccine in the past: Yes Diabetic: Yes -: Coronary artery disease. -: Congestive heart failure -: Spinal Stenosis -: Neuropathy -: HTN -: Hypothyroid -: COPD -: Guillian -Basin syndrome -: History of DVT rt leg -: cellulitis bilat legs required filler leaf cutter long antibiotics -: Hyperlipidemia -: Hyperlipidemia, cholecystecomy, hysterectomy -: Cholecystectomy, 1989 -: Hysterectomy, 1964 -: gland removed from throat, -: cataract Surgery, 1999 -: Three heart stents (2 in 2011) -: Tonsillectomy -: Appendectomy Psychosocial/ Personal History: She lives at [facility]. - Family History Brother -: Heart disease, Hypertension Father -: Heart disease, Hypertension Notes: heart attack - Social History Smoking Status: Former smoker Alcohol use: No CD- Drugs: No Caffeine use: Yes Place of Residence: [facility] Review of Systems As noted Physical Examination - Vital Signs Temperature: 97.0 F Blood Pressure: 107/53 Pulse: 62 Respirations: 20 Pulse Ox (%): 97 - Physical Exam General: Alert, In no apparent distress, Obese HEENT: Atraumatic, PERRLA, Mucous membr. moist/pink, EOMI, Sclerae nonicteric Neck: Supple, 2+ carotid pulse no bruit, No LAD, Without JVD or thyroid abnormality Respiratory: Clear to auscultation bilaterally, Normal air movement Cardiovascular: Regular rate/rhythm, Normal S1 S2 Gastrointestinal: Normal bowel sounds, No tenderness Musculoskeletal: No tenderness Integumentary: No rashes Neurological: Normal gait, Normal speech, Normal strength at 5/5 x4 extr, Normal tone, Normal affect Lymphatics: No axilla or inguinal lymphadenopathy Treatment Summary: She was admitted to the hospital, her clood sugars were monitored. her regular insulin dosage was held. Her blood sugards started increasing and she was started on sliding scale insulin. Overnight, her BS stabalized, her mentation improved and she was in no acute distress after starting her home pain medications. She was HDS, AAOx3 prior to discharge. Her insulin dosage was decreased to levemir 20 units in the morning and 20 units in the evening. She was discharged back to [facility]. - Disposition Condition: GOOD Patient Discharge Instructions: You were seen for hypoglycemia - your blood sugars have improved. After discharge, decrease the morning levemir dose to 20 units from the prior 30 units. Continue checking blood glucose levels Diet: ADA Activity: Ad heidi Physician Review: Patient Assessed, Agree with Above Assessment and Plan Time Spent Managing Pts Care (In Minutes): 45
== END 2018-08-05 14:58 ==
LOC: ER 19:35 → ERHOLD 22:18 → 4TH 23:59
PROVIDERS: ADMIT Hospitalist; ATTEND Hospitalist
DX: E11.649 Type 2 diabetes mellitus with hypoglycemia without coma (principal); E03.9 Hypothyroidism, unspecified; I25.10 Atherosclerotic heart disease of native coronary artery without angina pectoris; I89.0 Lymphedema, not elsewhere classified; M06.9 Rheumatoid arthritis, unspecified; M48.00 Spinal stenosis, site unspecified; R32 Unspecified urinary incontinence; E11.622 Type 2 diabetes mellitus with other skin ulcer; L97.919 Non-pressure chronic ulcer of unspecified part of right lower leg with unspecified severity; G61.0 Guillain-Barre syndrome; E78.5 Hyperlipidemia, unspecified; I10 Essential (primary) hypertension; J44.9 Chronic obstructive pulmonary disease, unspecified; I11.0 Hypertensive heart disease with heart failure; I50.9 Heart failure, unspecified; Z95.5 Presence of coronary angioplasty implant and graft; Z86.718 Personal history of other venous thrombosis and embolism; Z88.0 Allergy status to penicillin; Z88.2 Allergy status to sulfonamides; Z88.7 Allergy status to serum and vaccine
CPT/HCPCS: 36415 ×2; 80048 ×2; 80053; 82533; 82607; 82746; 82962 ×18; 83036; 83735 ×2; 84132; 84439; 84443; 85025 ×2; 87088; 93005; 96365; 96366; 96368; 96375; 99285; G0378 ×2; J3475; 81003; 81015; 87086; J7512

== ENCOUNTER 2018-09-16 20:12 | Inpatient (IN) | payer OTHER, BC ==
[2018-09-16 20:58] LABS: Arterial Blood Carboxyhemoglob 1.6 % (0-1.5); Blood Gas Oxyhemoglobin 88.9 % (94-97); Blood O2 Saturation 91.6 % (92-98.5)
[2018-09-16 21:28] LABS: Absolute Lymphocytes (CBC) 0.7 K/uL (0.7-4.9); Absolute Monocytes 0.2 K/uL (0.1-1.3); Absolute Neutrophil 15.1 K/uL (1.8-8.0); Basophils % 0.2 % (0-1.3); Eosinophils % 0.7 % (0-4.4); Hematocrit 44.5 % (36.0-45.0); Lymphocytes % 4.2 % (15.3-44.8); MPV 9.4 fL (7.6-11.3); Monocytes % 1.4 % (3.3-12.3); RBC Red Blood Cell Count 4.64 M/uL (3.86-4.86)
--- NOTE | 2018-09-16 21:28 | ER ---
Nurse's Notes [facility] Name: Jennifer Mariee Age: 73 yrs Sex: Female : 1945 Arrival Date: 09/16/2018 Time: 20:14 Bed 2 Private MD: Diagnosis: Altered mental status, unspecified;Weakness;Obesity, unspecified;Cystitis;Elevated white blood cell count;Unspecified kidney failure Presentation: 09/16 20:16 Presenting complaint: EMS states: custodial stated that pt is altered, is normally tl2 AOx4 but is now AOx1. Pt [facility] a pearce in [facility]. Transition of care: patient was received from another setting of care (long-term care facility), [facility]. Onset of symptoms was September 16, 2018. Risk Assessment: Do you want to hurt yourself or someone else? Patient reports no desire to harm self or others. Initial Sepsis Screen: Does the patient meet any 2 criteria? Altered Mental Status. HR > 90 bpm. Does the patient have a suspected source of infection? No. Patient's initial sepsis screen is negative. Care prior to arrival: None. 20:16 Method Of Arrival: EMS: [facility] tl2 20:16 Acuity: [facility] 2 tl2 Triage Assessment: 20:28 General: Appears in no apparent distress. uncomfortable, Behavior is anxious, tl2 inappropriate for age, restless. Pain: Unable to use pain scale. Patient is disoriented. Neuro: Level of Consciousness is awake, confused, lethargic, Oriented to person. Cardiovascular: Denies chest pain. Respiratory: Airway is patent Respiratory effort is even, unlabored, Respiratory pattern is regular, symmetrical. GI: No deficits noted. : Pearce in place to gravity drainage Urine is cloudy. Derm: Skin is pink, warm \T\ dry. Historical: - Allergies: 20:27 Demerol; tl2 20:27 FLU VACCINE; tl2 20:27 PENICILLINS; tl2 20:27 Sulfa (Sulfonamide Antibiotics); tl2 20:27 TRIMETHOPRIM; tl2 - Home Meds: 20:27 Acidophilus Oral cap twice a day [Active]; albuterol sulfate 2.5 mg /3 mL (0.083 %) tl2 Inhl nebu 3 mL every 6 hours [Active]; Aldactone 25 mg Oral tab 1 tab once daily [Active]; amlodipine 5 mg tab 1 tab once daily [Active]; Coreg 25 mg Oral tab 1 tab 2 times per day [Active]; cyanocobalamin (vitamin B-12) 1,000 mcg Oral tab daily [Active]; Cymbalta 60 mg Oral cpDR 1 cap once daily [Active]; docusate sodium 100 mg Oral cap 1 cap 2 times per day [Active]; fentanyl 50 mcg/hr Topical pt72 1 patch every 72 hours [Active]; ferrous sulfate 325 mg (65 mg iron) Oral tab daily [Active]; glimepiride 2 mg Oral tab 1 tab twice a day [Active]; hydrocodone-acetaminophen 10-325 mg Oral tab 1 tab q4 hrs prn [Active]; insulin aspart 100unit/mL subcutaneous per sliding scale [Active]; ipratropium-albuterol 0.5 mg-3 mg(2.5 mg base)/3 mL Inhl nebu [Active]; Lasix 20 mg Oral tab 1 tab once daily [Active]; Levemir 100 unit/mL subcutaneous soln 30 unit daily [Active]; Levemir 100 unit/mL subcutaneous soln 20 unit nightly [Active]; levothyroxine 125 mcg tab 1 tab once daily [Active]; loperamide 2 mg Oral tab 1 tabs every 8 hours for diarrhea [Active]; Lyrica 100 mg Oral 1 cap 2 times per day [Active]; Miralax 17 gram Oral pwpk 1 packet once daily [Active]; nitroglycerin 0.4 mg SL subl 1 tab every 5 minutes [Active]; nystatin 100,000 unit/gram Topical powd 2 times per day [Active]; oxybutynin chloride 10 mg Oral tr24 1 tab twice a day [Active]; potassium chloride 20 mEq Oral TbER 2 tab once daily [Active]; prednisone 20 mg Oral tab [Active]; ProMod Protein Oral liqd twice a day [Active]; Protonix 40 mg Oral TbEC 1 tab once daily [Active]; Restoril 30 mg Oral cap 1 cap once daily [Active]; rivaroxaban 10 mg Oral once daily [Active]; Xanax 0.25 mg Oral tab 1 tab daily [Active]; - PMHx: 20:27 allergies; Cellulitis; COPD; Depression; Diabetes - NIDDM; Diverticulitis; DVT; tl2 DYSPHAGIA; Gastrointestinal hemmorrhage; GBR; Gout; Hypertension; Hypothyroidism; MRSA; Myocardial infarction; Pneumonia; Sepsis; spinal stenosis; ulcerative colitis; - Immunization history:: Adult Immunizations up to date. - Social history:: Smoking status: Patient/guardian denies using tobacco. - Ebola Screening: : No symptoms or risks identified at this time. Screenin:31 Abuse screen: Denies threats or abuse. Nutritional screening: No deficits noted. tl2 Tuberculosis screening: No symptoms or risk factors identified. Fall Risk Secondary diagnosis (15 points). Assessment: 20:28 General: Appears see triage assessment. tl2 22:00 Reassessment: Patient appears in no apparent distress at this time. Patient and/or tl2 family updated on plan of care and expected duration. Pain level reassessed. Patient is alert, oriented x 3, equal unlabored respirations, skin warm/dry/pink. 23:00 Reassessment: Patient appears in no apparent distress at this time. Patient and/or tl2 family updated on plan of care and expected duration. Pain level reassessed. Patient is alert, oriented x 3, equal unlabored respirations, skin warm/dry/pink. 09/17 00:11 Reassessment: Patient appears in no apparent distress at this time. Patient and/or tl2 family updated on plan of care and expected duration. Pain level reassessed. Patient is alert, oriented x 3, equal unlabored respirations, skin warm/dry/pink. pt stable and ready for transport to floor. Vital Signs: 09/16 20:28 BP 121 / 63; Pulse 87; Resp 20; Temp 98.4(O); Pulse Ox 97% on 3 lpm NC; Weight 136.08 tl2 kg; Height 5 ft. 6 in. (167.64 cm); 21:00 BP 105 / 65; Pulse 86; Resp 20; Pulse Ox 98% on 3 lpm NC; tl2 22:15 BP 93 / 63; Pulse 81; Resp 20; Pulse Ox 94% on 3 lpm NC; tl2 23:30 BP 101 / 50; Pulse 76; Resp 18; Pulse Ox 98% on 3 lpm NC; tl2 20:28 Body Mass Index 48.42 (136.08 kg, 167.64 cm) tl2 ED Course: 20:14 Patient arrived in ED. ds1 20:18 Triage completed. tl2 20:27 Jairon Poole MD is Attending Physician. liana 20:28 Arm band placed on. tl2 20:31 Patient has correct armband on for positive identification. Bed in low position. Call tl2 light in reach. Side rails up X 1. 20:[address] via stretcher. vm2 21:05 Initial lab(s) drawn, by me, sent to lab. First set of blood cultures drawn by me. bb 21:13 Missed attempt(s): 18 gauge in right antecubital area. Bleeding controlled, band aid bb applied, catheter tip intact. 21:22 Felix Haque MD is Hospitalizing Provider. liana 21:24 CT completed. Patient moved to radiology. vm2 21:33 XRAY Chest (1 view) In Process Unspecified. EDMS 21:50 Second set of blood cultures drawn by me. Inserted saline lock: 18 gauge in left upper bb arm, using aseptic technique. Blood collected. 21:54 CT Traumagram (Head C Spine CAP wo con) In Process Unspecified. EDMS 22:45 Notified ED physician of a critical lab result(s). lactate of 3.4 Dr Poole notified. bb 09/17 00:11 No provider procedures requiring assistance completed. Patient admitted, IV remains in tl2 place. Administered Medications: 09/16 21:59 Drug: NS 0.9% 1000 ml Route: IV; Rate: 125 ml/hr; Site: left upper arm; tl2 09/17 00:13 Follow up: IV Status: Infusion continued upon admission 2 09/16 22:00 Drug: Thiamine 100 mg Route: IV; Rate: bolus; Site: left upper arm; tl2 22:30 Follow up: IV Status: Completed infusion; IV Intake: 200ml tl2 23:06 Drug: Cefepime 2 grams Route: IVPB; Rate: 200 ml/hr; Infused Over: 30 mins; Site: left tl2 upper arm; 23:45 Follow up: IV Status: Completed infusion; IV Intake: 500ml tl2 23:06 Drug: NS 0.9% 500 ml Route: IV; Rate: bolus; Site: left upper arm; tl2 23:46 Follow up: IV Status: Completed infusion; IV Intake: 500ml 2 23:45 Drug: vancoMYCIN 1 grams Route: IVPB; Infused Over: 2 hrs; Site: left upper arm; tl2 09/17 00:12 Follow up: IV Status: Infusion continued upon admission tl2 Intake: 09/16 22:30 IV: 200ml; Total: 200ml. tl2 23:45 IV: 500ml; Total: 700ml. tl2 23:46 IV: 500ml; Total: 1200ml. tl2 Outcome: 21:27 Decision to Hospitalize by Provider. liana 09/17 00:11 Admitted to Med/surg accompanied by tech, via stretcher, room 230, with oxygen, with tl2 chart, Report called to MELISSA Mora Condition: stable Discharge instructions given to patient, Instructed on the need for admit. 00:14 Patient left the ED. tl2 Signatures: Dispatcher [employer] EDMS Jairon Poole MD MD cha Sanford, Demi ds1 Sue Rogers RN RN Dianna Medina RN RN tl2 Leslie Pal [facility] Corrections: (The following items were deleted from the chart) 09/16 23:54 22:20 BP 141 / 97; Pulse 88bpm; Resp 18bpm; Pulse Ox 95% RA; tl2 tl2 23:54 23:15 BP 113 / 79; Pulse 78bpm; Resp 18bpm; Pulse Ox 96% RA; tl2 tl2
--- NOTE | 2018-09-16 21:28 | EDPHYS ---
Physician Documentation [facility] Name: Jennifer Mariee Age: 73 yrs Sex: Female : 1945 Arrival Date: 09/16/2018 Time: 20:14 Bed 2 Private MD: ED Physician Jairon Poole HPI: 09/16 20:53 This 73 yrs old Female presents to ER via EMS with complaints of Altered liana Mental Status. 20:53 The patient presents with confusion, decreased mental status. Onset: The liana symptoms/episode began/occurred 2 day(s) ago. Possible causes: sepsis, the patient has an indwelling Fay catheter. Associated signs and symptoms: The patient has no apparent associated signs or symptoms. Current symptoms: In the emergency department the patient's symptoms have improved, mildly. Patient's baseline: Neuro: alert and fully oriented. Historical: - Allergies: 20:27 Demerol; tl2 20:27 FLU VACCINE; tl2 20:27 PENICILLINS; tl2 20:27 Sulfa (Sulfonamide Antibiotics); tl2 20:27 TRIMETHOPRIM; tl2 - Home Meds: 20:27 Acidophilus Oral cap twice a day [Active]; albuterol sulfate 2.5 mg /3 mL (0.083 %) tl2 Inhl nebu 3 mL every 6 hours [Active]; Aldactone 25 mg Oral tab 1 tab once daily [Active]; amlodipine 5 mg tab 1 tab once daily [Active]; Coreg 25 mg Oral tab 1 tab 2 times per day [Active]; cyanocobalamin (vitamin B-12) 1,000 mcg Oral tab daily [Active]; Cymbalta 60 mg Oral cpDR 1 cap once daily [Active]; docusate sodium 100 mg Oral cap 1 cap 2 times per day [Active]; fentanyl 50 mcg/hr Topical pt72 1 patch every 72 hours [Active]; ferrous sulfate 325 mg (65 mg iron) Oral tab daily [Active]; glimepiride 2 mg Oral tab 1 tab twice a day [Active]; hydrocodone-acetaminophen 10-325 mg Oral tab 1 tab q4 hrs prn [Active]; insulin aspart 100unit/mL subcutaneous per sliding scale [Active]; ipratropium-albuterol 0.5 mg-3 mg(2.5 mg base)/3 mL Inhl nebu [Active]; Lasix 20 mg Oral tab 1 tab once daily [Active]; Levemir 100 unit/mL subcutaneous soln 30 unit daily [Active]; Levemir 100 unit/mL subcutaneous soln 20 unit nightly [Active]; levothyroxine 125 mcg tab 1 tab once daily [Active]; loperamide 2 mg Oral tab 1 tabs every 8 hours for diarrhea [Active]; Lyrica 100 mg Oral 1 cap 2 times per day [Active]; Miralax 17 gram Oral pwpk 1 packet once daily [Active]; nitroglycerin 0.4 mg SL subl 1 tab every 5 minutes [Active]; nystatin 100,000 unit/gram Topical powd 2 times per day [Active]; oxybutynin chloride 10 mg Oral tr24 1 tab twice a day [Active]; potassium chloride 20 mEq Oral TbER 2 tab once daily [Active]; prednisone 20 mg Oral tab [Active]; ProMod Protein Oral liqd twice a day [Active]; Protonix 40 mg Oral TbEC 1 tab once daily [Active]; Restoril 30 mg Oral cap 1 cap once daily [Active]; rivaroxaban 10 mg Oral once daily [Active]; Xanax 0.25 mg Oral tab 1 tab daily [Active]; - PMHx: 20:27 allergies; Cellulitis; COPD; Depression; Diabetes - NIDDM; Diverticulitis; DVT; tl2 DYSPHAGIA; Gastrointestinal hemmorrhage; GBR; Gout; Hypertension; Hypothyroidism; MRSA; Myocardial infarction; Pneumonia; Sepsis; spinal stenosis; ulcerative colitis; - Immunization history:: Adult Immunizations up to date. - Social history:: Smoking status: Patient/guardian denies using tobacco. - Ebola Screening: : No symptoms or risks identified at this time. ROS: 20:53 Constitutional: Negative for fever, chills, and weight loss, Eyes: Negative for injury, liana pain, redness, and discharge, ENT: Negative for injury, pain, and discharge, Neck: Negative for injury, pain, and swelling, Cardiovascular: Negative for chest pain, palpitations, and edema, Respiratory: Negative for shortness of breath, cough, wheezing, and pleuritic chest pain, Abdomen/GI: Negative for abdominal pain, nausea, vomiting, diarrhea, and constipation, Back: Negative for injury and pain, : Negative for injury, bleeding, discharge, and swelling, MS/Extremity: Negative for injury and deformity, Skin: Negative for injury, rash, and discoloration, Psych: Negative for depression, anxiety, suicide ideation, homicidal ideation, and hallucinations, Allergy/Immunology: Negative for hives, rash, and allergies, Endocrine: Negative for neck swelling, polydipsia, polyuria, polyphagia, and marked weight changes, Hematologic/Lymphatic: Negative for swollen nodes, abnormal bleeding, and unusual bruising. 20:53 Neuro: Positive for altered mental status. Exam: 20:53 Head/Face: Normocephalic, atraumatic. Eyes: Pupils equal round and reactive to light, liana extra-ocular motions intact. Lids and lashes normal. Conjunctiva and sclera are non-icteric and not injected. Cornea within normal limits. Periorbital areas with no swelling, redness, or edema. ENT: Nares patent. No nasal discharge, no septal abnormalities noted. Tympanic membranes are normal and external auditory canals are clear. Oropharynx with no redness, swelling, or masses, exudates, or evidence of obstruction, uvula midline. Mucous membranes moist. Neck: Trachea midline, no thyromegaly or masses palpated, and no cervical lymphadenopathy. Supple, full range of motion without nuchal rigidity, or vertebral point tenderness. No Meningismus. Chest/axilla: Normal chest wall appearance and motion. Nontender with no deformity. No lesions are appreciated. Cardiovascular: Regular rate and rhythm with a normal S1 and S2. No gallops, murmurs, or rubs. Normal PMI, no JVD. No pulse deficits. Respiratory: Lungs have equal breath sounds bilaterally, clear to auscultation and percussion. No rales, rhonchi or wheezes noted. No increased work of breathing, no retractions or nasal flaring. Back: No spinal tenderness. No costovertebral tenderness. Full range of motion. Female : Normal external genitalia. Skin: Warm, dry with normal turgor. Normal color with no rashes, no lesions, and no evidence of cellulitis. Psych: Awake, alert, with orientation to person, place and time. Behavior, mood, and affect are within normal limits. 20:53 Constitutional: The patient appears lethargic. Vital Signs: 20:28 BP 121 / 63; Pulse 87; Resp 20; Temp 98.4(O); Pulse Ox 97% on 3 lpm NC; Weight 136.08 tl2 kg; Height 5 ft. 6 in. (167.64 cm); 21:00 BP 105 / 65; Pulse 86; Resp 20; Pulse Ox 98% on 3 lpm NC; tl2 22:15 BP 93 / 63; Pulse 81; Resp 20; Pulse Ox 94% on 3 lpm NC; tl2 23:30 BP 101 / 50; Pulse 76; Resp 18; Pulse Ox 98% on 3 lpm NC; tl2 20:28 Body Mass Index 48.42 (136.08 kg, 167.64 cm) tl2 MDM: 20:27 Patient medically screened. [facility] 20:53 Data reviewed: vital signs, nurses notes, lab test result(s), EKG, radiologic studies, [facility] CT scan, plain films. 09/16 20:51 Order name: Basic Metabolic Panel [facility] 09/16 20:51 Order name: CBC with Diff [facility] 09/16 20:51 Order name: LFT's [facility] 09/16 20:51 Order name: Magnesium [facility] 09/16 20:51 Order name: NT PRO-BNP; Complete Time: 22:22 [facility] 09/16 20:51 Order name: PT-INR; Complete Time: 23:01 [facility] 09/16 20:51 Order name: Troponin (emerg Dept Use Only); Complete Time: 22:22 [facility] 09/16 20:51 Order name: Lipase; Complete Time: 22:22 [facility] 09/16 20:51 Order name: Blood Culture Adult (2) [facility] 09/16 20:51 Order name: Procalcitonin; Complete Time: 22:22 [facility] 09/16 20:51 Order name: Lactate; Complete Time: 23:01 [facility] 09/16 20:51 Order name: ABG; Complete Time: 22:22 [facility] 09/16 20:51 Order name: Urine Culture [facility] 09/16 20:52 Order name: Basic Metabolic Panel; Complete Time: 22:22 [facility] 09/16 20:51 Order name: XRAY Chest (1 view) [facility] 09/16 20:51 Order name: CT Traumagram (Head C Spine CAP wo con) [facility] 09/16 20:52 Order name: CBC with Automated Diff; Complete Time: 22:22 [facility] 09/16 20:52 Order name: Liver (Hepatic) Function; Complete Time: 22:22 [facility] 09/16 20:52 Order name: Magnesium; Complete Time: 22:22 [facility] 09/16 22:01 Order name: Manual Differential; Complete Time: 22:22 [facility] 09/16 22:23 Order name: CBC with Automated Diff [facility] 09/16 22:23 Order name: CBC with Automated Diff [facility] 09/16 22:23 Order name: Comprehensive Metabolic Panel [facility] 09/16 22:23 Order name: Comprehensive Metabolic Panel [facility] 09/16 23:44 Order name: Lactate [facility] 09/16 20:51 Order name: EKG; Complete Time: 20:53 [facility] 09/16 20:51 Order name: Cardiac monitoring; Complete Time: 20:54 [facility] 09/16 20:51 Order name: EKG - Nurse/Tech; Complete Time: 20:53 [facility] 09/16 20:51 Order name: IV Saline Lock; Complete Time: 22:55 [facility] 09/16 20:51 Order name: Labs collected and sent; Complete Time: 22:55 [facility] 09/16 20:51 Order name: O2 Per Protocol; Complete Time: 20:53 [facility] 09/16 20:51 Order name: O2 Sat Monitoring; Complete Time: 20:53 [facility] 09/16 20:51 Order name: Urine Dipstick-Ancillary (obtain specimen); Complete Time: 22:21 [facility] 09/16 22:23 Order name: CONS Pharmacy Consult [facility] 09/16 22:23 Order name: Renal [facility] Administered Medications: 21:59 Drug: NS 0.9% 1000 ml Route: IV; Rate: 125 ml/hr; Site: left [facility]; [facility] 09/17 00:13 Follow up: IV Status: Infusion continued upon admission [facility] 09/16 22:00 Drug: Thiamine 100 mg Route: IV; Rate: bolus; Site: left upper arm; tl2 22:30 Follow up: IV Status: Completed infusion; IV Intake: 200ml [facility] 23:06 Drug: Cefepime 2 grams Route: IVPB; Rate: 200 ml/hr; Infused Over: 30 mins; Site: left [facility] upper arm; 23:45 Follow up: IV Status: Completed infusion; IV Intake: 500ml 2 23:06 Drug: NS 0.9% 500 ml Route: IV; Rate: bolus; Site: left upper arm; tl2 23:46 Follow up: IV Status: Completed infusion; IV Intake: 500ml tl2 23:45 Drug: vancoMYCIN 1 grams Route: IVPB; Infused Over: 2 hrs; Site: left upper arm; tl2 09/17 00:12 Follow up: IV Status: Infusion continued upon admission tl2 Disposition: 09/16/18 21:27 Hospitalization ordered by Felix Haque for Inpatient Admission. Preliminary diagnosis are Altered mental status, unspecified, Weakness, Obesity, unspecified, Cystitis, Elevated white blood cell count, Unspecified kidney failure. - Bed requested for Telemetry/MedSurg (Inpatient). - Status is Inpatient Admission. tl2 - Condition is Fair. - Problem is new. - Symptoms have improved. UTI on Admission? Yes Signatures: Dispatcher [facility] Hallie Adrian RN RN mw Anderson, Corey, MD MD cha Knox, Taylor, RN RN tl2 Corrections: (The following items were deleted from the chart) 09/16 22:01 21:33 CBC Smear Scan ordered. [facility] EDDE 22:16 21:25 URINE DIPSTICK--ANCILLARY+U.LAB.BRZ ordered. [facility] EDDE 22:25 21:27 Hospitalization Ordered by Felix Haque MD for Inpatient Admission. Preliminary [facility] diagnosis is Altered mental status, unspecified; Weakness; Obesity, unspecified. Bed requested for Telemetry/MedSurg (Inpatient). Status is Inpatient Admission. Condition is Fair. Problem is new. Symptoms have improved. UTI on Admission? No. liana 22:32 22:25 09/16/2018 21:27 Hospitalization Ordered by Felix Haque MD for Inpatient Admission. Preliminary diagnosis is Altered mental status, unspecified; Weakness; Obesity, unspecified; Cystitis; Elevated white blood cell count; Unspecified kidney failure. Bed requested for Telemetry/MedSurg (Inpatient). Status is Inpatient Admission. Condition is Fair. Problem is new. Symptoms have improved. UTI on Admission? Yes. liana 09/17 00:14 09/16 22:32 09/16/2018 21:27 Hospitalization Ordered by Felix Haque MD for Inpatient tl2 Admission. Preliminary diagnosis is Altered mental status, unspecified; Weakness; Obesity, unspecified; Cystitis; Elevated white blood cell count; Unspecified kidney failure. Bed requested for Telemetry/MedSurg (Inpatient). Status is Inpatient Admission. Condition is Fair. Problem is new. Symptoms have improved. UTI on Admission? Yes. mw
[2018-09-16 21:41] LABS: Albumin 2.9 g/dL (3.4-5.0); Bilirubin Direct 0.3 mg/dL (0-0.2); Bilirubin Total 0.8 mg/dL (0.2-1.0); Magnesium 1.8 mg/dL (1.8-2.4); Potassium 3.9 mmol/L (3.5-5.1); Protein, Total 6.9 g/dL (6.4-8.2); Troponin (Emerg Dept Use Only) 0.04 ng/mL (0.0-0.045)
[2018-09-16 22:01] LABS: Anisocytosis SLIGHT; Blood Morphology Comment NOTED (NOT SEEN); Platelet Estimate ADEQ; Platelets, Giant FEW
[2018-09-16] MEDS ORDERED: THIAMINE 200 MG/2 ML INJ ONE (22:08)
[2018-09-16] MEDS ORDERED: NA CHLORIDE 0.9% 1,000 ML ONE (22:08)
[2018-09-16 22:16] LABS: Protime INR 1.39
[2018-09-16] MEDS ORDERED: ACETAMINOPHEN 500 MG TAB PO PRN (22:20)
[2018-09-16] MEDS ORDERED: ONDANSETRON 4 MG/2 ML VIAL IV PRN (22:20)
[2018-09-16] MEDS ORDERED: NA CHLORIDE 0.9% 100 ML IV ONE (23:13)
[2018-09-16] MEDS ORDERED: CEFEPIME 2 GM VIAL ONE (23:13)
[2018-09-16] MEDS ORDERED: VANCOMYCIN 1 GM/250 ML BAG ONE (23:14)
[2018-09-17] MEDS: MORPHINE 4 MG/ML SYR IV PRN ×3 (01:35→21:35)
[2018-09-17 05:00] LABS: Absolute Lymphocytes (CBC) 1.2 K/uL (0.7-4.9); Absolute Monocytes 0.8 K/uL (0.1-1.3); Absolute Neutrophil 14.9 K/uL (1.8-8.0); Basophils % 0.3 % (0-1.3); Eosinophils % 0.6 % (0-4.4); Hematocrit 41.9 % (36.0-45.0); Lymphocytes % 6.9 % (15.3-44.8); MPV 10.1 fL (7.6-11.3); Monocytes % 4.9 % (3.3-12.3); RBC Red Blood Cell Count 4.38 M/uL (3.86-4.86)
[2018-09-17 05:24] LABS: Albumin 2.7 g/dL (3.4-5.0); Bilirubin Total 0.9 mg/dL (0.2-1.0); Potassium 4.2 mmol/L (3.5-5.1); Protein, Total 6.3 g/dL (6.4-8.2)
[2018-09-17 06:52] LABS: Urine Appearance TURBID; Urine Bilirubin NEGATIVE (NEG); Urine Blood 3+ (NEG); Urine Color YELLOW; Urine Glucose NEGATIVE (NEG); Urine Protein TRACE (NEG); Urine Specific Gravity 1.015 (1.005-1.030); Urine Urobilinogen 0.2 mg/dL (0.2-1.0)
[2018-09-17 07:07] LABS: Urine Microscopic Reflex ORDER UMIC
[2018-09-17] MEDS ORDERED: LOPERAMIDE HCL 2 MG CAPSULE PO PRN (07:33)
[2018-09-17] MEDS ORDERED: NYSTATIN PWDR 100000 UNIT/GM TOP PRN (07:33)
[2018-09-17] MEDS ORDERED: DOUNEB IH PRN (07:33)
[2018-09-17] MEDS ORDERED: ALBUMIN HUMAN 25% 100 ML IV ONE (07:37)
[2018-09-17] MEDS ORDERED: HOME MED 1 EA UNK (Pregabalin [Lyrica] 100 MG) PO SCH (07:45)
--- NOTE | 2018-09-17 07:45 | EKG ---
Test Date: 2018-09-16 Test Time: 20:38:09 Reception Clerk: RAHAT MEASUREMENT RESULTS: Intervals: Rate: 88 UT: 160 QRSD: 142 QT: 416 QTc: 503 Bond: P: 60 UT: 160 QRS: -80 T: 82 INTERPRETIVE STATEMENTS: Normal sinus rhythm Left axis deviation Right bundle branch block Abnormal ECG Compared to ECG 08/02/2018 20:23:03 Left-axis deviation now present Sinus bradycardia no longer present Electronically Signed On 09-17-18 07:44:28 EXAMINING OFFICER by Bereket Mccoy
[2018-09-17] MEDS: CARVEDILOL 12.5 MG TAB PO SCH ×2 (08:00→21:34)
[2018-09-17 08:06] LABS: Urine Bacteria >50 /HPF (<20); Urine Culture Reflex Order REFLEXED; Urine Triple Phosphate Crystal FEW (NONE SEEN)
[2018-09-17] MEDS ORDERED: IPRATROPIUM BROM 0.5MG/2.5ML IH PRN (08:13)
[2018-09-17] MEDS ORDERED: ALBUTEROL 2.5 MG/3 ML NEB SOL NEB PRN (08:13)
[2018-09-17] MEDS: DOCUSATE NA 100 MG CAP PO SCH ×2 (08:23→21:34)
[2018-09-17] MEDS: predniSONE 20 MG TAB PO SCH (08:24)
[2018-09-17] MEDS: DULOXETINE 30 MG CAP PO SCH (08:24)
[2018-09-17] MEDS: FERROUS SULFATE 325 MG TAB PO SCH (08:24)
[2018-09-17] MEDS: POLYETHYL GLY 3350 17 GM/DOSE PO SCH (08:25)
[2018-09-17] MEDS: HYPROMELLOSE OP SCH ×2 (09:00→21:00)
[2018-09-17] MEDS ORDERED: HOME MED 1 EA UNK (Duloxetine Hcl [Duloxetine Hcl] 60 MG) PO SCH (09:00)
[2018-09-17] MEDS: DEXTRAN OP SCH ×2 (09:00→21:00)
[2018-09-17] MEDS ORDERED: LACTOBACILLUS ACIDOPHILUS PO SCH (09:00)
[2018-09-17] MEDS ORDERED: INSULIN DETEMIR 12 UNIT SQ SCH (09:00)
[2018-09-17] MEDS ORDERED: FOS PO SCH (09:00)
[2018-09-17] MEDS: PANTOPRAZOLE 40MG TABLET PO SCH (10:00)
[2018-09-17] MEDS: PREGABALIN 50 MG CAP PO SCH ×2 (10:08→21:34)
[2018-09-17] MEDS: LACTOBACILLUS/ACIDOPHILUS TAB PO SCH ×2 (10:08→21:34)
[2018-09-17] MEDS: FENTANYL 50 MCG/PATCH TD SCH (10:08)
[2018-09-17] MEDS: RIVAROXABAN 10 MG TABLET PO SCH (10:08)
[2018-09-17] MEDS: CYANOCOBALAMIN 1,000 MCG TAB PO SCH (10:09)
[2018-09-17] MEDS: PROMOD 30 ML DOSE PO SCH ×2 (10:09→21:35)
[2018-09-17] MEDS: INSULIN GLARGINE 100 UNITS/ML SQ SCH ×2 (10:09→21:35)
--- NOTE | 2018-09-17 11:14 | P.HP ---
Certification for Inpatient Patient admitted to: Inpatient With expected LOS: >2 Midnights Patient will require the following post-hospital care: Retirement Practitioner: I am a practitioner with admitting privileges, knowledge of patient current condition, hospital course, and medical plan of care. Services: Services provided to patient in accordance with Admission requirements found in Title 42 Section 412.3 of the Code of Federal Regulations Patient History Date of Service: 09/16/18 Reason for admission: Altered mental status History of Present Illness: Patient is a 73-year-old female who has a history of guillain-barre syndrome, rheumatoid arthritis, chronic renal failure, volume overload, who presents to the hospital with altered mental status. Patient has been confused for the last 12 hrs. Her symptoms worsened over the last 3-4 days. Patient was volume overloaded and was diuresed. Her renal function has worsened and she is uremic. She may have underlying uremia with encephalopathy. She will be admitted to the hospital for further workup. Patient has significant fluid overload with decreased muscle mass. Patient's GFR is probably overestimated because of patient's body weight. I believe most of her body weight is fluid. She has recurring issues with fluid overload. Will consult Nephrology for further plan of care. Allergies Penicillins Allergy (Mild, Verified 09/17/18 01:12) Rash sulfamethoxazole [From Bactrim] Allergy (Mild, Verified 09/17/18 01:12) Rash trimethoprim [From Bactrim] Allergy (Mild, Verified 09/17/18 01:12) Rash Sulfa (Sulfonamide Antibiotics) Allergy (Verified 09/17/18 01:12) Itching/Hives/Rash Flu vaccine Allergy (Severe, Uncoded 08/03/18 05:58) [place] Home Medications: Alprazolam [Xanax] 0.25 mg PO DAILY PRN 09/17/18 Amlodipine Besylate 5 mg PO DAILY 09/17/18 Carvedilol [Coreg] 25 mg PO BID 09/17/18 Cyanocobalamin [Vitamin B-12] 1,000 mcg PO DAILY 09/17/18 Dextran 70/Hypromellose [Artificial Tears Drops] 1 drop OP BID 09/17/18 Docusate Sodium 100 mg PO BID 09/17/18 Douneb Solution 1 dose IH Q4H PRN 09/17/18 Duloxetine HCl 60 mg PO DAILY 09/17/18 Fentanyl [Duragesic] 1 each TD EVERY 3RD DAY 09/17/18 Ferrous Sulfate 325 mg PO DAILY 09/17/18 Furosemide [Lasix] 2 tab PO DAILY 09/17/18 [place] Suspension 30 ml PO Q4HP PRN 09/17/18 Hydrocodone/Acetaminophen [[place] 10-325 Tablet] 1 each PO Q4H PRN 09/17/18 Insulin Aspart [Novolog] 0 unit SQ SEECOM 09/17/18 Insulin Detemir [Levemir] 25 units SQ BEDTIME 09/17/18 Insulin Detemir [Levemir] 25 units SQ DAILY 09/17/18 Lactobacillus Acidophilus/Fos [Acidophilus Probiotic Tablet] 1 each PO BID 09/17 Levothyroxine [Synthroid] 125 mcg PO [id number] 09/17/18 Loperamide [Imodium] 2 mg PO Q8H PRN 09/17/18 Multivitamin with Minerals [Multivitamins with Minerals] 1 each PO DAILY Nitroglycerin 0.4 mg SL SEECOM PRN 09/17/18 Nystatin Powder [Mycostatin (Powder)*] 1 appl TOP Q12H PRN 09/17/18 Oxybutynin Chloride [Ditropan Xl] 10 mg PO Q12H 09/17/18 Pantoprazole Sodium [Protonix] 40 mg PO DAILY 09/17/18 Polyethyl Gly 3350 [Glycolax] 17 gm PO DAILY 09/17/18 Potassium Chloride [Klor-Con M20] 2 tab PO DAILY 09/17/18 Pregabalin [Lyrica] 100 mg PO Q12H 09/17/18 Protein Supplement [Promod] 30 ml PO BID 09/17/18 Rivaroxaban [Xarelto] 10 mg PO DAILY 09/17/18 Spironolactone [Aldactone] 25 mg PO DAILY 09/17/18 Temazepam [Restoril] 30 mg PO BEDTIME PRN 09/17/18 metOLazone [Zaroxolyn] 2.5 mg PO SEECOM 09/17/18 predniSONE [Deltasone] 20 mg PO DAILY 09/17/18 - Past Medical/Surgical History Has patient received pneumonia vaccine in the past: Yes Diabetic: Yes -: Coronary artery disease. -: Congestive heart failure -: Spinal Stenosis -: Neuropathy -: HTN -: Hypothyroid -: COPD -: [place] -[place] syndrome -: History of DVT rt leg -: cellulitis bilat legs required shelter antibiotics -: Hyperlipidemia -: Hyperlipidemia, cholecystecomy, hysterectomy -: Cholecystectomy, 1989 -: Hysterectomy, 1964 -: gland removed from throat, -: cataract Surgery, 1999 -: Three heart stents (2 in 2011) -: Tonsillectomy -: Appendectomy Psychosocial/ Personal History: She lives at long-term. - Family History Brother Medical History: Heart disease, Hypertension Father Medical History: Heart disease, Hypertension Notes: heart attack - Social History Smoking Status: Former smoker Alcohol use: No CD- Drugs: No Caffeine use: Yes Place of Residence: Jail Review of Systems is unable to be obtained Physical Examination - Vital Signs Temperature: 97.4 F Blood Pressure: 92/52 Pulse: 71 Respirations: 18 Pulse Ox (%): 97 - Physical Exam General: Alert, Confused HEENT: Atraumatic, PERRLA, Mucous membr. moist/pink, EOMI, Sclerae nonicteric Neck: Supple, 2+ carotid pulse no bruit, No LAD, Without JVD or thyroid abnormality Respiratory: Clear to auscultation bilaterally, Normal air movement Cardiovascular: Regular rate/rhythm, Normal S1 S2, Systolic murmur Gastrointestinal: Normal bowel sounds, Soft and benign, Non-distended, No tenderness Musculoskeletal: No tenderness Integumentary: No rashes Neurological: Normal speech, Sensation intact, Cranial nerves 3-12 intact, Normal affect, Abnormal gait, Abnormal strength Lymphatics: No axilla or inguinal lymphadenopathy - Studies Laboratory Data (last 24 hrs) 09/16/18 21:50: PT 16.4 H, INR 1.39 09/16/18 21:05: WBC 16.2 H, Hgb 14.6, Hct 44.5, Plt Count 180 09/16/18 21:05: Sodium 136, Potassium 3.9, BUN 66 H, Creatinine 1.70 H, Glucose 156 H, Magnesium 1.8 D, Total Bilirubin 0.8, AST 40 H, ALT 46, Alkaline Phosphatase 105, Lipase 64 L Assessment & Plan - Problems (Diagnosis) (1) Anasarca Current Visit: Yes Status: Acute (2) Guillain Robin syndrome Current Visit: Yes Status: Acute (3) Acute kidney injury superimposed on chronic kidney disease Current Visit: Yes Status: Acute (4) Altered mental status Current Visit: No Status: Acute (5) CAD (coronary artery disease) Onset Date: 04/20/17 Current Visit: No Status: Chronic Qualifiers: Coronary Disease-Associated Artery/Lesion type: [place] artery [place] vs. transplanted heart: [place] heart Associated angina: with stable angina Qualified Code(s): I25.118 - Atherosclerotic heart disease of [place] coronary artery with other forms of angina pectoris (6) COPD (chronic obstructive pulmonary disease) Onset Date: 04/20/17 Current Visit: No Status: Chronic Qualifiers: COPD type: COPD with acute exacerbation Qualified Code(s): J44.1 - Chronic obstructive pulmonary disease with (acute) exacerbation (7) Hypothyroidism Onset Date: 04/20/17 Current Visit: No Status: Chronic Qualifiers: Hypothyroidism type: acquired Qualified Code(s): E03.9 - Hypothyroidism, unspecified (8) Lymphedema Onset Date: 12/13/17 Current Visit: No Status: Chronic (9) Obesity Onset Date: 05/31/17 Current Visit: No Status: Chronic Qualifiers: Obesity type: due to excess calories Obesity classification: adult class 3 (BMI >= 40) Serious obesity comorbidity presence: with serious comorbidity Body mass index: BMI 40.0-44.9 Qualified Code(s): E66.01 - Morbid (severe) obesity due to excess calories; Z68.41 - Body mass index (BMI) 40.0-44.9, adult ; Z68.41 - Body mass index (BMI) 40.0-44.9, adult; Z68.41 - Body mass index (BMI ) 40.0-44.9, adult; Z68.41 - Body mass index (BMI) 40.0-44.9, adult (10) Rheumatoid arthritis RA Onset Date: 04/20/17 Current Visit: No Status: Chronic - Plan Plan: 1. Gently diurese 2. Nephrology consultation 3. evaluate renal function- patient with generalized anasarca. She needs to be managed aggressively to get the excessive fluid off of her. her long-term prognosis is poor otherwise going to be poor. Hopefully nephrology will be able to assist in managing her fluid overload status. 4. leukocytosis with possible underlying infection. Will consult ID 5. strict blood pressure and blood sugar control 6. GI and DVT prophylaxis Discharge Plan: Jail Plan to discharge in: Greater than 2 days - Advance Directives Does patient have a Living Will: No Does patient have a Durable POA for Healthcare: No - Code Status/Comfort Care Code Status Assessed: Yes Code Status: Full Code Critical Care: No Time Spent Managing PTS Care (In Minutes): 50
[2018-09-17] MEDS: Levofloxacin500mg IV 500 MG/100 ML BAG IV SCH (14:16)
[2018-09-17] MEDS: ALBUMIN HUMAN 25% 12.5 GM, FUROSEMIDE 100 MG in NA CHLORIDE 0.9% 40 ML IV SCH (15:42)
--- NOTE | 2018-09-17 15:50 | CON ---
Date of Consultation: 09/17/2018 NEPHROLOGY CONSULTATION Additional Consulting Physician: Felix Haque MD Reason For Consultation: Anasarca, elevated BUN and creatinine. History Of Present Illness: This is a pleasant 73-year-old female, well known to me from previous ad mission with significant past medical history of hypertension, hyperlipidemia, Guillain-Ceiba syndrom e, and COPD. The patient unknown of any cardiac history before. The patient said that she has diabe uday, spinal stenosis. The patient came to the hospital because of having anasarca, increase in the l eg swelling and altered mental status with confusion for the last few hours. Primary workup showed e levation in BUN and creatinine. For that reason, we have been consulted. Reviewing the record from the jail, the patient is being on Xanax and Lasix with spironolactone and metolazone, but miriam arently poor response. There is no mention for any nonsteroid or any CLAUS inhibitor. There is no report of any IV contrast. Upon presentation, the patient's creatinine was elevated to 1.7. The patient's baseline creatinine is normal early August 2018 with normal GFR of 58. Over the night, the patient was started on diure sis and albumin to mobilize third space. Kidney function stayed the same. Blood pressure, no signif icant elevation and it is not on the lower side. Echocardiogram has been done, did not show any dedrick estive heart failure. Past Medical History: Includes, 1.Coronary artery disease, complicated with questionable diastolic congestive heart failure, ejectio n fraction of 51. 2.Spinal stenosis. 3.Guillain-Ceiba. 4.Hypertension. 5.Hypothyroidism. 6.Decubitus ulcer. 7.Previous acute kidney injury back in August 2017. Past Surgical History: Include tonsillectomy, appendectomy, cataract surgery, and cholecystectomy. Family History: Positive for hypertension and coronary artery disease. Social History: Lives in jail. Ex-smoker. Denied alcohol. Home Medications: Include alprazolam, amlodipine, carvedilol, docusate, fentanyl, Lasix 80 daily, hy drocodone, insulin, loperamide, levothyroxine, oxybutynin, KCl, spironolactone, metolazone, temazepam , and prednisone. Review of Systems: Head and Neck: No red eye. No ear pain. GI: No nausea, no vomiting. : No polyuria, no dysuria, no hematuria. 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 Respiratory: Has shortness of breath. Cardiovascular: Has anasarca. Endocrine: No polydipsia. Skin: No rash. Neuro: Has Guillain-Ceiba, bed bound. Musculoskeletal: Has weakness. Skin: No rash. Physical Examination: Vital Signs: When I saw the patient, blood pressure on presentation was down to 92/52, currently 157 /60, pulse of 75, afebrile. Chest: Decreased entry bilateral base. Heart: S1 and S2. Regular rhythm. Systolic murmur. Abdomen: Soft, nontender. Extremities: +2 edema. Laboratory Data: Sodium 136, potassium 4.2, bicarb 32, BUN 71, creatinine 1.7, and calcium 8.7. Current Medications: In the hospital include, 1.Albuterol. 2.Ferrous sulfate. 3.Carvedilol 12.5. 4.Tylenol. 5.Fentanyl. 6.Lyrica. 7.Loperamide. 8.Pantoprazole. 9.Levothyroxine. 10.Prednisone. 11.Insulin. 12.Vitamin C. Assessment And Plan: 1.Anasarca, possible multifactorial secondary to diastolic congestive heart failure, cardiorenal, co r pulmonale. I am going to go ahead and place the patient on fluid restriction. Start the patient o n Lasix with albumin and we will monitor the patient. I am going to send for protein creatinine and TSH. 2.Acute kidney injury, mostly secondary to prerenal secondary to low blood pressure. Hold all blood pressure medication, except Lasix to establish better volume control. 3.Hypokalemia, resolved with acute kidney injury. I am going to hold on any potassium supplement. 4.Altered mental status, possible encephalopathy, metabolic secondary to the mild urinary tract infe ction. We will start the patient on antibiotic and we will follow up the culture. Thank you, Dr. Haque for allowing us to participate in the care of your patient. JULIEN/MISSY Voice ID: [id number] Report ID: [id number]
[2018-09-17 16:19] LABS: Urine Protein/Creatinine Ratio 0.76 ratio (<0.15)
--- NOTE | 2018-09-17 20:36 | RAD REPORT ---
EXAM DESCRIPTION: US - Renal Ultrasound-Complete - 09/17/2018 8:26 pm CLINICAL HISTORY: Acute kidney injury COMPARISON: None. FINDINGS: The right kidney measures 9.5 x 4.8 x 4.4 cm. The left kidney measures 9.7 x 3.8 x 5.9 cm . Cortical thickness is normal. Echogenicity cannot be accurately assessed. Large body habitus result s in increased echogenicity. This cannot be distinguished from medical renal disease. No hydronephrosis or suspicious renal mass. Bladder was obscured. IMPRESSION: No hydronephrosis or suspicious renal mass. Medical renal disease cannot be accurately assessed due to large body habitus.
[2018-09-17] MEDS ORDERED: HOME MED 1 EA UNK (Insulin Detemir [Levemir] 25 UNITS) SQ SCH (21:00)
[2018-09-18] MEDS: ALBUMIN HUMAN 25% 12.5 GM, FUROSEMIDE 100 MG in NA CHLORIDE 0.9% 40 ML IV SCH ×2 (02:24→11:00)
[2018-09-18 05:26] LABS: Albumin 3.1 g/dL (3.4-5.0); Magnesium 2.1 mg/dL (1.8-2.4); Phosphorus 4.2 mg/dL (2.5-4.9); Potassium 3.6 mmol/L (3.5-5.1); Thyroid Stimulating Hormone 0.224 uIU/mL (0.360-3.740)
[2018-09-18] MEDS: LEVOTHYROXINE SOD 0.125 MG TAB PO SCH (06:17)
[2018-09-18] MEDS: MORPHINE 4 MG/ML SYR IV PRN (06:17)
[2018-09-18] MEDS: PANTOPRAZOLE 40MG TABLET PO SCH (06:17)
[2018-09-18] MEDS: DEXTRAN OP SCH ×2 (09:00→20:50)
[2018-09-18] MEDS: PROMOD 30 ML DOSE PO SCH ×2 (09:00→20:53)
[2018-09-18] MEDS: CARVEDILOL 12.5 MG TAB PO SCH (09:00)
[2018-09-18] MEDS: HYPROMELLOSE OP SCH ×2 (09:00→20:50)
[2018-09-18] MEDS: CYANOCOBALAMIN 1,000 MCG TAB PO SCH (09:43)
[2018-09-18] MEDS: DOCUSATE NA 100 MG CAP PO SCH ×2 (09:43→20:49)
[2018-09-18] MEDS: predniSONE 20 MG TAB PO SCH (09:44)
[2018-09-18] MEDS: FERROUS SULFATE 325 MG TAB PO SCH (09:44)
[2018-09-18] MEDS: RIVAROXABAN 10 MG TABLET PO SCH (09:44)
[2018-09-18] MEDS: LACTOBACILLUS/ACIDOPHILUS TAB PO SCH ×2 (09:44→20:49)
[2018-09-18] MEDS: POLYETHYL GLY 3350 17 GM/DOSE PO SCH (09:45)
[2018-09-18] MEDS: DULOXETINE 30 MG CAP PO SCH (09:45)
[2018-09-18] MEDS: PREGABALIN 50 MG CAP PO SCH ×2 (09:46→20:49)
[2018-09-18] MEDS: INSULIN GLARGINE 100 UNITS/ML SQ SCH ×2 (09:46→20:50)
--- NOTE | 2018-09-18 11:57 | PN ---
Date of Progress Note: 09/18/2018 Subjective: The patient is doing better. The patient appears to be responding to diuresis very well . Physical Examination: Vital Signs: Blood pressure 95/54, pulse of 67. The patient had urine output of 2300, negative of 8 00. Chest: Decreased entry bilateral base. Heart: S1, S2. Regular. Abdomen: Soft, nontender. Extremities: Trace edema much better than yesterday with wrinkle all over. Has venous stasis sign. Neurologic: Alert and oriented. Laboratory Data: WBC 17, H and H 13.9/41.9, platelet 148. Sodium 136, potassium 3.6, bicarb 36, BUN 75, creatinine down to 1.6, GFR up to 30, phosphorus 4.2, calcium 9.2, albumin 3.1. PTH 145. TSH 2 .24. Protein creatinine 0.7. ABG; pH 7.4, CO2 of 46, O2 of 94, T-sat of 91. Renal ultrasound has b een done and showing 9.5 x 9.7 without any hydronephrosis. Assessment And Plan: 1.Acute kidney injury, proteinuric, nonnephrotic, with normal size kidney, secondary to prerenal/car diorenal/poor perfusion, acute tubular necrosis secondary to low blood pressure. I am going to keep holding all blood pressure medications. We will utilize blood pressure for more diuresis. 2.I am going to switch the patient to Lasix b.i.d. IV and we will monitor. 3.Hypertension, anasarca. I am going to discontinue all blood pressure medications except the Lasix to utilize it for diuresis. We will decrease carvedilol to 3.125 to avoid further hypotension. 4.Anasarca, multifactorial, cardiorenal, secondary to malnourished, venous stasis. Responding very well to Lasix drip. I am going to go ahead and discontinue Lasix drip after finishing this bag, then we will switch her to Lasix IV b.i.d. and we will monitor. 5.Secondary hyperpara secondary to renal failure. Calcium and phosphorus on the goal. We will foll ow up vitamin D. I do not see the need to initiate vitamin D analogue right now. 6.Encephalopathy, resolved. 7.Urinary tract infection. Continue current antibiotic. We will follow up culture. JULIEN/MODL Voice ID: [id number] Report ID: [id number]
[2018-09-18] MEDS: CARVEDILOL 3.125 MG TAB PO SCH ×2 (12:00→20:52)
[2018-09-18] MEDS ORDERED: GLUCAGON 1 MG/VIAL IM PRN (12:35)
[2018-09-18] MEDS ORDERED: D50W 25 GM/50 ML SYRINGE IV PRN (12:35)
--- NOTE | 2018-09-18 12:38 | P.PN ---
Subjective Date of Service: 09/18/18 Chief Complaint: Altered mental status Subjective: Improving Patient seen and examined at bedside. In no acute distress, deciding on what to order for lunch. Review of Systems 10-point ROS is otherwise unremarkable Physical Examination - Vital Signs Temperature: 96.7 F Blood Pressure: 127/51 Pulse: 67 Respirations: 18 Pulse Ox (%): 95 - Physical Exam General: Alert, In no apparent distress, Oriented x3, Obese HEENT: Atraumatic, PERRLA, EOMI Neck: Supple, JVD not distended Respiratory: Clear to auscultation bilaterally, Normal air movement Cardiovascular: Regular rate/rhythm, Normal S1 S2 Gastrointestinal: Normal bowel sounds, No tenderness Musculoskeletal: No tenderness Integumentary: No rashes Neurological: Normal speech, Normal tone, Normal affect Lymphatics: No axilla or inguinal lymphadenopathy Assessment And Plan - Plan (1) Anasarca Current Visit: Yes Status: Acute (2) Guillain Robin syndrome Current Visit: Yes Status: Acute (3) Acute kidney injury superimposed on chronic kidney disease Current Visit: Yes Status: Acute (4) Altered mental status Current Visit: No Status: Acute (5) CAD (coronary artery disease) Onset Date: 04/20/17 Current Visit: No Status: Chronic Qualifiers: Coronary Disease-Associated Artery/Lesion type: [place] artery [place] vs. transplanted heart: [place] heart Associated angina: with stable angina Qualified Code(s): I25.118 - Atherosclerotic heart disease of [place] coronary artery with other forms of angina pectoris (6) COPD (chronic obstructive pulmonary disease) Onset Date: 04/20/17 Current Visit: No Status: Chronic Qualifiers: COPD type: COPD with acute exacerbation Qualified Code(s): J44.1 - Chronic obstructive pulmonary disease with (acute) exacerbation (7) Hypothyroidism Onset Date: 04/20/17 Current Visit: No Status: Chronic Qualifiers: Hypothyroidism type: acquired Qualified Code(s): E03.9 - Hypothyroidism, unspecified (8) Lymphedema Onset Date: 12/13/17 Current Visit: No Status: Chronic (9) Obesity Onset Date: 05/31/17 Current Visit: No Status: Chronic Qualifiers: Obesity type: due to excess calories Obesity classification: adult class 3 (BMI >= 40) Serious obesity comorbidity presence: with serious comorbidity Body mass index: BMI 40.0-44.9 Qualified Code(s): E66.01 - Morbid (severe) obesity due to excess calories; Z68.41 - Body mass index (BMI) 40.0-44.9, adult ; Z68.41 - Body mass index (BMI) 40.0-44.9, adult; Z68.41 - Body mass index (BMI ) 40.0-44.9, adult; Z68.41 - Body mass index (BMI) 40.0-44.9, adult (10) Rheumatoid arthritis RA Onset Date: 04/20/17 Current Visit: No Status: Chronic Plan: AMARILYS improving. Nephrology consultation, Recommendations appreciated. Plan to discontinue lasix drip today and switch to lasix IV BID, per nephro. UTI - pending urine cultures. continue IV antibiotics. Strict blood pressure and sugar control. Accuchecks and sliding scale ordered. Mentation back to baseline GI and DVT prophylaxis Discharge Plan: [facility]
[2018-09-18] MEDS: Levofloxacin500mg IV 500 MG/100 ML BAG IV SCH (13:31)
[2018-09-18] MEDS: INSULIN -REGULAR HUMAN 50 UNIT/0.5 ML ML SQ SCH ×3 (13:32→20:51)
[2018-09-18] MEDS: FUROSEMIDE 40 MG/4 ML VIAL IV SCH (16:46)
[2018-09-18] MEDS ORDERED: HOME MED 1 EA UNK (Fentanyl [Duragesic] 1 EACH) TD SCH (17:00)
[2018-09-19] MEDS: MORPHINE 4 MG/ML SYR IV PRN ×2 (04:10→21:30)
[2018-09-19] MEDS: LEVOTHYROXINE SOD 0.125 MG TAB PO SCH (05:29)
[2018-09-19 06:25] LABS: Albumin 3.1 g/dL (3.4-5.0); Magnesium 2.2 mg/dL (1.8-2.4); Phosphorus 3.8 mg/dL (2.5-4.9); Potassium 3.4 mmol/L (3.5-5.1)
[2018-09-19] MEDS: INSULIN -REGULAR HUMAN 50 UNIT/0.5 ML ML SQ SCH ×4 (07:30→21:08)
[2018-09-19] MEDS: PROMOD 30 ML DOSE PO SCH ×2 (09:00→21:12)
[2018-09-19] MEDS: PREGABALIN 50 MG CAP PO SCH ×2 (09:00→21:19)
[2018-09-19] MEDS: INSULIN GLARGINE 100 UNITS/ML SQ SCH ×2 (09:00→21:11)
[2018-09-19] MEDS: DEXTRAN OP SCH ×2 (09:00→21:00)
[2018-09-19] MEDS: HYPROMELLOSE OP SCH ×2 (09:00→21:00)
[2018-09-19] MEDS: CARVEDILOL 3.125 MG TAB PO SCH ×2 (09:28→21:06)
[2018-09-19] MEDS: DOCUSATE NA 100 MG CAP PO SCH ×2 (09:28→21:06)
[2018-09-19] MEDS: RIVAROXABAN 10 MG TABLET PO SCH (09:28)
[2018-09-19] MEDS: PANTOPRAZOLE 40MG TABLET PO SCH (09:28)
[2018-09-19] MEDS: DULOXETINE 30 MG CAP PO SCH (09:29)
[2018-09-19] MEDS: CYANOCOBALAMIN 1,000 MCG TAB PO SCH (09:29)
[2018-09-19] MEDS: predniSONE 20 MG TAB PO SCH (09:30)
[2018-09-19] MEDS: FUROSEMIDE 40 MG/4 ML VIAL IV SCH ×2 (09:30→18:13)
[2018-09-19] MEDS: LACTOBACILLUS/ACIDOPHILUS TAB PO SCH ×2 (09:30→21:06)
[2018-09-19] MEDS: FERROUS SULFATE 325 MG TAB PO SCH (09:30)
[2018-09-19] MEDS: POLYETHYL GLY 3350 17 GM/DOSE PO SCH (09:31)
--- NOTE | 2018-09-19 09:39 | RAD REPORT ---
EXAM DESCRIPTION: RAD - Chest Single View CLINICAL HISTORY: Cough; COPD. COMPARISON: None. FINDINGS: The heart size is mildly enlarged. Query mild atelectasis at the left lung base. No large pleural effusions of pneumothorax. Partially visualized fixation hardware in the lower cervical spine . IMPRESSION: No evidence of acute cardiopulmonary disease. Electronically signed by: Den Lim MD 09/16/2018 11:55 PM [employer] Due to temporary technical issues with the PACS/Fluency reporting system, reports are being signed by the in house radiologist as a courtesy to ensure prompt reporting. The interpreting radiologist is f ully responsible for the content of the report.
--- NOTE | 2018-09-19 11:16 | RAD REPORT ---
EXAM DESCRIPTION: CT - Head C Spine Cap Wo Con CLINICAL HISTORY: 73 years Female PAIN. COMPARISON: None. TECHNIQUE: Images obtained in axial, sagittal, and coronal planes. No oral or intravenous contrast was administe red. This exam was performed according to our departmental dose-optimization program, which includes autom ated exposure control, adjustment of the mA and/or kV according to patient size and/or less of iterat ashish reconstruction technique. FINDINGS: CT scan brain: Ventricular system is enlarged. Moderate prominence of the cortical sulci. No abnormal areas of increased or decreased attenuation present. No extra-axial fluid collections not ed. No evidence for skull fracture. Symmetric aeration of mastoid air cells bilaterally. Unremarkable par anasal sinuses. CT scan of the cervical Spine: Height of the vertebral bodies is intact. Metallic fixation posteriorly extending from C3 to C6. Sati sfactory alignment and articular facets. Resection spinous processes C3-C5. Straightening cervical sp ine. No acute fractures seen. Intact odontoid and predental space. Prevertebral soft tissue swelling versis fatty deposition. Intac t ring C1. Intact occipital condyles. CT scan chest: No aortic dilatation. No pericardial effusion or adenopathy. Coronary artery calcification. No pneumothorax. Airspace attentuation lower lobes bilaterally likely atelectatic changes. Trace bila teral pleural effusions. Compression fracture of indeterminate age T12. No sternal fracture. Moderately severe multilevel oste oarthritic change thoracic spine. CAT scan abdomen and pelvis: No abnormality involving with liver. Calcified granuloma involving the. Fatty change involving the pa ncreas. Unremarkable adrenal glands bilaterally. Cholecystectomy. No obstructing renal calcifications bilaterally. No hydronephrosis bilaterally. Bladder is decompress ed. Calcification abdominal aorta without dilatation seen. No adenopathy or abnormal fluid collections no hailey. Appendix within normal limits. No bowel obstruction, perforation, or inflammation. Marked constipatio n. IMPRESSION: No acute intracranial abnormality. No evidence for hemorrhage, mass lesion, or large acu te infarction. Age-appropriate changes. Extensive postsurgical change C3-C6. No acute fracture or subluxation involving the cervical spine. P revertebral soft tissue swelling versus fatty deposition. Atelectatic change is contusion or less likely infiltrate lower lobes bilaterally. Compression fractu re of indeterminate age T12. Otherwise no acute intrathoracic abnormality. No acute intra-abdominal abnormality. No evidence for polo organ laceration. Electronically signed by: Yolanda Khalil MD 09/16/2018 10:19 PM [employer] Due to temporary technical issues with the PACS/Fluency reporting system, reports are being signed by the in house radiologist as a courtesy to ensure prompt reporting. The interpreting radiologist is f ully responsible for the content of the report.
[2018-09-19] MEDS: Levofloxacin500mg IV 500 MG/100 ML BAG IV SCH (14:00)
--- NOTE | 2018-09-19 16:53 | P.PN ---
Subjective Date of Service: 09/19/18 Primary Care Provider: jail Chief Complaint: Altered mental status Subjective: Improving Physical Examination - Vital Signs Temperature: 97.3 F Blood Pressure: 132/68 Pulse: 103 Respirations: 18 Pulse Ox (%): 98 - Physical Exam General: Alert, In no apparent distress, Oriented x3, Cooperative HEENT: Atraumatic Neck: Supple Respiratory: Clear to auscultation bilaterally, Normal air movement Cardiovascular: Normal pulses, Regular rate/rhythm Gastrointestinal: Normal bowel sounds, Soft and benign, Non-distended, No tenderness, No masses, No rebound, No guarding Neurological: Normal affect - Studies Microbiology Data (last 24 hrs): 09/16/18 21:05 Blood - Blood Aerobic Blood Culture - Final Escherichia Coli 09/16/18 21:05 Blood - Blood Gram Stain - Final Medications List Reviewed: Yes Assessment & Plan Discharge Plan: [facility] Plan to discharge in: 48 Hours Physician Review Additional Text: Impression: Altered mental status likely secondary to toxic encephalopathy with bacteremia, blood culture positive for E coli and wound culture positive for Pseudomonas Acute on chronic renal failure, stage III CAD COPD Hypothyroidism Diabetes mellitus type 2, insulin dependent: Chronic lymphedema Rheumatoid arthritis Obesity, BMI 44.4 Plan: Altered mental status likely secondary to toxic encephalopathy with bacteremia, blood culture positive for E coli and wound culture positive for Pseudomonas: Will transition IV antibiotic therapy to meropenem. Patient reports no significant allergy to penicillin. Patient has taken meropenem in the past. Will start meropenem. Will consult infectious disease for further recommendation. Await recommendations. Patient will require a PICC line. Acute on chronic renal failure, stage III: Continue with IV fluids. Continue with nephrology recommendation. CAD: Continue medication. COPD: Continue medication. Maintain sats above 90%. Hypothyroidism: Continue medication. Chronic lymphedema: Continue medication. Rheumatoid arthritis: Stable. Diabetes mellitus type 2, insulin dependent: Continue medication. Obesity, BMI 44.4 Anasarca with acute on chronic Time Spent Managing Pts Care (In Minutes): 55
[2018-09-19] MEDS ORDERED: Meropenem 500 MG VIAL IV SCH (21:00)
[2018-09-19] MEDS: Meropenem 500 MG in NA CHLORIDE 0.9% 100 ML IV SCH (21:06)
--- NOTE | 2018-09-20 03:31 | PN ---
Date of Progress Note: 09/19/2018 Chief Complaint: Acute kidney injury, nonoliguric, moderately severe, associated with a nonnephrotic range proteinuria. Renal function has not improved significantly since yesterday. The patient has mild proteinuria. Protein creatinine ratio is 0.7. Acute kidney injury is due to cardiorenal syndro me and renal hypoperfusion. The patient has fluid overload. She is responding to Lasix. Review of Systems: Denies fever, chills. Physical Examination: Lungs: Crackles at bases. Heart S1, S2. No pericardial friction rub. Abdomen: Soft, benign, nontender. Extremities: Edema present in both legs. Laboratory Work: WBC 44799. Sodium 136, potassium 3.6, bicarbonate 36, BUN 74, and creatinine is 1. 6. Protein creatinine ratio 0.7. Today's lab work showed; sodium 136, potassium 3.4, chloride 93, CO2 36, BUN 70, and creatinine 1.42, glucose 131, magnesium 2.2, phosphorus 3.8, and calcium 9.7. Impression And Plan: 1.Acute on chronic kidney injury, cardiorenal syndrome. The patient is responding to diuretics. Re nal function is somewhat improving, although there is persistent high BUN to creatinine ratio corresp onding with prerenal azotemia cardiorenal syndrome. 2.Fluid overload, anasarca. Continue Lasix. Monitor electrolytes. 3.Hypokalemia, mild, replacement as needed. 4.Secondary hyperparathyroidism due to renal failure. Calcium and phosphorus level needs to be aviva ected to goal target range. 5.Follow up on vitamin D and replace as needed. Monitor vitamin D level. 6.Urinary tract infection. Continue current antibiotic. EB/MODL Voice ID: [id number] Report ID: [id number]
[2018-09-20] MEDS: LEVOTHYROXINE SOD 0.125 MG TAB PO SCH (05:37)
[2018-09-20 06:29] LABS: Absolute Lymphocytes (CBC) 1.3 K/uL (0.7-4.9); Absolute Monocytes 0.8 K/uL (0.1-1.3); Absolute Neutrophil 4.9 K/uL (1.8-8.0); Basophils % 0.1 % (0-1.3); Eosinophils % 0.7 % (0-4.4); Hematocrit 38.8 % (36.0-45.0); MPV 9.7 fL (7.6-11.3); Monocytes % 11.2 % (3.3-12.3); RBC Red Blood Cell Count 4.15 M/uL (3.86-4.86)
[2018-09-20 06:53] LABS: Albumin 3.1 g/dL (3.4-5.0); Magnesium 1.7 mg/dL (1.8-2.4); Phosphorus 2.9 mg/dL (2.5-4.9); Potassium 3.1 mmol/L (3.5-5.1)
[2018-09-20] MEDS: PANTOPRAZOLE 40MG TABLET PO SCH (07:30)
[2018-09-20] MEDS: INSULIN -REGULAR HUMAN 50 UNIT/0.5 ML ML SQ SCH ×4 (07:30→22:54)
[2018-09-20] MEDS: predniSONE 20 MG TAB PO SCH (09:00)
[2018-09-20] MEDS: PREGABALIN 50 MG CAP PO SCH ×2 (09:00→22:56)
[2018-09-20] MEDS: DEXTRAN OP SCH ×2 (09:00→21:00)
[2018-09-20] MEDS: DULOXETINE 30 MG CAP PO SCH (09:00)
[2018-09-20] MEDS: PROMOD 30 ML DOSE PO SCH ×2 (09:00→21:00)
[2018-09-20] MEDS: HYPROMELLOSE OP SCH ×2 (09:00→21:00)
[2018-09-20] MEDS ORDERED: MAGNESIUM SULFATE 1 gm IVPB 1 GM/100 ML BAG IV ONE (09:00)
[2018-09-20] MEDS: Meropenem 500 MG in NA CHLORIDE 0.9% 100 ML IV SCH (09:00)
[2018-09-20] MEDS: FENTANYL 50 MCG/PATCH TD SCH (09:37)
[2018-09-20] MEDS: INSULIN GLARGINE 100 UNITS/ML SQ SCH ×2 (09:38→22:53)
[2018-09-20] MEDS: POLYETHYL GLY 3350 17 GM/DOSE PO SCH (09:38)
[2018-09-20] MEDS: FERROUS SULFATE 325 MG TAB PO SCH (09:38)
[2018-09-20] MEDS: CYANOCOBALAMIN 1,000 MCG TAB PO SCH (09:38)
[2018-09-20] MEDS: CARVEDILOL 3.125 MG TAB PO SCH ×2 (09:39→22:55)
[2018-09-20] MEDS: LACTOBACILLUS/ACIDOPHILUS TAB PO SCH ×2 (09:39→22:56)
[2018-09-20] MEDS: RIVAROXABAN 10 MG TABLET PO SCH (09:39)
[2018-09-20] MEDS: DOCUSATE NA 100 MG CAP PO SCH ×2 (09:39→22:56)
[2018-09-20] MEDS: FUROSEMIDE 40 MG/4 ML VIAL IV SCH (09:40)
[2018-09-20] MEDS ORDERED: Magnesium Sulfate 2gm IVPB 2 G/50 ML BAG IV ONE (10:00)
[2018-09-20] MEDS ORDERED: POTASSIUM CL SA 10 MEQ TAB PO ONE (10:01)
--- NOTE | 2018-09-20 15:08 | PN ---
Date of Progress Note: 09/20/2018 NEPHROLOGY FOLLOWUP Subjective: The patient is doing well, afebrile. The patient was admitted with anasarca, acute kidney injury, response to diuresis, we switched the patient from Lasix drip to IV push, responding very well. Physical Examination: Vital Signs: Blood pressure 107/56, pulse of 82. The patient had urine output of multiple voiding. She lost 8 pounds from admission. Chest: Decreased entry bilateral base. Heart: S1 and S2, systolic murmur. Abdomen: Soft, nontender. Extremities: Dressing on the right leg, edema has been subsided significantly. Laboratory Data: WBC 7.1, H and H of 13.4 and 38.8, platelets 149. Sodium 140 , potassium 3.1, bicarb 42, BUN 67, creatinine down to 1.2, GFR of 42, calcium 9.5, phosphorus 2.9, magnesium 1.7, albumin 3.1, corrected calcium 10.3. Current Medications: The patient on it includes, 1. Lasix 80 mg b.i.d. 2. Metolazone. 3. Meropenem 500 b.i.d. 4. Ferrous sulfate. 5. Xarelto. 6. Carvedilol 3.125. 7. Lyrica. 8. Fentanyl. 9. Tylenol. 10. Loperamide. 11. Levothyroxine. 12. Insulin. 13. KCl. Cultures: Urine culture growing Proteus mirabilis. Wound culture growing Pseudomonas. Blood culture growing E coli back in July 2018. She has UTI with E coli. Assessment And Plan: 1. Acute kidney injury secondary to cardiorenal, started to being euvolemic, I am going to change the Lasix to oral. We will discontinue IV. 2. Marginal dehydration . I will backup on the metolazone. 3. Hypertension, controlled, optimal. Continue current medication. 4. Congestive heart failure with exacerbation. We will start the patient on spironolactone. Continue diuresis. 5. Hypokalemia. Start spironolactone. 6. Hypomagnesemia. We will supplement. 7. Marginal hypercalcemia. Discontinue metolazone. We will hold on adding any vitamin D for the time being. 8. Recurrent urinary tract infection with bacteremia. We will get CT abdomen and pelvis. Okay for PICC line. 9. Wound infection. Continue current antibiotic. Follow up with ID. We will adjust the meropenem to 1 g. TORIN Voice ID: [id number] Report ID: [id number] GARRETT
--- NOTE | 2018-09-20 15:09 | P.PN ---
Subjective Date of Service: 09/20/18 Primary Care Provider: long-term Chief Complaint: Altered mental status Subjective: Improving Physical Examination - Vital Signs Temperature: 97 F Blood Pressure: 142/65 Pulse: 66 Respirations: 18 Pulse Ox (%): 94 - Physical Exam General: Alert HEENT: Atraumatic Neck: Supple Respiratory: Clear to auscultation bilaterally, Normal air movement Cardiovascular: Normal pulses, Regular rate/rhythm Gastrointestinal: Normal bowel sounds, Soft and benign, Non-distended Musculoskeletal: No warmth Neurological: Normal speech, Normal strength at 5/5 x4 extr, Normal tone - Studies Medications List Reviewed: Yes Assessment & Plan Discharge Plan: Shelter Plan to discharge in: 48 Hours Physician Review Additional Text: Impression: Altered mental status likely secondary to toxic encephalopathy with bacteremia/ recurrent UTI with chronic catheter, blood culture positive for E coli , urine culture positive for Proteus, and wound culture positive for Pseudomonas Acute on chronic renal failure, stage III CAD COPD Chronic CHF, diastolic with chronic anasarca Atrial fibrillation on chronic anti coagulation therapy Chronic pain Hypothyroidism Diabetes mellitus type 2, insulin dependent: Chronic lymphedema Rheumatoid arthritis Obesity, BMI 44.4 Plan: Altered mental status likely secondary to toxic encephalopathy with bacteremia/ recurrent UTI with chronic catheter, blood culture positive for E coli , urine culture positive for Proteus, and wound culture positive for Pseudomonas: Will continue with IV meropenem. Case discussed at length with infectious disease and nephrology. Nephrology were order CT scan of the abdomen and echocardiogram to evaluate further. Patient will require IV antibiotic therapy meropenem for 2 weeks. Will order PICC line to arrange for alf antibiotic therapy. Infectious Disease recommends to readdress advanced directives. Infectious Disease recommends the patient be on hospice. Will discuss this further with patient. Acute on chronic renal failure, stage III: Continue with nephrology recommendation. Atrial fibrillation on chronic anti coagulation therapy: Continue with medication Chronic pain: Continue with pain medication Chronic diastolic CHF with chronic anasarca: Continue with diuretic therapy CAD: Continue medication. COPD: Continue medication. Maintain sats above 90%. Hypothyroidism: Continue medication. Chronic lymphedema: Continue medication. Rheumatoid arthritis: Stable. Diabetes mellitus type 2, insulin dependent: Continue medication. Will monitor and adjust appropriately. Obesity, BMI 44.4 Time Spent Managing Pts Care (In Minutes): 55
[2018-09-20] MEDS: FUROSEMIDE 40 MG TABLET PO SCH (16:37)
--- NOTE | 2018-09-20 20:29 | CON ---
History Of Present Illness: The patient is brought in from longterm with significant history of acute renal failure with anasarca and altered mental status, most likely secondary to sepsis. 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 Blood cultures growing Escherichia coli. Urine is growing Proteus mirabilis and leg wound is growing Pseudomonas aeruginosa, E coli is ESBL. The patient is currently being treated with meropen em. Past Medical History: As per HPI. Social History: Nonsmoker, nondrinker. Lives at longterm. Family History: Noncontributory. Medications: Meropenem. See MARs for other medication. Allergies: PENICILLIN, SULFA DRUGS. Review of Systems: A 10-point review was performed. Physical Examination: General: This is a 73-year-old female, lying in bed, not in any acute cardiopulmonary distress, somn olent. Vital Signs: Temperature 97, pulse 66, respiration 18, blood pressure 142/65. HEENT: Unremarkable. Neck: Supple. Lungs: Basal crackles. Heart: S1, S2. Regular. Abdomen: Soft, nontender. Bowel sounds present. Extremities: Trace edema, right leg wound noted. Laboratory Data: Shows WBC 17,000 down to 7.1, hemoglobin 13.4, platelets 149. Chemistry shows sodi um 140, potassium 3.1, chloride 92, bicarb 42, BUN 67, creatinine 1.26, glucose 149. Assessment And Plan: Bacteremia secondary to Escherichia coli extended-spectrum b-lactamase, right l eg infection with Pseudomonas urinary tract infection secondary to Proteus mirabilis. The patient is currently being treated with meropenem. We will recommend to continue for total of 2 weeks of merop enem as patient is responding well to the antibiotic. Continue supportive care and wound care. We w ill follow the patient. NF/MODL Voice ID: [id number] Report ID: [id number]
[2018-09-20] MEDS ORDERED: Meropenem 1,000 MG in NA CHLORIDE 0.9% 100 ML IV SCH (21:00)
[2018-09-20] MEDS: Meropenem 1,000 MG in NA CHLORIDE 0.9% 100 ML IV SCH (22:57)
[2018-09-21] MEDS: LEVOTHYROXINE SOD 0.125 MG TAB PO SCH (05:57)
[2018-09-21] MEDS: PANTOPRAZOLE 40MG TABLET PO SCH (05:57)
[2018-09-21 06:24] LABS: Absolute Lymphocytes (CBC) 1.6 K/uL (0.7-4.9); Absolute Monocytes 0.8 K/uL (0.1-1.3); Basophils % 0.4 % (0-1.3); Eosinophils % 1.1 % (0-4.4); Hematocrit 42.8 % (36.0-45.0); Lymphocytes % 21.1 % (15.3-44.8); MPV 9.6 fL (7.6-11.3); Monocytes % 10.1 % (3.3-12.3); RBC Red Blood Cell Count 4.55 M/uL (3.86-4.86)
[2018-09-21 06:32] VITALS: BMI 44.5
[2018-09-21 07:17] LABS: Albumin 3.1 g/dL (3.4-5.0); BUN Blood Urea Nitrogen 59 mg/dL (7-18); Glucose Level 93 mg/dL (74-106); Magnesium 1.8 mg/dL (1.8-2.4); Phosphorus 2.4 mg/dL (2.5-4.9); Potassium 3.4 mmol/L (3.5-5.1); Sodium Level 139 mmol/L (136-145)
--- NOTE | 2018-09-21 07:23 | ECHO ---
HEIGHT: 5 ft 6 in WEIGHT: 276 lb 0 oz DATE OF STUDY: 09/20/[address]: Radha Goddard MD 2-DIMENSIONAL: YES M.MODE: YES DOPPLER: YES COLOR FLOW: YES TDS: YES PORTABLE: DEFINITY: BUBBLE STUDY: DIAGNOSIS: CONGESTIVE HEART FAILURE CARDIAC HISTORY: CATHERIZATION: YES SURGERY: NO PROSTHETIC VALVE: NO PACEMAKER: NO MEASUREMENTS (cm) DIASTOLIC (NORMALS) SYSTOLIC (NORMALS) IVSd 1.2 (0.6-1.2) LA Diam 3.1 (1.9-4.0) LVEF 60% LVIDd 3.8 (3.5-5.7) LVIDs 2.6 (2.0-3.5) %FS 32% LVPWd 1.4 (0.6-1.2) Ao Diam 2.9 (2.0-3.7) 2 DIMENSIONAL ASSESSMENT: RIGHT ATRIUM: NORMAL LEFT ATRIUM: NORMAL RIGHT VENTRICLE: NORMAL LEFT VENTRICLE: NORMAL TRICUSPID VALVE: NORMAL MITRAL VALVE: NORMAL PULMONIC VALVE: NORMAL AORTIC VALVE: NORMAL PERICARDIAL EFFUSION: NONE AORTIC ROOT: NORMAL LEFT VENTRICULAR WALL MOTION: NORMAL DOPPLER/COLOR FLOW: TECHNICALLY DIFFICULT STUDY NO USEFUL DATA COMMENTS: NORMAL LEFT VENTRICULAR SYSTOLIC PRESSURE. AORTIC SCLEROSIS. TECHNICALLY DIFFICULT STUDY. TECHNOLOGIST: HARVINDER SOMERS
[2018-09-21 07:28] LABS: Bicarbonate > 45 mmol/L (21-32)
[2018-09-21] MEDS: INSULIN -REGULAR HUMAN 50 UNIT/0.5 ML ML SQ SCH ×3 (07:30→16:30)
[2018-09-21] MEDS ORDERED: SPIRONOLACTONE 25 MG TABLET PO SCH (09:00)
[2018-09-21] MEDS ORDERED: METOLAZONE 2.5 MG TABLET PO SCH (09:00)
[2018-09-21] MEDS: HYPROMELLOSE OP SCH (09:00)
[2018-09-21] MEDS: DEXTRAN OP SCH (09:00)
[2018-09-21] MEDS: POLYETHYL GLY 3350 17 GM/DOSE PO SCH (09:37)
[2018-09-21] MEDS: PREGABALIN 50 MG CAP PO SCH (09:38)
[2018-09-21] MEDS: FERROUS SULFATE 325 MG TAB PO SCH (09:38)
[2018-09-21] MEDS: Meropenem 1,000 MG in NA CHLORIDE 0.9% 100 ML IV SCH (09:38)
[2018-09-21] MEDS: DOCUSATE NA 100 MG CAP PO SCH (09:38)
[2018-09-21] MEDS: RIVAROXABAN 10 MG TABLET PO SCH (09:39)
[2018-09-21] MEDS: LACTOBACILLUS/ACIDOPHILUS TAB PO SCH (09:39)
[2018-09-21] MEDS: FUROSEMIDE 40 MG TABLET PO SCH (09:39)
[2018-09-21] MEDS: CARVEDILOL 3.125 MG TAB PO SCH (09:40)
[2018-09-21] MEDS: DULOXETINE 30 MG CAP PO SCH (09:40)
[2018-09-21] MEDS: predniSONE 20 MG TAB PO SCH (09:40)
[2018-09-21] MEDS: INSULIN GLARGINE 100 UNITS/ML SQ SCH (09:41)
[2018-09-21] MEDS: CYANOCOBALAMIN 1,000 MCG TAB PO SCH (09:41)
[2018-09-21] MEDS: PROMOD 30 ML DOSE PO SCH (09:42)
[2018-09-21 10:04] LABS: Arterial Blood Carboxyhemoglob 1.4 % (0-1.5); Blood Gas Oxyhemoglobin 95.6 % (94-97); Blood O2 Saturation 97.7 % (92-98.5)
--- NOTE | 2018-09-21 10:26 | P.PN ---
Subjective Date of Service: 09/21/18 Primary Care Provider: half-way Chief Complaint: Altered mental status Subjective: Doing well Physical Examination - Vital Signs Temperature: 97.0 F Blood Pressure: 110/68 Pulse: 64 Respirations: 17 Pulse Ox (%): 98 - Physical Exam General: Alert, In no apparent distress, Cooperative HEENT: Atraumatic Neck: Supple Respiratory: Clear to auscultation bilaterally Cardiovascular: Normal pulses, Regular rate/rhythm Gastrointestinal: Normal bowel sounds, Soft and benign, Non-distended Musculoskeletal: No erythema, No tenderness, No warmth Integumentary: No erythema, No warmth, No cyanosis Neurological: Normal speech, Normal strength at 5/5 x4 extr, Normal tone Urinary: Fay catheter - Studies Medications List Reviewed: Yes Assessment & Plan Discharge Plan: LTAC Plan to discharge in: 24 Hours Physician Review Additional Text: Impression: Altered mental status likely secondary to toxic encephalopathy with bacteremia/ recurrent UTI with chronic catheter, blood culture positive for E coli , urine culture positive for Proteus and Klebsiella, and wound culture positive for Pseudomonas complicated with Merrem resistant bacteria Acute on chronic renal failure, stage III CAD COPD Chronic CHF, diastolic with chronic anasarca Atrial fibrillation on chronic anti coagulation therapy Chronic pain Hypothyroidism Diabetes mellitus type 2, insulin dependent: Chronic lymphedema Rheumatoid arthritis Obesity, BMI 44.4 Plan: Altered mental status likely secondary to toxic encephalopathy with bacteremia/ recurrent UTI with chronic catheter, blood culture positive for E coli , urine culture positive for Proteus and Klebsiella, and wound culture positive for Pseudomonas complicated with Merrem resistant bacteria: Will continue with IV meropenem. Will add IV doxycycline. Patient will require and PICC line. Will discuss with pharmacy. Case discussed with infectious disease. Patient will need to be in isolation. Await results from culture to determine if meropenem resistant. Patient will require IV antibiotic therapy for at least 2 weeks or more. Will recommend long-term acute care facility placement. Will discuss with infectious disease. Case discussed with nephrology who agrees. Advanced directives address with the patient. Patient wishes to be full code. She does not want hospice at this time as recommended by infectious disease. Acute on chronic renal failure, stage III: Nephrology discontinued [employer]. Continue with nephrology recommendation. Atrial fibrillation on chronic anti coagulation therapy: Continue with medication Chronic pain: Continue with pain medication Chronic diastolic CHF with chronic anasarca: Continue with diuretic therapy. Diuretics adjusted by Nephrology CAD: Continue medication. COPD with hypercapnia: Continue with medication and oxygen. Will maintain sats above 90%. Await recommendations from pulmonology who has been consulted. Hypothyroidism: Continue medication. Chronic lymphedema: Continue medication. Rheumatoid arthritis: Stable. Diabetes mellitus type 2, insulin dependent: Continue medication. Will monitor and adjust appropriately. Obesity, BMI 44.5: Continue to address lifestyle modification education. Patient is bed bound. Time Spent Managing Pts Care (In Minutes): 55
--- NOTE | 2018-09-21 11:46 | P.CNS ---
Date of Consult: 09/21/18 Primary Care Provider: jail Chief Complaint: Altered mental status and respiratory failure History of Present Illness: Patient is 73 years of age a poor historian evaluated by me for respiratory failure hypercapnia the triple medical problems which include DM Xiang syndrome rheumatoid renal failure presented to the hospital with altered mental status symptoms for 3-4 days. Blood culture urine culture wound culture all positive patient is nonambulatory/very impressive list of medications including sedatives narcotics and steroid Complains of snoring excessive daytime somnolence patient is also morbidly obese patient's white count is now normal/is a mention of COPD Allergies Penicillins Allergy (Mild, Verified 09/17/18 01:12) Rash sulfamethoxazole [From Bactrim] Allergy (Mild, Verified 09/17/18 01:12) Rash trimethoprim [From Bactrim] Allergy (Mild, Verified 09/17/18 01:12) Rash Sulfa (Sulfonamide Antibiotics) Allergy (Verified 09/17/18 01:12) Itching/Hives/Rash Flu vaccine Allergy (Severe, Uncoded 08/03/18 05:58) Guillan-Echola Home Medications: Alprazolam [Xanax] 0.25 mg PO DAILY PRN 09/17/18 Amlodipine Besylate 5 mg PO DAILY 09/17/18 Carvedilol [Coreg] 25 mg PO BID 09/17/18 Cyanocobalamin [Vitamin B-12] 1,000 mcg PO DAILY 09/17/18 Dextran 70/Hypromellose [Artificial Tears Drops] 1 drop OP BID 09/17/18 Docusate Sodium 100 mg PO BID 09/17/18 Douneb Solution 1 dose IH Q4H PRN 09/17/18 Duloxetine HCl 60 mg PO DAILY 09/17/18 Fentanyl [Duragesic] 1 each TD EVERY 3RD DAY 09/17/18 Ferrous Sulfate 325 mg PO DAILY 09/17/18 Furosemide [Lasix] 2 tab PO DAILY 09/17/18 Ludmila-[place] Suspension 30 ml PO Q4HP PRN 09/17/18 Hydrocodone/Acetaminophen [[place] 10-325 Tablet] 1 each PO Q4H PRN 09/17/18 Insulin Aspart [Novolog] 0 unit SQ SEECOM 09/17/18 Insulin Detemir [Levemir] 25 units SQ BEDTIME 09/17/18 Insulin Detemir [Levemir] 25 units SQ DAILY 09/17/18 Lactobacillus Acidophilus/Fos [Acidophilus Probiotic Tablet] 1 each PO BID 09/17 Levothyroxine [Synthroid] 125 mcg PO [id number] 09/17/18 Loperamide [Imodium] 2 mg PO Q8H PRN 09/17/18 Multivitamin with Minerals [Multivitamins with Minerals] 1 each PO DAILY Nitroglycerin 0.4 mg SL SEECOM PRN 09/17/18 Nystatin Powder [Mycostatin (Powder)*] 1 appl TOP Q12H PRN 09/17/18 Oxybutynin Chloride [Ditropan Xl] 10 mg PO Q12H 09/17/18 Pantoprazole Sodium [Protonix] 40 mg PO DAILY 09/17/18 Polyethyl Gly 3350 [Glycolax] 17 gm PO DAILY 09/17/18 Potassium Chloride [Klor-Con M20] 2 tab PO DAILY 09/17/18 Pregabalin [Lyrica] 100 mg PO Q12H 09/17/18 Protein Supplement [Promod] 30 ml PO BID 09/17/18 Rivaroxaban [Xarelto] 10 mg PO DAILY 09/17/18 Spironolactone [Aldactone] 25 mg PO DAILY 09/17/18 Temazepam [Restoril] 30 mg PO BEDTIME PRN 09/17/18 metOLazone [Zaroxolyn] 2.5 mg PO SEECOM 09/17/18 predniSONE [Deltasone] 20 mg PO DAILY 09/17/18 - Past Medical/Surgical History Diabetic: Yes -: Coronary artery disease. -: Congestive heart failure -: Spinal Stenosis -: Neuropathy -: HTN -: Hypothyroid -: COPD -: Guillian -Echola syndrome -: History of DVT rt leg -: cellulitis bilat legs required alf antibiotics -: Hyperlipidemia -: Hyperlipidemia, cholecystecomy, hysterectomy -: Cholecystectomy, 1989 -: Hysterectomy, 1964 -: gland removed from throat, -: cataract Surgery, 1999 -: Three heart stents (2 in 2011) -: Tonsillectomy -: Appendectomy Psychosocial/ Personal History: [facility] lives at [facility]. - Family History Brother Medical History: Heart disease, Hypertension Father Medical History: Heart disease, Hypertension Notes: heart attack - Social History Smoking Status: Unknown if ever smoked Alcohol use: No CD- Drugs: No Caffeine use: Yes Place of Residence: [place] Review of Systems is unable to be obtained Physical Examination Temp Pulse Resp BP Pulse Ox 97.0 F 64 17 110/68 98 09/21/18 10:33 09/21/18 10:33 09/21/18 10:33 09/21/18 10:33 09/21/18 10:33 General: Confused Neck: Supple Respiratory: Clear to auscultation bilaterally, Diminished Cardiovascular: Normal S1 S2, Edema Gastrointestinal: Normal bowel sounds, Soft and benign Integumentary: Other (Patient seen given necrotic left large toe with wound in the right leg) - Problems (1) Respiratory failure Current Visit: Yes Status: Acute Plan: Patient is 73 years of age admitted with altered mental status possibly due to sepsis is on broad-spectrum antibiotics multiple cultures are positive his very hypercapnic will need BiPAP reduce the dose of diuretics BNP was elevated so was a pro calcitonin m also significantly elevated patient has chronic renal insufficiency normal thyroid function test start patient on BiPAP titrate sat to 90% chest x-ray report was normal mild cardiomegaly on admission echocardiogram shows normal left ventricular function patient also has underlying Guillain-Echola syndrome U neuromuscular respiratory failure is also possibility patient has a chronic respiratory failure will also require an outpatient sleep study will also check a few qualify for noninvasive ventilator is of course COPD is a possibility of added Brovana Qualifiers: Chronicity: acute on chronic Respiratory failure complication: hypoxia and hypercapnia Qualified Code(s): J96.21 - Acute and chronic respiratory failure with hypoxia; J96.22 - Acute and chronic respiratory failure with hypercapnia
[2018-09-21 12:01] VITALS: O2SAT 99
[2018-09-21] MEDS ORDERED: POTASSIUM CL SA 10 MEQ TAB PO ONE (12:02)
[2018-09-21 16:55] VITALS: BP 110/69; TEMP 97
--- NOTE | 2018-09-21 17:11 | P.DS ---
Admission Date: 09/16/18 Discharge Date: 09/21/18 Primary Care Provider: long term Disposition: [facility] Discharge Condition: GOOD Reason for Admission: Altered mental status and respiratory failure Consultations: Infectious disease: Dr. Macias Nephrology-Dr. Goddard Pulmonary-Dr. Berg Procedures: Renal US: COMPARISON: None. FINDINGS: The right kidney measures 9.5 x 4.8 x 4.4 cm. The left kidney measures 9.7 x 3.8 x 5.9 cm. Cortical thickness is normal. Echogenicity cannot be accurately assessed. Large body habitus results in increased echogenicity. This cannot be distinguished from medical renal disease. No hydronephrosis or suspicious renal mass. Bladder was obscured. IMPRESSION: No hydronephrosis or suspicious renal mass. Medical renal disease cannot be accurately assessed due to large body habitus. CT: COMPARISON: None. TECHNIQUE: Images obtained in axial, sagittal, and coronal planes. No oral or intravenous contrast was administered. This exam was performed according to our departmental dose-optimization program , which includes automated exposure control, adjustment of the mA and/or kV according to patient size and/or less of iterative reconstruction technique. FINDINGS: CT scan brain: Ventricular system is enlarged. Moderate prominence of the cortical sulci. No abnormal areas of increased or decreased attenuation present. No extra-axial fluid collections noted. No evidence for skull fracture. Symmetric aeration of mastoid air cells bilaterally. Unremarkable paranasal sinuses. CT scan of the cervical Spine: Height of the vertebral bodies is intact. Metallic fixation posteriorly extending from C3 to C6. Satisfactory alignment and articular facets. Resection spinous processes C3-C5. Straightening cervical spine. No acute fractures seen. Intact odontoid and predental space. Prevertebral soft tissue swelling versis fatty deposition. Intact ring C1. Intact occipital condyles. CT scan chest: No aortic dilatation. No pericardial effusion or adenopathy. Coronary artery calcification. No pneumothorax. Airspace attentuation lower lobes bilaterally likely atelectatic changes. Trace bilateral pleural effusions. Compression fracture of indeterminate age T12. No sternal fracture. Moderately severe multilevel osteoarthritic change thoracic spine. CAT scan abdomen and pelvis: No abnormality involving with liver. Calcified granuloma involving the. Fatty change involving the pancreas. Unremarkable adrenal glands bilaterally. Cholecystectomy. No obstructing renal calcifications bilaterally. No hydronephrosis bilaterally. Bladder is decompressed. Calcification abdominal aorta without dilatation seen. No adenopathy or abnormal fluid collections noted. Appendix within normal limits. No bowel obstruction, perforation, or inflammation. Marked constipation. IMPRESSION: No acute intracranial abnormality. No evidence for hemorrhage, mass lesion, or large acute infarction. Age-appropriate changes. Extensive postsurgical change C3-C6. No acute fracture or subluxation involving the cervical spine. Prevertebral soft tissue swelling versus fatty deposition. Atelectatic change is contusion or less likely infiltrate lower lobes bilaterally. Compression fracture of indeterminate age T12. Otherwise no acute intrathoracic abnormality. No acute intra-abdominal abnormality. No evidence for polo organ laceration. ECHO: Ejection fraction 60% LEFT VENTRICULAR WALL MOTION: NORMAL DOPPLER/COLOR FLOW: TECHNICALLY DIFFICULT STUDY NO USEFUL DATA COMMENTS: NORMAL LEFT VENTRICULAR SYSTOLIC PRESSURE. AORTIC SCLEROSIS. TECHNICALLY DIFFICULT STUDY. Medical Problem List: Altered mental status likely secondary to toxic encephalopathy with bacteremia/ recurrent UTI with chronic catheter, blood culture positive for E coli , urine culture positive for Proteus and Klebsiella, and wound culture positive for Pseudomonas complicated with Merrem resistant bacteria Acute on chronic renal failure, stage III CAD COPD with chronic steroid use and home oxygen Chronic CHF, diastolic with chronic anasarca Atrial fibrillation on chronic anti coagulation therapy Chronic pain Hypothyroidism Diabetes mellitus type 2, insulin dependent: Chronic lymphedema Rheumatoid arthritis with chronic steroid use Obesity, BMI 44.4 Brief History of Present Illness: 73-year-old female with multiple medical problems came in with altered mental status and anasarca. Patient was admitted for further evaluation. Hospital Course: Patient presented with altered mental status secondary to toxic encephalopathy. Patient found to have bacteremia with blood culture positive for E coli. Patient also had recurrent UTI a with chronic catheter and culture positive for Proteus and Klebsiella. Wound cultures obtained were positive for Pseudomonas. Patient found to have meropenem resistant bacteria. During the course of her stay the patient improved slowly. Patient was evaluated and seen by nephrology , pulmonology and Infectious Disease. Due to multi resistant bacteria it was recommended that she continue with IV antibiotic therapy at least for 2 weeks. Patient currently on IV doxycycline and vancomycin. Nephrology and infectious disease recommended long-term acute care facility placement due to her multiple medical issues and chronic wounds. Patient will require PICC line. Patient agrees to go to long-term acute care facility to continue her care. Patient transferred to long-term acute care facility continue her care. Cultures on resistant bacteria pending for confirmation. Patient also presented with acute on chronic renal failure. Patient with anasarca. Stage III renal failure noted. Patient was diuresed. Medications were adjusted during her stay. Nephrology continued with diuresis. This will be continued and followed by nephrology at the [facility]. Patient with history of atrial fibrillation on chronic anti coagulation therapy. Patient will continue with her medication. Patient with chronic pain. Patient will continue with her current medication. Patient with chronic diastolic CHF and acute on chronic anasarca. Patient received diuretic therapy being her stay. Diuretics were adjusted by Nephrology. This will be continued at the [facility]. Patient with CAD. Patient will continue with current medication. Patient with COPD and hypercapnia. Patient remains on oxygen. She will maintain sats above 90%. Patient will continue with medication. Patient with hypothyroidism. She will continue with her medication. Patient with rheumatoid arthritis on chronic steroids. Patient will continue with her medication. Patient with diabetes mellitus type 2, insulin dependent. She will continue with her basal insulin. Sliding scale to be continued. Further adjustment in medications can be done by physicians at the [facility]. Patient remains bed ridden. She is immobile. Patient with multiple risk factors for increase morbidity and mortality. Advanced directives address in detail with the patient. Patient currently full code. Infectious Disease knows the patient very well. He recommends hospice. This can be further addressed at the [facility] if her condition continues to worsen. Vital Signs/Physical Exam: Temp Pulse Resp BP Pulse Ox 97 F 68 20 110/69 94 09/21/18 16:00 09/21/18 16:00 09/21/18 16:00 09/21/18 16:09/21/18 16:00 General: Alert, In no apparent distress, Cooperative HEENT: Atraumatic Neck: Supple Respiratory: Clear to auscultation bilaterally, Normal air movement, Other ( Nasal cannula in place) Cardiovascular: Normal pulses, Regular rate/rhythm Gastrointestinal: Normal bowel sounds, Soft and benign, Non-distended Musculoskeletal: No tenderness, No warmth Neurological: Normal speech, Normal strength at 5/5 x4 extr, Normal tone, Normal affect Laboratory Data at Discharge: WBC 7.4 K/uL (4.3-10.9) 09/21/18 06:00 Hgb 14.3 g/dL (12.0-15.0) 09/21/18 06:00 Hct 42.8 % (36.0-45.0) 09/21/18 06:00 Plt Count 167 K/uL (152-406) 09/21/18 06:00 PT 16.4 SECONDS (9.5-12.5) H 09/16/18 21:50 INR 1.39 09/16/18 21:50 Sodium 139 mmol/L (136-145) 09/21/18 06:00 Potassium 3.4 mmol/L (3.5-5.1) L 09/21/18 06:00 BUN 59 mg/dL (7-18) H 09/21/18 06:00 Creatinine 1.14 mg/dL (0.55-1.3) 09/21/18 06:00 Glucose 93 mg/dL (74-106) 09/21/18 06:00 Phosphorus 2.4 mg/dL (2.5-4.9) L 09/21/18 06:00 Magnesium 1.8 mg/dL (1.8-2.4) 09/21/18 06:00 Total Bilirubin 0.9 mg/dL (0.2-1.0) 09/17/18 04:19 AST 38 U/L (15-37) H 09/17/18 04:19 ALT 43 U/L (12-78) 09/17/18 04:19 Alkaline Phosphatase 107 U/L (45-117) 09/17/18 04:19 Lipase 64 U/L (73-393) L 09/16/18 21:05 Home Medications: Alprazolam [Xanax] 0.25 mg PO DAILY PRN 09/17/18 Amlodipine Besylate 5 mg PO DAILY 09/17/18 Carvedilol [Coreg] 25 mg PO BID 09/17/18 Cyanocobalamin [Vitamin B-12] 1,000 mcg PO DAILY 09/17/18 Dextran 70/Hypromellose [Artificial Tears Drops] 1 drop OP BID 09/17/18 Docusate Sodium 100 mg PO BID 09/17/18 Douneb Solution 1 dose IH Q4H PRN 09/17/18 Duloxetine HCl 60 mg PO DAILY 09/17/18 Fentanyl [Duragesic] 1 each TD EVERY 3RD DAY 09/17/18 Ferrous Sulfate 325 mg PO DAILY 09/17/18 Furosemide [Lasix] 2 tab PO DAILY 09/17/18 Ludmila-Lanta Suspension 30 ml PO Q4HP PRN 09/17/18 Hydrocodone/Acetaminophen [[place] 10-325 Tablet] 1 each PO Q4H PRN 09/17/18 Insulin Aspart [Novolog] 0 unit SQ SEECOM 09/17/18 Insulin Detemir [Levemir] 25 units SQ BEDTIME 09/17/18 Insulin Detemir [Levemir] 25 units SQ DAILY 09/17/18 Lactobacillus Acidophilus/Fos [Acidophilus Probiotic Tablet] 1 each PO BID 09/17 Levothyroxine [Synthroid] 125 mcg PO [id number] 09/17/18 Loperamide [Imodium] 2 mg PO Q8H PRN 09/17/18 Multivitamin with Minerals [Multivitamins with Minerals] 1 each PO DAILY Nitroglycerin 0.4 mg SL SEECOM PRN 09/17/18 Nystatin Powder [Mycostatin (Powder)*] 1 appl TOP Q12H PRN 09/17/18 Oxybutynin Chloride [Ditropan Xl] 10 mg PO Q12H 09/17/18 Pantoprazole Sodium [Protonix] 40 mg PO DAILY 09/17/18 Polyethyl Gly 3350 [Glycolax] 17 gm PO DAILY 09/17/18 Potassium Chloride [Klor-Con M20] 2 tab PO DAILY 09/17/18 Pregabalin [Lyrica] 100 mg PO Q12H 09/17/18 Protein Supplement [Promod] 30 ml PO BID 09/17/18 Rivaroxaban [Xarelto] 10 mg PO DAILY 09/17/18 Spironolactone [Aldactone] 25 mg PO DAILY 09/17/18 Temazepam [Restoril] 30 mg PO BEDTIME PRN 09/17/18 metOLazone [Zaroxolyn] 2.5 mg PO SEECOM 09/17/18 predniSONE [Deltasone] 20 mg PO DAILY 09/17/18 Patient Discharge Instructions: Transfer to long-term acute care facility to continue care. Continue current medications. Medications reviewed. Patient currently on IV doxycycline and meropenem. Cultures on resistant bacteria pending. Diet: AHA Activity: Fall precautions Time spent managing pt's care (in minutes): 55
--- NOTE | 2018-09-21 17:32 | PN ---
Date of Progress Note: 09/21/2018 Subjective: The patient is feeling okay. No nausea. No vomiting. Tolerating diet. Swelling has b een subsided significantly. Physical Examination: Vital Signs: Blood pressure 110/68, pulse of 64, afebrile. Chest: Decreased entry bilateral base. Heart: S1, S2 regular. Abdomen: Soft, nontender. Extremity: Dressing on the right leg. No edema completely. Laboratory Data: WBC 7.4, H and H 14.3/42.8, platelets 167. Sodium 139, potassium 3.4, bicarb more than 45, chloride 90, BUN 59, creatinine 1.4, calcium 9.4, phosphorus 2.4, magnesium 1.8, albumin 3.1 . Current Medications: Include, 1.Metolazone. 2.Doxycycline has been started. 3.Meropenem 1 g b.i.d. 4.Nystatin. 5.Ferrous sulfate. 6.Carvedilol 3.25. 7.Spironolactone 25 daily. 8.Fentanyl. 9.Lyrica. 10.Pantoprazole. 11.Zofran. 12.Prednisone 20 daily. 13.Levothyroxine. Assessment And Plan: 1.Acute kidney injury secondary to cardiorenal over volume, currently normal volume. I am going to go ahead and discontinue metolazone. We will decrease Lasix to once a day and we will follow up. 2.Alkalosis secondary to over diuresis as above. Discontinue metolazone. Decrease Lasix to daily. I do not see the need to use acetazolamide for the time being. 3.Urinary tract infection, wound infection and bacteremia. Currently, the urine growing Proteus luis abilis and Klebsiella pneumonia. Unfortunately, multidrug resistant even resistant to meropenem, sen sitive to amikacin and tetracycline. The patient was started on doxy. We will continue on the merop enem and we will follow up with ID. The patient will be a good candidate for LTAC. 4.Deconditioning. Continue PT/OT. 5.Pulmonary hypertension. Continue spironolactone. Follow up with Pulmonary. 6.Hypokalemia. I am going to go ahead and supplement. Continue spironolactone. JULIEN/MISSY Voice ID: [id number] Report ID: [id number]
--- NOTE | 2018-09-21 17:48 | PN ---
Subjective: The patient is lying in bed, on BiPAP. The patient denies any other complaints at this time. Objective: Vital Signs: Temperature 97.3, pulse 67, respirations 16, blood pressure 110/70. Lungs: Basal crackles. Heart: S1, S2. Regular. Abdomen: Soft, nontender. Bowel sounds present. Extremity: No edema. Laboratory Data: Shows WBC 7.4 down from 17,000, hemoglobin 14.3, platelets are 167. 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 We w ill recommend long-term acute care. Consider [facility]. We will follow the pat ient closely. NF/MODL Voice ID: [id number] Report ID: [id number]
[2018-09-21 19:54] LABS: Vitamin D 1,25-Dihydroxy Total 12 pg/mL (18-72); Vitamin D,1,25-OH2, D2 <8 pg/mL
[2018-09-21] MEDS ORDERED: ARFORMOTEROL TARTRATE 15 MCG/2 ML VIAL.NEB NEB SCH (20:00)
[2018-09-21] MEDS ORDERED: DOXYCYCLINE 100 MG in NA CHLORIDE 0.9% 100 ML IVPB SCH (21:00)
[2018-09-22] MEDS ORDERED: FUROSEMIDE 40 MG TABLET PO SCH (09:00)
== END 2018-09-21 19:02 | DRG 871 ==
LOC: ER 20:12 → ERHOLD 22:42 → 2ND 23:55
PROVIDERS: ADMIT Hospitalist; ATTEND Family Medicine
PROC: 02HV33Z Insertion of Infusion Device into Superior Vena Cava, Percutaneous Approach (ICD-10-PCS; principal; 2018-09-19)
PROC: 5A09357 Assistance with Respiratory Ventilation, Less than 24 Consecutive Hours, Continuous Positive Airway Pressure (ICD-10-PCS; 2018-09-21)
DX: A41.51 Sepsis due to Escherichia coli [E. coli] (principal); G92 Toxic encephalopathy; N17.0 Acute kidney failure with tubular necrosis; J96.22 Acute and chronic respiratory failure with hypercapnia; J96.21 Acute and chronic respiratory failure with hypoxia; N39.0 Urinary tract infection, site not specified; Z68.41 Body mass index [BMI] 40.0-44.9, adult; G61.0 Guillain-Barre syndrome; J44.1 Chronic obstructive pulmonary disease with (acute) exacerbation; N17.9 Acute kidney failure, unspecified; N25.81 Secondary hyperparathyroidism of renal origin; I13.0 Hypertensive heart and chronic kidney disease with heart failure and stage 1 through stage 4 chronic kidney disease, or unspecified chronic kidney disease; I50.32 Chronic diastolic (congestive) heart failure; R65.20 Severe sepsis without septic shock; B96.4 Proteus (mirabilis) (morganii) as the cause of diseases classified elsewhere; B96.1 Klebsiella pneumoniae [K. pneumoniae] as the cause of diseases classified elsewhere; Z99.81 Dependence on supplemental oxygen; Z79.51 Long term (current) use of inhaled steroids; I48.2 Chronic atrial fibrillation; Z79.01 Long term (current) use of anticoagulants; G89.29 Other chronic pain; E03.9 Hypothyroidism, unspecified; I89.0 Lymphedema, not elsewhere classified; M06.9 Rheumatoid arthritis, unspecified; Z79.52 Long term (current) use of systemic steroids; E66.01 Morbid (severe) obesity due to excess calories; Z74.01 Bed confinement status; Z88.0 Allergy status to penicillin; Z88.2 Allergy status to sulfonamides; Z88.7 Allergy status to serum and vaccine; Z88.8 Allergy status to other drugs, medicaments and biological substances; Z87.891 Personal history of nicotine dependence; I25.118 Atherosclerotic heart disease of native coronary artery with other forms of angina pectoris; E87.6 Hypokalemia; E11.22 Type 2 diabetes mellitus with diabetic chronic kidney disease; N18.3 Chronic kidney disease, stage 3 (moderate); Z79.4 Long term (current) use of insulin; E83.42 Hypomagnesemia; E83.52 Hypercalcemia; Z16.12 Extended spectrum beta lactamase (ESBL) resistance; T14.8XXA Other injury of unspecified body region, initial encounter; B96.5 Pseudomonas (aeruginosa) (mallei) (pseudomallei) as the cause of diseases classified elsewhere; X58.XXXA Exposure to other specified factors, initial encounter; Y93.89 Activity, other specified; Y92.129 Unspecified place in nursing home as the place of occurrence of the external cause
CPT/HCPCS: 36415; 70450; 71045; 71250; 72125; 76770; 80048; 80053; 80069; 80076; 81003; 81015; 82570; 82652; 82805; 82962; 83605; 83690; 83735; 83880; 83970; 84145; 84156; 84443; 84484; 85025; 85610; 87040; 87070; 87077; 87086; 87088; 87186; 87205; 93005; 93306; 94660; 96361; 96365; 96367; 99285; J0692; J1940; J3370; J3411; J3475; J7030; J7512; P9047

== ENCOUNTER 2018-10-17 09:45 | Inpatient (IN) | payer OTHER, BC ==
[2018-10-17 10:41] LABS: Absolute Lymphocytes (CBC) 3.4 K/uL (0.7-4.9); Absolute Monocytes 1.5 K/uL (0.1-1.3); Basophils % 1.3 % (0-1.3); Eosinophils % 2.5 % (0-4.4); Hematocrit 37.8 % (36.0-45.0); Lymphocytes % 33.2 % (15.3-44.8); MPV 8.6 fL (7.6-11.3); Monocytes % 14.3 % (3.3-12.3); RBC Red Blood Cell Count 3.98 M/uL (3.86-4.86)
[2018-10-17] MEDS ORDERED: NA CHLORIDE 0.9% 3,000 ML ONE (10:46)
[2018-10-17] MEDS ORDERED: CEFEPIME 1 GM/100 ML BAG IV ONE (10:46)
[2018-10-17 11:00] LABS: Protime INR 2.3
[2018-10-17] MEDS ORDERED: VANCOMYCIN/NS 1 gm 1 GM/250 ML BAG IV ONE (11:00)
[2018-10-17 11:03] LABS: ALT/SGPT 27 U/L (12-78); AST/SGOT 37 U/L (15-37); Albumin 2.1 g/dL (3.4-5.0); Alkaline Phosphatase 110 U/L (45-117); BUN Blood Urea Nitrogen 43 mg/dL (7-18); Bicarbonate 35 mmol/L (21-32); Bilirubin Direct 0.3 mg/dL (0-0.2); Bilirubin Total 0.7 mg/dL (0.2-1.0); CKMB Creatine Kinase MB < 1.0 ng/mL (0.3-3.6); Creatine Phosphokinase 26 U/L (26-192); Glucose Level 187 mg/dL (74-106); Lipase 35 U/L (73-393); Potassium 4.5 mmol/L (3.5-5.1); Protein, Total 5.8 g/dL (6.4-8.2); Sodium Level 141 mmol/L (136-145); Troponin (Emerg Dept Use Only) 0.04 ng/mL (0.0-0.045)
--- NOTE | 2018-10-17 11:21 | RAD REPORT ---
EXAM DESCRIPTION: Gail Single View10/17/2018 11:09 am CLINICAL HISTORY: Cough COMPARISON: September 16, 2018 FINDINGS: The lungs appear clear of acute infiltrate. The heart is mildly to moderately enlarged IMPRESSION: No acute abnormalities displayed
--- NOTE | 2018-10-17 11:25 | RAD REPORT ---
EXAM DESCRIPTION: CT - Head Brain Wo Cont - 10/17/2018 11:13 am CLINICAL HISTORY: Alteration of awareness/confusion COMPARISON: November 2017 TECHNIQUE: Computed axial tomography of the head was obtained. IV contrast was not requested. All CT scans are performed using dose optimization technique as appropriate and may include automated exposure control or mA/KV adjustment according to patient size. FINDINGS: An intracranial bleed is not seen . The ventricles are normal in caliber. No extra-axial fluid collection is noted. Fluid within the sinuses/ mastoids is not seen. IMPRESSION: No acute intracranial abnormality is seen. If patient's symptoms persist MRI of the bra in would be recommended.
--- NOTE | 2018-10-17 11:49 | EDPHYS ---
Physician Documentation [facility] Name: Jennifer Mariee Age: 73 yrs Sex: Female : 1945 Arrival Date: 10/17/2018 Time: 09:47 Bed 4 Private MD: ED Physician Felix Ugarte HPI: 10/17 11:44 This 73 yrs old Female presents to ER via EMS with complaints of Fever, ma2 Altered Mental Status. 11:44 The patient reports fever, that was measured at 102 degrees Fahrenheit. Onset: The ma2 symptoms/episode began/occurred gradually, 1 day(s) ago. Associated signs and symptoms: Pertinent positives: altered mental status,\E\ Pertinent negatives: abdominal pain, backache, chills, headache, myalgias, night sweats, sinus congestion. Severity of symptoms: At their worst the symptoms were moderate in the emergency department the symptoms are unchanged. The patient has experienced similar episodes in the past. Historical: - Allergies: 09:59 Demerol; ss 09:59 FLU VACCINE; ss 09:59 PENICILLINS; ss 09:59 Sulfa (Sulfonamide Antibiotics); ss 09:59 TRIMETHOPRIM; ss - PMHx: 09:59 allergies; Cellulitis; COPD; DVT; Hypothyroidism; Gout; DYSPHAGIA; Hypertension; ss Gastrointestinal hemmorrhage; Diverticulitis; Myocardial infarction; Sepsis; Depression; Diabetes - NIDDM; Pneumonia; MRSA; GBR; spinal stenosis; ulcerative colitis; - Immunization history:: Adult Immunizations unknown. - Social history:: Smoking status: Patient/guardian denies using tobacco, Patient/guardian denies using alcohol, Patient/guardian denies using street drugs, The patient lives with family. - Ebola Screening: : Patient negative for fever greater than or equal to 101.5 degrees Fahrenheit, and additional compatible Ebola Virus Disease symptoms Patient denies exposure to infectious person Patient denies travel to an Ebola-affected area in the 21 days before illness onset. - Family history:: not pertinent. ROS: 11:44 Cardiovascular: Negative for chest pain, palpitations, and edema, Respiratory: Negative ma2 for shortness of breath, cough, wheezing, and pleuritic chest pain, Abdomen/GI: Negative for abdominal pain, nausea, diarrhea, and constipation, MS/Extremity: Negative for injury and deformity, Psych: Negative for depression, anxiety, suicide ideation, homicidal ideation, and hallucinations, Allergy/Immunology: Negative for hives, rash, and allergies. 11:44 Constitutional: Positive for fever, Negative for weight loss. 11:44 All other systems are negative. Exam: 11:44 Head/Face: Normocephalic, atraumatic. Eyes: Pupils equal round and reactive to light, ma2 extra-ocular motions intact. Lids and lashes normal. Conjunctiva and sclera are non-icteric and not injected. Cornea within normal limits. Periorbital areas with no swelling, redness, or edema. Neck: Trachea midline, no thyromegaly or masses palpated, and no cervical lymphadenopathy. Supple, full range of motion without nuchal rigidity, or vertebral point tenderness. No Meningismus. Chest/axilla: Normal chest wall appearance and motion. Nontender with no deformity. No lesions are appreciated. Cardiovascular: Regular rate and rhythm with a normal S1 and S2. No gallops, murmurs, or rubs. Normal PMI, no JVD. No pulse deficits. Respiratory: Lungs have equal breath sounds bilaterally, clear to auscultation and percussion. No rales, rhonchi or wheezes noted. No increased work of breathing, no retractions or nasal flaring. Abdomen/GI: Soft, non-tender, with normal bowel sounds. No distension or tympany. No guarding or rebound. No evidence of tenderness throughout. MS/ Extremity: Pulses equal, no cyanosis. Neurovascular intact. Full, normal range of motion. Neuro: Awake and alert, GCS 15, oriented to person, place, time, and situation. Cranial nerves II-XII grossly intact. Motor strength 5/5 in all extremities. Sensory grossly intact. Cerebellar exam normal. Normal gait. 11:44 Constitutional: The patient appears alert, awake, obese, restless, uncomfortable. Vital Signs: 09:50 Temp 99.7(O); em1 09:59 BP 90 / 52; Pulse 107; Resp 19; Temp 99.5(O); Pulse Ox 97% on 3 lpm NC; Weight 122.47 hj kg; Height 5 ft. 6 in. (167.64 cm); Pain 7/10; 10:10 BP 76 / 48; Pulse 107; Resp 20; Pulse Ox 100% on 2 lpm NC; hj 10:20 BP 84 / 61; Pulse 105; Resp 20; Pulse Ox 100% on 2 lpm NC; hj 10:25 BP 101 / 61; Pulse 105; Resp 18; Pulse Ox 100% on 2 lpm NC; hj 10:30 BP 87 / 69; Pulse 102; Resp 20; Pulse Ox 100% on 2 lpm NC; hj 10:45 BP 101 / 51; Pulse 102; Resp 18; Pulse Ox 100% on 2 lpm NC; hj 11:03 BP 120 / 62; Pulse 100; Resp 18; Pulse Ox 100% on 2 lpm NC; hj 11:30 BP 120 / 61; Pulse 95; Resp 18; Pulse Ox 100% on 2 lpm NC; hj 11:51 BP 131 / 74; Pulse 92; Resp 18; Pulse Ox 100% on 2 lpm NC; hj 12:15 BP 115 / 72; Pulse 92; Resp 18; Pulse Ox 100% on 2 lpm NC; ss 13:00 BP 115 / 55; Pulse 90; Resp 18; Pulse Ox 100% on 2 lpm NC; ss 14:26 BP 103 / 57; Pulse 83; Resp 18; Pulse Ox 100% on 2 lpm NC; ss 09:59 Body Mass Index 43.58 (122.47 kg, 167.64 cm) hj MDM: 09:57 Patient medically screened. ma2 11:44 Differential diagnosis: viral Infection, bacterial infection, pneumonia UTI, sepsis, ma2 sirs w fever, tachycardia was hypotensive initially responded to IVF< normotensive now, had UTI today at [facility]. Data reviewed: vital signs, nurses notes. Counseling: I had a detailed discussion with the patient and/or guardian regarding: the historical points, exam findings, and any diagnostic results supporting the discharge/admit diagnosis, the presence of at least one elevated blood pressure reading (>120/80) during this emergency department visit, the need for outpatient follow up. Response to treatment: the patient's symptoms have markedly improved after treatment. 11:48 ED course: discussed with dr. stone . az2 10/17 10:00 Order name: Urine Culture az2 10/17 10:00 Order name: Basic Metabolic Panel; Complete Time: 11:12 az2 10/17 10:00 Order name: Blood Culture Adult (2) az2 10/17 10:00 Order name: CBC with Diff; Complete Time: 11:12 az2 10/17 10:00 Order name: Ckmb; Complete Time: : az2 10/17 10:00 Order name: CPK; Complete Time: : az2 10/17 10:00 Order name: Lactate; Complete Time: : az10/17 10:00 Order name: LFT's; Complete Time: : az2 10/17 10:00 Order name: Lipase; Complete Time: : az2 10/17 10:00 Order name: Procalcitonin 2 10/17 10:00 Order name: Protime (+inr); Complete Time: : az2 10/17 10:00 Order name: Ptt, Activated; Complete Time: az2 10/17 10:00 Order name: Troponin (emerg Dept Use Only); Complete Time: : az10/17 10:00 Order name: Urine Microscopic Only az2 10/17 10:00 Order name: Chest Single View XRAY; Complete Time: 11: az2 10/17 10:00 Order name: Accucheck; Complete Time: 11:2 10/17 10:00 Order name: Cardiac monitoring; Complete Time: : az2 10/17 10:00 Order name: EKG - Nurse/Tech; Complete Time: :2 10/17 10:00 Order name: IV Saline Lock - Large Bore; Complete Time: 10:44 az2 10/17 10:00 Order name: Labs collected and sent; Complete Time: 10:44 az2 10/17 10:00 Order name: O2 Per Protocol; Complete Time: 10: az2 10/17 10:00 Order name: O2 Sat Monitoring; Complete Time: : az2 10/17 10:00 Order name: Urine Dipstick-Ancillary (obtain specimen); Complete Time: 11:58 az2 10/17 10:00 Order name: CT Head Brain wo Cont; Complete Time: 11:42 az2 10/17 11:01 Order name: Glucose, Ancillary Testing EDKY 10/17 11:53 Order name: EKG Electrocardiogram EDKY 10/17 11:57 Order name: Urine Dipstick--Ancillary (enter results) bd Administered Medications: 10:20 Drug: NS 0.9% (30 ml/kg) 30 ml/kg {Note: abdomen G 22;.} Route: IV; Rate: bolus; Site: Other; 11:58 Follow up: IV Status: Completed infusion; IV Intake: 3700ml 11:30 Drug: Cefepime 1 grams Route: IVPB; Rate: 200 ml/hr; Infused Over: 30 mins; Site: Other; 11:56 Follow up: IV Status: Completed infusion hj 12:11 Follow up: IV Status: Completed infusion 12:11 Drug: vancoMYCIN 1 grams Route: IVPB; Infused Over: 2 hrs; Site: Other; 12:11 Follow up: IV Status: Infusion continued upon admission Point of Care Testing: Blood Glucose: 11:03 Blood Glucose: 209 mg/dL; Ranges: Critical Glucose Levels:Adult <50 mg/dl or >400 mg/dl <40 mg/dl or >180 mg/dl Disposition: 10/17/18 11:48 Hospitalization ordered by Demond Stone for Inpatient Admission. Preliminary diagnosis is Sepsis due to other Gram-negative organisms. - Bed requested for Telemetry/MedSurg (Inpatient). - Status is Inpatient Admission. - Condition is Guarded. - Problem is new. - Symptoms are unchanged. UTI on Admission? Yes Signatures: Dispatcher [employer] Ca Gore RN RN dw Smirch, Shelby, RN RN ss Joaquin, Henry, RN RN Felix Ugarte MD MD ma2 Corrections: (The following items were deleted from the chart) 13:57 11:48 Hospitalization Ordered by Demond Stone DO for Inpatient Admission. Preliminary diagnosis is Sepsis due to other Gram-negative organisms. Bed requested for Telemetry/MedSurg (Inpatient). Status is Inpatient Admission. Condition is Guarded. Problem is new. Symptoms are unchanged. UTI on Admission? Yes. ma2 14:39 13:57 10/17/2018 11:48 Hospitalization Ordered by Demond Stone DO for Inpatient hj Admission. Preliminary diagnosis is Sepsis due to other Gram-negative organisms. Bed requested for Telemetry/MedSurg (Inpatient). Status is Inpatient Admission. Condition is Guarded. Problem is new. Symptoms are unchanged. UTI on Admission? Yes. jossie
--- NOTE | 2018-10-17 11:49 | ER ---
Nurse's Notes [facility] Name: Jennifer Mariee Age: 73 yrs Sex: Female : 1945 Arrival Date: 10/17/2018 Time: 09:47 Bed 4 Private MD: Diagnosis: Sepsis due to other Gram-negative organisms Presentation: 10/17 09:48 Presenting complaint: L arm swelling that began last night, fever and altered mental ss status with hypotension and tachycardia that began this morning. Pt was at [facility]) for 1 month and after returning 3 days ago to [facility], had additional wounds were noted by nursing staff to R upper arm (where PICC line was previously in place), and sacrum as well as pena to her anterior chest. Pt is currently A\T\O x 3 on arrival to ED. [facility] nursing staff reports that she was A\T\O x1 this AM. Transition of care: [facility]. Onset of symptoms was October 15, 2018. Risk Assessment: Do you want to hurt yourself or someone else? Patient reports no desire to harm self or others. Initial Sepsis Screen: Does the patient meet any 2 criteria? Altered Mental Status. HR > 90 bpm. Does the patient have a suspected source of infection? Yes: Skin breakdown/wound. Care prior to arrival: BP 81/51 pulse 110. 09:48 Method Of Arrival: EMS: [facility] ss 09:48 Acuity: CHAZ 2 ss Triage Assessment: 09:59 Pain: Complains of pain in body wounds;. hj 09:59 Neuro: Level of Consciousness is awake, alert, obeys commands, Oriented to person, hj place, time, situation, Appropriate for age. 10:04 General: Appears in no apparent distress. uncomfortable, Behavior is calm, cooperative, hj appropriate for age. Historical: - Allergies: 09:59 Demerol; ss 09:59 FLU VACCINE; ss 09:59 PENICILLINS; ss 09:59 Sulfa (Sulfonamide Antibiotics); ss 09:59 TRIMETHOPRIM; ss - PMHx: 09:59 allergies; Cellulitis; COPD; DVT; Hypothyroidism; Gout; DYSPHAGIA; Hypertension; ss Gastrointestinal hemmorrhage; Diverticulitis; Myocardial infarction; Sepsis; Depression; Diabetes - NIDDM; Pneumonia; MRSA; GBR; spinal stenosis; ulcerative colitis; - Immunization history:: Adult Immunizations unknown. - Social history:: Smoking status: Patient/guardian denies using tobacco, Patient/guardian denies using alcohol, Patient/guardian denies using street drugs, The patient lives with family. - Ebola Screening: : Patient negative for fever greater than or equal to 101.5 degrees Fahrenheit, and additional compatible Ebola Virus Disease symptoms Patient denies exposure to infectious person Patient denies travel to an Ebola-affected area in the 21 days before illness onset. - Family history:: not pertinent. Screenin:48 Abuse screen: Denies threats or abuse. Denies injuries from another. Nutritional hj screening: No deficits noted. Tuberculosis screening: No symptoms or risk factors identified. Fall Risk Fall in past 12 months (25 points). Secondary diagnosis (15 points). Assessment: 09:59 General: Appears in no apparent distress. uncomfortable, obese, Behavior is calm, hj cooperative, appropriate for age. Pain: Complains of pain in body wounds. Neuro: Level of Consciousness is awake, alert, obeys commands, Oriented to person, place, time, situation, Appropriate for age. Cardiovascular: Capillary refill < 3 seconds Patient's skin is warm and dry. Rhythm is sinus tachycardia. Respiratory: Airway is patent Respiratory effort is even, unlabored, Respiratory pattern is regular, symmetrical. GI: Abdomen is non-distended, obese. : Reports pearce cath from alf. EENT: No signs and/or symptoms were reported regarding the EENT system. Derm: No signs and/or symptoms reported regarding the dermatologic system. Musculoskeletal: No signs and/or symptoms reported regarding the musculoskeletal system. 10:15 Reassessment: Patient and/or family updated on plan of care and expected duration. Pain hj level reassessed. Patient is alert, oriented x 3, equal unlabored respirations, skin warm/dry/pink. sent to CT;. 10:30 Reassessment: Patient and/or family updated on plan of care and expected duration. Pain hj level reassessed. Patient is alert, oriented x 3, equal unlabored respirations, skin warm/dry/pink. awaiting results and POC;. 11:55 Reassessment: Patient and/or family updated on plan of care and expected duration. Pain hj level reassessed. Patient is alert, oriented x 3, equal unlabored respirations, skin warm/dry/pink. for admit; awaiting room placement;. 13:00 Reassessment: Patient and/or family updated on plan of care and expected duration. Pain ss level reassessed. Patient is alert, oriented x 3, equal unlabored respirations, skin warm/dry/pink. awaiting room placement;. 14:23 Reassessment: Report called to MELISSA Wiley. pc1 14:25 Reassessment: Patient and/or family updated on plan of care and expected duration. Pain ss level reassessed. Patient is alert, oriented x 3, equal unlabored respirations, skin warm/dry/pink. to room 419;. Vital Signs: 09:50 Temp 99.7(O); em1 09:59 BP 90 / 52; Pulse 107; Resp 19; Temp 99.5(O); Pulse Ox 97% on 3 lpm NC; Weight 122.47 hj kg; Height 5 ft. 6 in. (167.64 cm); Pain 7/10; 10:10 BP 76 / 48; Pulse 107; Resp 20; Pulse Ox 100% on 2 lpm NC; hj 10:20 BP 84 / 61; Pulse 105; Resp 20; Pulse Ox 100% on 2 lpm NC; hj 10:25 BP 101 / 61; Pulse 105; Resp 18; Pulse Ox 100% on 2 lpm NC; hj 10:30 BP 87 / 69; Pulse 102; Resp 20; Pulse Ox 100% on 2 lpm NC; hj 10:45 BP 101 / 51; Pulse 102; Resp 18; Pulse Ox 100% on 2 lpm NC; hj 11:03 BP 120 / 62; Pulse 100; Resp 18; Pulse Ox 100% on 2 lpm NC; hj 11:30 BP 120 / 61; Pulse 95; Resp 18; Pulse Ox 100% on 2 lpm NC; hj 11:51 BP 131 / 74; Pulse 92; Resp 18; Pulse Ox 100% on 2 lpm NC; hj 12:15 BP 115 / 72; Pulse 92; Resp 18; Pulse Ox 100% on 2 lpm NC; ss 13:00 BP 115 / 55; Pulse 90; Resp 18; Pulse Ox 100% on 2 lpm NC; ss 14:26 BP 103 / 57; Pulse 83; Resp 18; Pulse Ox 100% on 2 lpm NC; ss 09:59 Body Mass Index 43.58 (122.47 kg, 167.64 cm) ED Course: 09:47 Patient arrived in ED. ss 09:49 Daryl Conteh, MELISSA is Primary Nurse. hj 09:56 Triage completed. ss 09:57 Felix Ugarte MD is Attending Physician. ma2 09:59 Arm band placed on right wrist. ss 09:59 Patient has correct armband on for positive identification. Placed in gown. Bed in low hj position. Call light in reach. Side rails up X2. 10:04 EKG done, by sql tech. reviewed by Felix Ugarte MD. at1 10:45 Inserted abdomen G 22 x 2;. hj 11:03 X-ray completed. Portable x-ray completed in exam room. Patient tolerated procedure jb2 well. 11:[address] via stretcher. pc1 11:07 Chest Single View XRAY In Process Unspecified. EDMS 11:13 CT Head Brain wo Cont In Process Unspecified. EDMS 11:19 Patient moved back from [address]. pc1 11:40 Second set of blood cultures drawn. ss 11:47 Demond Jean-Baptiste DO is Hospitalizing Provider. ma2 14:35 No provider procedures requiring assistance completed. Patient admitted, IV remains in hj place. intact. Administered Medications: 10:20 Drug: NS 0.9% (30 ml/kg) 30 ml/kg {Note: abdomen G 22;.} Route: IV; Rate: bolus; Site: Other; 11:58 Follow up: IV Status: Completed infusion; IV Intake: 3700ml hj 11:30 Drug: Cefepime 1 grams Route: IVPB; Rate: 200 ml/hr; Infused Over: 30 mins; Site: Other;hj 11:56 Follow up: IV Status: Completed infusion hj 12:11 Follow up: IV Status: Completed infusion hj 12:11 Drug: vancoMYCIN 1 grams Route: IVPB; Infused Over: 2 hrs; Site: Other; hj 12:11 Follow up: IV Status: Infusion continued upon admission Point of Care Testing: Blood Glucose: 11:03 Blood Glucose: 209 mg/dL; Ranges: Intake: 11:58 IV: 3700ml; Total: 3700ml. Outcome: 11:48 Decision to Hospitalize by Provider. ma2 14:36 Admitted to Tele accompanied by tech, via stretcher, room 419, Report called to yossi Arzate RN 14:36 Condition: stable 14:36 Instructed on the need for admit, Demonstrated understanding of instructions. 14:39 Patient left the ED. yossi Signatures: Dispatcher [employer] EDMS Chele Ross Eric em1 Belinda Perez RN RN Katrin Conrad, event sales manager EKG Tat1 Daryl Conteh RN RN hj Alzahri, Mohammad, MD MD mn2 [facility] Corrections: (The following items were deleted from the chart) 10:03 09:59 BP 90 / 52; Pulse 107bpm; Resp 19bpm; Pulse Ox 97% 3 lpm Nasal Cannula; Pain 02/22;
[2018-10-17 12:01] LABS: Urine Blood 3+ (NEG); Urine Glucose NEGATIVE (NEG); Urine Protein 3+ (NEG); Urine Specific Gravity 1.025 (1.005-1.030)
[2018-10-17 12:56] LABS: Urine Bacteria <20 /HPF (<20); Urine Culture Reflex Order NOT NEEDED; Urine Mucus 2+ /HPF (NONE SEEN)
[2018-10-17 12:57] LABS: Urine Yeast MANY (NONE SEEN)
--- NOTE | 2018-10-17 13:09 | P.HP ---
Certification for Inpatient Patient admitted to: Inpatient With expected LOS: >2 Midnights Patient will require the following post-hospital care: Other (back to [place]) Practitioner: I am a practitioner with admitting privileges, knowledge of patient current condition, hospital course, and medical plan of care. Services: Services provided to patient in accordance with Admission requirements found in Title 42 Section 412.3 of the Code of Federal Regulations Patient History Date of Service: 10/17/18 Primary Care Provider: MAYLIN patient Reason for admission: Fever, slight confusion History of Present Illness: 73-year-old female from the group home presented to the emergency room with slight confusion and fever. Patient reports feeling cold last night. This morning group home asked EMS to send the patient to the ER for further evaluation due to slight confusion and elevated heart rate/decreased blood pressure. In the ER patient was slightly if febrile. She was hypotensive with blood pressure of 90/50. Heart rate 107. Temperature was 99.7. Patient was given IV fluids in the emergency room. White count 10.2, pro calcitonin within normal range. Sodium 141, potassium 4.5, BUN 43, creatinine 1.7 with a GFR of 29. Glucose 187. CT head negative. Chest x-ray negative. Patient with chronic indwelling catheter. Urine was cloudy suspicious for UTI. Patient was admitted for treatment. Patient with chronic medical problems including recent history of toxic encephalopathy related to bacteremia, recurrent UTI with chronic catheter, and blood culture positive. She was sent to long-term acute care facility on September 21, 2018. Patient no longer on IV antibiotic therapy at this time. Patient had multiple organisms including E. coli in the blood, Proteus and Klebsiella in the urine culture, and wound culture positive for Pseudomonas which was resistant to meropenem. Other medical problems include chronic renal disease, stage III, CAD, COPD with chronic steroid use/home oxygen, chronic diastolic CHF, atrial fibrillation on chronic anticoagulations therapy, chronic pain, hypothyroidism, diabetes, rheumatoid arthritis and obesity. When I saw the patient in the ER, she did not appear septic or in any distress. She was appropriate and alert. Blood pressure stabilized within normal range along with heart rate. Allergies Penicillins Allergy (Mild, Verified 09/17/18 01:12) Rash sulfamethoxazole [From Bactrim] Allergy (Mild, Verified 09/17/18 01:12) Rash trimethoprim [From Bactrim] Allergy (Mild, Verified 09/17/18 01:12) Rash Sulfa (Sulfonamide Antibiotics) Allergy (Verified 09/17/18 01:12) Itching/Hives/Rash Flu vaccine Allergy (Severe, Uncoded 08/03/18 05:58) Guillan-[place]ushing Home medications list reviewed: Yes Home Medications: Alprazolam [Xanax] 0.25 mg PO DAILY PRN 09/17/18 Amlodipine Besylate 5 mg PO DAILY 09/17/18 Carvedilol [Coreg] 25 mg PO BID 09/17/18 Cyanocobalamin [Vitamin B-12] 1,000 mcg PO DAILY 09/17/18 Dextran 70/Hypromellose [Artificial Tears Drops] 1 drop OP BID 09/17/18 Docusate Sodium 100 mg PO BID 09/17/18 Douneb Solution 1 dose IH Q4H PRN 09/17/18 Duloxetine HCl 60 mg PO DAILY 09/17/18 Fentanyl [Duragesic] 1 each TD EVERY 3RD DAY 09/17/18 Ferrous Sulfate 325 mg PO DAILY 09/17/18 Furosemide [Lasix] 2 tab PO DAILY 09/17/18 Ludmila-Lanta Suspension 30 ml PO Q4HP PRN 09/17/18 Hydrocodone/Acetaminophen [[place] 10-325 Tablet] 1 each PO Q4H PRN 09/17/18 Insulin Aspart [Novolog] 0 unit SQ SEECOM 09/17/18 Insulin Detemir [Levemir] 25 units SQ BEDTIME 09/17/18 Insulin Detemir [Levemir] 25 units SQ DAILY 09/17/18 Lactobacillus Acidophilus/Fos [Acidophilus Probiotic Tablet] 1 each PO BID 09/17 Levothyroxine [Synthroid] 125 mcg PO [id number] 09/17/18 Loperamide [Imodium] 2 mg PO Q8H PRN 09/17/18 Multivitamin with Minerals [Multivitamins with Minerals] 1 each PO DAILY Nitroglycerin 0.4 mg SL SEECOM PRN 09/17/18 Nystatin Powder [Mycostatin (Powder)*] 1 appl TOP Q12H PRN 09/17/18 Oxybutynin Chloride [Ditropan Xl] 10 mg PO Q12H 09/17/18 Pantoprazole Sodium [Protonix] 40 mg PO DAILY 09/17/18 Polyethyl Gly 3350 [Glycolax] 17 gm PO DAILY 09/17/18 Potassium Chloride [Klor-Con M20] 2 tab PO DAILY 09/17/18 Pregabalin [Lyrica] 100 mg PO Q12H 09/17/18 Protein Supplement [Promod] 30 ml PO BID 09/17/18 Rivaroxaban [Xarelto] 10 mg PO DAILY 09/17/18 Spironolactone [Aldactone] 25 mg PO DAILY 09/17/18 Temazepam [Restoril] 30 mg PO BEDTIME PRN 09/17/18 metOLazone [Zaroxolyn] 2.5 mg PO SEECOM 09/17/18 predniSONE [Deltasone] 20 mg PO DAILY 09/17/18 - Past Medical/Surgical History Diabetic: Yes -: CAD -: Diastolic CHF -: Spinal Stenosis/chronic pain with neuropathy -: Hypertension -: Hypothyroidism -: COPD, chronic O2 and steroid dependent -: History of DVT -: A. Fib on chronic anticoagulation -: Chronic indwelling catheter -: Chronic renal disease, stage III -: Diabetes mellitus type 2, insulin-dependent -: Recurrent chronic UTI -: Cholecystectomy, 1989 -: Hysterectomy, 1964 -: gland removed from throat, -: cataract Surgery, 1999 -: Three heart stents (2 in 2011) -: Tonsillectomy -: Appendectomy Psychosocial/ Personal History: She lives at group home. - Family History Brother -: Heart disease, Hypertension Father -: Heart disease, Hypertension Notes: heart attack - Social History Smoking Status: Former smoker Alcohol use: No CD- Drugs: No Caffeine use: Yes Place of Residence: [place] Review of Systems General: Fever, Chills, Weakness, As per HPI Eyes: Unremarkable ENT: Unremarkable Respiratory: Unremarkable Cardiovascular: Unremarkable Gastrointestinal: Unremarkable Genitourinary: Unremarkable Musculoskeletal: Unremarkable Integumentary: Unremarkable Neurological: Unremarkable Lymphatics: Unremarkable Physical Examination - Physical Exam General: Alert, In no apparent distress, Oriented x3, Cooperative HEENT: Atraumatic, Normocephalic, PERRLA, Mucous membr. moist/pink Neck: Supple Respiratory: Clear to auscultation bilaterally, Normal air movement Cardiovascular: Normal pulses, Regular rate/rhythm Gastrointestinal: Normal bowel sounds, Soft and benign, Non-distended, No tenderness, No masses, No rebound, No guarding, Other (morbidly obese.) Musculoskeletal: No erythema, No tenderness, No warmth, Other (No significant edema to the lower extremities.) Integumentary: Other (Chronic wounds to the skin to the lower extremities) Neurological: Normal speech, Normal strength at 5/5 x4 extr, Normal tone, Normal affect - Studies Laboratory Data (last 24 hrs) 10/17/18 10:20: PT 26.3 H, INR 2.30, APTT 26.1 10/17/18 10:20: WBC 10.2, Hgb 12.4, Hct 37.8, Plt Count 221 10/17/18 10:20: Sodium 141, Potassium 4.5, BUN 43 H, Creatinine 1.71 H, Glucose 187 H, Total Bilirubin 0.7, AST 37, ALT 27, Alkaline Phosphatase 110, Lipase 35 L Assessment and Plan - Plan Impression: Altered mental status, fever secondary to toxic encephalopathy likely related to recurrent UTI with chronic catheter with sepsis complicated with prior history of bacteremia/recurrent UTI with chronic catheter/chronic wound with resistant bacteria to meropenem Acute on chronic renal failure stage 4 Diabetes mellitus type 2, insulin dependent Atrial fibrillation on chronic anticoagulation therapy COPD with chronic steroid use and home oxygen Chronic pain with history of spinal stenosis and neuropathy Hypothyroidism Chronic lymphedema Rheumatoid arthritis on chronic steroids Obesity Chronic wounds Plan: Altered mental status, fever secondary to toxic encephalopathy likely related to recurrent UTI with chronic catheter with sepsis complicated with prior history of bacteremia/recurrent UTI with chronic catheter/chronic wound with resistant bacteria to meropenem: Patient will be admitted. Sepsis protocol in place. Patient has received IV fluid bolus. Will continue with IV fluids. Will continue with vancomycin and cefepime IV. Will have pharmacy monitor and adjust. Will obtain blood, urine cultures. Will replace Fay catheter and send tip for culture. Will consult infectious disease to further evaluate. Will order PICC line as the patient has required long-term IV antibiotic therapy. Anticipate multiple resistance. Advanced directives address. Patient wishes to be DNR. Infectious disease recommended possible hospice on the last admission. She had been sent to a long-term care facility on her last admission. Will try to obtain previous long-term care facility information. Acute on chronic renal failure stage 4: Will continue IV fluids. Nephrology consulted to further assess. Diabetes mellitus type 2, insulin dependent: Will start basal insulin. Will continue a sliding scale and Accu-Cheks. Atrial fibrillation on chronic anticoagulation therapy: Restart Xarelto. Obtain and restart home meds. COPD with chronic steroid use and home oxygen: Continues to the medication and steroids. Will consult pulmonology to further evaluate. Will maintain sats above 90%. Respiratory to adjust oxygen. Chronic pain with history of spinal stenosis and neuropathy: Continue with fentanyl patch. Will provide [place] as needed for pain. Hypothyroidism: Will need to continue with home medication. Chronic lymphedema: Continue with diuretic therapy Chronic diastolic CHF: Continue with diuretic therapy. Will place on 1500 cc per day fluid restriction. Will need to monitor for edema and shortness of breath. Rheumatoid arthritis on chronic steroids: Restart steroids. Obesity: Will adjust lifestyle modification dictation. Chronic wounds: Will have Infectious Disease evaluate her wounds. Discharge Plan: [facility] Plan to discharge in: Greater than 2 days - Advance Directives Does patient have a Living Will: No Does patient have a Durable POA for Healthcare: No - Code Status/Comfort Care Code Status Assessed: Yes (Patient is DNR.) Time Spent Managing Pts Care (In Minutes): 55
[2018-10-17] MEDS ORDERED: NA CHLORIDE 0.9% 1,000 ML ONE (13:23)
--- NOTE | 2018-10-17 13:42 | EKG ---
Test Date: 2018-10-17 Test Time: 09:50:51 Baseball Winder: TRAVON MEASUREMENT RESULTS: Intervals: Rate: 105 MN: 162 QRSD: 128 QT: 372 QTc: 491 [place]: P: 8 MN: 162 QRS: -66 T: 65 INTERPRETIVE STATEMENTS: Sinus tachycardia Right bundle branch block Left axis Abnormal ECG Compared to ECG 09/16/2018 20:38:09 Sinus rhythm no longer present Electronically Signed On 10-17-18 13:38:39 MICRO PALEONTOLOGIST by Bereket Mccoy
[2018-10-17] MEDS ORDERED: GLUCAGON 1 MG/VIAL IM PRN (15:08)
[2018-10-17] MEDS ORDERED: ONDANSETRON 4 MG/2 ML VIAL IV PRN (15:08)
[2018-10-17] MEDS ORDERED: ACETAMINOPHEN 500 MG TAB PO PRN (15:08)
[2018-10-17] MEDS ORDERED: D50W 25 GM/50 ML SYRINGE IV PRN (15:08)
[2018-10-17] MEDS: NA CHLORIDE 0.9% 1,000 ML IV SCH (15:33)
[2018-10-17] MEDS ORDERED: VANCOMYCIN 2 GM in NA CHLORIDE 0.9% 500 ML IVPB ONE (16:00)
[2018-10-17 16:21] VITALS: BMI 43.5
[2018-10-17] MEDS: HYDROCODONE/APAP 7.5/325 MG TAB PO PRN ×2 (16:22→22:29)
[2018-10-17] MEDS: INSULIN -REGULAR HUMAN 50 UNIT/0.5 ML ML SQ SCH ×2 (16:30→20:10)
[2018-10-17 17:05] LABS: CKMB Creatine Kinase MB 1.5 ng/mL (0.3-3.6); Troponin I 0.04 ng/mL (0.0-0.045)
[2018-10-17] MEDS ORDERED: PNEUMOCOCCAL VACCINE 0.5 ML IMVAC ONE (19:00)
[2018-10-17] MEDS: INSULIN GLARGINE 100 UNITS/ML SQ SCH (20:08)
[2018-10-17] MEDS: NYSTATIN PWDR 100000 UNIT/GM TOP SCH (20:08)
[2018-10-17] MEDS: LACTOBACILLUS/ACIDOPHILUS TAB PO SCH (20:08)
[2018-10-17] MEDS: NEPRO SHAKE 237 ML CAN PO SCH (20:09)
[2018-10-17] MEDS: ARFORMOTEROL TARTRATE 15 MCG/2 ML VIAL.NEB NEB SCH (20:25)
[2018-10-17 23:57] LABS: Urine Appearance TURBID; Urine Blood 1+ (NEG); Urine Color DK YELLOW; Urine Glucose NEGATIVE (NEG); Urine Protein 2+ (NEG); Urine Specific Gravity 1.025 (1.005-1.030); Urine Urobilinogen 0.2 mg/dL (0.2-1.0)
[2018-10-18 00:07] LABS: Urine Bilirubin NEGATIVE (NEG); Urine Microscopic Reflex ORDER UMIC
[2018-10-18 00:13] LABS: CKMB Creatine Kinase MB 1.4 ng/mL (0.3-3.6); Troponin I 0.04 ng/mL (0.0-0.045)
[2018-10-18 00:31] LABS: Urine Amorphous Sediment 3+ /HPF (NONE SEEN); Urine Bacteria 20-50 /HPF (<20); Urine Culture Reflex Order NOT NEEDED; Urine RBC <5 /HPF (NONE SEEN)
[2018-10-18 00:32] LABS: Urine Yeast PRESENT (NONE SEEN)
[2018-10-18] MEDS: NA CHLORIDE 0.9% 1,000 ML IV SCH ×2 (01:08→09:28)
--- NOTE | 2018-10-18 04:45 | CON ---
Date of Consultation: 10/17/2018 Chief Complaint: Chronic kidney disease, history of acute kidney injury. History Of Present Illness: The patient is a 73-year-old female, longterm resident. She was brought to emergency room because of confusion and fever. She developed slight confusion, generalized weakness, and low-grade fever at the longterm. She was found to have elevated heart rate, decreased blood pressure. She was hypotensive with systolic blood pressure 90/ 50, heart rate 107, temperature 99.7. She was given IV fluids in the emergency room. White count was borderline elevated up to 100.2, calcitonin within normal limits. Electrolytes as follows; sodium 131, potassium 4.5, BUN 43, creatinine 1.7. Estimated GFR 29, corresponding with chronic kidney disease stage 4. CT scan of the head was checked for any evidence of acute changes, and it was negative. Chest x-ray did not show pneumonia. There was no evidence of decompensated congestive heart failure. The patient has multiple medical problems including history of stage 3 chronic kidney disease, coronary artery disease, COPD, chronic steroid use with oxygen, diastolic congestive heart failure, atrial fibrillation on anticoagulation therapy, chronic pain, and degenerative disk disease, osteoarthritis, rheumatoid arthritis, obesity, and hypothyroidism. Review of Systems: The patient is lethargic, cannot provide review of systems. Past Medical History: Coronary artery disease, hypertension, chronic kidney disease stage 3, hypertensive heart and kidney disease, spinal stenosis, chronic pain with neuropathy, hypertension, hypothyroidism, COPD with oxygen, steroid-dependence, history of DVT, atrial fibrillation, chronic anticoagulation , chronic indwelling Fay catheter, renal dysfunction, diabetes mellitus with renal manifestation, insulin-dependent, recurrent chronic urinary tract infection, hysterectomy in 1964, cholecystectomy in 1989, cataract surgery 1999 , stent for coronary artery disease in 2011, tonsillectomy, appendectomy. Family History: Brother with heart disease and hypertension. Father with heart disease and hypertension. Social History: Denies tobacco, alcohol, or illicit drugs. Physical Examination: General: The patient is awake. Follows commands. Eyes: Anicteric sclerae. EOMI. Ears, Nose, Mouth, and Throat: Oral mucosa moist. No pallor. Neck: Supple. No JVD. No bruits. Lungs: Few crackles at bases. Heart: S1, S2. RRR, no pericardial friction rub Abdomen: Soft, benign, nontender, obese. No CVA tenderness. Extremities: No clubbing, no cyanosis. Peripheral edema present. Neurologic: Normal affect. No tremor. Laboratory Data: INR 2.3, APTT 26.1, PT 26.3. WBC 10.2, hemoglobin 12.4, platelet count is 221,000. Creatinine 1.71, BUN 43, potassium 4.5, sodium 131, glucose 187, total bilirubin 0.7. Impression And Plan: 1. Altered mental status secondary to toxic encephalopathy, likely related to urinary tract infection. The patient has chronic indwelling Fay catheter with urosepsis. Continue broad-spectrum antibiotics for urosepsis coverage. CT scan did not show acute stroke. 2. Diabetes mellitus with renal manifestation. Monitor proteinuria. Monitor blood pressure. Adjust CLAUS inhibitor according to blood pressure and volume status. The patient will require volume resuscitation because of sepsis. The patient already received IV fluids. 3. The patient will continue vancomycin and cefepime. Monitor vancomycin toxicity panel, and adjust dose accordingly. 4. Rheumatoid arthritis, on steroids. 5. Obesity. Lifestyle modification, diet modification per primary team. 6. Atrial fibrillation, on chronic anticoagulation. Monitor medications, and the patient will start Xarelto per primary team. 7. Chronic kidney disease with prerenal azotemia. Monitor for any evidence of urinary tract infection. Continue antibiotics. ELTON/MISSY Voice ID: [id number] Report ID: [id number] GARRETT
[2018-10-18] MEDS: PANTOPRAZOLE 40MG TABLET PO SCH (05:36)
--- NOTE | 2018-10-18 05:46 | P.INFCA ---
Sepsis Focused Assessment - Sepsis Screen Result Severe Sepsis: Positive Septic Shock: Negative - Evaluation Current stage of sepsis: Severe sepsis - Vital Signs Reviewed: Yes Temperature: 97 F Heart rate: 86 Blood Pressure: 100/59 Respiratory Rate: 12 O2 Sat by Pulse Oximetry: 96 - Examination Date exam was performed: 10/18/18 Time exam was performed: 12:30 Heart: Regular rate/rhythm, Tachycardia Lungs: Diminished air movement, Distant breath sounds Peripheral pulses: 1+ Faint Capillary refill: <2 Seconds Skin examination: Normal turgor
[2018-10-18] MEDS: INSULIN -REGULAR HUMAN 50 UNIT/0.5 ML ML SQ SCH ×4 (07:30→20:26)
[2018-10-18] MEDS: IPRATROPIUM BROM 0.5MG/2.5ML NEB PRN ×3 (07:44→20:55)
[2018-10-18] MEDS: ARFORMOTEROL TARTRATE 15 MCG/2 ML VIAL.NEB NEB SCH ×2 (07:44→20:55)
[2018-10-18] MEDS: ALBUTEROL 2.5 MG/3 ML NEB SOL NEB PRN ×3 (07:44→20:55)
[2018-10-18 07:52] LABS: Absolute Lymphocytes (CBC) 2.3 K/uL (0.7-4.9); Absolute Neutrophil 3.5 K/uL (1.8-8.0); Eosinophils % 5.6 % (0-4.4); Hematocrit 35.8 % (36.0-45.0); Lymphocytes % 31.1 % (15.3-44.8); MPV 9.1 fL (7.6-11.3); Monocytes % 13.6 % (3.3-12.3); RBC Red Blood Cell Count 3.74 M/uL (3.86-4.86)
[2018-10-18 07:59] LABS: Magnesium 1.9 mg/dL (1.8-2.4); Potassium 4.2 mmol/L (3.5-5.1)
--- NOTE | 2018-10-18 08:43 | P.CNS ---
Date of Consult: 10/18/18 Primary Care Provider: MAYLIN patient Chief Complaint: Fever, slight confusion History of Present Illness: Patient is 73 years of age admitted from the group home with confusion and fever the currently complains of some congestion is poor recollection of events apparently she had an elevated heart rate low blood pressure slightly fever I will the recently discharged from an LTAC we day urosepsis diagnosis of encephalopathy history of multiple resistant organisms patient is on chronic steroids history of COPD former smoker Allergies Penicillins Allergy (Mild, Verified 09/17/18 01:12) Rash sulfamethoxazole [From Bactrim] Allergy (Mild, Verified 09/17/18 01:12) Rash trimethoprim [From Bactrim] Allergy (Mild, Verified 09/17/18 01:12) Rash Sulfa (Sulfonamide Antibiotics) Allergy (Verified 09/17/18 01:12) Itching/Hives/Rash Flu vaccine Allergy (Severe, Uncoded 08/03/18 05:58) Guillan-[place] Home Medications: Alprazolam [Xanax] 0.25 mg PO DAILY PRN 09/17/18 Carvedilol [Coreg] 12.5 mg PO BID 09/17/18 Cyanocobalamin [Vitamin B-12] 1,000 mcg PO DAILY 09/17/18 Fentanyl [Duragesic] 1 each TD EVERY 3RD DAY 09/17/18 Ferrous Sulfate 325 mg PO DAILY 09/17/18 Furosemide [Lasix] 2 tab PO DAILY 09/17/18 Ludmila-[place] Suspension 30 ml PO Q6HP PRN 09/17/18 Hydrocodone/Acetaminophen [[place] 10-325 Tablet] 1 each PO Q4H PRN 09/17/18 Insulin Aspart [Novolog] 0 unit SQ SEECOM 09/17/18 Insulin Detemir [Levemir] 25 units SQ BEDTIME 09/17/18 Insulin Detemir [Levemir] 25 units SQ DAILY 09/17/18 Lactobacillus Acidophilus/Fos [Acidophilus Probiotic Tablet] 1 each PO BID 09/17 Multivitamin with Minerals [Multivitamins with Minerals] 1 each PO DAILY Nitroglycerin 0.4 mg SL SEECOM PRN 09/17/18 Nystatin Powder [Mycostatin (Powder)*] 1 appl TOP Q12H PRN 09/17/18 Pantoprazole Sodium [Protonix] 40 mg PO DAILY 09/17/18 Polyethyl Gly 3350 [Glycolax] 17 gm PO DAILY 09/17/18 Pregabalin [Lyrica] 100 mg PO Q12H 09/17/18 Rivaroxaban [Xarelto] 10 mg PO DAILY 09/17/18 predniSONE [Deltasone] 5 mg PO DAILY 09/17/18 Acetaminophen [Tylenol 8 Hour] 650 mg PO Q6HP PRN 10/17/18 Guaifenesin/Dextromethorphan [[place]-Tussin Dm Syrup] 10 ml PO Q6HP PRN 10/17/18 Hypromellose [Pure & Gentle Eye Drops] 1 gtt EACH EYE Q12HP 10/17/18 Ipratropium/Albuterol Sulfate [Iprat-Albut 0.5-3(2.5) mg/3 ml] 3 ml IH Q4HP PRN 10/17/18 Nepro Shake [Nepro*] 237 ml PO DAILY 10/17/18 Sodium Chlor/Hypochlorous Acid [[place]ashe Wound Solution] 1 miriam TOP DAILY 10/17/18 - Past Medical/Surgical History Diabetic: Yes -: CAD, 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 Fib on chronic anticoagulation -: Chronic indwelling catheter -: Chronic renal disease, stage III -: Diabetes mellitus type 2, insulin-dependent -: Recurrent chronic UTI -: Cholecystectomy, 1989 -: Hysterectomy, 1964 -: gland removed from throat, -: cataract Surgery, 1999 -: Three heart stents (2 in 2011) -: Tonsillectomy -: Appendectomy Psychosocial/ Personal History: She lives at group home. - Family History Brother Medical History: Heart disease, Hypertension Father Medical History: Heart disease, Hypertension Notes: heart attack - Social History Smoking Status: Unknown if ever smoked Alcohol use: No CD- Drugs: No Caffeine use: Yes Place of Residence: [facility] Review of Systems General: Weakness Respiratory: Cough, Shortness of Breath Physical Examination Temp Pulse Resp BP Pulse Ox 97.2 F 91 H 16 109/57 L 93 10/18/18 08:00 10/18/18 08:00 10/18/18 08:00 10/18/18 08:00 10/18/18 08:00 General: Alert, In no apparent distress, Oriented x2 HEENT: Atraumatic Neck: Supple Respiratory: Expiratory wheezes Cardiovascular: Edema Gastrointestinal: Normal bowel sounds, Soft and benign, No tenderness Integumentary: Other (Patient has chronic skin tears lower extremities) Neurological: Other (Is paraplegic) Laboratory Data (last 24 hrs) 10/17/18 10:20: PT 26.3 H, INR 2.30, APTT 26.1 10/17/18 10:20: WBC 10.2, Hgb 12.4, Hct 37.8, Plt Count 221 10/17/18 10:20: Sodium 141, Potassium 4.5, BUN 43 H, Creatinine 1.71 H, Glucose 187 H, Total Bilirubin 0.7, AST 37, ALT 27, Alkaline Phosphatase 110, Lipase 35 L - Problems (1) COPD (chronic obstructive pulmonary disease) Current Visit: Yes Status: Acute Plan: 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 Patient is on chronic steroid treatment very cushingnoid history of COPD former smoker chronic urosepsis debilitated admitted with altered mental status patient is anti coagulated on Xarelto with check blood gases patient is high risk for obstructive sleep apnea she will need bronchodilators at home nebulized Perforomist or Brovana currently there is no evidence of sepsis with fever cultures are all negative recommend continuing with IV fluids Dc Lasix add stress doses of steroids urinalysis is nitrite negative doubt UTI chest x-ray is also clear Qualifiers: Emphysema type: unspecified
[2018-10-18] MEDS ORDERED: predniSONE 5 MG TAB PO SCH (09:00)
[2018-10-18] MEDS ORDERED: VANCOMYCIN 1 GM in NA CHLORIDE 0.9% 500 ML IVPB SCH (09:00)
[2018-10-18] MEDS ORDERED: CEFEPIME 1 GM/VIAL IV SCH (09:00)
[2018-10-18] MEDS ORDERED: FENTANYL 50 MCG/PATCH TD SCH (09:00)
[2018-10-18] MEDS ORDERED: FUROSEMIDE 20 MG/ 2ML VIAL IV SCH (09:00)
[2018-10-18] MEDS ORDERED: FUROSEMIDE 40 MG TABLET PO SCH (09:00)
[2018-10-18] MEDS: CEFEPIME/SWI 1gm 10 ML IV SCH (09:23)
[2018-10-18] MEDS: NYSTATIN PWDR 100000 UNIT/GM TOP SCH ×2 (09:23→20:27)
[2018-10-18] MEDS: LACTOBACILLUS/ACIDOPHILUS TAB PO SCH ×3 (09:24→20:27)
[2018-10-18] MEDS: METHYLPREDNISOLONE 40 MG INJ IV SCH ×2 (09:24→17:24)
[2018-10-18] MEDS: RIVAROXABAN 10 MG TABLET PO SCH (09:24)
[2018-10-18] MEDS: CYANOCOBALAMIN 1,000 MCG TAB PO SCH (09:24)
[2018-10-18] MEDS: HYDROCODONE/APAP 7.5/325 MG TAB PO PRN ×2 (09:25→19:42)
--- NOTE | 2018-10-18 09:52 | RAD REPORT ---
EXAM DESCRIPTION: [facility] Single View10/18/2018 9:07 am CLINICAL HISTORY: Chest pain COMPARISON: October 17, 2018 FINDINGS: The lungs appear clear of acute infiltrate. The heart is mildly to moderately enlarged IMPRESSION: No acute abnormalities displayed
[2018-10-18] MEDS: NEPRO SHAKE 237 ML CAN PO SCH ×2 (10:39→20:27)
[2018-10-18 10:56] LABS: Arterial Blood Carboxyhemoglob 1.8 % (0-1.5); Blood Gas Oxyhemoglobin 91.3 % (94-97); Blood O2 Saturation 93.6 % (92-98.5)
[2018-10-18] MEDS: ALBUMIN HUMAN 25% 12.5 GM, FUROSEMIDE 100 MG in NA CHLORIDE 0.9% 40 ML IV SCH ×2 (13:07→22:30)
--- NOTE | 2018-10-18 14:13 | RAD REPORT ---
EXAM DESCRIPTION: US - Renal Ultrasound-Complete - 10/18/2018 1:50 pm CLINICAL HISTORY: Acute renal insufficiency COMPARISON: September 2018 cat scan FINDINGS: The right kidney measures 9 cm with an increased echotexture. Cortical thinning The technologist was unable to adequately imaged the left kidney secondary to difficulty with positio vance. Hydronephrosis is not seen. Evaluation the bladder was suboptimal IMPRESSION: Increased right renal echotexture consistent with parenchymal disease. No hydronephrosis Limited evaluation of the left kidney
[2018-10-18 15:16] LABS: Urine Protein/Creatinine Ratio 0.45 ratio (<0.15)
--- NOTE | 2018-10-18 15:19 | P.PN ---
Subjective Date of Service: 10/18/18 Primary Care Provider: MAYLIN patient Chief Complaint: Fever, slight confusion Subjective: Other (Patient doing well today. No significant complaints noted.) Physical Examination - Vital Signs Temperature: 98 F Blood Pressure: 131/86 Pulse: 84 Respirations: 16 Pulse Ox (%): 94 - Physical Exam General: Alert, In no apparent distress, Oriented x3, Cooperative HEENT: Atraumatic Neck: Supple Respiratory: Clear to auscultation bilaterally, Normal air movement Cardiovascular: Normal pulses, Regular rate/rhythm Gastrointestinal: Normal bowel sounds, Soft and benign, Non-distended Integumentary: Tenderness/swelling (Pitting edema to the extremities bilateral) Neurological: Normal speech, Normal strength at 5/5 x4 extr, Normal tone - Studies Microbiology Data (last 24 hrs): 10/17/18 11:38 Blood - Blood Anaerobic Blood Culture - Final Medications List Reviewed: Yes Assessment & Plan Discharge Plan: [facility] Plan to discharge in: Greater than 2 days Physician Review Additional Text: Impression: Altered mental status, fever secondary to toxic encephalopathy likely related to recurrent UTI with chronic catheter with sepsis complicated with prior history of bacteremia/recurrent UTI with chronic catheter/chronic wound with resistant bacteria to meropenem Acute on chronic renal failure stage 4 Diabetes mellitus type 2, insulin dependent Atrial fibrillation on chronic anticoagulation therapy COPD with chronic steroid use and home oxygen Chronic pain with history of spinal stenosis and neuropathy Hypothyroidism Chronic lymphedema Rheumatoid arthritis on chronic steroids Obesity Chronic wounds Plan: Altered mental status, fever secondary to toxic encephalopathy likely related to recurrent UTI with chronic catheter with sepsis complicated with prior history of bacteremia/recurrent UTI with chronic catheter/chronic wound with resistant bacteria to meropenem: Patient continues on IV antibiotic therapy. Await culture results including urine catheter tip. Advanced directives address yesterday. Patient wishes to be DNR. Patient not a candidate for skilled placement or long-term acute care facility placement due to insurance purposes. Case discussed at length with granddaughter. Case also discuss with nephrology, pulmonology and infectious disease. If her condition continues to decline will need to think about hospice. This has been addressed in detail with infectious disease. This was discussed in detail with granddaughter. Await culture results. Continue current therapy. Adjustments in medications by pulmonology. Acute on chronic renal failure stage 4: Nephrology discontinued IV fluids. Patient now on Lasix due to edema. Diabetes mellitus type 2, insulin dependent: Will continue a sliding scale and Accu-Cheks. Atrial fibrillation on chronic anticoagulation therapy: Continue with Xarelto in medication COPD with chronic steroid use and home oxygen: Continues to the medication and steroids. Continue with pulmonology recommendation Chronic pain with history of spinal stenosis and neuropathy: Continue with fentanyl patch. Will provide Reading as needed for pain. Hypothyroidism: Will need to continue with home medication. Chronic lymphedema: Continue with diuretic therapy Chronic diastolic CHF: Continue with diuretic therapy. Will place on 1500 cc per day fluid restriction. Will need to monitor for edema and shortness of breath. Rheumatoid arthritis on chronic steroids: Patient on steroids Obesity: Will adjust lifestyle modification dictation. Chronic wounds: Will have Infectious Disease evaluate her wounds. Time Spent Managing Pts Care (In Minutes): 55
--- NOTE | 2018-10-18 16:31 | CON ---
Date of Consultation: 10/18/2018 Reason For Consultation: Anasarca, elevated BUN and creatinine, hypertension. History Of Present Illness: This is a pleasant 73-year-old female, well known to me from [facility] with significant past medical history of chronic kidney disease, recently admitted to the [facility]. Baseline creatinine upon discharge 1.4 with GFR of 47, anasarca, hypertension, Guillain-[place] syndrome, hyperlipidemia, COPD, the patient was recently admitted to the hospital, from there was tr matthew to [place]. At that time, she was diuresed, responding very well. The patient apparently came back to the hospital with anasarca, elevated BUN and creatinine. For that reason, we have been consulted. Physical Examination: Vital Signs: When I saw the patient, blood pressure 109/57, pulse of 91. The patient was started on IV fluid. Had urine output of 35. Chest: Decreased air entry at bilateral bases. Heart: S1, S2. Regular. Abdomen: Soft nontender. Extremities: +3 edema. Laboratory Data: WBC 7.3, H and H 12/35.8, platelets of 212. Sodium 140, potassium 4.2, bicarb 30, BUN 43, creatinine 1.5, GFR 32, calcium 7.8, magnesium 1.9. Current Medications: The patient on include cefepime, nystatin, vancomycin, fentanyl, pantoprazole, IV fluid, hydrocodone. Assessment And Plan: 1.Acute kidney injury secondary to cardiorenal, toxic ATN. I am going to discontinue IV fluid. We will get renal ultrasound, and we will start the patient on diuresis. 2.Anasarca secondary to renal failure. Will follow up. The patient will start diuresing. We will repeat protein and creatinine. 3.Urinary tract infection. The patient was started on antibiotic. 4.We will follow up vancomycin trough. 5.Chronic obstructive pulmonary disease exacerbation as by Pulmonary. JULIEN/MODL Voice ID: [id number] Report ID: [id number]
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
[2018-10-18] MEDS: INSULIN GLARGINE 100 UNITS/ML SQ SCH (20:26)
[2018-10-18 22:56] VITALS: O2SAT 97
[2018-10-19] MEDS: METHYLPREDNISOLONE 40 MG INJ IV SCH ×3 (00:53→17:36)
[2018-10-19] MEDS ORDERED: VANCOMYCIN 2 GM in NA CHLORIDE 0.9% 500 ML IVPB SCH ×2 (05:00→17:00)
[2018-10-19 05:07] LABS: Absolute Lymphocytes (CBC) 1.4 K/uL (0.7-4.9); Absolute Monocytes 0.2 K/uL (0.1-1.3); Absolute Neutrophil 3.8 K/uL (1.8-8.0); Basophils % 0.1 % (0-1.3); Hematocrit 33.1 % (36.0-45.0); Lymphocytes % 25.4 % (15.3-44.8); MPV 8.8 fL (7.6-11.3); Monocytes % 3.4 % (3.3-12.3); RBC Red Blood Cell Count 3.55 M/uL (3.86-4.86)
[2018-10-19 05:29] LABS: Albumin 1.9 g/dL (3.4-5.0); Phosphorus 3.2 mg/dL (2.5-4.9); Potassium 4.6 mmol/L (3.5-5.1); Thyroid Stimulating Hormone 0.761 uIU/mL (0.360-3.740)
[2018-10-19] MEDS: PANTOPRAZOLE 40MG TABLET PO SCH (06:06)
[2018-10-19] MEDS: ARFORMOTEROL TARTRATE 15 MCG/2 ML VIAL.NEB NEB SCH ×2 (08:00→20:00)
[2018-10-19] MEDS: IPRATROPIUM BROM 0.5MG/2.5ML NEB PRN (08:00)
[2018-10-19] MEDS: NYSTATIN PWDR 100000 UNIT/GM TOP SCH (09:00)
[2018-10-19] MEDS: CYANOCOBALAMIN 1,000 MCG TAB PO SCH (09:15)
[2018-10-19] MEDS: LACTOBACILLUS/ACIDOPHILUS TAB PO SCH ×3 (09:15→21:00)
[2018-10-19] MEDS: HYDROCODONE/APAP 7.5/325 MG TAB PO PRN ×2 (09:15→15:16)
[2018-10-19] MEDS: CEFEPIME/SWI 1gm 10 ML IV SCH (09:16)
[2018-10-19] MEDS: INSULIN -REGULAR HUMAN 50 UNIT/0.5 ML ML SQ SCH ×4 (09:16→21:00)
[2018-10-19] MEDS: ALBUMIN HUMAN 25% 12.5 GM, FUROSEMIDE 100 MG in NA CHLORIDE 0.9% 40 ML IV SCH ×2 (09:17→18:30)
[2018-10-19] MEDS: NEPRO SHAKE 237 ML CAN PO SCH ×2 (09:17→21:00)
[2018-10-19] MEDS: RIVAROXABAN 10 MG TABLET PO SCH (09:23)
[2018-10-19] MEDS ORDERED: ALPRAZOLAM 0.25 MG TABLET PO PRN (14:05)
[2018-10-19] MEDS ORDERED: NITROGLYCERIN 0.4 MG/TAB SL PRN (14:05)
[2018-10-19] MEDS ORDERED: HOME MED 1 EA UNK (Pregabalin [Lyrica] 100 MG) PO SCH (14:15)
[2018-10-19] MEDS ORDERED: HYPROMELLOSE EACH EYE SCH (14:15)
--- NOTE | 2018-10-19 15:52 | P.DS ---
Admission Date: 10/17/18 Discharge Date: 10/19/18 Primary Care Provider: MAYLIN patient Disposition: HOSPICE-MEDICAL FACILITY Discharge Condition: GOOD Reason for Admission: Fever, slight confusion Consultations: Pulmonary-Dr. Berg Nephrology-Dr. Goddard Infectious disease-Dr. Macias Procedures: Medical problem list: Altered mental status, fever secondary to toxic encephalopathy likely related to recurrent UTI with chronic catheter along with likely adrenal insufficiency complicated with prior history of bacteremia/recurrent UTI with chronic catheter /chronic wound with resistant bacteria to meropenem Acute on chronic renal failure stage 4 Diabetes mellitus type 2, insulin dependent Atrial fibrillation on chronic anticoagulation therapy COPD with chronic steroid use and home oxygen Chronic pain with history of spinal stenosis and neuropathy Hypothyroidism Chronic lymphedema Rheumatoid arthritis on chronic steroids Obesity Chronic wounds History of Guillain-Clinton Brief History of Present Illness: 73[facility] to [facility] room with slight confusion and fever. Patient reports feeling cold last night. This [facility] asked [facility] to send the patient to the ER for further evaluation due to slight confusion and elevated heart rate/decreased blood pressure. In the ER patient was slightly if febrile. She was hypotensive with blood pressure of 90/50. Heart rate 107. Temperature was 99.7. Patient was given IV fluids in the emergency room. White count 10.2, pro calcitonin within normal range. Sodium 141, potassium 4.5, BUN 43, creatinine 1.7 with a GFR of 29. Glucose 187. CT head negative. Chest x-ray negative. Patient with chronic indwelling catheter. Urine was cloudy suspicious for UTI. Patient was admitted for treatment. Patient with chronic medical problems including recent history of toxic encephalopathy related to bacteremia, recurrent UTI with chronic catheter, and blood culture positive. She was sent to long-term acute care facility on September 21, 2018. Patient no longer on IV antibiotic therapy at this time. Patient had multiple organisms including E. coli in the blood, Proteus and Klebsiella in the urine culture, and wound culture positive for Pseudomonas which was resistant to meropenem. Other medical problems include chronic renal disease, stage III, CAD, COPD with chronic steroid use/home oxygen, chronic diastolic CHF, atrial fibrillation on chronic anticoagulations therapy, chronic pain, hypothyroidism, diabetes, rheumatoid arthritis and obesity. When I saw the patient in the ER, she did not appear septic or in any distress. She was appropriate and alert. Blood pressure stabilized within normal range along with heart rate. Hospital Course: Patient presented with altered mental status, fever. Patient with complicated history. Patient recently hospitalized and sent to a long-term acute care facility due to prior bacteremia/recurrent UTI with chronic catheter/and chronic wound with resistant bacteria to meropenem. Patient was given IV fluids and started on antibiotic therapy. Patient seen and evaluated by nephrology, pulmonology and Infectious disease. So far pro calcitonin negative. Sepsis is not likely. Patient likely with adrenal insufficiency as the patient takes chronic steroids but was at a low dose prior to admission. Medications adjusted during her stay. Patient has been declining in health and has required multiple hospitalizations. Advanced directives address in detail. Patient wishes to be DNR. After long discussion with nephrology, pulmonology and Infectious Disease hospice was also discussed. After discussion with the patient and family, hospice was decided. Patient will return to hospice to continue comfort measures. Will discontinue IV antibiotic therapy at this time as blood cultures and urine cultures negative. [facility] Hospice to continue with comfort measures. Patient with chronic renal failure stage 4. This has remained stable. Patient did receive IV fluids but then placed on Lasix. She will [facility]. Patient with diabetes mellitus type 2, insulin dependent. Patient will continue with her insulin therapy. Patient with atrial fibrillation on chronic anti coagulation therapy. Patient will continue with her current medications. Patient with chronic COPD on chronic steroids and home oxygen. Patient will continue with her current COPD medication. She is to maintain sats above 90%. Prednisone has been increased to 10 mg daily. Patient with hypothyroidism. Patient continue with her medication. Patient with chronic diastolic CHF. Patient continue with her diuretic therapy. Patient with rheumatoid arthritis and with chronic pain. Patient will continue with her current pain medication including fentanyl patch and hydrocodone. Further adjustment in medication can be done by hospice as comfort measures will be continued. Patient with history of Guillain-Clinton with hospice recommendations. Patient may continue with current wound care. Vital Signs/Physical Exam: Temp Pulse Resp BP Pulse Ox 97.0 F 85 20 119/65 96 10/19/18 12:00 10/19/18 12:00 10/19/18 12:00 10/19/18 12:00 10/19/18 12:00 General: Alert, In no apparent distress, Oriented x3, Cooperative HEENT: Atraumatic Neck: Supple Respiratory: Clear to auscultation bilaterally, Normal air movement Cardiovascular: Normal pulses, Regular rate/rhythm Gastrointestinal: Normal bowel sounds, Soft and benign, Non-distended, No masses , No rebound, No guarding Musculoskeletal: No tenderness, No warmth Integumentary: Tenderness/swelling (Edema to the lower extremities noted) Neurological: Normal speech, Normal strength at 5/5 x4 extr, Normal tone, Normal affect Laboratory Data at Discharge: WBC 5.3 K/uL (4.3-10.9) D 10/19/18 04:37 Hgb 11.2 g/dL (12.0-15.0) L 10/19/18 04:37 Hct 33.1 % (36.0-45.0) L 10/19/18 04:37 Plt Count 215 K/uL (152-406) 10/19/18 04:37 PT 26.3 SECONDS (9.5-12.5) H 10/17/18 10:20 INR 2.30 10/17/18 10:20 APTT 26.1 SECONDS (24.3-36.9) 10/17/18 10:20 Sodium 138 mmol/L (136-145) 10/19/18 04:37 Potassium 4.6 mmol/L (3.5-5.1) 10/19/18 04:37 BUN 51 mg/dL (7-18) H 10/19/18 04:37 Creatinine 1.69 mg/dL (0.55-1.3) H 10/19/18 04:37 Glucose 369 mg/dL (74-106) H 10/19/18 04:37 Phosphorus 3.2 mg/dL (2.5-4.9) 10/19/18 04:37 Magnesium 2.0 mg/dL (1.8-2.4) 10/19/18 04:37 Total Bilirubin 0.7 mg/dL (0.2-1.0) 10/17/18 10:20 AST 37 U/L (15-37) 10/17/18 10:20 ALT 27 U/L (12-78) 10/17/18 10:20 Alkaline Phosphatase 110 U/L (45-117) 10/17/18 10:20 Troponin I 0.04 ng/mL (0.0-0.045) 10/17/18 23:10 Lipase 35 U/L (73-393) L 10/17/18 10:20 Home Medications: Alprazolam [Xanax] 0.25 mg PO DAILY PRN 09/17/18 Carvedilol [Coreg] 12.5 mg PO BID 09/17/18 Cyanocobalamin [Vitamin B-12*] 1,000 mcg PO DAILY 09/17/18 Fentanyl [Duragesic] 1 each TD EVERY 3RD DAY 09/17/18 Ferrous Sulfate 325 mg PO DAILY 09/17/18 Furosemide [Lasix] 2 tab PO DAILY 09/17/18 Ludmila-Lanta Suspension 30 ml PO Q6HP PRN 09/17/18 Hydrocodone/Acetaminophen [[place]hu 10-325 Tablet] 1 each PO Q4H PRN 09/17/18 Insulin Aspart [Novolog] 0 unit SQ SEECOM 09/17/18 Insulin Detemir [Levemir] 25 units SQ BEDTIME 09/17/18 Insulin Detemir [Levemir] 25 units SQ DAILY 09/17/18 Lactobacillus Acidophilus/Fos [Acidophilus Probiotic Tablet] 1 each PO BID 09/17 Multivitamin with Minerals [Multivitamins with Minerals] 1 each PO DAILY Nitroglycerin 0.4 mg SL SEECOM PRN 09/17/18 Nystatin Powder [Mycostatin (Powder)*] 1 appl TOP Q12H PRN 09/17/18 Pantoprazole Sodium [Protonix] 40 mg PO DAILY 09/17/18 Polyethyl Gly 3350 [Glycolax*] 17 gm PO DAILY 09/17/18 Pregabalin [Lyrica] 100 mg PO Q12H 09/17/18 Rivaroxaban [Xarelto*] 10 mg PO DAILY 09/17/18 Acetaminophen [Tylenol 8 Hour] 650 mg PO Q6HP PRN 10/17/18 Guaifenesin/Dextromethorphan [Ludmila-Tussin Dm Syrup] 10 ml PO Q6HP PRN 10/17/18 Hypromellose [Pure & Gentle Eye Drops] 1 gtt EACH EYE Q12HP 10/17/18 Ipratropium/Albuterol Sulfate [Iprat-Albut 0.5-3(2.5) mg/3 ml] 3 ml IH Q4HP PRN 10/17/18 Nepro Shake [Nepro*] 237 ml PO DAILY 10/17/18 Sodium Chlor/Hypochlorous Acid [Vashe Wound Solution] 1 miriam TOP DAILY 10/17/18 Arformoterol Tartrate [Brovana] 15 mcg NEB BIDRESP #60 vial.neb 10/19/18 predniSONE [Deltasone*] 10 mg PO DAILY #30 tab 10/19/18 New Medications: Arformoterol Tartrate [Brovana] 15 mcg NEB BIDRESP #60 vial.neb predniSONE [Deltasone*] 10 mg PO DAILY #30 tab Patient Discharge Instructions: 1. [facility]. 2. Continue with current medications. Patient with COPD. Patient to continue with Brovana 1 unit dose twice daily and albuterol/Atrovent 1 unit dose 3 times a day as needed for shortness of breath. Patient with chronic steroids and oxygen. Patient will continue with prednisone 10 mg daily. She is to maintain sats above 90%. 3. Hospice to review medication and further address. Diet: ADA Activity: Fall precautions Time spent managing pt's care (in minutes): 55
--- NOTE | 2018-10-19 16:02 | PN ---
Date of Progress Note: 10/19/2018 Subjective: The patient was admitted with acute kidney injury, anasarca. Physical Examination: Vital Signs: When I saw the patient blood pressure 118/76, pulse of 85. Chest: Decreased entry bilateral base. Heart: S1 and S2, regular. Abdomen: Soft and nontender. Extremities: +3 edema. Laboratory Data: H and H 11.2/33.1. Sodium 138, potassium 4.6, bicarb 31, BUN 51, creatinine 1.6, G FR of 30, calcium 8.3, phosphorus 3.2, magnesium of 2. Current Medications: The patient on its includes Lasix drip at 10 mg, cefepime, vancomycin, Xarelto, fentanyl, breathing treatment, pantoprazole, hydrocodone. Assessment And Plan: 1.Acute kidney injury secondary to cardiorenal with anasarca. Continue Lasix drip. Apparently, pat mazin decided to go with comfort care hospice. We will sign off, follow up as needed. 2.Hypertension. Continue current medication. Follow up as needed. 3.Anasarca as above. Again, we will sign off for the time being as the patient is going to [facility]. Follow up as needed. TORIN Voice ID: [id number] Report ID: [id number]
--- NOTE | 2018-10-19 16:47 | PN ---
Subjective: The patient is lying in bed. No new acute event. The patient is possible planning to g o to hospice, which she is a little depressed about. No other concerns at this time. Objective: Vital Signs: Temperature 97, pulse 85, respirations 18, and blood pressure 118/76. Lungs: Basal crackles. Heart: S1 and S2, regular. Abdomen: Soft, nontender. Bowel sounds present. Extremities: 2+ edema. Wounds noted. Laboratory Data: WBC 5.3, hemoglobin 11.2, and platelets are 215. Chemistry shows sodium 138, potas sium 4.6, chloride 102, bicarb 31, BUN 51, creatinine 1.69, and glucose 369. Micro data; blood cultu res negative. Urine cultures are growing 10,000 to 100,000 yeast. Medications: Include home medications. Assessment And Plan: Urinary tract infection and sepsis. I agree with hospice. The patient to be t ransferred to hospice care. We will follow the patient closely. Continue supportive care. NF/MODL Voice ID: [id number] Report ID: [id number]
[2018-10-19] MEDS ORDERED: INSULIN -REGULAR HUMAN 50 UNIT/0.5 ML ML SQ ONE (17:45)
[2018-10-19] MEDS: INSULIN GLARGINE 100 UNITS/ML SQ SCH ×2 (18:34→21:00)
[2018-10-19] MEDS ORDERED: LACTOBACILLUS/ACIDOPHILUS TAB PO SCH (21:00)
[2018-10-19] MEDS ORDERED: LACTOBACILLUS ACIDOPHILUS PO SCH (21:00)
[2018-10-19] MEDS ORDERED: PREGABALIN 50 MG CAP PO SCH (21:00)
[2018-10-19] MEDS ORDERED: FOS PO SCH (21:00)
[2018-10-19] MEDS ORDERED: CARVEDILOL 12.5 MG TAB PO SCH (21:00)
[2018-10-19 21:24] VITALS: BP 118/68; TEMP 97.1
[2018-10-20] MEDS ORDERED: FERROUS SULFATE 325 MG TAB PO SCH (09:00)
[2018-10-20] MEDS ORDERED: HYPOCHLOROUS ACID TOP SCH (09:00)
[2018-10-20] MEDS ORDERED: MULTIVIT W/ MINERAL TAB PO SCH (09:00)
[2018-10-20] MEDS ORDERED: SODIUM CHLORIDE TOP SCH (09:00)
[2018-10-20] MEDS ORDERED: MULTIVITAMIN WITH MINERALS PO SCH (09:00)
== END 2018-10-19 20:50 | disposition hospice, inpatient (51) | DRG 698 ==
LOC: ER 09:45 → ERHOLD 12:38 → 4TH 14:23
PROVIDERS: ADMIT Family Medicine; ATTEND Family Medicine
DX: T83.511A Infection and inflammatory reaction due to indwelling urethral catheter, initial encounter (principal); G92 Toxic encephalopathy; N17.0 Acute kidney failure with tubular necrosis; G61.0 Guillain-Barre syndrome; N18.4 Chronic kidney disease, stage 4 (severe); N17.9 Acute kidney failure, unspecified; I13.0 Hypertensive heart and chronic kidney disease with heart failure and stage 1 through stage 4 chronic kidney disease, or unspecified chronic kidney disease; I50.32 Chronic diastolic (congestive) heart failure; J44.1 Chronic obstructive pulmonary disease with (acute) exacerbation; E27.40 Unspecified adrenocortical insufficiency; Z68.41 Body mass index [BMI] 40.0-44.9, adult; Y84.6 Urinary catheterization as the cause of abnormal reaction of the patient, or of later complication, without mention of misadventure at the time of the procedure; Y92.89 Other specified places as the place of occurrence of the external cause; N39.0 Urinary tract infection, site not specified; Z51.5 Encounter for palliative care; Z66 Do not resuscitate; I48.91 Unspecified atrial fibrillation; Z79.01 Long term (current) use of anticoagulants; Z79.51 Long term (current) use of inhaled steroids; Z79.52 Long term (current) use of systemic steroids; Z99.81 Dependence on supplemental oxygen; E03.9 Hypothyroidism, unspecified; I89.0 Lymphedema, not elsewhere classified; M06.9 Rheumatoid arthritis, unspecified; E11.22 Type 2 diabetes mellitus with diabetic chronic kidney disease; I95.9 Hypotension, unspecified; Z88.0 Allergy status to penicillin; Z88.2 Allergy status to sulfonamides; Z88.7 Allergy status to serum and vaccine; Z88.8 Allergy status to other drugs, medicaments and biological substances; Z87.891 Personal history of nicotine dependence; G89.29 Other chronic pain; M19.90 Unspecified osteoarthritis, unspecified site; E66.9 Obesity, unspecified; E11.40 Type 2 diabetes mellitus with diabetic neuropathy, unspecified; Z79.4 Long term (current) use of insulin; R60.1 Generalized edema; S20.302D Unspecified superficial injuries of left front wall of thorax, subsequent encounter; S20.30 Unspecified superficial injuries of front wall of thorax; S40.921D Unspecified superficial injury of right upper arm, subsequent encounter; S80.921D Unspecified superficial injury of right lower leg, subsequent encounter; X58.XXXD Exposure to other specified factors, subsequent encounter
CPT/HCPCS: 36415; 70450; 71045; 76770; 80048; 80069; 80076; 80202; 81003; 81015; 82550; 82553; 82570; 82805; 82947; 82962; 83605; 83690; 83735; 84145; 84156; 84443; 84484; 85025; 85610; 85730; 87040; 87070; 87077; 87086; 87088; 87186; 93005; 94640; 94760; 96365; 96375; 99285; J0692; J1940; J2920; J3370; J7030; J7605; P9047